=== PATIENT | male | born 1955 | race Caucasian/White ===

== ENCOUNTER 2016-06-16 13:47 | Inpatient (IN) | payer MEDICARE ==
[~2016-06-16] VITALS: Ht 177.8 cm; Wt 99.4 kg
[~2016-06-16 13:47] MED LIST: /BACIOPOI TOP; /TIOT18INH INH; AMBI10TA PEG; ASPI81TA63 PO; BISA10SU2 PR; CAPT12.5 OR; CAPT12.5 PO; DUONSOL IN; FISH1000 PO; FURO20TA2 PO; KEFL500C OR; LANO0.1211 PO; MAGN500T2 PO; PRED10TA2 OR; PREV30TA PEG; SPIR25TA2 PO; ST JOHNS WART PEG; VIT D 2000 OR; VITA500C PO; VITAMIN D PO; co; codeine PO
--- NOTE | 2016-06-16 15:24 | REP ---
CHEST, ONE VIEW: HISTORY: Cough. COMPARISON: 07/15/2013 There is elevation of the right hemidiaphragm. An increase in interstitial markings is present in the lungs consistent with chronic interstitial fibrosis. The cardiac silhouette is enlarged. The pulmonary vasculature is normal in appearance. IMPRESSION: 1. Chronic interstitial fibrosis. 2. Cardiomegaly. Signed by Haseeb Howard MD 06/16/2016 03:49 P
[2016-06-16 15:51] LABS: ANION GAP 7 MEQ/L (8-16); BLOOD UREA NITROGEN 21 MG/DL (7-18); CALCIUM LEVEL 9.7 MG/DL (8.5-10.1); CARBON DIOXIDE LEVEL 28 MEQ/L (21-32); CHLORIDE LEVEL 102 MEQ/L (98-107); CREATININE FOR GFR 1.28 MG/DL (0.70-1.30); GLOMERULAR FILTRATION RATE > 60.0 (>56); GLUCOSE, FASTING 188 MG/DL (70-105); SODIUM LEVEL 137 MEQ/L (136-145)
[2016-06-16 16:03] LABS: MEAN CORPUSCULAR HEMOGLOBIN 17.2 pg (27.0-33.0); MEAN CORPUSCULAR HGB CONC 27.9 g/dl (32.0-36.5); MEAN CORPUSCULAR VOLUME 61.6 fl (80.0-96.0); PLATELET COUNT, AUTOMATED 270 k/mm3 (150-450); RED CELL DISTRIBUTION WIDTH 20.6 % (11.5-14.5); WHITE BLOOD COUNT 13.1 K/mm3 (4.0-10.0)
[2016-06-16 16:40] LABS: NUCLEATED RED BLOOD CELL 1 % (0-0)
[2016-06-16 16:44] LABS: MICROCYTOSIS 4+
[2016-06-16 16:45] LABS: HYPOCHROMASIA 2+; POLYCHROMASIA 1+
[2016-06-16 16:46] LABS: ANISOCYTOSIS 3+
[2016-06-16] MEDS ORDERED: FUROSEMIDE 40 MG/4 ML VIAL (J1940) As Ordered ONE (16:53)
[2016-06-16] MEDS ORDERED: PLAV75TA38 PO (19:17)
[2016-06-16] MEDS ORDERED: TRAM50TA2 PO (19:17)
[2016-06-16] MEDS ORDERED: ROPI2TAB PO (19:17)
[2016-06-16] MEDS ORDERED: BISO5TAB5 PO (19:17)
[2016-06-16] MEDS ORDERED: METF1000 PO ×2 (19:17)
[2016-06-16] MEDS ORDERED: AMIT50TA PO (19:17)
[2016-06-16] MEDS ORDERED: GLIP10TA6 PO (19:17)
[2016-06-16] MEDS ORDERED: LISI-542 PO (19:17)
[2016-06-16] MEDS ORDERED: VITMTA PO (19:17)
[2016-06-16] MEDS ORDERED: LEVO175T2 PO (19:17)
[2016-06-16] MEDS ORDERED: MAGN500T14 PO (19:17)
[2016-06-16] MEDS ORDERED: OMEP20CA3 PO (19:17)
[2016-06-16] MEDS ORDERED: ASPI1TAB PO (19:17)
[2016-06-16] MEDS ORDERED: FLOM5CAP PO (19:17)
[2016-06-16] MEDS ORDERED: GABA600T PO (19:17)
[2016-06-16] MEDS ORDERED: ATOR1TAB19 PO (19:17)
[2016-06-16] MEDS ORDERED: ASCO500T PO (19:17)
[2016-06-16] MEDS ORDERED: LASI40TA PO (19:17)
[2016-06-16] MEDS ORDERED: FISH5CAP PO (19:17)
[2016-06-16] MEDS ORDERED: NS 1,000 ML IV SCH (19:56)
[2016-06-16] MEDS ORDERED: ONDANSETRON 4MG/2ML VIAL (J2405) IV PRN (20:00)
[2016-06-16] MEDS ORDERED: traMADol 50 MG TAB PO PRN (20:15)
[2016-06-16] MEDS ORDERED: GLUCAGON FOR INJ 1 MG VIAL (J1610) SC PRN (20:15)
[2016-06-16] MEDS ORDERED: DEXTROSE 50% 50 ML SYRINGE IV PRN (20:15)
[2016-06-16] MEDS ORDERED: GLUCOSE 4 GM CHEW TABLET PO PRN (20:15)
--- NOTE | 2016-06-16 20:49 | HPEPDOC ---
General Date of Admission Jun 16, 2016 at 19:56 Primary Care Physician: Emanuel Ruiz MD Chief Complaint The patient is a 60-year-old male admitted with a reason for visit of Pneumonia. 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 An EKG done at the office also revealed ST depressions in the lateral leads. The patient was subsequently sent to the ER for further evaluation and management. At this time, the patient states that he has been having persistent cough productive of greenish sputum over the last 7-10 days. In addition, he does note that he does feel short of breath following the cough. He denies any sick contacts. He also denies any increase in leg swelling and notes that he has not taking any diuretic pills in over a year. He also denies any orthopnea, PND, chest pain, palpitations, abdominal pain, or any nausea/vomiting. In the ER, the patient was noted to have a mildly elevated troponin at 0.21, and ST depressions noted in the lateral leads. Cardiology was contacted by the ER physician, and it is believed that the patient's EKG changes are secondary to his underlying fever. A chest x-ray was done which did not reveal any acute findings. The patient will be admitted to the [facility] physician group for further evaluation and management. Home Medications Scheduled (Fish Oil 1200 mg) 1 Cap Cap 1 CAP PO DAILY (Reported) Amitriptyline HCl (Amitriptyline HCl) 50 Mg Tab 50 MG PO QHS (Reported) SEE COMMENTS Ascorbic Acid (Ascorbic Acid) 500 Mg Tab 500 MG PO BID (Reported) Aspirin (Aspirin 81) 81 Mg Tab 81 MG PO DAILY (Reported) Atorvastatin Calcium (Atorvastatin Calcium) 10 Mg Tab 10 MG PO QHS (Reported) Bisoprolol Fumarate (Bisoprolol Fumarate) 5 Mg Tab 5 MG PO QHS (Reported) Clopidogrel Bisulfate (Plavix) 75 Mg Tab 75 MG PO QPM (Reported) Gabapentin (Gabapentin) 600 Mg Tab 600 MG PO TID (Reported) Glipizide (Glipizide) 10 Mg Tab 10 MG PO BID (Reported) Levothyroxine Sodium (Synthroid) 175 Mcg Tab 175 MCG PO QAM (Reported) Lisinopril (Lisinopril) 5 Mg Tab 5 MG PO QHS (Reported) Magnesium Oxide (Magnesium Oxide) 500 Mg Tab 500 MG PO BID (Reported) Metformin Hydrochloride (Metformin HCl) 1,000 Mg Tab 1,500 MG PO QAM (Reported ) Metformin Hydrochloride (Metformin HCl) 1,000 Mg Tab 1,000 MG PO QPM (Reported ) Multivitamins *[facility] STOCKED* (Thera M Plus *[facility] STOCKED*) 1 Tab Tab 1 TAB PO DAILY (Reported) Omeprazole (Omeprazole) 20 Mg Cap 20 MG PO DAILY (Reported) Ropinirole Hydrochloride (Ropinirole HCl) 2 Mg Tab 2 MG PO QHS (Reported) Tamsulosin Hydrochloride (Flomax) 0.4 Mg Cap 1 CAP PO DAILY (Reported) SEE COMMENTS Scheduled PRN Furosemide (Lasix) 40 Mg Tab 40 MG PO BID PRN PRN EDEMA (Reported) Tramadol HCl (Tramadol HCl) 50 Mg Tab 50 MG PO Q6H PRN PRN PAIN (Reported) Allergies Coded Allergies: No Known Drug Allergy (Verified Allergy, Unknown, 08/06/12) Shellfish Allergy (Unverified Allergy, Unknown, 06/16/16) Shrimp (Verified Allergy, Unknown, 06/19/07) Past Medical History Medical History As noted in HPI. Surgical History LARYNGECTOMY AT [facility]--SCCA EPIGLOTTIS 2010 AVR--BIPOROSTHETIC VALVE 2012 BILAT FEMORAL ARTERY STENTS 02/16 SIGNIFICANT STENOSIS LEFT PROXIMAL SFA WITH PTCA WITH JAMAL PROXIMAL END AND PTCA TO DISTAL END 01/2014 COLONOSCOPY--NORMAL 07/20 LEFT FEMORAL-POPLITEAL BYPASS WITH REVERSE VEIN GRAFT, POST OP WOUND INFECTION (E COLI AND PSEUDOMONAS) 03/2015 RIGHT UPPER LOBE LOBECTOMY 2007 Family History Significant Family History: No pertinent family hx Social History * Smoker: former Smoker Alcohol: occationally Drugs: denies Review of Symptoms Other systems 10 point review systems negative as otherwise specified in HPI. Physical Examination General Exam: Positive: Alert, Cooperative, No Acute Distress ENT Exam: Positive: Atraumatic, Mucous membr. moist/pink Neck Exam: Positive: Other (tracheostomy opening noted) Chest Exam: Positive: Clear to auscultation, Diminished, Negative: Rales, Wheezing Heart Exam: Positive: Normal S1, Normal S2, Regular Rhythm, Tachycardic Telemetry: Positive: Sinus Abdomen Exam: Positive: Soft, Negative: Tenderness Extremity Exam: Negative: Swelling, Tenderness Laboratory Data Labs 24H Laboratory Tests 2 06/16/16 14:52: Urine Amorphous Sediment , Urine Appearance CLEAR, Urine Color YELLOW, Urine pH 7.0, Urine Specific [place] 1.008, Urine Protein NEGATIVE, Urine Glucose (UA) 2+ H, Urine Ketones NEGATIVE, Urine Urobilinogen 0.2, Urine Bilirubin NEGATIVE, Urine Leukocyte Esterase NEGATIVE, Urine Bacteria (Auto) 1+H, Urine Blood NEGATIVE, Urine Calcium Carbonate Cryst(Auto) , Urine Calcium Oxalate Cryst ( Auto) , Urine Calcium Phosphate [place] (Auto) , Urine Cellular Casts , Urine Cystine Crystals , Urine Granular Casts (Auto) , Urine Hyaline Casts (Auto) 0, Urine Leucine Crystals , Urine Mucus (Auto) , Urine Nitrite NEGATIVE, Urine Oval Fat Bodies (Auto) , Urine RBC (Auto) 1, Urine Renal Epithelial Cells , Urine Sperm (Auto) , Urine Squamous Epithelial Cells 0, Urine Transitional Epithelial Cells , Urine Trichomonas (Auto) , Urine Triple Phosphate Cryst (Auto ) , Urine Tyrosine Crystals , Urine Uric Acid Crystals (Auto) , Urine WBC (Auto ) 0, Urine Waxy Casts (Auto) , Urine Yeast-Like Cells (Auto) 06/16/16 14:58: Anion Gap 7L, Anisocytosis 3+, Atypical Lymphocytes 1, B-Type Natriuretic Peptide 1200H, White Blood Count 13.1H, Red Blood Count 5.75, Hemoglobin 9.9L, Hematocrit 35.5L, Mean Corpuscular Volume 61.6L, Mean Corpuscular Hemoglobin 17.2L, Mean Corpuscular Hemoglobin Concent 27.9L, Red Cell Distribution Width 20.6H, Platelet Count 270, Neutrophils (%) (Auto) , Lymphocytes (%) (Auto) , Monocytes (%) (Auto) , Eosinophils (%) (Auto) , Basophils (%) (Auto) , Neutrophils # (Auto) , Lymphocytes # (Auto) , Monocytes # (Auto) , Eosinophils # (Auto) , Basophils # (Auto) , Blood Urea Nitrogen 21H, Creatinine 1.28, Sodium Level 137, Potassium Level 5.0, Chloride Level 102, Carbon Dioxide Level 28, Calcium Level 9.7, Total Creatine Kinase 124, Creatine Kinase MB 3.3, Creatine Kinase MB Relative Index 2.66, Glomerular Filtration Rate > 60.0, Hypochromasia 2+, Large Unclassified Cells # , Large Unclassified Cells % , Lymphocytes (Manual) 6L, Microcytosis 4+, Monocytes (Manual) 9H, Neutrophils 84H , Nucleated Red Blood Cells 1H, Platelet Estimate NORMAL, Polychromasia 1+, Troponin I 0.21H 06/16/16 16:00: Lactic Acid (Sepsis) 2.4*H 06/16/16 20:29: CBC/BMP Laboratory Tests 06/16/16 14:58 Calcium Level 9.7, Total Creatine Kinase 124, Red Blood Count 5.75, Mean Corpuscular Volume 61.6 L, Mean Corpuscular Hemoglobin 17.2 L, Mean Corpuscular Hemoglobin Concent 27.9 L, Red Cell Distribution Width 20.6 H, Neutrophils (%) ( Auto) , Lymphocytes (%) (Auto) , Monocytes (%) (Auto) , Eosinophils (%) (Auto) , Basophils (%) (Auto) , Neutrophils # (Auto) , Lymphocytes # (Auto) , Monocytes # (Auto) , Eosinophils # (Auto) , Basophils # (Auto) Microbiology Microbiology 06/16/16 Blood Culture, Received Pending 06/16/16 Blood Culture, Received Pending 06/16/16 Group A Streptococcus Screen (SAMUEL), Received Pending 06/16/16 Influenza Virus Type A Antigen - Final, Complete 06/16/16 Influenza Virus Type B Antigen - Final, Complete 06/16/16 Urine Culture, Received Pending Plan / VTE VTE Prophylaxis Ordered?: Yes Plan Plan Fever, cough likely secondary to underlying community acquired pneumonia Admit to progressive care unit Chest x-ray noted to be without any acute findings We'll get a CT of the chest to further evaluate for possible pneumonia Blood cultures, sputum cultures, respiratory panel ordered We will start the patient on Levaquin Gentle IV fluid hydration We will continue to monitor the patient's progress Elevated troponin level Likely secondary to underlying fever, pneumonia Cardiology contacted by the ER physician and has recommended to continue with medical management of fever EKG notable for ST depressions in the lateral leads Patient without any chest pain, palpitations Continue on aspirin, Plavix, statin, bisoprolol, MORENITA inhibitor Continue to cycle troponins 3 Repeat EKG in the AM CAD with Congestive heart failure with an EF noted to be 37% on last echo from following aortic valve replacement, femoropopliteal bypass on the left Continue above medication regimen Patient appears to be in compensated state without any fluid overload Repeat echocardiogram ordered Follows with Dr. Peterson of cardiology as an outpatient Diabetes mellitus Continue insulin sliding scale Hypothyroidism Continue levothyroxine Stage IV supraglottic squamous cell carcinoma status post laryngectomy Adenocarcinoma of the right upper lobe status post lobectomy in 2007 DVT Prophylaxis- Lovenox SC The patient will be admitted under the service of [facility] physicians, Dr. Carreon who will start following the patient tomorrow at 06/17/2016 at 7 AM. NIRMALA GAGE MD Jun 16, 2016 20:49
[2016-06-16] MEDS ORDERED: LevoFLOXacin IV 500 MG in APPROPRIATE DILUENT 1 EA IV SCH (21:00)
[2016-06-16] MEDS ORDERED: LISINOPRIL 5 MG TAB PO SCH (21:00)
[2016-06-16 21:20] VITALS: BP 161/87
--- NOTE | 2016-06-16 21:50 | REPUSA ---
CT of the chest without contrast Clinical statement: cough. Technique: Multiple axial CT images were obtained with 5 mm cuts through the chest without administra tion of contrast. Comparison: 03/11/2013. Findings: There is no thoracic lymphadenopathy. The visualized portions of the thyroid gland is unrem arkable. There are small bilateral pleural effusions. The lungs are clear. Limited imaging of the upp er abdomen does not demonstrate any acute abnormalities. There are no suspicious osseous lesions. Impression: Small new bilateral pleural effusions.
[2016-06-16] MEDS ORDERED: LevoFLOXacin(LEVAQUIN)500 MG/100 ML BAG (J1956) As Ordered ONE (22:31)
[2016-06-16] MEDS ORDERED: BISOPROLOL FUMARATE 5 MG TAB As Ordered ONE (22:32)
[2016-06-16] MEDS ORDERED: CLOPIDOGREL 75 MG TAB As Ordered ONE (22:32)
[2016-06-16] MEDS: ATORVASTATIN 10 MG TAB PO SCH (22:36)
[2016-06-16] MEDS: BISOPROLOL FUMARATE 5 MG TAB PO SCH (22:37)
[2016-06-16] MEDS: GABAPENTIN 300 MG CAP PO SCH (22:37)
[2016-06-16] MEDS: rOPINIRole 1MG TAB PO SCH (22:37)
[2016-06-16] MEDS: ASCORBIC ACID 500 MG TAB PO SCH (22:37)
[2016-06-16] MEDS: AMITRIPTYLINE 50 MG TAB PO SCH (22:38)
[2016-06-16] MEDS: CLOPIDOGREL 75 MG TAB PO SCH (22:38)
[2016-06-16] MEDS ORDERED: HumuLIN R (REGULAR) INSULIN (NovoLIN R) **100U/ML** PER UNIT As Ordered ONE (22:46)
[2016-06-16] MEDS ORDERED: HumaLOG INSULIN (NovoLOG) PER UNIT As Ordered ONE (22:50)
[2016-06-16] MEDS: HumaLOG INSULIN (NovoLOG) PER UNIT SC SCH (22:51)
[2016-06-17] MEDS ORDERED: BENZONATATE 100 MG CAP PO PRN
[2016-06-17 00:09] VITALS: BP 94/61
[2016-06-17] MEDS ORDERED: BENZONATATE 100 MG CAP As Ordered ONE (00:41)
[2016-06-17 04:11] VITALS: BP 91/43
[2016-06-17] MEDS: LEVOTHYROXINE 0.15 MG TAB (150 MCG) PO SCH (05:41)
[2016-06-17] MEDS: LEVOTHYROXINE 0.025 MG TAB (25 MCG) PO SCH (05:41)
[2016-06-17 05:45] LABS: MEAN CORPUSCULAR HEMOGLOBIN 17.1 pg (27.0-33.0); MEAN CORPUSCULAR HGB CONC 27.4 g/dl (32.0-36.5); MEAN CORPUSCULAR VOLUME 62.5 fl (80.0-96.0); RED CELL DISTRIBUTION WIDTH 20.7 % (11.5-14.5); WHITE BLOOD COUNT 13.2 K/mm3 (4.0-10.0)
[2016-06-17 06:11] LABS: CALCIUM LEVEL 9.1 MG/DL (8.5-10.1)
[2016-06-17 06:27] LABS: GLOMERULAR FILTRATION RATE 29.7 (>56)
[2016-06-17 06:31] LABS: CREATININE FOR GFR 2.4 MG/DL (0.70-1.30)
[2016-06-17 08:00] VITALS: BP 92/52
[2016-06-17] MEDS ORDERED: HumaLOG INSULIN (NovoLOG) PER UNIT As Ordered ONE (08:27)
[2016-06-17] MEDS: OMEPRAZOLE 20 MG CAP PO SCH (08:39)
[2016-06-17] MEDS: GABAPENTIN 300 MG CAP PO SCH ×3 (08:39→20:41)
[2016-06-17] MEDS: HumaLOG INSULIN (NovoLOG) PER UNIT SC SCH ×4 (08:39→22:10)
[2016-06-17] MEDS: TAMSULOSIN 0.4 MG CAP PO SCH (08:39)
[2016-06-17] MEDS: ASCORBIC ACID 500 MG TAB PO SCH ×2 (08:39→20:41)
[2016-06-17] MEDS: ASPIRIN 81 MG ENTERIC TAB PO SCH (08:39)
[2016-06-17] MEDS: ENOXAPARIN 30 MG/0.3 ML SYR (J1650) SC SCH (08:43)
[2016-06-17] MEDS ORDERED: ENOXAPARIN 30 MG/0.3 ML SYR (J1650) As Ordered ONE (08:43)
--- NOTE | 2016-06-17 08:57 | IPN ---
DATE: 06/17/2016 SUBJECTIVE: The patient feels better. The mid central chest discomfort that he had been experiencing yesterday seems to have resolved. He is not at this time dyspneic and wheezing that he had noticed yesterday seems to have resolved as well At this time, he is experiencing no chest pain. He has no awareness of any flutters, any trouble breathing and no nausea. feels quite comfortable. OBJECTIVE: Most recent vital signs: Blood pressure 91/43, pulse oximetry 95%, heart rate is 83 with respiratory rate 18 and the fever that he manifested yesterday has resolved with temperature now at 98.8. 95% O2 sat is on room air. General: He is alert, pleasant, in no distress. He does have a tracheostomy and speaks by activating the vibrating appliance built into his trache. He has no significant cough, although occasional intermittent cough is noted. Lungs: Show good expansion. No wheezing, rales or rhonchi are heard at this time. Abdomen is soft, nontender. No guarding or rebound. He has no edema noted. LABORATORY DATA: White count 13.2, hemoglobin 10.1, platelet count 236,000. Electrolytes this morning and normal. Potassium 5.0 with BUN up to 26, creatinine up at 2.4. This is a substantial rise compared to admission creatinine which was 1.28. Lactic acid is elevated from 2.4 on admission to 2.8 in 2025, 4-1/2 hours later, troponin 0.21 initially, eli to 0.26 6 hours later and this morning at approximately 7 hours after the second study is up to 0.37. The rise is concerning but not in self fully diagnostic of acute coronary injury. However EKG today shows substantial changes with ST-segment depressions in V2, T-wave inversions V1, 2, 3, 4, 5, and ST-segment depressions in 4 and 5 as well and overall wide QRS with QRS duration of 130 milliseconds. First degree AV block with 222 millisecond interval. Overall finding is concerning for anterior ischemia possibly injury, EKG was reviewed with Dr. Peterson and in view of his renal function of 2.4, he does not recommend transfer for catheterization, therefore the patient will be admitted for acute coronary syndrome. At this point, he has recommended continuation of aspirin and clopidogrel. Has not recommended heparin or heparinoid. Will order routine deep venous thrombosis (DVT) prophylaxis. Continue his current meds. ASSESSMENT: Fever with cough and these symptoms have improved. Acute renal injury consistent with acute renal failure. Rise in troponin consistent with ischemic disease versus nonspecific myocardial injury secondary to stress. Echocardiogram has been ordered, continue aspirin and Plavix as suggested by Dr. Peterson. Continue thyroxin for hypothyroidism. He is currently on gabapentin 600 three times daily which will need to be reduced if his renal function stays at the level it is now. Contributing to his acute renal failure was likely combined effect of diuretic and lisinopril. Lisinopril has been stopped and he will see no further diuretics unless he shows more overt evidence of congestive heart failure (CHF), although is noted that is BNP was elevated on admission. At this point, he does not look to have active signs of congestive heart failure. edited: 06/21/2016 0914 tkf MTDD
--- NOTE | 2016-06-17 08:59 | ECGEPIP ---
Stationary ECG Study [facility] Test Date: 2016-06-17 Pat Name: SUHA MORALES Department: Room: [place] [address] Gender: M Prover: reji : 1955 Requested By: Andrea Crane Order Number: [id number] Reading MD: Melissa Gaytan Measurements Intervals [place] Rate: 77 P: 49 [place]: 222 QRS: -28 QRSD: 130 T: -18 QT: 432 QTc: 491 Interpretive Statements SINUS RHYTHM WITH FIRST DEGREE AV BLOCK LEFT VENTRICULAR HYPERTROPHY AND ST-T CHANGE ILBBB ANTERIOR STT WAVE ABN SUGGESIVE IF ISCHEMIA NO PRIOR Electronically Signed On 06-17-2016 8:59:48 EST by Melissa Gaytan
[2016-06-17] MEDS ORDERED: ENOXAPARIN 40 MG/0.4 ML SYRINGE (J1650) SC SCH (09:00)
--- NOTE | 2016-06-17 11:28 | CR ---
DATE OF CONSULTATION: 06/17/2016 REFERRING PHYSICIAN: Dr. Andrea Carreon INDICATION: Elevated troponin, congestive heart failure. HISTORY OF PRESENT ILLNESS: Mr. Finney is well known to me. I actually referred him for hospitalization when I saw him in the office yesterday. He presented for a routine checkup of his ABIs. He complained about feeling dizzy, coughing, being more short of breath, and also complained about pleuritic sounding discomfort over the left lower ribs during his coughing spells. He initially thought that these symptoms are a side effect of recently prescribed medications by his primary care physician (tamsulosin and analgesics), but he stopped the medications several days ago and the symptoms were persistent or even deteriorating. He denies any fever or chills, but he did not measure his temperature. During the office evaluation, he was found to be febrile with fever of 101.2. The ECG revealed sinus tachycardia with fairly significant precordial ST segment depressions, but it was in the setting of interventricular conduction delay (IVCD) very close to left bundle branch block, which somewhat diminishes the diagnostic yield. He was brought to the hospital. His vital signs on admission were stable, but he did have a fever. His white cell count was elevated and he had a very high BNP at 1200 and lactic acid at 2.4 and later 2.8. Blood cultures, urine culture, throat swab, and respiratory screen were all done. He was given Levaquin and also received high dose of Lasix after CT scan of the chest revealed small bilateral pleural effusions. This morning, the patient tells me that he is feeling better. His prior chest discomfort is essentially completely gone, mostly because he has not been coughing as much as he did previously, but with cough he still has discomfort over the left side of his chest. He denies any chest discomfort outside of coughing spells and he also denies having any chest discomfort outside of coughing spells in previous days. His shortness of breath has improved. Overall, he feels better. Unfortunately, this morning his renal function was found to be significantly diminished since yesterday. Creatinine jumped up from initial 1.3 to 2.4 today. I was asked by Dr. Carreon to see the patient mostly because of troponin elevation and also to guide further management for congestive heart failure. PAST MEDICAL HISTORY: 1. The patient does have a history of coronary artery disease. He has a remote history of percutaneous intervention, but his most recent coronary evaluation did not reveal any evidence for obstructive coronary artery disease. He had a heart catheterization just before his aortic valve replacement in 2011. 2. Probably non-ischemic cardiomyopathy. He initially presented with severe aortic stenosis and severely diminished left ventricular systolic function in 2009, but there was improvement after aortic valve replacement. The most recent assessment available to me is from 2013 where his left ventricular ejection fraction was evaluated at 40%. 3. Severe peripheral vascular disease, status post percutaneous interventions as well as status post left femoral popliteal bypass. 4. Type 2 diabetes. 5. Chronic renal insufficiency. 6. Dyslipidemia. 7. History of lung cancer, status post right upper lobectomy. 8. History of laryngeal cancer, status post chemoradiation and resection of larynx and base of tongue resection and tracheostomy. OUTPATIENT MEDICATIONS: - aspirin - Plavix - omeprazole - Flomax 0.4 mg a day, even though it was recently discontinued - insulin - levothyroxine 175 mcg - bisoprolol 5 mg a day - Lipitor 10 mg at night - gabapentin 600 mg three times a day - Requip 2 mg at night - tramadol every 6 hours as needed ALLERGIES: No known allergies. SOCIAL HISTORY: The patient used to smoke, but quit in 2007. He has been on disability. He is , but has a significant other. No significant alcohol use. FAMILY HISTORY: His father of coronary artery disease at the age of 65. SURGICAL HISTORY: Positive for laryngectomy in 2010, right upper lobectomy in 2007, left femoral popliteal bypass in 2014, and aortic valve replacement with bioprosthetic valve in 2011. REVIEW OF SYSTEMS: He does not recall any recent fever or chills, even though he was febrile on admission. He denies headache. He denies nausea or vomiting. He complains about cough productive of yellowish sputum. He does have report of several days of principally left sided pleuritic chest discomfort only during his coughing spells. He has been short of breath for some time. No abdominal pain. No diarrhea. No bleeding symptoms. No peripheral edema. No dizziness. No near syncope. No recent claudications. The rest of the review of systems is negative. PHYSICAL EXAMINATION: Mr. Finney is a 60-year-old man who appears to be approximately his age, only maybe slightly older. He does not appear in any distress this morning. Blood pressure 92/52. He is afebrile this morning, but the maximum documented temperature in the emergency room (ER) was 100.3. Saturation is 95% on room air. His weight is documented at 95.3 kg. He is alert and oriented. He has a tracheostomy. He does not have jugular venous pulse (JVP) elevation. I do not appreciate carotid bruit. Lungs are relatively clear to auscultation even though there is slight diminished breath sounds over the right base. I do not appreciate any gallop or rub. There is a murmur best heard over the base, not more than 1/6 intensity. Abdomen is obese, but soft and nontender. I do not appreciate organomegaly. Legs are free of edema. There are palpable pulses bilaterally, but not more than maybe 1 out of 3 quality. No trophic defects. Neurologically, he is intact. There is no apparent weakness. Laboratory-castelan, as of this morning, potassium is 5.0, BUN 26, creatinine 2.4 for a GFR of 13, glucose 235. He had several sets of troponin. The initial was 0.21. The second one was 0.26 and the third one 0.37. BNP was 1200. CBC: WBC count 13,000, hemoglobin 10, hematocrit 36 and platelet count 236,000. Differential with 84 neutrophils and 6 lymphocytes. He had group A Strep screen that was pending. Influenza swab was negative. Blood cultures and urine culture are still pending. Chest x-ray was not convincing for an infiltrate or congestive heart failure, but does look to have chronic interstitial abnormalities. CT scan revealed small bilateral effusions. There are calcifications in coronary arteries, but no distinct infiltrate as such. His urinalysis was 2+ glucose and negative for leukocyte esterase. Some bacteria were seen. ECG this morning reveals the presence of sinus rhythm with precordial T wave inversions. Yesterday, sinus rhythm with ST segment depressions. ASSESSMENT AND PLAN: Mr. Finney is a very complicated patient. I believe that the principal presentation is consistent with some form of infection, even though I am not certain what is the origin. I do not see any obvious convincing evidence for infiltrate, but the presentation with cough and production of yellowish sputum per patient really points towards respiratory infection as the most likely source. His urine so far does not appear to be the source, but I think we should consider also additional possibilities, including endocarditis. I ordered an echocardiogram and blood cultures are pending. He is clinically improving which is favorable. As far as congestive heart failure is concerned, he received a high dose of Lasix yesterday and put out a lot of urine. He does not appear to be in heart failure on my clinical exam this morning and his breathing is much better. I would not give him additional doses of Lasix. Because of worsening renal failure, which undoubtedly is due to a combination of MORENITA inhibitors and diuretics and probably underlying infection, I do not think that we can pursue any further diuretics today. I would reevaluate him again tomorrow morning. As far as the troponin and EKG abnormalities are concerned, that certainly raises suspicion for ischemic event, even though clinically the pain is clearly pleuritic. I suspect that it could be a consequence of infection, but I still think that we have to consider ischemic event in the differential diagnosis. He is on aspirin and Plavix and deep vein thrombosis prophylactic dose of Lovenox, which is essentially a therapeutic dose considering his renal insufficiency. We will continue following his troponin as well as an echocardiogram. He may need coronary angiogram, but not at this setting when he is in acute renal failure and administration of dye would probably lead to further decline of renal function and possibly dialysis. He is pain free and again I want to repeat that clinically the pain is not consistent with ischemic pain. He remains certainly significantly ill and will need to stay in the hospital I suspect for at least a couple of additional days at minimum. 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
[2016-06-17 11:30] VITALS: BP 111/63
--- NOTE | 2016-06-17 11:42 | EDDOCDS ---
Physician Documentation [facility] Name: Timmy Finney Age: 60 yrs Sex: Male : 1955 Arrival Date: 06/16/2016 Time: 13:47 Bed Admit Hold Private MD: Emanuel Ruiz MD Disposition: 06/16/16 18:24 Hospitalization ordered by Jez Gibbons for Inpatient Admission. Preliminary diagnosis are Acute bronchitis, Fever, unspecified, Cough, Chest pain, unspecified. - Bed requested for PCU. - Status is Inpatient Admission. bcj - Condition is Stable. - Problem is new. - Symptoms are unchanged. Historical: - Allergies: no known allergies; - Home Meds: 1. tamsulosin 0.4 mg oral cp24 1 cap once daily (Last dose: 06/12/2016) 2. tramadol 50 mg Oral tab 1 tab as needed (Last dose: 06/12/2016) 3. ropinirole 2 mg oral tab daily 4. amitriptyline 50 mg Oral tab 1 tab nightly 5. aspirin 81 mg Oral tab 1 tab once daily (Last dose: 06/15/2016) 6. atorvastatin 10 mg oral tab 1 tab once daily (Last dose: 06/15/2016) 7. bisoprolol fumarate 5 mg oral tab 0.5 tab once daily (Last dose: 06/15/2016) 8. gabapentin 600 mg Oral tab 1 tab 3 times per day (Last dose: 06/15/2016) 9. glipizide 10 mg Oral tab 1 tab 2 times per day (Last dose: 06/15/2016) 10. levothyroxine 175 mcg Oral tab 1 tab once daily (Last dose: 06/15/2016) 11. lisinopril 5 mg Oral tab 1 tab once daily (Last dose: 06/15/2016) 12. magnesium oxide 500 mg Oral cap daily (Last dose: 06/15/2016) 13. Multivitamin Oral 1 tablet daily (Last dose: 06/15/2016) 14. Metformin 1500 mg bid Oral (Last dose: 06/15/2016) 15. omeprazole 20 mg Oral cpDR 1 cap once daily (Last dose: 06/15/2016) 16. Plavix 75 mg Oral tab 1 tab once daily (Last dose: 06/15/2016) - PMHx: throat cancer,; Lung cancer; Diabetes - NIDDM: controlled; GERD; Hypertension; Hypercholesterolemia; - PSHx: Aortic valve replacement 2009; Laryngectomy 2010; Right upper lobectomy 2007; - Social history: Smoking status: Patient states former smoker of tobacco. No barriers to communication noted, The patient speaks fluent Micronesian. - Family history: Not pertinent. - : The pt / caregiver states he / she is on anticoagulants: Plavix. Home medication list is obtained from the patient. - Exposure Risk Screening:: None identified. Vital Signs: 06/16 13:48 BP 139 / 81; Pulse 114; Resp 18; Temp 100.4(O); Pulse Ox 94% on R/A; Weight 99.79 kg / elp 220 lbs (R); Height 5 ft. 10 in. (177.80 cm) (R); 15:03 BP 147 / 77 (auto/); ml6 15:03 Pulse 102; Resp 18; Pulse Ox 98% on R/A; Pain 0/10; ml6 16:48 BP 139 / 72 (auto/); ko2 16:48 Pulse 114 MON; Pulse Ox 89% ; ko2 17:05 BP 127 / 87 (auto/); ko2 17:06 Pulse 112 MON; Pulse Ox 97% ; ko2 17:33 BP 133 / 66 (auto/); ko2 17:34 Pulse 110 MON; Pulse Ox 94% ; ko2 18:03 BP 149 / 70 (auto/); ko2 18:04 Pulse 124 MON; Pulse Ox 95% ; ko2 19:00 Pulse 116 MON; Pulse Ox 95% ; ko2 19:03 BP 130 / 79 (auto/); ko2 13:48 Body Mass Index 31.57 (99.79 kg, 177.80 cm) elp MDM: 14:44 IV Saline Lock ordered. fg 14:44 Undress patient appropriately for examination ordered. fg 14:44 Obtain sample by nasal aspiration ordered. fg 14:44 Strep Screen, Nursing ordered. fg 14:44 -Blood Culture (Adults Only), peripheral from different site, or from device/port/PICC fg etc. if present ordered. 14:45 B-Type Natiuretic Peptide Ordered. EDMS 14:45 Basic Metabolic Profile Ordered. EDMS 14:45 CBC with Diff Ordered. EDMS 14:45 Urinalysis Ordered. EDMS 14:45 -Influenza A&B Rapid Antigen - Nose Ordered. EDMS 14:45 Urine Culture Ordered. EDMS 14:45 -Blood Culture Ordered. EDMS 14:45 portable chest Ordered. EDMS 14:46 ECG WITH READING ER PHYS+CARDIAG ordered. EDMS 14:55 -Blood Culture (Adults Only), peripheral from different site, or from device/port/PICC deg etc. if present complete. 14:56 BLOOD CULTURES Ordered. EDMS 15:30 GATS (NEGATIVE STREP SCREEN) Ordered. EDMS 15:55 Financial registration complete. gjb 15:56 [facility] Payment Agreement was scanned into [employer] and attached to record. gjb 16:04 DIFFERENTIAL NO CHARGE Ordered. EDMS 16:04 PLATELET ESTIMATE Ordered. EDMS 16:37 Furosemide 40 mg IVP once ordered. fg 16:49 Repeat EKG (put time details section) ordered. fg 16:50 Cardiac Marker Panel: 1900 Ordered. EDMS 16:50 Troponin: 1900 Ordered. EDMS 16:50 CARDIAC INJURY PROFILE Ordered. EDMS 16:50 TROPONIN Ordered. EDMS 16:51 Repeat EKG (put time details section) complete. deg 16:53 ECG WITH READING ER PHYS ordered. EDMS 17:08 SOFT+DIET ordered. EDMS 17:27 B-Type Natiuretic Peptide Reviewed. ml 17:27 Basic Metabolic Profile Reviewed. ml 17:27 CBC with Diff Reviewed. ml 17:27 Urinalysis Reviewed. ml 17:27 TROPONIN Reviewed. ml 17:27 -Influenza A&B Rapid Antigen - Nose Reviewed. ml 17:27 PLATELET ESTIMATE Reviewed. ml 17:27 CARDIAC INJURY PROFILE Reviewed. ml 17:27 portable chest Reviewed. ml 17:33 Misc. Nursing Order ordered. ml 17:35 Lactic Acid (Ayala tube on ice) Ordered. EDMS 17:35 BED REQUEST+ADM ordered. EDMS 18:07 Lactic Acid (Ayala tube on ice) Reviewed. ml 20:05 Admission / Observation Status ordered. EDMS 20:06 ECHOCARD,DOPPLER/COLOR FLOW ordered. EDMS 20:06 CT Chest without contrast Ordered. EDMS 20:06 SOFT DIET ordered. EDMS 20:06 COMPLETE BLOOD COUNT Ordered. EDMS 20:07 TROPONIN Ordered. EDMS 20:07 TROPONIN Ordered. EDMS 20:07 RESPIRATORY PANEL Ordered. EDMS 20:07 GASTROINTESTINAL (GI) PANEL Ordered. EDMS 20:45 SPUTUM CULTURE AND GRAM STAIN Ordered. EDMS 22:35 BASIC METABOLIC PROFILE Ordered. EDMS 22:35 MAGNESIUM LEVEL Ordered. EDMS 23:00 Fingerstick Blood Sugar Ordered. EDMS 06/17 07:57 ELECTROCARDIOGRAM ADULT ordered. EDMS Administered Medications: 06/16 16:54 Drug: Furosemide 40 mg [furosemide 10 mg/mL injection solution (4 mL)] Route: IVP; ml6 Site: left antecubital; Signatures: Dispatcher [employer] EDME Michelle Booth MD MD ml Ana Napoles, Towel Rolling Machine Operator Unit deg Charlie Rachel, RN RN dwMarcus Lamb, RN RN bcSamuel Fernandez, RN RN ml6 Rose Link MD MD fg Beck, Gabriela gjb The chart was reviewed and I authenticate all verbal orders and agree with the evaluation and treatment provided.Corrections: (The following items were deleted from the chart) 16:50 16:39 CARDIAC INJURY PROFILE+LAB ordered. EDMS EDMS 16:50 16:39 TROPONIN+LAB ordered. EDMS EDMS 20:07 20:07 GASTROINTESTINAL (GI) PANEL ordered. EDMS EDMS 20:07 20:07 GASTROINTESTINAL (GI) PANEL ordered. EDMS EDMS 20:19 20:07 BLOOD CULTURES ordered. EDMS EDMS 20:48 20:06 TROPONIN ordered. EDMS EDMS 22:34 20:06 BASIC METABOLIC PROFILE ordered. EDMS EDMS 22:34 20:33 MAGNESIUM LEVEL ordered. EDMS EDMS 06/17 00:17 06/16 20:33 ARTERIAL BLOOD GAS ordered. EDMS EDMS Attachments: 15:56 [facility] Payment Agreement [email or web address]
--- NOTE | 2016-06-17 11:43 | EDDOCDS ---
Nurse's Notes [facility] Name: Suha Morales Age: 60 yrs Sex: Male : 1955 Arrival Date: 06/16/2016 Time: 13:47 Bed Admit Hold Private MD: Emanuel Ruiz MD Diagnosis: Acute bronchitis;Fever, unspecified;Cough;Chest pain, unspecified Presentation: 06/16 14:05 Presenting complaint: Patient states: Productive cough, fevers, chills, increased dwg shortness of breath for 5 days, sent from Dr. Peterson's office with these symptoms in addition to EKG changes. Adult Sepsis Screening: The patient does not have new or worsening altered mentation. Patient's respiratory rate is less than 22. Systolic blood pressure is greater than 100. Patient has a qSOFA score of 0- Negative Sepsis Screen. Suicide/Homicide risk assessment- the patient denies having any suicidal and/or homicidal ideations and does not present with any other emotional, behavioral or mental health complaints. 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 Transition of care: patient was received from Dr. Peterson's office. Red Flag criteria, patient assessed and taken directly to a bed. 14:05 Acuity: MOUSTAPHA Level 3 dwg 14:05 Method Of Arrival: Walkin/Carried/Asstd dwg Triage Assessment: 14:21 General: Appears in no apparent distress. Pain: Pain currently is 5 out of 10 on a pain dwg scale. HIV screening NA for this visit Offered previously. Historical: - Allergies: no known allergies; - Home Meds: 1. tamsulosin 0.4 mg oral cp24 1 cap once daily (Last dose: 06/12/2016) 2. tramadol 50 mg Oral tab 1 tab as needed (Last dose: 06/12/2016) 3. ropinirole 2 mg oral tab daily 4. amitriptyline 50 mg Oral tab 1 tab nightly 5. aspirin 81 mg Oral tab 1 tab once daily (Last dose: 06/15/2016) 6. atorvastatin 10 mg oral tab 1 tab once daily (Last dose: 06/15/2016) 7. bisoprolol fumarate 5 mg oral tab 0.5 tab once daily (Last dose: 06/15/2016) 8. gabapentin 600 mg Oral tab 1 tab 3 times per day (Last dose: 06/15/2016) 9. glipizide 10 mg Oral tab 1 tab 2 times per day (Last dose: 06/15/2016) 10. levothyroxine 175 mcg Oral tab 1 tab once daily (Last dose: 06/15/2016) 11. lisinopril 5 mg Oral tab 1 tab once daily (Last dose: 06/15/2016) 12. magnesium oxide 500 mg Oral cap daily (Last dose: 06/15/2016) 13. Multivitamin Oral 1 tablet daily (Last dose: 06/15/2016) 14. Metformin 1500 mg bid Oral (Last dose: 06/15/2016) 15. omeprazole 20 mg Oral cpDR 1 cap once daily (Last dose: 06/15/2016) 16. Plavix 75 mg Oral tab 1 tab once daily (Last dose: 06/15/2016) - PMHx: throat cancer,; Lung cancer; Diabetes - NIDDM: controlled; GERD; Hypertension; Hypercholesterolemia; - PSHx: Aortic valve replacement 2009; Laryngectomy 2010; Right upper lobectomy 2007; - Social history: Smoking status: Patient states former smoker of tobacco. No barriers to communication noted, The patient speaks fluent Slovak. - Family history: Not pertinent. - : The pt / caregiver states he / she is on anticoagulants: Plavix. Home medication list is obtained from the patient. - Exposure Risk Screening:: None identified. Screenin:26 Screening information is obtained from the patient. Fall risk: No risks identified. ml6 Assistance ADL's: requires no assistance with activities of daily living. Abuse/DV Screen: The patient / caregiver reports he/she is: not in a situation that causes fear, pain or injury. Nutritional screening: No deficits noted. Advance Directives: Currently, there is no health care proxy. home support is adequate. Assessment: 15:25 General: Appears in no apparent distress, Behavior is appropriate for age, cooperative. ml6 Pain: Denies pain. Cardiovascular: No deficits noted. Capillary refill < 3 seconds is brisk in bilateral fingers toes Heart tones S1 S2 present. Respiratory: Airway is patent Respiratory effort is even, unlabored, Respiratory pattern is regular, symmetrical, Breath sounds are diminished bilaterally. Reports cough that is productive, the patient has moderate shortness of breath. GI: No deficits noted. 16:30 Reassessment: Patient appears in no apparent distress at this time. Patient denies pain ml6 at this time. Patient states feeling better. Patient states symptoms have improved. 17:30 Reassessment: Patient appears in no apparent distress at this time. Patient denies pain ml6 at this time. Patient states feeling better. Patient states symptoms have improved. no change from previous . 18:30 General: Appears in no apparent distress, comfortable, Behavior is appropriate for age, ml6 cooperative. Pain: Denies pain. Cardiovascular: No deficits noted. Capillary refill < 3 seconds is brisk in bilateral fingers toes. Respiratory: No deficits noted. 19:28 General: Appears in no apparent distress, comfortable, Behavior is appropriate for age, ko2 cooperative. Pain: Denies pain. Neurological: Level of Consciousness is awake, alert. Cardiovascular: Heart tones S1 S2 present. Respiratory: Airway is patent Respiratory effort is even, unlabored, Breath sounds are diminished bilaterally. Derm: Skin is normal. 20:36 General: Appears in no apparent distress, comfortable, Behavior is appropriate for age, ko2 cooperative. Pain: Denies pain. Neurological: Level of Consciousness is awake, alert. 21:25 General: Appears in no apparent distress, comfortable, Behavior is cooperative. ko2 Neurological: Level of Consciousness is awake, alert. Respiratory: Airway is patent Respiratory effort is even, unlabored. Derm: Skin is normal. 21:27 General: Report given to Debbie Reece RN mary Nurse Please see [facility] for further ko2 documentation. Vital Signs: 13:48 BP 139 / 81; Pulse 114; Resp 18; Temp 100.4(O); Pulse Ox 94% on R/A; Weight 99.79 kg elp (R); Height 5 ft. 10 in. (177.80 cm) (R); 15:03 BP 147 / 77 (auto/); ml6 15:03 Pulse 102; Resp 18; Pulse Ox 98% on R/A; Pain 0/10; ml6 16:48 BP 139 / 72 (auto/); ko2 16:48 Pulse 114 MON; Pulse Ox 89% ; ko2 17:05 BP 127 / 87 (auto/); ko2 17:06 Pulse 112 MON; Pulse Ox 97% ; ko2 17:33 BP 133 / 66 (auto/); ko2 17:34 Pulse 110 MON; Pulse Ox 94% ; ko2 18:03 BP 149 / 70 (auto/); ko2 18:04 Pulse 124 MON; Pulse Ox 95% ; ko2 19:00 Pulse 116 MON; Pulse Ox 95% ; ko2 19:03 BP 130 / 79 (auto/); ko2 13:48 Body Mass Index 31.57 (99.79 kg, 177.80 cm) elp Vitals: 13:48 Log In Time: June 16, 2016 at 13:45. elp 15:30 Strep Screen is obtained and tested: Negative, a GATSNEG culture is ordered in [facility] and sent. ED Course: 13:48 Patient visited by Sadie Esqueda PCA. elp 13:48 Emanuel Ruiz is Private Physician. elp 13:48 Patient moved to Waiting elp 13:49 Patient visited by Sadie Esqueda PCA. elp 13:57 Patient moved to Pre RCE elp 14:08 Triage Initiated dwg 14:39 Patient moved to 9 dwg 14:42 Rose Link MD is Attending Physician. fg 14:50 Patient visited by Rose Link MD. fg 15:04 EKG done. (by ED staff). Reviewed by Rose Link MD. ct3 15:06 Patient visited by Renee Garcia PCA. ct3 15:07 Patient has correct armband on for positive identification. Placed in gown. Bed in low ct3 position. Call light in reach. Side rails up X 1. environmental monitoring technician on. Pulse ox on. NIBP on. 15:08 Patient visited by Renee Garcia PCA. ct3 15:25 Inserted peripheral IV: 18gauge IV in left antecubital area and blood collected. ml6 Patient tolerated the procedure well. No procedures done that require assistance. 15:26 The patient / caregiver is instructed regarding the plan of care and ED course. ml6 15:45 portable chest Returned. EDMS 15:47 Patient visited by Samuel Wen, ESTHER. ml6 15:56 [facility] Payment Agreement was scanned into [employer] and attached to record. gjb 16:09 DIFFERENTIAL NO CHARGE Sent. ml6 16:10 Patient visited by Samuel Wen, ESTHER. ml6 17:03 Patient visited by Samuel Wen, RN. ml6 17:27 Patient visited by Samuel Wen RN. ml6 17:27 Attending Physician role handed off by Rose Link MD ml 17:27 Michelle Booth MD is Attending Physician. ml 17:38 Lactic Acid (Ayala tube on ice) Sent. ml6 18:09 Patient visited by Samuel Wen RN. ml6 18:23 Jez pelayo is Hospitalizing Provider. ml 19:00 Elizabeth Reaves,ESTHER is Primary Nurse. ko2 19:27 Patient visited by Elizabeth Reaves RN. ko2 19:27 Troponin: 1900 Sent. ko2 19:27 Cardiac Marker Panel: 1900 Sent. ko2 19:31 EKG done. (by ED staff). Reviewed by Michelle Booth MD. cln 20:49 Patient moved to Admit Hold ml3 21:23 Dr Christianson notified of Lactic Acid being 2.8 No new orders. ko2 22:10 CT Chest without contrast Returned. EDMS 06/17 07:45 Primary Nurse role handed off by Elizabeth Reaves RN kr3 09:27 ELECTROCARDIOGRAM ADULT Returned. EDMS 10:01 Patient visited by Marcus Vargas, RN. bcj 11:41 Patient visited by Marcus Vargas RN. bc Administered Medications: 06/16 16:54 Drug: Furosemide 40 mg [furosemide 10 mg/mL injection solution (4 mL)] Route: IVP; ml6 Site: left antecubital; Output: 17:52 Urine: 1000.00ml (Voided); Total: 1000.00ml. ml6 21:24 Urine: 1400.00ml (Voided); Total: 2400.00ml. ko2 Order Results: Lab Order: B-Type Natiuretic Peptide; SPEC'M 06/16/16 14:58 Test: BRAIN NATRIURETIC PEPTIDE; Value: 1200; Range: <100; Abnormal: Above high normal; Units: PG/ML; Status: F Lab Order: Basic Metabolic Profile; SPEC'M 06/16/16 14:58 Test: GLUCOSE, FASTING; Value: 188; Range: 70-105; Abnormal: Above high normal; Units: MG/DL; Status: F Test: BLOOD UREA NITROGEN; Value: 21; Range: 7-18; Abnormal: Above high normal; Units: MG/DL; Status: F Test: CREATININE FOR GFR; Value: 1.28; Range: 0.70-1.30; Units: MG/DL; Status: F Test: GLOMERULAR FILTRATION RATE; Value: > 60.0; Range: >56; Status: F Test: SODIUM LEVEL; Value: 137; Range: 136-145; Units: MEQ/L; Status: F Test: POTASSIUM SERUM; Value: 5.0; Range: 3.5-5.1; Units: MEQ/L; Status: F Test: CHLORIDE LEVEL; Value: 102; Range: 98-107; Units: MEQ/L; Status: F Test: CARBON DIOXIDE LEVEL; Value: 28; Range: 21-32; Units: MEQ/L; Status: F Test: ANION GAP; Value: 7; Range: 8-16; Abnormal: Below low normal; Units: MEQ/L; Status: F Test: CALCIUM LEVEL; Value: 9.7; Range: 8.5-10.1; Units: MG/DL; Status: F Test Note: ; Units are mL/min/1.73 m2 Chronic Kidney Disease Staging per NKF: Stage I & II GFR >=60 Normal to Mildly Decreased Stage III GFR 30-59 Moderately Decreased Stage IV GFR 15-29 Severely Decreased Stage V GFR <15 Very Little GFR Left ESRD GFR <15 on CODING [facility] Lab Order: CBC with Diff; SPEC'M 06/16/16 14:58 Test: WHITE BLOOD COUNT; Value: 13.1; Range: 4.0-10.0; Abnormal: Above high normal; Units: K/mm3; Status: F Test: RED BLOOD COUNT; Value: 5.75; Range: 4.30-6.10; Units: M/mm3; Status: F Test: HEMOGLOBIN; Value: 9.9; Range: 14.0-18.0; Abnormal: Below low normal; Units: g/dl; Status: F Test: HEMATOCRIT; Value: 35.5; Range: 42.0-52.0; Abnormal: Below low normal; Units: %; Status: F Test: MEAN CORPUSCULAR VOLUME; Value: 61.6; Range: 80.0-96.0; Abnormal: Below low normal; Units: fl; Status: F Test: MEAN CORPUSCULAR HEMOGLOBIN; Value: 17.2; Range: 27.0-33.0; Abnormal: Below low normal; Units: pg; Status: F Test: MEAN CORPUSCULAR HGB CONC; Value: 27.9; Range: 32.0-36.5; Abnormal: Below low normal; Units: g/dl; Status: F Test: RED CELL DISTRIBUTION WIDTH; Value: 20.6; Range: 11.5-14.5; Abnormal: Above high normal; Units: %; Status: F Test: PLATELET COUNT, AUTOMATED; Value: 270; Range: 150-450; Units: k/mm3; Status: F Test: NEUTROPHILS; Value: 84; Range: 35-75; Abnormal: Above high normal; Units: %; Status: F Test: LYMPHOCYTES; Value: 6; Range: 16-52; Abnormal: Below low normal; Units: %; Status: F Test: MONOCYTES; Value: 9; Range: 0-8; Abnormal: Above high normal; Units: %; Status: F Test: ATYPICAL LYMPH; Value: 1; Range: 0-5; Units: %; Status: F Test: NUCLEATED RED BLOOD CELL; Value: 1; Range: 0-0; Abnormal: Above high normal; Units: %; Status: F Test: POLYCHROMASIA; Value: 1+; Status: F Test: HYPOCHROMASIA; Value: 2+; Status: F Test: ANISOCYTOSIS; Value: 3+; Status: F Test: MICROCYTOSIS; Value: 4+; Status: F Lab Order: -Influenza A&B Rapid Antigen - Nose; SPEC'M 06/16/16 14:58 Test: INFLUENZA A RAPID SCR by ICA; Value: INFLUENZA A RESULTS NEGATIVE; Status: F Test: INFLUENZA A RAPID SCR by ICA; Value: Comments:; Status: F Test: INFLUENZA B RAPID SCR by ICA; Value: INFLUENZA B RESULTS NEGATIVE; Status: F Test Note: ; The Influenza test is a direct rapid immunoassay for the qualitative detection of Influenza viral antigen. Cell culture (Viral Culture) testing should be considered to confirm NEGATIVE results and to assist in detecting other viruses that can provide similar clinical symptoms. Please contact the lab within 24 hours ([phone]) if confirmatory testing is desired. Lab Order: Urinalysis; SPEC'M 06/16/16 14:52 Test: APPEARANCE, URINE; Value: CLEAR; Range: CLEAR; Status: F Test: COLOR, URINE; Value: YELLOW; Range: YELLOW; Status: F Test: PH,URINE; Value: 7.0; Range: 5.0-9.0; Units: UNITS; Status: F Test: SPECIFIC GRAVITY URINE AUTO; Value: 1.008; Range: 1.002-1.035; Status: F Test: PROTEIN, URINE AUTO; Value: NEGATIVE; Range: NEGATIVE; Units: mg/dL; Status: F Test: GLUCOSE, URINE (UA) AUTO; Value: 2+; Range: NEGATIVE; Abnormal: Above high normal; Units: mg/dL; Status: F Test: KETONE, URINE AUTO; Value: NEGATIVE; Range: NEGATIVE; Units: mg/dL; Status: F Test: UROBILINOGEN, URINE AUTO; Value: 0.2; Range: 0.0-2.0; Units: mg/dL; Status: F Test: BILIRUBIN, URINE AUTO; Value: NEGATIVE; Range: NEGATIVE; Status: F Test: NITRITE, URINE AUTO; Value: NEGATIVE; Range: NEGATIVE; Status: F Test: LEUKOCYTE ESTERASE, URINE AUTO; Value: NEGATIVE; Range: NEGATIVE; Status: F Test: BLOOD, URINE BLOOD; Value: NEGATIVE; Range: NEGATIVE; Status: F Test: WBC, URINE AUTO; Value: 0; Range: 0-3; Units: /HPF; Status: F Test: RBC, URINE AUTO; Value: 1; Range: 0-3; Units: /HPF; Status: F Test: BACTERIA, URINE AUTO; Value: 1+; Range: NEGATIVE; Abnormal: Above high normal; Status: F Test: SQUAMOUS EPITHELIAL CELL UR AU; Value: 0; Range: 0-6; Units: /HPF; Status: F Test: HYALINE CAST, URINE AUTO; Value: 0; Range: 0-1; Units: /LPF; Status: F Lab Order: Urine Culture; SPEC'M 06/16/16 14:52 Test: URINE CULTURE; Value: <EXTERNAL COMMENT eCWMed> FULL REPORT IN LAB NOTES (eCW and Medent).; Status: F Test: URINE CULTURE; Value: URINE CULTURE RESULT NO GROWTH; Status: F Lab Order: GATS (NEGATIVE STREP SCREEN); SPEC'M 06/16/16 14:58 Test: GATS CULTURE (NEG STREP SCR); Value: GATS RESULT NEGATIVE FOR STREP PYOGENES (GROUP A); Status: F Test: GATS CULTURE (NEG STREP SCR); Value: <EXTERNAL COMMENT eCWMed> FULL REPORT IN LAB NOTES (eCW and Medent).; Status: F Lab Order: PLATELET ESTIMATE; [facility] 06/16/16 14:58 Test: PLATELET ESTIMATE; Value: NORMAL; Range: NORMAL; Status: F Lab Order: Cardiac Marker Panel: 1900; [facility] 06/16/16 20:29 Test: CPK CREATINE PHOSPHOKINASE; Value: 141; Range: 39-308; Units: U/L; Status: F Test: CK-MB VALUE MASS; Value: 3.0; Range: 0.0-3.6; Units: NG/ML; Status: F Test: MB/CK RELATIVE INDEX; Value: 2.12; Range: < OR =4; Status: F Test: TROPONIN I; Value: 0.26; Range: < 0.10; Abnormal: High; Units: NG/ML; Status: F Test Note: ; DIAGNOSIS CRITERIA MMB ng/ml Relative Index (RI) NON-AMI < or = 5 N/A AYALA ZONE > 5 < or = 4 AMI > 5 > 4 Lab Order: CARDIAC INJURY PROFILE; [facility] 06/16/16 14:58 Test: CPK CREATINE PHOSPHOKINASE; Value: 124; Range: 39-308; Units: U/L; Status: F Test: CK-MB VALUE MASS; Value: 3.3; Range: 0.0-3.6; Units: NG/ML; Status: F Test: MB/CK RELATIVE INDEX; Value: 2.66; Range: < OR =4; Status: F Test Note: ; DIAGNOSIS CRITERIA MMB ng/ml Relative Index (RI) NON-AMI < or = 5 N/A AYALA ZONE > 5 < or = 4 AMI > 5 > 4 Lab Order: TROPONIN; [facility] 06/16/16 14:58 Test: TROPONIN I; Value: 0.21; Range: < 0.10; Abnormal: Above high normal; Units: NG/ML; Status: F Test Note: ; Troponin I Reference Interval for SEAT 4a LOCI: 99th Percentile= 0.00-0.045 ng/ml Risk Stratification: <= 0.10 ng/ml Decreased Risk for Adverse Clinical Events. 0.10-1.50 ng/ml Increased Risk for Adverse Clinical Events. Evaluation of additional criterion and/or repeat testing in 2-6 hours is suggested to rule out myocardial damage. >= 1.50 ng/ml Indicative of Myocardial Injury. Lab Order: Lactic Acid (Ayala tube on ice); SPEC'M 06/16/16 16:00 Test: LACTIC ACID SEPSIS PROTOCOL; Value: 2.4; Range: 0.4-2.0; Abnormal: Above upper panic limits; Units: MMOL/L; Status: F Lab Order: COMPLETE BLOOD COUNT; SPEC06/17/16 05:27 Test: WHITE BLOOD COUNT; Value: 13.2; Range: 4.0-10.0; Abnormal: Above high normal; Units: K/mm3; Status: F Test: RED BLOOD COUNT; Value: 5.90; Range: 4.30-6.10; Units: M/mm3; Status: F Test: HEMOGLOBIN; Value: 10.1; Range: 14.0-18.0; Abnormal: Below low normal; Units: g/dl; Status: F Test: HEMATOCRIT; Value: 36.9; Range: 42.0-52.0; Abnormal: Below low normal; Units: %; Status: F Test: MEAN CORPUSCULAR VOLUME; Value: 62.5; Range: 80.0-96.0; Abnormal: Below low normal; Units: fl; Status: F Test: MEAN CORPUSCULAR HEMOGLOBIN; Value: 17.1; Range: 27.0-33.0; Abnormal: Below low normal; Units: pg; Status: F Test: MEAN CORPUSCULAR HGB CONC; Value: 27.4; Range: 32.0-36.5; Abnormal: Below low normal; Units: g/dl; Status: F Test: RED CELL DISTRIBUTION WIDTH; Value: 20.7; Range: 11.5-14.5; Abnormal: Above high normal; Units: %; Status: F Test: PLATELET COUNT, AUTOMATED; Value: 236; Range: 150-450; Units: k/mm3; Status: F Lab Order: TROPONIN; SPECM 06/17/16 05:27 Test: TROPONIN I; Value: 0.37; Range: < 0.10; Abnormal: High; Units: NG/ML; Status: F Test Note: ; Troponin I Reference Interval for Siemens [place] LOCI: 99th Percentile= 0.00-0.045 ng/ml Risk Stratification: <= 0.10 ng/ml Decreased Risk for Adverse Clinical Events. 0.10-1.50 ng/ml Increased Risk for Adverse Clinical Events. Evaluation of additional criterion and/or repeat testing in 2-6 hours is suggested to rule out myocardial damage. >= 1.50 ng/ml Indicative of Myocardial Injury. Lab Order: RESPIRATORY PANEL; SPEC'M 06/17/16 00:52 Test: RESPIRATORY PANEL; Value: RP PANEL RESULT NEGATIVE by PCR; Status: F Test: RESPIRATORY PANEL; Value: Comments:; Status: F Test Note: ; This respiratory PCR panel detects Influenza A H1, H3 and 2009 H1 viruses, Influenza B virus, Respiratory syncytial virus, Human metapneumovirus, Parainfluenza virus 1, 2, 3 and 4, Adenovirus, Rhinovirus/Enterovirus, Coronavirus HKU1, NL63, OC43 and 229E, Bordetella pertussis, Mycoplasma pneumoniae and Chlamydia pneumoniae. Lab Order: BASIC METABOLIC PROFILE; SPEC'M 06/17/16 05:27 Test: GLUCOSE, FASTING; Value: 233; Range: 70-105; Abnormal: Above high normal; Units: MG/DL; Status: F Test: BLOOD UREA NITROGEN; Value: 26; Range: 7-18; Abnormal: Above high normal; Units: MG/DL; Status: F Test: CREATININE FOR GFR; Value: 2.40; Range: 0.70-1.30; Abnormal: High; Units: MG/DL; Status: F Test: GLOMERULAR FILTRATION RATE; Value: 29.7; Range: >56; Abnormal: Below low normal; Status: F Test: SODIUM LEVEL; Value: 139; Range: 136-145; Units: MEQ/L; Status: F Test: POTASSIUM SERUM; Value: 5.0; Range: 3.5-5.1; Units: MEQ/L; Status: F Test: CHLORIDE LEVEL; Value: 101; Range: 98-107; Units: MEQ/L; Status: F Test: CARBON DIOXIDE LEVEL; Value: 30; Range: 21-32; Units: MEQ/L; Status: F Test: ANION GAP; Value: 8; Range: 8-16; Units: MEQ/L; Status: F Test: CALCIUM LEVEL; Value: 9.1; Range: 8.5-10.1; Units: MG/DL; Status: F Test Note: ; Units are mL/min/1.73 m2 Chronic Kidney Disease Staging per NKF: Stage I & II GFR >=60 Normal to Mildly Decreased Stage III GFR 30-59 Moderately Decreased Stage IV GFR 15-29 Severely Decreased Stage V GFR <15 Very Little GFR Left ESRD GFR <15 on CODING [facility] Lab Order: MAGNESIUM LEVEL; SPEC'M 06/17/16 05:27 Test: MAGNESIUM LEVEL; Value: 2.0; Range: 1.8-2.4; Units: MG/DL; Status: F Lab Order: Fingerstick Blood Sugar; SPEC'M 06/16/16 22:41 Test: BEDSIDE GLUCOSE; Value: 260; Range: 70-105; Abnormal: Above high normal; Units: MG/DL; Status: F Radiology Order: portable chest Test: portable chest REASON FOR EXAMINATION: Cough; CHEST, ONE VIEW:; ; HISTORY: Cough.; ; COMPARISON: 07/15/2013; ; There is elevation of the right hemidiaphragm. An increase in interstitial; markings is present in the lungs consistent with chronic interstitial fibrosis.; The cardiac silhouette is enlarged. The pulmonary vasculature is normal in; appearance.; ; IMPRESSION:; ; 1. Chronic interstitial fibrosis.; ; 2. Cardiomegaly.; ; ; Signed by; Haseeb Howard MD 06/16/2016 03:49 P; Radiology Order: CT Chest without contrast Test: CT Chest without contrast REASON FOR EXAMINATION: productive cough, r/o PNA; ; CT of the chest without contrast; Clinical statement: cough.; Technique: Multiple axial CT images were obtained with 5 mm cuts through the chest without administra; tion of contrast.; Comparison: 03/11/2013.; Findings: There is no thoracic lymphadenopathy. The visualized portions of the thyroid gland is unrem; arkable. There are small bilateral pleural effusions. The lungs are clear. Limited imaging of the upp; er abdomen does not demonstrate any acute abnormalities. 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 06/17 11:41 Discharge Assessment: patient administered narcotics - no. The following High Risk j Discharge criteria are identified: None. Admitted to PCU accompanied by nurse, accompanied by tech, via stretcher, on monitor. Condition: stable. No special radiology studies were completed. Property :Personal belongings accompany Pt. 11:41 Patient left the ED. [facility] Signatures: Dispatcher [employer] EDMS Michelle Booth MD MD ml Greene, Daniel, RN RN Marcus Reynolds, RN RN Eben Sanchezzabeth, Final Inspector Paper Unit ml3 Rosalva Manzanares,RN RN joi3 Samuel Wen, RN RN ml6 Renee Garcia, GRAPHICS PROGRAMMER GRAPHICS PROGRAMMER ct3 Sadie Esqueda, GRAPHICS PROGRAMMER GRAPHICS PROGRAMMER elp Elizabeth Reaves,RN RN mile2 Rose Link MD MD fg Beck, Gabriela gjb Nichols, Rhoda, GRAPHICS PROGRAMMER GRAPHICS PROGRAMMER cln MTDD
[2016-06-17] MEDS ORDERED: SLF 3 ML SYR IV PRN (12:45)
[2016-06-17] MEDS: SLF 3 ML SYR IV SCH ×2 (13:38→20:41)
[2016-06-17 16:00] VITALS: BP 97/54
[2016-06-17 20:00] VITALS: BP 94/58
[2016-06-17] MEDS: rOPINIRole 1MG TAB PO SCH (20:40)
[2016-06-17] MEDS: BISOPROLOL FUMARATE 5 MG TAB PO SCH (20:40)
[2016-06-17] MEDS: ATORVASTATIN 10 MG TAB PO SCH (20:41)
[2016-06-17] MEDS: CLOPIDOGREL 75 MG TAB PO SCH (20:41)
[2016-06-17] MEDS: AMITRIPTYLINE 50 MG TAB PO SCH (20:41)
--- NOTE | 2016-06-17 21:07 | ECGEPIP ---
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
--- NOTE | 2016-06-17 21:11 | ECGEPIP ---
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
[2016-06-17] MEDS ORDERED: AMIODARONE 200 MG TAB (PACERONE) PO ONE (21:15)
[2016-06-18] VITALS (7 sets, daily range): BP systolic 86–110; BP diastolic 48–70
[2016-06-18] MEDS: SLF 3 ML SYR IV SCH ×3 (05:42→20:10)
[2016-06-18] MEDS: LEVOTHYROXINE 0.15 MG TAB (150 MCG) PO SCH (05:42)
[2016-06-18] MEDS: LEVOTHYROXINE 0.025 MG TAB (25 MCG) PO SCH (05:42)
[2016-06-18 05:48] LABS: MEAN CORPUSCULAR HEMOGLOBIN 16.9 pg (27.0-33.0); MEAN CORPUSCULAR HGB CONC 26.9 g/dl (32.0-36.5); MEAN CORPUSCULAR VOLUME 63.1 fl (80.0-96.0); RED CELL DISTRIBUTION WIDTH 20.9 % (11.5-14.5); WHITE BLOOD COUNT 10.9 K/mm3 (4.0-10.0)
[2016-06-18 05:59] LABS: CALCIUM LEVEL 9.1 MG/DL (8.5-10.1); CREATININE FOR GFR 2.79 MG/DL (0.70-1.30); POTASSIUM SERUM 4.5 MEQ/L (3.5-5.1)
[2016-06-18] MEDS: ASCORBIC ACID 500 MG TAB PO SCH (08:19)
[2016-06-18] MEDS: GABAPENTIN 300 MG CAP PO SCH ×3 (08:19→20:08)
[2016-06-18] MEDS: ASPIRIN 81 MG ENTERIC TAB PO SCH (08:19)
[2016-06-18] MEDS: OMEPRAZOLE 20 MG CAP PO SCH (08:19)
[2016-06-18] MEDS: TAMSULOSIN 0.4 MG CAP PO SCH (08:20)
[2016-06-18] MEDS: ENOXAPARIN 30 MG/0.3 ML SYR (J1650) SC SCH (08:20)
[2016-06-18] MEDS: HumaLOG INSULIN (NovoLOG) PER UNIT SC SCH ×4 (08:20→20:09)
--- NOTE | 2016-06-18 08:51 | ECGEPIP ---
Stationary ECG Study [facility] Test Date: 2016-06-17 Pat Name: SUHA MORALES Department: Room: [place] [address] Gender: M Office Coordinator: KESHIA : 1955 Requested By: Oleg Daniels Order Number: [id number] Reading MD: Melissa Gaytan Measurements Intervals [place] Rate: 109 P: MO: 0 QRS: -32 QRSD: 138 T: 127 QT: 357 QTc: 482 Interpretive Statements ATRIAL FIBRILLATION WITH RAPID VENTRICULAR RESPONSE LEFT AXIS DEVIATION [QRS AXIS < -30] INTRAVENTRICULAR CONDUCTION DELAY [130+ ms QRS DURATION] ILBBB VOLTAGE CRITERIA FOR LVH [MEETS CRITERIA IN ONE OF: R(aVL), S(V1), R(V5), R(V5/V6) +S(V1)] STT MORE MARKED NOW MORE LATERAL 2ND TO Left ventricular hypertrophy AND OR ISCHEMIA AFIB NEW C/W 06/17/16 Electronically Signed On 06-18-2016 8:51:10 EST by Melissa Gaytan
--- NOTE | 2016-06-18 09:49 | IPNPDOC ---
Subjective General Date Seen The patient was seen on 06/18/16. Subjective Chief Complaint/HPI The patient is a 60-year-old male admitted with a reason for visit of Pneumonia. Events since last encounter Pt states he is feeling better today. States breathing is better. Denies chest pain. Constitutional: Denies: Chills, Fever Pulmonary: Denies: Dyspnea, Pleuritic Chest Pain Cardiovascular: Denies: Chest Pain, Palpitations Gastrointestinal: Denies: Abdominal Pain, Nausea, Vomiting Objective Physical Examination General Exam: Positive: Alert, Cooperative, No Acute Distress ENT Exam: Positive: Atraumatic, Mucous membr. moist/pink Neck Exam: Positive: Other (tracheostomy opening noted) Chest Exam: Positive: Clear to auscultation, Diminished, Negative: Rales, Wheezing Heart Exam: Positive: Normal S1, Normal S2, Regular Rhythm, Tachycardic Telemetry: Positive: Sinus Abdomen Exam: Positive: Normal bowel sounds, Soft, Negative: Tenderness Extremity Exam: Negative: Swelling, Tenderness Assessment /Plan Problems Problems: (1) Pneumonia Status: Acute Problem Specific Plan: Monitor Clinically, Repeat Labs Problem Text: On IV Levaquin. WBC down today to 10.9. Afebrile. Cardiology also following and is consider also additional possibilities, including endocarditis. Cardiology ordered an echocardiogram. Blood cultures are negative after 24 hours. Recheck CXR. Recheck Lactic Acid. (2) Elevated troponin Status: Acute Problem Specific Plan: Consult Specialist, Monitor Clinically, Repeat Labs Problem Text: [facility] following and Dr Peterson noted that with the elevated troponin and EKG abnormalities there issuspicion for ischemic event, even though clinically the pain is clearly pleuritic. Dr Peterson suspects that it could be a consequence of infection, but I still is considering ischemic event in the differential diagnosis. He is on aspirin and Plavix and deep vein thrombosis prophylactic dose of Lovenox, which Dr Peterson states is essentially a therapeutic dose considering his renal insufficiency. Echo ordered. Dr Peterson notes he may need coronary angiogram, but does not feel he should have this done at this point as he is in acute renal failure and administration of dye would probably lead to further decline of renal function and possibly dialysis. (3) Acute kidney injury Status: Acute Problem Specific Plan: Monitor Clinically, Repeat Labs Problem Text: Creat up to 2.79. Pt did receive a dose of Lasix initially. Not received additional diuretics. He also had been on Lisinopril which has been stopped. He is on Metformin as an outpt which has been held. (4) CAD (coronary artery disease) Status: Chronic Problem Specific Plan: Consult Specialist, Monitor Clinically, Repeat Labs Problem Text: Cardiology following. (5) History of lung cancer Status: Chronic Problem Specific Plan: Monitor Clinically Problem Text: S/P lobectomy 2007. (6) History of laryngeal cancer Status: Chronic Problem Specific Plan: Monitor Clinically (7) DM2 (diabetes mellitus, type 2) Status: Chronic Problem Specific Plan: Monitor Clinically, Repeat Labs Problem Text: On SSI. Outpt metformin held. Start Levemir 10 units qhs. (8) Hyperlipemia Status: Chronic Problem Specific Plan: Monitor Clinically Problem Text: On Lipitor. (9) PVD (peripheral vascular disease) Status: Chronic Problem Specific Plan: Monitor Clinically (10) CHF (congestive heart failure) Status: Chronic Problem Specific Plan: Monitor Clinically Problem Text: Cardiology following. He did initially receive Lasix. Patient appears compensated today. Monitor. (11) S/P AVR (aortic valve replacement) Status: Chronic Problem Specific Plan: Monitor Clinically (12) Paroxysmal a-fib Status: Acute Problem Specific Plan: Consult Specialist, Monitor Clinically, Repeat Labs Problem Text: Pt with H/O PAF. Received Amiodarone. On bisoprolol. Discussed with Dr Daniels. Dr Daniels plans on addressing anticoagulation and antiplatelet meds. Plan/VTE VTE Prophylaxis Ordered?: Yes VS, I&O, 24H, Fishbone Vital Signs/I&O Vital Signs Date Time Temp Pulse Resp B/P Pulse Ox O2 Delivery O2 Flow Rate FiO2 06/18/16 08:00 98.0 72 20 110/63 96 Room Air I&O- Last 24 Hours up to 6 AM 06/18/16 06:00 Intake Total 1380 ml Output Total 325 ml Balance 1055 ml Laboratory Data 24H LABS Laboratory Tests 2 06/17/16 12:01: Bedside Glucose (Misc Panel) 229H 06/17/16 12:17: Troponin I 0.26#H 06/17/16 16:36: Bedside Glucose (Misc Panel) 305H 06/17/16 20:35: Troponin I 0.19#H 06/17/16 22:05: Bedside Glucose (Misc Panel) 397H 06/18/16 05:04: Anion Gap 8, Blood Urea Nitrogen 49#H, Creatinine 2.79H, Sodium Level 137, Potassium Level 4.5, Chloride Level 100, Carbon Dioxide Level 29, Calcium Level 9.1, Glomerular Filtration Rate 25.0L CBC/BMP Laboratory Tests 06/18/16 05:04 Calcium Level 9.1, Red Blood Count 5.49, Mean Corpuscular Volume 63.1 L, Mean Corpuscular Hemoglobin 16.9 L, Mean Corpuscular Hemoglobin Concent 26.9 L, Red Cell Distribution Width 20.9 H Microbiology Microbiology 06/16/16 Blood Culture - Preliminary, Resulted No growth after 24 hours . All specim... 06/16/16 Blood Culture - Preliminary, Resulted No growth after 24 hours . All specim... 06/17/16 Respiratory Virus Panel (PCR) (SAMUEL) - Final, Complete 06/16/16 Group A Streptococcus Screen (SAMUEL) - Final, Complete 06/16/16 Influenza Virus Type A Antigen - Final, Complete 06/16/16 Influenza Virus Type B Antigen - Final, Complete 06/16/16 Urine Culture - Final, Complete Attending Note Attending Note Dr. Daniels suggests change to Warfarin and discontinue anti-platelet regimen in view of no convincing evidence of ACS and history of episodic AFIB. Patient eager for discharge but need to see downward trend in creatinine level. Juan Pablo Caballero Jun 18, 2016 09:49 Andrea Carreon MD Jun 18, 2016 12:08
--- NOTE | 2016-06-18 11:11 | REP ---
PA AND LATERAL CHEST: 06/18/2016. Comparison: Chest x-ray 06/16/2016, 07/15/2013, CT chest 06/16/2016. Clinical history: Pneumonia. Elevated right diaphragm with volume loss in the hemithorax again seen. Sternotomy wires are seen with cardiomegaly. There is venous hypertension. Patchy atelectasis or infiltrate above the right diaphragm noted. The retrocardiac left lower lobe shows fibrotic and atelectatic changes. There is trace effusion suggested bilaterally on the lateral view. Sternotomy wires and aortic valve replacement noted with surgical clips in the right paratracheal region upper chest. There is venous hypertension evident. No ana m edema. Impression: 1. Cardiomegaly with left ventricular enlargement, sternotomy with aortic valve replacement and surgical clips right paratracheal region. 2. Elevated right diaphragm with volume loss right hemithorax. Basilar patchy atelectasis or infiltrate above that diaphragm and the fibrotic or atelectatic change left base without air bronchograms. Small effusion suspected. Venous hypertension without ana m edema. Signed by Jose Luis Lucero MD 06/18/2016 07:32 P
[2016-06-18 11:42] LABS: INR 1.26
[2016-06-18] MEDS: AMIODARONE 200 MG TAB (PACERONE) PO SCH ×2 (11:55→17:23)
--- NOTE | 2016-06-18 12:00 | IPN ---
DATE: 06/18/2016 TIME: 10:30 a.m. CARDIOLOGY PROGRESS NOTE SUBJECTIVE: Dr. 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 Faisal Peterson. The patient reports exertional dyspnea only with moderate above ordinary physical activity. No leg or ankle swelling. He reports that his left lateral chest pain with coughing and deep inspiration is minimal and has become much, much less since admission. No orthopnea or paroxysmal nocturnal dyspnea (PND). He was aware of rapid palpitations that were regular yesterday evening when he was in atrial fibrillation. He reports he has a known history of paroxysmal atrial fibrillation and that he gets similar palpitations from time to time. PHYSICAL EXAMINATION: A pleasant, mildly obese, man who appears his chronologic age, who is not in any respiratory or psychologic distress. Height 70 inches, weight 97.6 kg, body mass index (BMI) 30.9. Temperature 98.0, pulse 72 (regular), respiratory rate 20, blood pressure 110/63, oxygen saturation 96% on room air. Jugular venous pulsations were at 10 cm. Tracheostomy present. Midline sternal scar present. First and second heart sounds normal. Grade 2 mixed frequency systolic ejection murmur, maximal over the right second interspace. No S3 or S4. No diastolic murmurs. Respiratory expansion and effort was good. No crackles or wheezes. Abdomen was soft, nontender with normal bowel sounds. Mood and affect was normal. Speech was normal. The patient had to speak with the tracheostomy closed, and it had the typical sound of someone status post trach. No lower extremity edema. Echocardiogram Doppler report not presently available in the patient's medical record from this admission, but it appears to have been read as it has been marked such in cardiovascular synapse. I did take a brief look at the echocardiogram Doppler and, again, I want to emphasize this is not the official report but just my overall impression. The patient appears to have fairly significant global hypokinesis with severe reduction in overall LV systolic function. Presence of an aortic valve bioprosthesis with possible mild stenosis. LABORATORY WORK: 06/18/2016: Sodium 137, potassium 4.5, chloride 100, CO2 29, creatinine 2.79, estimated GFR 25.0, WBC 10.9, hemoglobin 9.3, hematocrit 34.6, platelets 212. I have independently visualized the patient's PA and lateral chest x-ray acquired 06/18/2016 at 9:52 a.m. Reduced lung volume on the right side with elevated right hemidiaphragm. Enlargement of the left and right pulmonary arteries. Blunting of the costophrenic angles bilaterally, suggestive of probable bilateral pleural effusions. No definite pulmonary vascular redistribution. Mannie of patchy air space disease involving the mid and lower lung sounds. Midline sternal wires. Presence of an aortic valve bioprosthesis. Presence of surgical clips in the upper mediastinum. Cardiomegaly. ASSESSMENT AND PLAN: 1. Abnormal electrocardiogram (ECG). Electrocardiogram 06/17/2016 at 8:30 a.m. shows atrial fibrillation with rapid ventricular response, 109 beats per minute, nonspecific intraventricular conduction delay versus atypical left bundle branch block, left axis deviation, QRS duration 138 ms, prominent precordial voltages, consider left ventricular hypertrophy (LVH), diffuse repolarization abnormalities, which are secondary but cannot rule out superimposed myocardial ischemia. 2. Heart failure, acute on chronic. Jugular venous pulsations were elevated today. No lower extremity edema. Chest x-ray shows some bilateral patchy air space disease in the mid and lower lung zones, but I do not see any pulmonary vascular redistribution. He appears to have small bilateral pleural effusions. Because the patient's volume status appears to be compensated and he has acute kidney injury, I would prefer not to add diuretics on board at this time. He does have a diffuse cardiomyopathy with low ejection fraction. Continue bisoprolol. No angiotensin-converting enzyme inhibitor (ACEI) or angiotensin receptor mark (ARB) at present because of relatively low blood pressures as well as acute kidney injury superimposed on chronic kidney disease. 3. Coronary artery disease ([place] vessel, without angina). The patient has had a small increase in troponin I but not at a diagnostic level for acute myocardial infarction. I believe that the troponin I level for this patient is most likely secondary to heart failure and hypotension rather than a primary acute coronary syndrome due to atherosclerotic epicardial coronary artery disease with an acute plaque event. Because the patient now has a compelling indication for anticoagulation, and I wish to avoid triple anticoagulant antiplatelet therapy because of risk of bleeding, I will place the patient on warfarin and this was discussed with Dr. Andrea Carreon who was in agreement. I also will discontinue aspirin and clopidogrel to avoid increased risk of bleeding with the patient on warfarin. Lovenox will be discontinued. Continue bisoprolol. As mentioned above, not appropriate to use ACEI or ARB at the present time due to episodic hypotension as well as in the setting of acute kidney injury. 4. Status post aortic valve replacement with xenograft. Awaiting results of the echocardiogram Doppler report from this hospitalization. I suspect he might have at least a mild degree of stenosis of the bioprosthesis. 5. Abnormal troponin I. I believe that this is most likely secondary to heart failure and episodic hypotension as explained above and much less likely to be due to a primary atherosclerotic epicardial coronary event. 6. Dilated cardiomyopathy. As discussed in the heart failure category above. 7. Paroxysmal atrial fibrillation. The patient had an episode of paroxysmal atrial fibrillation yesterday evening for which he was symptomatic with palpitations and he converted following 400 mg of amiodarone IV. Continue bisoprolol. As mentioned above, I will start him on warfarin. Target international normalized ratio (INR) 2.0-3.0. As noted above, aspirin and clopidogrel will be discontinued and Lovenox will be discontinued. Continue bisoprolol. I will place him on amiodarone 200 mg twice a day and at the time of discharge, this dose should be decreased down to 200 mg daily.
[2016-06-18] MEDS: WARFARIN SOD 4 MG TAB PO SCH (17:23)
[2016-06-18] MEDS: ATORVASTATIN 10 MG TAB PO SCH (20:08)
[2016-06-18] MEDS: rOPINIRole 1MG TAB PO SCH (20:08)
[2016-06-18] MEDS: BISOPROLOL FUMARATE 5 MG TAB PO SCH (20:08)
[2016-06-18] MEDS ORDERED: LevoFLOXacin IV 750 MG in APPROPRIATE DILUENT 1 EA IV SCH (21:00)
[2016-06-19] VITALS: BP 104/58
[2016-06-19 04:00] VITALS: BP 89/52
[2016-06-19] MEDS: LEVOTHYROXINE 0.15 MG TAB (150 MCG) PO SCH (05:12)
[2016-06-19] MEDS: LEVOTHYROXINE 0.025 MG TAB (25 MCG) PO SCH (05:12)
[2016-06-19] MEDS: SLF 3 ML SYR IV SCH ×3 (05:13→20:15)
[2016-06-19 05:25] LABS: MEAN CORPUSCULAR HEMOGLOBIN 17.1 pg (27.0-33.0); MEAN CORPUSCULAR HGB CONC 26.9 g/dl (32.0-36.5); MEAN CORPUSCULAR VOLUME 63.8 fl (80.0-96.0); RED CELL DISTRIBUTION WIDTH 20.9 % (11.5-14.5); WHITE BLOOD COUNT 11.1 K/mm3 (4.0-10.0)
[2016-06-19 05:30] LABS: INR 1.27
[2016-06-19 05:37] LABS: CALCIUM LEVEL 9.1 MG/DL (8.5-10.1); CREATININE FOR GFR 1.88 MG/DL (0.70-1.30); GLOMERULAR FILTRATION RATE 39.4 (>56); POTASSIUM SERUM 4.9 MEQ/L (3.5-5.1)
[2016-06-19 08:00] VITALS: BP 109/64
--- NOTE | 2016-06-19 08:25 | IPNPDOC ---
Subjective General Date Seen The patient was seen on 06/19/16. Subjective Chief Complaint/HPI The patient is a 60-year-old male admitted with a reason for visit of Pneumonia. Events since last encounter Pt states he is feeling better. Denies CP, SOB, Abd pain. Constitutional: Denies: Chills, Fever Pulmonary: Denies: Dyspnea Cardiovascular: Denies: Chest Pain Gastrointestinal: Denies: Abdominal Pain, Nausea, Vomiting Objective Physical Examination General Exam: Positive: Alert, Cooperative, No Acute Distress ENT Exam: Positive: Atraumatic, Mucous membr. moist/pink Neck Exam: Positive: Other (tracheostomy opening noted) Chest Exam: Positive: Clear to auscultation, Diminished, Negative: Rales, Wheezing Heart Exam: Positive: Normal S1, Normal S2, Regular Rhythm, Tachycardic Telemetry: Positive: Sinus Abdomen Exam: Positive: Normal bowel sounds, Soft, Negative: Tenderness Extremity Exam: Negative: Swelling, Tenderness Assessment /Plan Problems Problems: (1) Pneumonia Status: Acute Problem Specific Plan: Monitor Clinically, Repeat Labs Problem Text: 06/19 - IV Levaquin. WBC up 11.1. ECHO pending. Blood cx negative after 48 hrs. Lactic Acid has decreased to WNL of 2. CXR 06/18: Cardiomegaly with left ventricular enlargement, sternotomy with aortic valve replacement and surgical clips right paratracheal region. Elevated right diaphragm with volume loss right hemithorax. Basilar patchy atelectasis or infiltrate above that diaphragm and the fibrotic or atelectatic change left base without air bronchograms. Small effusion suspected. Venous hypertension without ana m edema. 06/18 - On IV Levaquin. WBC down today to 10.9. Afebrile. Cardiology also following and is consider also additional possibilities, including endocarditis. Cardiology ordered an echocardiogram. Blood cultures are negative after 24 hours. Recheck CXR. Recheck Lactic Acid. (2) Elevated troponin Status: Acute Problem Specific Plan: Consult Specialist, Monitor Clinically, Repeat Labs Problem Text: 06/19 - Cardiology following. ECHO pending. Dr Daniels stopped the Lovenox, Aspirin and Plavix, and started Coumadin. 06/18 - [facility] following and Dr Peterson noted that with the elevated troponin and EKG abnormalities there is suspicion for ischemic event, even though clinically the pain is pleuritic. Dr Peterson suspects that it could be a consequence of infection, but I still is considering ischemic event in the differential diagnosis. He is on aspirin and Plavix and deep vein thrombosis prophylactic dose of Lovenox, which Dr Peterson states is essentially a therapeutic dose considering his renal insufficiency. Echo ordered. Dr Peterson notes he may need coronary angiogram, but does not feel he should have this done at this point as he is in acute renal failure and administration of dye would probably lead to further decline of renal function and possibly dialysis. (3) Acute kidney injury Status: Acute Problem Specific Plan: Monitor Clinically, Repeat Labs Problem Text: 06/19 - Creat down to 1.88. No further Lasix given. ACEI stopped. Outpt Metformin stopped. 06/18 - Creat up to 2.79. Pt did receive a dose of Lasix initially. Not received additional diuretics. He also had been on Lisinopril which has been stopped. He is on Metformin as an outpt which has been held. (4) CAD (coronary artery disease) Status: Chronic Problem Specific Plan: Consult Specialist, Monitor Clinically, Repeat Labs Problem Text: Cardiology following. (5) History of lung cancer Status: Chronic Problem Specific Plan: Monitor Clinically Problem Text: S/P lobectomy 2007. (6) History of laryngeal cancer Status: Chronic Problem Specific Plan: Monitor Clinically (7) DM2 (diabetes mellitus, type 2) Status: Chronic Problem Specific Plan: Monitor Clinically, Repeat Labs Problem Text: On SSI. Outpt metformin held. Start Levemir 10 units qhs. (8) Hyperlipemia Status: Chronic Problem Specific Plan: Monitor Clinically Problem Text: On Lipitor. (9) PVD (peripheral vascular disease) Status: Chronic Problem Specific Plan: Monitor Clinically (10) CHF (congestive heart failure) Status: Chronic Problem Specific Plan: Monitor Clinically Problem Text: Cardiology following. He did initially receive Lasix. Patient appears compensated today. Monitor. (11) S/P AVR (aortic valve replacement) Status: Chronic Problem Specific Plan: Monitor Clinically (12) Paroxysmal a-fib Status: Acute Problem Specific Plan: Consult Specialist, Monitor Clinically, Repeat Labs Problem Text: 06/19 - On Amiodarone. On Bisoprolol. Dr Daniels stopped the Lovenox and plavix and aspirin, and started coumadin. INR 1.27. 06/18 - Pt with H/O PAF. Received Amiodarone. On bisoprolol. Discussed with Dr Daniels. Dr Daniels plans on addressing anticoagulation and antiplatelet meds. Plan/VTE VTE Prophylaxis Ordered?: Yes VS, I&O, 24H, Fishbone Vital Signs/I&O Vital Signs Date Time Temp Pulse Resp B/P Pulse Ox O2 Delivery O2 Flow Rate FiO2 06/19/16 04:00 97.7 87 20 89/52 92 Room Air I&O- Last 24 Hours up to 6 AM 06/19/16 06:00 Intake Total 1470 ml Output Total 1075 ml Balance 395 ml Laboratory Data 24H LABS Laboratory Tests 2 06/18/16 10:05: Lactic Acid (Sepsis) 2.7*H 06/18/16 11:20: Prothromb Time International Ratio 1.26, Prothrombin Time 15.9H 06/18/16 11:25: Bedside Glucose (Misc Panel) 328H 06/18/16 14:17: Lactic Acid Level 2.0 06/18/16 16:42: Bedside Glucose (Misc Panel) 323H 06/18/16 19:58: Bedside Glucose (Misc Panel) 385H 06/19/16 04:46: Anion Gap 8, Blood Urea Nitrogen 45H, Creatinine 1.88H, Sodium Level 138, Potassium Level 4.9, Chloride Level 104, Carbon Dioxide Level 26, Calcium Level 9.1, Glomerular Filtration Rate 39.4L, Prothromb Time International Ratio 1.27, Prothrombin Time 16.0H CBC/BMP Laboratory Tests 06/19/16 04:46 Calcium Level 9.1, Red Blood Count 5.44, Mean Corpuscular Volume 63.8 L, Mean Corpuscular Hemoglobin 17.1 L, Mean Corpuscular Hemoglobin Concent 26.9 L, Red Cell Distribution Width 20.9 H Microbiology Microbiology 06/16/16 Blood Culture - Preliminary, Resulted No Growth after 48 hours. All Specime... 06/16/16 Blood Culture - Preliminary, Resulted No Growth after 48 hours. All Specime... 06/17/16 Respiratory Virus Panel (PCR) (SAMUEL) - Final, Complete 06/16/16 Group A Streptococcus Screen (SAMUEL) - Final, Complete 06/16/16 Influenza Virus Type A Antigen - Final, Complete 06/16/16 Influenza Virus Type B Antigen - Final, Complete 06/16/16 Urine Culture - Final, Complete Caballero,Juan Pablo M RPA-C Jun 19, 2016 08:25
[2016-06-19] MEDS: GABAPENTIN 300 MG CAP PO SCH ×3 (08:33→20:15)
[2016-06-19] MEDS: OMEPRAZOLE 20 MG CAP PO SCH (08:33)
[2016-06-19] MEDS: AMIODARONE 200 MG TAB (PACERONE) PO SCH ×2 (08:33→20:15)
[2016-06-19] MEDS: HumaLOG INSULIN (NovoLOG) PER UNIT SC SCH ×4 (08:33→20:24)
[2016-06-19 12:00] VITALS: BP 114/64
--- NOTE | 2016-06-19 12:43 | EDDOCDS ---
Nurse's Notes [facility] Name: Suha Morales Age: 60 yrs Sex: Male : 1955 Arrival Date: 06/16/2016 Time: 13:47 Bed Admit Hold Private MD: Emanuel Ruiz MD Diagnosis: Acute bronchitis;Fever, unspecified;Cough;Chest pain, unspecified Presentation: 06/16 14:05 Presenting complaint: Patient states: Productive cough, fevers, chills, increased dwg shortness of breath for 5 days, sent from Dr. Peterson's office with these symptoms in addition to EKG changes. Adult Sepsis Screening: The patient does not have new or worsening altered mentation. Patient's respiratory rate is less than 22. Systolic blood pressure is greater than 100. Patient has a qSOFA score of 0- Negative Sepsis Screen. Suicide/Homicide risk assessment- the patient denies having any suicidal and/or homicidal ideations and does not present with any other emotional, behavioral or mental health complaints. Status: Patient is not a atm servicer or dependent. Transition of care: patient was received from Dr. Peterson's office. Red Flag criteria, patient assessed and taken directly to a bed. 14:05 Acuity: MOUSTAPHA Level 3 dwg 14:05 Method Of Arrival: Walkin/Carried/Asstd dwg Triage Assessment: 14:21 General: Appears in no apparent distress. Pain: Pain currently is 5 out of 10 on a pain dwg scale. HIV screening NA for this visit Offered previously. Historical: - Allergies: no known allergies; - Home Meds: 1. tamsulosin 0.4 mg oral cp24 1 cap once daily (Last dose: 06/12/2016) 2. tramadol 50 mg Oral tab 1 tab as needed (Last dose: 06/12/2016) 3. ropinirole 2 mg oral tab daily 4. amitriptyline 50 mg Oral tab 1 tab nightly 5. aspirin 81 mg Oral tab 1 tab once daily (Last dose: 06/15/2016) 6. atorvastatin 10 mg oral tab 1 tab once daily (Last dose: 06/15/2016) 7. bisoprolol fumarate 5 mg oral tab 0.5 tab once daily (Last dose: 06/15/2016) 8. gabapentin 600 mg Oral tab 1 tab 3 times per day (Last dose: 06/15/2016) 9. glipizide 10 mg Oral tab 1 tab 2 times per day (Last dose: 06/15/2016) 10. levothyroxine 175 mcg Oral tab 1 tab once daily (Last dose: 06/15/2016) 11. lisinopril 5 mg Oral tab 1 tab once daily (Last dose: 06/15/2016) 12. magnesium oxide 500 mg Oral cap daily (Last dose: 06/15/2016) 13. Multivitamin Oral 1 tablet daily (Last dose: 06/15/2016) 14. Metformin 1500 mg bid Oral (Last dose: 06/15/2016) 15. omeprazole 20 mg Oral cpDR 1 cap once daily (Last dose: 06/15/2016) 16. Plavix 75 mg Oral tab 1 tab once daily (Last dose: 06/15/2016) - PMHx: throat cancer,; Lung cancer; Diabetes - NIDDM: controlled; GERD; Hypertension; Hypercholesterolemia; - PSHx: Aortic valve replacement 2009; Laryngectomy 2010; Right upper lobectomy 2007; - Social history: Smoking status: Patient states former smoker of tobacco. No barriers to communication noted, The patient speaks fluent Vietnamese. - Family history: Not pertinent. - : The pt / caregiver states he / she is on anticoagulants: Plavix. Home medication list is obtained from the patient. - Exposure Risk Screening:: None identified. Screenin:26 Screening information is obtained from the patient. Fall risk: No risks identified. ml6 Assistance ADL's: requires no assistance with activities of daily living. Abuse/DV Screen: The patient / caregiver reports he/she is: not in a situation that causes fear, pain or injury. Nutritional screening: No deficits noted. Advance Directives: Currently, there is no health care proxy. home support is adequate. Assessment: 15:25 General: Appears in no apparent distress, Behavior is appropriate for age, cooperative. ml6 Pain: Denies pain. Cardiovascular: No deficits noted. Capillary refill < 3 seconds is brisk in bilateral fingers toes Heart tones S1 S2 present. Respiratory: Airway is patent Respiratory effort is even, unlabored, Respiratory pattern is regular, symmetrical, Breath sounds are diminished bilaterally. Reports cough that is productive, the patient has moderate shortness of breath. GI: No deficits noted. 16:30 Reassessment: Patient appears in no apparent distress at this time. Patient denies pain ml6 at this time. Patient states feeling better. Patient states symptoms have improved. 17:30 Reassessment: Patient appears in no apparent distress at this time. Patient denies pain ml6 at this time. Patient states feeling better. Patient states symptoms have improved. no change from previous . 18:30 General: Appears in no apparent distress, comfortable, Behavior is appropriate for age, ml6 cooperative. Pain: Denies pain. Cardiovascular: No deficits noted. Capillary refill < 3 seconds is brisk in bilateral fingers toes. Respiratory: No deficits noted. 19:28 General: Appears in no apparent distress, comfortable, Behavior is appropriate for age, ko2 cooperative. Pain: Denies pain. Neurological: Level of Consciousness is awake, alert. Cardiovascular: Heart tones S1 S2 present. Respiratory: Airway is patent Respiratory effort is even, unlabored, Breath sounds are diminished bilaterally. Derm: Skin is normal. 20:36 General: Appears in no apparent distress, comfortable, Behavior is appropriate for age, ko2 cooperative. Pain: Denies pain. Neurological: Level of Consciousness is awake, alert. 21:25 General: Appears in no apparent distress, comfortable, Behavior is cooperative. ko2 Neurological: Level of Consciousness is awake, alert. Respiratory: Airway is patent Respiratory effort is even, unlabored. Derm: Skin is normal. 21:27 General: Report given to Debbie Reece RN mary Nurse Please see [facility] for further ko2 documentation. Vital Signs: 13:48 BP 139 / 81; Pulse 114; Resp 18; Temp 100.4(O); Pulse Ox 94% on R/A; Weight 99.79 kg elp (R); Height 5 ft. 10 in. (177.80 cm) (R); 15:03 BP 147 / 77 (auto/); ml6 15:03 Pulse 102; Resp 18; Pulse Ox 98% on R/A; Pain 0/10; ml6 16:48 BP 139 / 72 (auto/); ko2 16:48 Pulse 114 MON; Pulse Ox 89% ; ko2 17:05 BP 127 / 87 (auto/); ko2 17:06 Pulse 112 MON; Pulse Ox 97% ; ko2 17:33 BP 133 / 66 (auto/); ko2 17:34 Pulse 110 MON; Pulse Ox 94% ; ko2 18:03 BP 149 / 70 (auto/); ko2 18:04 Pulse 124 MON; Pulse Ox 95% ; ko2 19:00 Pulse 116 MON; Pulse Ox 95% ; ko2 19:03 BP 130 / 79 (auto/); ko2 13:48 Body Mass Index 31.57 (99.79 kg, 177.80 cm) elp Vitals: 13:48 Log In Time: June 16, 2016 at 13:45. elp 15:30 Strep Screen is obtained and tested: Negative, a GATSNEG culture is ordered in [facility] and sent. ED Course: 13:48 Patient visited by Sadie Esqueda PCA. elp 13:48 Emanuel Ruiz is Private Physician. elp 13:48 Patient moved to Waiting elp 13:49 Patient visited by Sadie Esqueda PCA. elp 13:57 Patient moved to Pre RCE elp 14:08 Triage Initiated dwg 14:39 Patient moved to 9 dwg 14:42 Rose Link MD is Attending Physician. fg 14:50 Patient visited by Rose Link MD. fg 15:04 EKG done. (by ED staff). Reviewed by Rose Link MD. ct3 15:06 Patient visited by Renee Garcia PCA. ct3 15:07 Patient has correct armband on for positive identification. Placed in gown. Bed in low ct3 position. Call light in reach. Side rails up X 1. weather strip installer on. Pulse ox on. NIBP on. 15:08 Patient visited by Renee Garcia PCA. ct3 15:25 Inserted peripheral IV: 18gauge IV in left antecubital area and blood collected. ml6 Patient tolerated the procedure well. No procedures done that require assistance. 15:26 The patient / caregiver is instructed regarding the plan of care and ED course. ml6 15:45 portable chest Returned. EDMS 15:47 Patient visited by Samuel Wen, ESTHER. ml6 15:56 [facility] Payment Agreement was scanned into [facility] and attached to record. gjb 16:09 DIFFERENTIAL NO CHARGE Sent. ml6 16:10 Patient visited by Samuel Wen, ESTHER. ml6 17:03 Patient visited by Samuel Wen, RN. ml6 17:27 Patient visited by Samuel Wen RN. ml6 17:27 Attending Physician role handed off by Rose Link MD ml 17:27 Michelle Booth MD is Attending Physician. ml 17:38 Lactic Acid (Ayala tube on ice) Sent. ml6 18:09 Patient visited by Samuel Wen RN. ml6 18:23 Jez pelayo is Hospitalizing Provider. ml 19:00 Elizabeth Reaves,ESTHER is Primary Nurse. ko2 19:27 Patient visited by Elizabeth Reaves RN. ko2 19:27 Troponin: 1900 Sent. ko2 19:27 Cardiac Marker Panel: 1900 Sent. ko2 19:31 EKG done. (by ED staff). Reviewed by Michelle Booth MD. cln 20:49 Patient moved to Admit Hold ml3 21:23 Dr Christianson notified of Lactic Acid being 2.8 No new orders. ko2 22:10 CT Chest without contrast Returned. EDMS 02 07:45 Primary Nurse role handed off by Elizabeth Reaves RN kr3 09:27 ELECTROCARDIOGRAM ADULT Returned. EDMS 10:01 Patient visited by Marcus Vargas, RN. bcj 11:41 Patient visited by Marcus Vargas RN. bcj 12:40 T-Sheet-- Draft Copy was scanned into [facility] and attached to record. gb 12:40 Radiology Report was scanned into [facility] and attached to record. gb Administered Medications: 06/16 16:54 Drug: Furosemide 40 mg [furosemide 10 mg/mL injection solution (4 mL)] Route: IVP; ml6 Site: left antecubital; Output: 17:52 Urine: 1000.00ml (Voided); Total: 1000.00ml. ml6 21:24 Urine: 1400.00ml (Voided); Total: 2400.00ml. ko2 Order Results: Lab Order: B-Type Natiuretic Peptide; SPEC'M 06/16/16 14:58 Test: BRAIN NATRIURETIC PEPTIDE; Value: 1200; Range: <100; Abnormal: Above high normal; Units: PG/ML; Status: F Lab Order: Basic Metabolic Profile; SPEC'M 06/16/16 14:58 Test: GLUCOSE, FASTING; Value: 188; Range: 70-105; Abnormal: Above high normal; Units: MG/DL; Status: F Test: BLOOD UREA NITROGEN; Value: 21; Range: 7-18; Abnormal: Above high normal; Units: MG/DL; Status: F Test: CREATININE FOR GFR; Value: 1.28; Range: 0.70-1.30; Units: MG/DL; Status: F Test: GLOMERULAR FILTRATION RATE; Value: > 60.0; Range: >56; Status: F Test: SODIUM LEVEL; Value: 137; Range: 136-145; Units: MEQ/L; Status: F Test: POTASSIUM SERUM; Value: 5.0; Range: 3.5-5.1; Units: MEQ/L; Status: F Test: CHLORIDE LEVEL; Value: 102; Range: 98-107; Units: MEQ/L; Status: F Test: CARBON DIOXIDE LEVEL; Value: 28; Range: 21-32; Units: MEQ/L; Status: F Test: ANION GAP; Value: 7; Range: 8-16; Abnormal: Below low normal; Units: MEQ/L; Status: F Test: CALCIUM LEVEL; Value: 9.7; Range: 8.5-10.1; Units: MG/DL; Status: F Test Note: ; Units are mL/min/1.73 m2 Chronic Kidney Disease Staging per NKF: Stage I & II GFR >=60 Normal to Mildly Decreased Stage III GFR 30-59 Moderately Decreased Stage IV GFR 15-29 Severely Decreased Stage V GFR <15 Very Little GFR Left ESRD GFR <15 on SAFETY SEALER Lab Order: CBC with Diff; SPEC'M 06/16/16 14:58 Test: WHITE BLOOD COUNT; Value: 13.1; Range: 4.0-10.0; Abnormal: Above high normal; Units: K/mm3; Status: F Test: RED BLOOD COUNT; Value: 5.75; Range: 4.30-6.10; Units: M/mm3; Status: F Test: HEMOGLOBIN; Value: 9.9; Range: 14.0-18.0; Abnormal: Below low normal; Units: g/dl; Status: F Test: HEMATOCRIT; Value: 35.5; Range: 42.0-52.0; Abnormal: Below low normal; Units: %; Status: F Test: MEAN CORPUSCULAR VOLUME; Value: 61.6; Range: 80.0-96.0; Abnormal: Below low normal; Units: fl; Status: F Test: MEAN CORPUSCULAR HEMOGLOBIN; Value: 17.2; Range: 27.0-33.0; Abnormal: Below low normal; Units: pg; Status: F Test: MEAN CORPUSCULAR HGB CONC; Value: 27.9; Range: 32.0-36.5; Abnormal: Below low normal; Units: g/dl; Status: F Test: RED CELL DISTRIBUTION WIDTH; Value: 20.6; Range: 11.5-14.5; Abnormal: Above high normal; Units: %; Status: F Test: PLATELET COUNT, AUTOMATED; Value: 270; Range: 150-450; Units: k/mm3; Status: F Test: NEUTROPHILS; Value: 84; Range: 35-75; Abnormal: Above high normal; Units: %; Status: F Test: LYMPHOCYTES; Value: 6; Range: 16-52; Abnormal: Below low normal; Units: %; Status: F Test: MONOCYTES; Value: 9; Range: 0-8; Abnormal: Above high normal; Units: %; Status: F Test: ATYPICAL LYMPH; Value: 1; Range: 0-5; Units: %; Status: F Test: NUCLEATED RED BLOOD CELL; Value: 1; Range: 0-0; Abnormal: Above high normal; Units: %; Status: F Test: POLYCHROMASIA; Value: 1+; Status: F Test: HYPOCHROMASIA; Value: 2+; Status: F Test: ANISOCYTOSIS; Value: 3+; Status: F Test: MICROCYTOSIS; Value: 4+; Status: F Lab Order: -Influenza A&B Rapid Antigen - Nose; SPEC'M 06/16/16 14:58 Test: INFLUENZA A RAPID SCR by ICA; Value: INFLUENZA A RESULTS NEGATIVE; Status: F Test: INFLUENZA A RAPID SCR by ICA; Value: Comments:; Status: F Test: INFLUENZA B RAPID SCR by ICA; Value: INFLUENZA B RESULTS NEGATIVE; Status: F Test Note: ; The Influenza test is a direct rapid immunoassay for the qualitative detection of Influenza viral antigen. Cell culture (Viral Culture) testing should be considered to confirm NEGATIVE results and to assist in detecting other viruses that can provide similar clinical symptoms. Please contact the lab within 24 [phone] if confirmatory testing is desired. Lab Order: Urinalysis; SPEC'M 06/16/16 14:52 Test: APPEARANCE, URINE; Value: CLEAR; Range: CLEAR; Status: F Test: COLOR, URINE; Value: YELLOW; Range: YELLOW; Status: F Test: PH,URINE; Value: 7.0; Range: 5.0-9.0; Units: UNITS; Status: F Test: SPECIFIC GRAVITY URINE AUTO; Value: 1.008; Range: 1.002-1.035; Status: F Test: PROTEIN, URINE AUTO; Value: NEGATIVE; Range: NEGATIVE; Units: mg/dL; Status: F Test: GLUCOSE, URINE (UA) AUTO; Value: 2+; Range: NEGATIVE; Abnormal: Above high normal; Units: mg/dL; Status: F Test: KETONE, URINE AUTO; Value: NEGATIVE; Range: NEGATIVE; Units: mg/dL; Status: F Test: UROBILINOGEN, URINE AUTO; Value: 0.2; Range: 0.0-2.0; Units: mg/dL; Status: F Test: BILIRUBIN, URINE AUTO; Value: NEGATIVE; Range: NEGATIVE; Status: F Test: NITRITE, URINE AUTO; Value: NEGATIVE; Range: NEGATIVE; Status: F Test: LEUKOCYTE ESTERASE, URINE AUTO; Value: NEGATIVE; Range: NEGATIVE; Status: F Test: BLOOD, URINE BLOOD; Value: NEGATIVE; Range: NEGATIVE; Status: F Test: WBC, URINE AUTO; Value: 0; Range: 0-3; Units: /HPF; Status: F Test: RBC, URINE AUTO; Value: 1; Range: 0-3; Units: /HPF; Status: F Test: BACTERIA, URINE AUTO; Value: 1+; Range: NEGATIVE; Abnormal: Above high normal; Status: F Test: SQUAMOUS EPITHELIAL CELL UR AU; Value: 0; Range: 0-6; Units: /HPF; Status: F Test: HYALINE CAST, URINE AUTO; Value: 0; Range: 0-1; Units: /LPF; Status: F Lab Order: Urine Culture; SPEC'M 06/16/16 14:52 Test: URINE CULTURE; Value: <EXTERNAL COMMENT eCWMed> FULL REPORT IN LAB NOTES (eCW and Medent).; Status: F Test: URINE CULTURE; Value: URINE CULTURE RESULT NO GROWTH; Status: F Lab Order: GATS (NEGATIVE STREP SCREEN); SPEC'M 06/16/16 14:58 Test: GATS CULTURE (NEG STREP SCR); Value: GATS RESULT NEGATIVE FOR STREP PYOGENES (GROUP A); Status: F Test: GATS CULTURE (NEG STREP SCR); Value: <EXTERNAL COMMENT eCWMed> FULL REPORT IN LAB NOTES (eCW and Medent).; Status: F Lab Order: PLATELET ESTIMATE; [facility] 06/16/16 14:58 Test: PLATELET ESTIMATE; Value: NORMAL; Range: NORMAL; Status: F Lab Order: Cardiac Marker Panel: 1900; [facility] 06/16/16 20:29 Test: CPK CREATINE PHOSPHOKINASE; Value: 141; Range: 39-308; Units: U/L; Status: F Test: CK-MB VALUE MASS; Value: 3.0; Range: 0.0-3.6; Units: NG/ML; Status: F Test: MB/CK RELATIVE INDEX; Value: 2.12; Range: < OR =4; Status: F Test: TROPONIN I; Value: 0.26; Range: < 0.10; Abnormal: High; Units: NG/ML; Status: F Test Note: ; DIAGNOSIS CRITERIA MMB ng/ml Relative Index (RI) NON-AMI < or = 5 N/A AYALA ZONE > 5 < or = 4 AMI > 5 > 4 Lab Order: CARDIAC INJURY PROFILE; [facility] 06/16/16 14:58 Test: CPK CREATINE PHOSPHOKINASE; Value: 124; Range: 39-308; Units: U/L; Status: F Test: CK-MB VALUE MASS; Value: 3.3; Range: 0.0-3.6; Units: NG/ML; Status: F Test: MB/CK RELATIVE INDEX; Value: 2.66; Range: < OR =4; Status: F Test Note: ; DIAGNOSIS CRITERIA MMB ng/ml Relative Index (RI) NON-AMI < or = 5 N/A AYALA ZONE > 5 < or = 4 AMI > 5 > 4 Lab Order: TROPONIN; [facility] 06/16/16 14:58 Test: TROPONIN I; Value: 0.21; Range: < 0.10; Abnormal: Above high normal; Units: NG/ML; Status: F Test Note: ; Troponin I Reference Interval for [place] LOCI: 99th Percentile= 0.00-0.045 ng/ml Risk Stratification: <= 0.10 ng/ml Decreased Risk for Adverse Clinical Events. 0.10-1.50 ng/ml Increased Risk for Adverse Clinical Events. Evaluation of additional criterion and/or repeat testing in 2-6 hours is suggested to rule out myocardial damage. >= 1.50 ng/ml Indicative of Myocardial Injury. Lab Order: Lactic Acid (Ayala tube on ice); SPEC'M 06/16/16 16:00 Test: LACTIC ACID SEPSIS PROTOCOL; Value: 2.4; Range: 0.4-2.0; Abnormal: Above upper panic limits; Units: MMOL/L; Status: F Lab Order: COMPLETE BLOOD COUNT; SPEC'M 06/17/16 05:27 Test: WHITE BLOOD COUNT; Value: 13.2; Range: 4.0-10.0; Abnormal: Above high normal; Units: K/mm3; Status: F Test: RED BLOOD COUNT; Value: 5.90; Range: 4.30-6.10; Units: M/mm3; Status: F Test: HEMOGLOBIN; Value: 10.1; Range: 14.0-18.0; Abnormal: Below low normal; Units: g/dl; Status: F Test: HEMATOCRIT; Value: 36.9; Range: 42.0-52.0; Abnormal: Below low normal; Units: %; Status: F Test: MEAN CORPUSCULAR VOLUME; Value: 62.5; Range: 80.0-96.0; Abnormal: Below low normal; Units: fl; Status: F Test: MEAN CORPUSCULAR HEMOGLOBIN; Value: 17.1; Range: 27.0-33.0; Abnormal: Below low normal; Units: pg; Status: F Test: MEAN CORPUSCULAR HGB CONC; Value: 27.4; Range: 32.0-36.5; Abnormal: Below low normal; Units: g/dl; Status: F Test: RED CELL DISTRIBUTION WIDTH; Value: 20.7; Range: 11.5-14.5; Abnormal: Above high normal; Units: %; Status: F Test: PLATELET COUNT, AUTOMATED; Value: 236; Range: 150-450; Units: k/mm3; Status: F Lab Order: TROPONIN; SPEC'M 06/17/16 05:27 Test: TROPONIN I; Value: 0.37; Range: < 0.10; Abnormal: High; Units: NG/ML; Status: F Test Note: ; Troponin I Reference Interval for [employer] [place] LOCI: 99th Percentile= 0.00-0.045 ng/ml Risk Stratification: <= 0.10 ng/ml Decreased Risk for Adverse Clinical Events. 0.10-1.50 ng/ml Increased Risk for Adverse Clinical Events. Evaluation of additional criterion and/or repeat testing in 2-6 hours is suggested to rule out myocardial damage. >= 1.50 ng/ml Indicative of Myocardial Injury. Lab Order: RESPIRATORY PANEL; SPEC'M 06/17/16 00:52 Test: RESPIRATORY PANEL; Value: RP PANEL RESULT NEGATIVE by PCR; Status: F Test: RESPIRATORY PANEL; Value: Comments:; Status: F Test Note: ; This respiratory PCR panel detects Influenza A H1, H3 and 2009 H1 viruses, Influenza B virus, Respiratory syncytial virus, Human metapneumovirus, Parainfluenza virus 1, 2, 3 and 4, Adenovirus, Rhinovirus/Enterovirus, Coronavirus HKU1, NL63, OC43 and 229E, Bordetella pertussis, Mycoplasma pneumoniae and Chlamydia pneumoniae. Lab Order: BASIC METABOLIC PROFILE; SPEC'M 06/17/16 05:27 Test: GLUCOSE, FASTING; Value: 233; Range: 70-105; Abnormal: Above high normal; Units: MG/DL; Status: F Test: BLOOD UREA NITROGEN; Value: 26; Range: 7-18; Abnormal: Above high normal; Units: MG/DL; Status: F Test: CREATININE FOR GFR; Value: 2.40; Range: 0.70-1.30; Abnormal: High; Units: MG/DL; Status: F Test: GLOMERULAR FILTRATION RATE; Value: 29.7; Range: >56; Abnormal: Below low normal; Status: F Test: SODIUM LEVEL; Value: 139; Range: 136-145; Units: MEQ/L; Status: F Test: POTASSIUM SERUM; Value: 5.0; Range: 3.5-5.1; Units: MEQ/L; Status: F Test: CHLORIDE LEVEL; Value: 101; Range: 98-107; Units: MEQ/L; Status: F Test: CARBON DIOXIDE LEVEL; Value: 30; Range: 21-32; Units: MEQ/L; Status: F Test: ANION GAP; Value: 8; Range: 8-16; Units: MEQ/L; Status: F Test: CALCIUM LEVEL; Value: 9.1; Range: 8.5-10.1; Units: MG/DL; Status: F Test Note: ; Units are mL/min/1.73 m2 Chronic Kidney Disease Staging per NKF: Stage I & II GFR >=60 Normal to Mildly Decreased Stage III GFR 30-59 Moderately Decreased Stage IV GFR 15-29 Severely Decreased Stage V GFR <15 Very Little GFR Left ESRD GFR <15 on SAFETY SEALER Lab Order: MAGNESIUM LEVEL; SPEC'M 06/17/16 05:27 Test: MAGNESIUM LEVEL; Value: 2.0; Range: 1.8-2.4; Units: MG/DL; Status: F Lab Order: Fingerstick Blood Sugar; SPEC'M 06/16/16 22:41 Test: BEDSIDE GLUCOSE; Value: 260; Range: 70-105; Abnormal: Above high normal; Units: MG/DL; Status: F Radiology Order: portable chest Test: portable chest REASON FOR EXAMINATION: Cough; CHEST, ONE VIEW:; ; HISTORY: Cough.; ; COMPARISON: 07/15/2013; ; There is elevation of the right hemidiaphragm. An increase in interstitial; markings is present in the lungs consistent with chronic interstitial fibrosis.; The cardiac silhouette is enlarged. The pulmonary vasculature is normal in; appearance.; ; IMPRESSION:; ; 1. Chronic interstitial fibrosis.; ; 2. Cardiomegaly.; ; ; Signed by; Haseeb Howard MD 06/16/2016 03:49 P; Radiology Order: CT Chest without contrast Test: CT Chest without contrast REASON FOR EXAMINATION: productive cough, r/o PNA; ; CT of the chest without contrast; Clinical statement: cough.; Technique: Multiple axial CT images were obtained with 5 mm cuts through the chest without administra; tion of contrast.; Comparison: 03/11/2013.; Findings: There is no thoracic lymphadenopathy. The visualized portions of the thyroid gland is unrem; arkable. There are small bilateral pleural effusions. The lungs are clear. Limited imaging of the upp; er abdomen does not demonstrate any acute abnormalities. There are no suspicious osseous lesions.; Impression: Small new bilateral pleural effusions.; ; Radiology Order: ELECTROCARDIOGRAM ADULT Test: ELECTROCARDIOGRAM ADULT REASON FOR EXAMINATION: rising troponin; Stationary ECG Study; 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 06/17 11:41 Discharge Assessment: patient administered narcotics - no. The following High Risk [facility] Discharge criteria are identified: None. Admitted to PCU accompanied by nurse, accompanied by tech, via stretcher, on monitor. Condition: stable. No special radiology studies were completed. Property :Personal belongings accompany Pt. 11:41 Patient left the ED. [facility] Signatures: Dispatcher [employer] EDMS Michelle Booth MD MD Charlie Rachel, RN Marcus Rutledge, RN RN [facility] Milli Rain, Reg Reg Alberto, Anson, Air Valve Mechanic Unit ml3 Rosalva Manzanares,RN RN joi3 Samuel Wen, RN RN ml6 Renee Garcia, INSTRUMENT AND CONTROL SERVICE PERSON INSTRUMENT AND CONTROL SERVICE PERSON ct3 Sadie Esqueda, INSTRUMENT AND CONTROL SERVICE PERSON INSTRUMENT AND CONTROL SERVICE PERSON Elizabeth Florian,RN RN Rose Barillas MD MD fg Beck, Gabriela gjb Nichols, Crystal, INSTRUMENT AND CONTROL SERVICE PERSON INSTRUMENT AND CONTROL SERVICE PERSON cln Chart Complete MTDD
--- NOTE | 2016-06-19 12:43 | EDDOCDS ---
Physician Documentation [facility] Name: Timmy Finney Age: 60 yrs Sex: Male : 1955 Arrival Date: 06/16/2016 Time: 13:47 Bed Admit Hold Private MD: Emanuel Ruiz MD Disposition: 06/16/16 18:24 Hospitalization ordered by Jez Gibbons for Inpatient Admission. Preliminary diagnosis are Acute bronchitis, Fever, unspecified, Cough, Chest pain, unspecified. - Bed requested for PCU. - Status is Inpatient Admission. bcj - Condition is Stable. - Problem is new. - Symptoms are unchanged. Historical: - Allergies: no known allergies; - Home Meds: 1. tamsulosin 0.4 mg oral cp24 1 cap once daily (Last dose: 06/12/2016) 2. tramadol 50 mg Oral tab 1 tab as needed (Last dose: 06/12/2016) 3. ropinirole 2 mg oral tab daily 4. amitriptyline 50 mg Oral tab 1 tab nightly 5. aspirin 81 mg Oral tab 1 tab once daily (Last dose: 06/15/2016) 6. atorvastatin 10 mg oral tab 1 tab once daily (Last dose: 06/15/2016) 7. bisoprolol fumarate 5 mg oral tab 0.5 tab once daily (Last dose: 06/15/2016) 8. gabapentin 600 mg Oral tab 1 tab 3 times per day (Last dose: 06/15/2016) 9. glipizide 10 mg Oral tab 1 tab 2 times per day (Last dose: 06/15/2016) 10. levothyroxine 175 mcg Oral tab 1 tab once daily (Last dose: 06/15/2016) 11. lisinopril 5 mg Oral tab 1 tab once daily (Last dose: 06/15/2016) 12. magnesium oxide 500 mg Oral cap daily (Last dose: 06/15/2016) 13. Multivitamin Oral 1 tablet daily (Last dose: 06/15/2016) 14. Metformin 1500 mg bid Oral (Last dose: 06/15/2016) 15. omeprazole 20 mg Oral cpDR 1 cap once daily (Last dose: 06/15/2016) 16. Plavix 75 mg Oral tab 1 tab once daily (Last dose: 06/15/2016) - PMHx: throat cancer,; Lung cancer; Diabetes - NIDDM: controlled; GERD; Hypertension; Hypercholesterolemia; - PSHx: Aortic valve replacement 2009; Laryngectomy 2010; Right upper lobectomy 2007; - Social history: Smoking status: Patient states former smoker of tobacco. No barriers to communication noted, The patient speaks fluent Israeli. - Family history: Not pertinent. - : The pt / caregiver states he / she is on anticoagulants: Plavix. Home medication list is obtained from the patient. - Exposure Risk Screening:: None identified. Vital Signs: 06/16 13:48 BP 139 / 81; Pulse 114; Resp 18; Temp 100.4(O); Pulse Ox 94% on R/A; Weight 99.79 kg / elp 220 lbs (R); Height 5 ft. 10 in. (177.80 cm) (R); 15:03 BP 147 / 77 (auto/); ml6 15:03 Pulse 102; Resp 18; Pulse Ox 98% on R/A; Pain 0/10; ml6 16:48 BP 139 / 72 (auto/); ko2 16:48 Pulse 114 MON; Pulse Ox 89% ; ko2 17:05 BP 127 / 87 (auto/); ko2 17:06 Pulse 112 MON; Pulse Ox 97% ; ko2 17:33 BP 133 / 66 (auto/); ko2 17:34 Pulse 110 MON; Pulse Ox 94% ; ko2 18:03 BP 149 / 70 (auto/); ko2 18:04 Pulse 124 MON; Pulse Ox 95% ; ko2 19:00 Pulse 116 MON; Pulse Ox 95% ; ko2 19:03 BP 130 / 79 (auto/); ko2 13:48 Body Mass Index 31.57 (99.79 kg, 177.80 cm) elp MDM: 14:44 IV Saline Lock ordered. fg 14:44 Undress patient appropriately for examination ordered. fg 14:44 Obtain sample by nasal aspiration ordered. fg 14:44 Strep Screen, Nursing ordered. fg 14:44 -Blood Culture (Adults Only), peripheral from different site, or from device/port/PICC fg etc. if present ordered. 14:45 B-Type Natiuretic Peptide Ordered. EDMS 14:45 Basic Metabolic Profile Ordered. EDMS 14:45 CBC with Diff Ordered. EDMS 14:45 Urinalysis Ordered. EDMS 14:45 -Influenza A&B Rapid Antigen - Nose Ordered. EDMS 14:45 Urine Culture Ordered. EDMS 14:45 -Blood Culture Ordered. EDMS 14:45 portable chest Ordered. EDMS 14:46 ECG WITH READING ER PHYS+CARDIAG ordered. EDMS 14:55 -Blood Culture (Adults Only), peripheral from different site, or from device/port/PICC deg etc. if present complete. 14:56 BLOOD CULTURES Ordered. EDMS 15:30 GATS (NEGATIVE STREP SCREEN) Ordered. EDMS 15:55 Financial registration complete. gjb 15:56 [facility] Payment Agreement was scanned into [employer] and attached to record. gjb 16:04 DIFFERENTIAL NO CHARGE Ordered. EDMS 16:04 PLATELET ESTIMATE Ordered. EDMS 16:37 Furosemide 40 mg IVP once ordered. fg 16:49 Repeat EKG (put time details section) ordered. fg 16:50 Cardiac Marker Panel: 1900 Ordered. EDMS 16:50 Troponin: 1900 Ordered. EDMS 16:50 CARDIAC INJURY PROFILE Ordered. EDMS 16:50 TROPONIN Ordered. EDMS 16:51 Repeat EKG (put time details section) complete. deg 16:53 ECG WITH READING ER PHYS ordered. EDMS 17:08 SOFT+DIET ordered. EDMS 17:27 B-Type Natiuretic Peptide Reviewed. ml 17:27 Basic Metabolic Profile Reviewed. ml 17:27 CBC with Diff Reviewed. ml 17:27 Urinalysis Reviewed. ml 17:27 TROPONIN Reviewed. ml 17:27 -Influenza A&B Rapid Antigen - Nose Reviewed. ml 17:27 PLATELET ESTIMATE Reviewed. ml 17:27 CARDIAC INJURY PROFILE Reviewed. ml 17:27 portable chest Reviewed. ml 17:33 Misc. Nursing Order ordered. ml 17:35 Lactic Acid (Ayala tube on ice) Ordered. EDMS 17:35 BED REQUEST+ADM ordered. EDMS 18:07 Lactic Acid (Ayala tube on ice) Reviewed. ml 20:05 Admission / Observation Status ordered. EDMS 20:06 ECHOCARD,DOPPLER/COLOR FLOW ordered. EDMS 20:06 CT Chest without contrast Ordered. EDMS 20:06 SOFT DIET ordered. EDMS 20:06 COMPLETE BLOOD COUNT Ordered. EDMS 20:07 TROPONIN Ordered. EDMS 20:07 TROPONIN Ordered. EDMS 20:07 RESPIRATORY PANEL Ordered. EDMS 20:07 GASTROINTESTINAL (GI) PANEL Ordered. EDMS 20:45 SPUTUM CULTURE AND GRAM STAIN Ordered. EDMS 22:35 BASIC METABOLIC PROFILE Ordered. EDMS 22:35 MAGNESIUM LEVEL Ordered. EDMS 23:00 Fingerstick Blood Sugar Ordered. EDMS 06/17 07:57 ELECTROCARDIOGRAM ADULT ordered. EDMS 12:40 T-Sheet-- Draft Copy was scanned into [employer] and attached to record. gb 12:40 Radiology Report was scanned into [employer] and attached to record. gb Administered Medications: 06/16 16:54 Drug: Furosemide 40 mg [furosemide 10 mg/mL injection solution (4 mL)] Route: IVP; ml6 Site: left antecubital; Signatures: Dispatcher [employer] EDMS Michelle Booth MD MD ml Ana Napoles, Splunk Architect Unit deg Charlie Rachel RN RN dwg Johnson, Bruce, RN RN bcj Barnhardt, Gloria, Reg Reg Samuel Shah RN RN ml6 Rose Link MD MD fg Beck, Gabriela gjb The chart was reviewed and I authenticate all verbal orders and agree with the evaluation and treatment provided.Corrections: (The following items were deleted from the chart) 16:50 16:39 CARDIAC INJURY PROFILE+LAB ordered. EDMS EDMS 16:50 16:39 TROPONIN+LAB ordered. EDMS EDMS 20:07 20:07 GASTROINTESTINAL (GI) PANEL ordered. EDMS EDMS 20:07 20:07 GASTROINTESTINAL (GI) PANEL ordered. EDMS EDMS 20:19 20:07 BLOOD CULTURES ordered. EDMS EDMS 20:48 20:06 TROPONIN ordered. EDMS EDMS 22:34 20:06 BASIC METABOLIC PROFILE ordered. EDMS EDMS 22:34 20:33 MAGNESIUM LEVEL ordered. EDMS EDMS 06/17 00:17 06/16 20:33 ARTERIAL BLOOD GAS ordered. EDMS EDMS Attachments: 15:56 [facility] Payment Agreement gjb 06/17 12:40 T-Sheet-- Draft Copy gb Chart Complete MTDD
--- NOTE | 2016-06-19 12:43 | EDDOCDS ---
Physician Documentation [facility] Name: Timmy Finney Age: 60 yrs Sex: Male : 1955 Arrival Date: 06/16/2016 Time: 13:47 Bed Admit Hold Private MD: Emanuel Ruiz MD Disposition: 06/16/16 18:24 Hospitalization ordered by Jez Gibbons for Inpatient Admission. Preliminary diagnosis are Acute bronchitis, Fever, unspecified, Cough, Chest pain, unspecified. - Bed requested for PCU. - Status is Inpatient Admission. bcj - Condition is Stable. - Problem is new. - Symptoms are unchanged. Historical: - Allergies: no known allergies; - Home Meds: 1. tamsulosin 0.4 mg oral cp24 1 cap once daily (Last dose: 06/12/2016) 2. tramadol 50 mg Oral tab 1 tab as needed (Last dose: 06/12/2016) 3. ropinirole 2 mg oral tab daily 4. amitriptyline 50 mg Oral tab 1 tab nightly 5. aspirin 81 mg Oral tab 1 tab once daily (Last dose: 06/15/2016) 6. atorvastatin 10 mg oral tab 1 tab once daily (Last dose: 06/15/2016) 7. bisoprolol fumarate 5 mg oral tab 0.5 tab once daily (Last dose: 06/15/2016) 8. gabapentin 600 mg Oral tab 1 tab 3 times per day (Last dose: 06/15/2016) 9. glipizide 10 mg Oral tab 1 tab 2 times per day (Last dose: 06/15/2016) 10. levothyroxine 175 mcg Oral tab 1 tab once daily (Last dose: 06/15/2016) 11. lisinopril 5 mg Oral tab 1 tab once daily (Last dose: 06/15/2016) 12. magnesium oxide 500 mg Oral cap daily (Last dose: 06/15/2016) 13. Multivitamin Oral 1 tablet daily (Last dose: 06/15/2016) 14. Metformin 1500 mg bid Oral (Last dose: 06/15/2016) 15. omeprazole 20 mg Oral cpDR 1 cap once daily (Last dose: 06/15/2016) 16. Plavix 75 mg Oral tab 1 tab once daily (Last dose: 06/15/2016) - PMHx: throat cancer,; Lung cancer; Diabetes - NIDDM: controlled; GERD; Hypertension; Hypercholesterolemia; - PSHx: Aortic valve replacement 2009; Laryngectomy 2010; Right upper lobectomy 2007; - Social history: Smoking status: Patient states former smoker of tobacco. No barriers to communication noted, The patient speaks fluent Fijian. - Family history: Not pertinent. - : The pt / caregiver states he / she is on anticoagulants: Plavix. Home medication list is obtained from the patient. - Exposure Risk Screening:: None identified. Vital Signs: 06/16 13:48 BP 139 / 81; Pulse 114; Resp 18; Temp 100.4(O); Pulse Ox 94% on R/A; Weight 99.79 kg / elp 220 lbs (R); Height 5 ft. 10 in. (177.80 cm) (R); 15:03 BP 147 / 77 (auto/); ml6 15:03 Pulse 102; Resp 18; Pulse Ox 98% on R/A; Pain 0/10; ml6 16:48 BP 139 / 72 (auto/); ko2 16:48 Pulse 114 MON; Pulse Ox 89% ; ko2 17:05 BP 127 / 87 (auto/); ko2 17:06 Pulse 112 MON; Pulse Ox 97% ; ko2 17:33 BP 133 / 66 (auto/); ko2 17:34 Pulse 110 MON; Pulse Ox 94% ; ko2 18:03 BP 149 / 70 (auto/); ko2 18:04 Pulse 124 MON; Pulse Ox 95% ; ko2 19:00 Pulse 116 MON; Pulse Ox 95% ; ko2 19:03 BP 130 / 79 (auto/); ko2 13:48 Body Mass Index 31.57 (99.79 kg, 177.80 cm) elp MDM: 14:44 IV Saline Lock ordered. fg 14:44 Undress patient appropriately for examination ordered. fg 14:44 Obtain sample by nasal aspiration ordered. fg 14:44 Strep Screen, Nursing ordered. fg 14:44 -Blood Culture (Adults Only), peripheral from different site, or from device/port/PICC fg etc. if present ordered. 14:45 B-Type Natiuretic Peptide Ordered. EDMS 14:45 Basic Metabolic Profile Ordered. EDMS 14:45 CBC with Diff Ordered. EDMS 14:45 Urinalysis Ordered. EDMS 14:45 -Influenza A&B Rapid Antigen - Nose Ordered. EDMS 14:45 Urine Culture Ordered. EDMS 14:45 -Blood Culture Ordered. EDMS 14:45 portable chest Ordered. EDMS 14:46 ECG WITH READING ER PHYS+CARDIAG ordered. EDMS 14:55 -Blood Culture (Adults Only), peripheral from different site, or from device/port/PICC deg etc. if present complete. 14:56 BLOOD CULTURES Ordered. EDMS 15:30 GATS (NEGATIVE STREP SCREEN) Ordered. EDMS 15:55 Financial registration complete. gjb 15:56 [facility] Payment Agreement was scanned into [employer] and attached to record. gjb 16:04 DIFFERENTIAL NO CHARGE Ordered. EDMS 16:04 PLATELET ESTIMATE Ordered. EDMS 16:37 Furosemide 40 mg IVP once ordered. fg 16:49 Repeat EKG (put time details section) ordered. fg 16:50 Cardiac Marker Panel: 1900 Ordered. EDMS 16:50 Troponin: 1900 Ordered. EDMS 16:50 CARDIAC INJURY PROFILE Ordered. EDMS 16:50 TROPONIN Ordered. EDMS 16:51 Repeat EKG (put time details section) complete. deg 16:53 ECG WITH READING ER PHYS ordered. EDMS 17:08 SOFT+DIET ordered. EDMS 17:27 B-Type Natiuretic Peptide Reviewed. ml 17:27 Basic Metabolic Profile Reviewed. ml 17:27 CBC with Diff Reviewed. ml 17:27 Urinalysis Reviewed. ml 17:27 TROPONIN Reviewed. ml 17:27 -Influenza A&B Rapid Antigen - Nose Reviewed. ml 17:27 PLATELET ESTIMATE Reviewed. ml 17:27 CARDIAC INJURY PROFILE Reviewed. ml 17:27 portable chest Reviewed. ml 17:33 Misc. Nursing Order ordered. ml 17:35 Lactic Acid (Ayala tube on ice) Ordered. EDMS 17:35 BED REQUEST+ADM ordered. EDMS 18:07 Lactic Acid (Ayala tube on ice) Reviewed. ml 20:05 Admission / Observation Status ordered. EDMS 20:06 ECHOCARD,DOPPLER/COLOR FLOW ordered. EDMS 20:06 CT Chest without contrast Ordered. EDMS 20:06 SOFT DIET ordered. EDMS 20:06 COMPLETE BLOOD COUNT Ordered. EDMS 20:07 TROPONIN Ordered. EDMS 20:07 TROPONIN Ordered. EDMS 20:07 RESPIRATORY PANEL Ordered. EDMS 20:07 GASTROINTESTINAL (GI) PANEL Ordered. EDMS 20:45 SPUTUM CULTURE AND GRAM STAIN Ordered. EDMS 22:35 BASIC METABOLIC PROFILE Ordered. EDMS 22:35 MAGNESIUM LEVEL Ordered. EDMS 23:00 Fingerstick Blood Sugar Ordered. EDMS 06/17 07:57 ELECTROCARDIOGRAM ADULT ordered. EDMS 12:40 T-Sheet-- Draft Copy was scanned into [employer] and attached to record. gb 12:40 Radiology Report was scanned into [employer] and attached to record. gb Administered Medications: 06/16 16:54 Drug: Furosemide 40 mg [furosemide 10 mg/mL injection solution (4 mL)] Route: IVP; ml6 Site: left antecubital; Signatures: Dispatcher [employer] EDMS Michelle Booth MD MD ml Ana Napoles, Agronomy Location Manager Unit deg Charlie Rachel RN RN dwg Johnson, Bruce, RN RN bcj Barnhardt, Gloria, Reg Reg Samuel Shah RN RN ml6 Rose Link MD MD fg Beck, Gabriela gjb The chart was reviewed and I authenticate all verbal orders and agree with the evaluation and treatment provided.Corrections: (The following items were deleted from the chart) 16:50 16:39 CARDIAC INJURY PROFILE+LAB ordered. EDMS EDMS 16:50 16:39 TROPONIN+LAB ordered. EDMS EDMS 20:07 20:07 GASTROINTESTINAL (GI) PANEL ordered. EDMS EDMS 20:07 20:07 GASTROINTESTINAL (GI) PANEL ordered. EDMS EDMS 20:19 20:07 BLOOD CULTURES ordered. EDMS EDMS 20:48 20:06 TROPONIN ordered. EDMS EDMS 22:34 20:06 BASIC METABOLIC PROFILE ordered. EDMS EDMS 22:34 20:33 MAGNESIUM LEVEL ordered. EDMS EDMS 06/17 00:17 06/16 20:33 ARTERIAL BLOOD GAS ordered. EDMS EDMS Attachments: 15:56 [facility] Payment Agreement gjb 06/17 12:40 T-Sheet-- Draft Copy gb Chart Complete MTDD
[2016-06-19] MEDS: LEVEMIR (INSULIN DETEMIR) 1 UNITS/0.01ML SC SCH (15:49)
[2016-06-19 16:00] VITALS: BP 128/84
[2016-06-19] MEDS: WARFARIN SOD 4 MG TAB PO SCH (16:54)
[2016-06-19 19:52] VITALS: BP 109/77
[2016-06-19] MEDS: ATORVASTATIN 10 MG TAB PO SCH (20:15)
[2016-06-19] MEDS: ACETAMINOPHEN TAB 650MG DOSE (2X325MG) PO PRN (20:15)
[2016-06-19] MEDS: rOPINIRole 1MG TAB PO SCH (20:15)
[2016-06-19] MEDS: BISOPROLOL FUMARATE 5 MG TAB PO SCH (20:15)
[2016-06-19] MEDS ORDERED: LEVEMIR (INSULIN DETEMIR) 1 UNITS/0.01ML SC SCH (21:00)
[2016-06-20] VITALS (7 sets, daily range): BP systolic 107–155; BP diastolic 52–78
[2016-06-20] MEDS: LEVOTHYROXINE 0.15 MG TAB (150 MCG) PO SCH (05:06)
[2016-06-20] MEDS: SLF 3 ML SYR IV SCH ×3 (05:07→20:55)
[2016-06-20] MEDS: LEVOTHYROXINE 0.025 MG TAB (25 MCG) PO SCH (05:07)
[2016-06-20] MEDS: ACETAMINOPHEN TAB 650MG DOSE (2X325MG) PO PRN ×3 (05:07→22:38)
[2016-06-20 05:40] LABS: INR 1.27
[2016-06-20 05:51] LABS: CALCIUM LEVEL 9.2 MG/DL (8.5-10.1); CREATININE FOR GFR 1.53 MG/DL (0.70-1.30); POTASSIUM SERUM 4.7 MEQ/L (3.5-5.1)
[2016-06-20 06:13] LABS: MEAN CORPUSCULAR HGB CONC 27.1 g/dl (32.0-36.5); MEAN CORPUSCULAR VOLUME 62.9 fl (80.0-96.0); RED CELL DISTRIBUTION WIDTH 21.3 % (11.5-14.5); WHITE BLOOD COUNT 16.1 K/mm3 (4.0-10.0)
[2016-06-20] MEDS: OMEPRAZOLE 20 MG CAP PO SCH (09:13)
[2016-06-20] MEDS: AMIODARONE 200 MG TAB (PACERONE) PO SCH ×2 (09:13→20:54)
[2016-06-20] MEDS: GABAPENTIN 300 MG CAP PO SCH ×3 (09:13→20:54)
[2016-06-20] MEDS: HumaLOG INSULIN (NovoLOG) PER UNIT SC SCH ×4 (09:14→20:55)
[2016-06-20] MEDS: LEVEMIR (INSULIN DETEMIR) 1 UNITS/0.01ML SC SCH (09:15)
--- NOTE | 2016-06-20 09:59 | IPNPDOC ---
Subjective General Date Seen The patient was seen on 06/20/16. Subjective Chief Complaint/HPI The patient is a 60-year-old male admitted with a reason for visit of Pneumonia. Events since last encounter Temp 100.4 overnight. Feels well. Hoping to go home. Objective Physical Examination General Exam: Positive: Alert, Cooperative, No Acute Distress ENT Exam: Positive: Atraumatic, Mucous membr. moist/pink Neck Exam: Positive: Other (tracheostomy opening noted) Chest Exam: Positive: Clear to auscultation, Diminished, Negative: Rales, Wheezing Heart Exam: Positive: Normal S1, Normal S2, Regular Rhythm, Tachycardic Telemetry: Positive: Sinus Abdomen Exam: Positive: Normal bowel sounds, Soft, Negative: Tenderness Extremity Exam: Negative: Swelling, Tenderness Assessment /Plan Problems Problems: (1) Pneumonia Status: Acute Problem Specific Plan: Monitor Clinically, Repeat Labs Problem Text: levo RD D5 06/20/2016: continues to clinically improve-although WBC to 16.1 and Tm 100.4 pending cardiology eval or in am. 06/19 - IV Levaquin. WBC up 11.1. ECHO pending. Blood cx negative after 48 hrs. Lactic Acid has decreased to WNL of 2. CXR 06/18: Cardiomegaly with left ventricular enlargement, sternotomy with aortic valve replacement and surgical clips right paratracheal region. Elevated right diaphragm with volume loss right hemithorax. Basilar patchy atelectasis or infiltrate above that diaphragm and the fibrotic or atelectatic change left base without air bronchograms. Small effusion suspected. Venous hypertension without ana m edema. 06/16/16 BCX - x2 06/16/16 resp PCR - (2) Elevated troponin Status: Acute Problem Specific Plan: Consult Specialist, Monitor Clinically, Repeat Labs Problem Text: 06/19 - Cardiology following. ECHO pending. Dr Daniels stopped the Lovenox, Aspirin and Plavix, and started Coumadin. 06/18 - Cardilogy following and Dr Peterson noted that with the elevated troponin and EKG abnormalities there is suspicion for ischemic event, even though clinically the pain is pleuritic. Dr Peterson suspects that it could be a consequence of infection, but I still is considering ischemic event in the differential diagnosis. He is on aspirin and Plavix and deep vein thrombosis prophylactic dose of Lovenox, which Dr Slezka states is essentially a therapeutic dose considering his renal insufficiency. Echo ordered. Dr Peterson notes he may need coronary angiogram, but does not feel he should have this done at this point as he is in acute renal failure and administration of dye would probably lead to further decline of renal function and possibly dialysis. (3) Acute kidney injury Status: Acute Problem Specific Plan: Monitor Clinically, Repeat Labs Problem Text: 06/19 - Creat down to 1.88. No further Lasix given. ACEI stopped. Outpt Metformin stopped. 06/18 - Creat up to 2.79. Pt did receive a dose of Lasix initially. Not received additional diuretics. He also had been on Lisinopril which has been stopped. He is on Metformin as an outpt which has been held. (4) CAD (coronary artery disease) Status: Chronic Problem Specific Plan: Consult Specialist, Monitor Clinically, Repeat Labs Problem Text: Cardiology following. (5) History of lung cancer Status: Chronic Problem Specific Plan: Monitor Clinically Problem Text: S/P lobectomy 2007. (6) History of laryngeal cancer Status: Chronic Problem Specific Plan: Monitor Clinically (7) DM2 (diabetes mellitus, type 2) Status: Chronic Problem Specific Plan: Monitor Clinically, Repeat Labs Problem Text: On SSI. Outpt metformin held. Start Levemir 10 units qhs. (8) Hyperlipemia Status: Chronic Problem Specific Plan: Monitor Clinically Problem Text: On Lipitor. (9) PVD (peripheral vascular disease) Status: Chronic Problem Specific Plan: Monitor Clinically (10) CHF (congestive heart failure) Status: Chronic Problem Specific Plan: Monitor Clinically Problem Text: Cardiology following. He did initially receive Lasix. Patient appears compensated today. Monitor. (11) S/P AVR (aortic valve replacement) Status: Chronic Problem Specific Plan: Monitor Clinically (12) Paroxysmal a-fib Status: Acute Problem Specific Plan: Consult Specialist, Monitor Clinically, Repeat Labs Problem Text: 06/19 - On Amiodarone. On Bisoprolol. Dr Daniels stopped the Lovenox and plavix and aspirin, and started coumadin. INR 1.27. 06/18 - Pt with H/O PAF. Received Amiodarone. On bisoprolol. Discussed with Dr Daniels. Dr Daniels plans on addressing anticoagulation and antiplatelet meds. Plan/VTE VTE Prophylaxis Ordered?: Yes VS, I&O, 24H, Fishbone Vital Signs/I&O Vital Signs Date Time Temp Pulse Resp B/P Pulse Ox O2 Delivery O2 Flow Rate FiO2 06/20/16 08:00 98.3 90 20 118/67 90 Room Air I&O- Last 24 Hours up to 6 AM 06/20/16 06:00 Intake Total 1200 ml Output Total 1650 ml Balance -450 ml Laboratory Data 24H LABS Laboratory Tests 2 06/19/16 11:52: Bedside Glucose (Misc Panel) 320H 06/19/16 16:46: Bedside Glucose (Misc Panel) 366H 06/19/16 20:04: Bedside Glucose (Misc Panel) 313H 06/20/16 04:51: Anion Gap 10, Blood Urea Nitrogen 34H, Creatinine 1.53H, Sodium Level 137, Potassium Level 4.7, Chloride Level 102, Carbon Dioxide Level 25, Calcium Level 9.2, Glomerular Filtration Rate 50.0L, Prothromb Time International Ratio 1.27, Prothrombin Time 16.0H CBC/BMP Laboratory Tests 06/20/16 04:51 Calcium Level 9.2, Red Blood Count 5.55, Mean Corpuscular Volume 62.9 L, Mean Corpuscular Hemoglobin 17.0 L, Mean Corpuscular Hemoglobin Concent 27.1 L, Red Cell Distribution Width 21.3 H Microbiology Microbiology 06/16/16 Blood Culture - Preliminary, Resulted No Growth after 72 hours. All specime... 06/16/16 Blood Culture - Preliminary, Resulted No Growth after 72 hours. All specime... 06/17/16 Respiratory Virus Panel (PCR) (SAMUEL) - Final, Complete 06/16/16 Group A Streptococcus Screen (SAMUEL) - Final, Complete 06/16/16 Influenza Virus Type A Antigen - Final, Complete 06/16/16 Influenza Virus Type B Antigen - Final, Complete 06/16/16 Urine Culture - Final, Complete Aniyah Martin Jun 20, 2016 09:59 Pastor Brown M.D. Jun 20, 2016 15:57
[2016-06-20] MEDS: WARFARIN SOD 4 MG TAB PO SCH (16:30)
[2016-06-20] MEDS ORDERED: LevoFLOXacin 750 MG TABLET PO SCH (18:00)
[2016-06-20] MEDS: ATORVASTATIN 10 MG TAB PO SCH (20:53)
[2016-06-20] MEDS: ASPIRIN 81 MG ENTERIC TAB PO SCH (20:54)
[2016-06-20] MEDS: rOPINIRole 1MG TAB PO SCH (20:54)
[2016-06-20] MEDS: ISOSORBIDE MON. (IMDUR) 30 MG XR TAB PO SCH (20:54)
[2016-06-20] MEDS: BISOPROLOL FUMARATE 5 MG TAB PO SCH (20:54)
--- NOTE | 2016-06-20 21:15 | IPN ---
DATE: 06/20/2016 Mr. Timmy Finney was seen this evening. He was sitting in bed in no acute distress at rest. He wants to go home. He denies any chest pain or palpitations, or shortness of breath. He stated that he is feeling much better. He denies any pedal edema, orthopnea or paroxysmal nocturnal dyspnea (PND). There is no bleeding reported. He has been ambulating. He came to the hospital on 06/16/2016 and he was initially seen by his primary anesthesiology tech, Dr. Peterson. He has a history of coronary artery disease with moderate left ventricular systolic dysfunction, percutaneous transluminal coronary angioplasty and had aortic valve replacement with a bioprosthetic aortic valve in 2011. He also has severe peripheral artery disease and had left popliteal artery bypass done in the month of March of 2016, as per patient. 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 While in the hospital on Monday, he developed a supraventricular tachycardia and according to Dr. Daniels, who was covering for Dr. Peterson this weekend, it was atrial flutter. He was started on IV amiodarone, and he responded and currently on oral amiodarone as well as anticoagulation therapy with Coumadin. His telemetry was reviewed, and he seems to be in sinus rhythm, mildly tachycardic. He also was treated for acute on chronic decompensated congestive heart failure and his labs revealed minimally abnormal serum troponin that was thought to be related to his underlying cardiomyopathy and heart failure as well as his underlying kidney disease. On physical examination, the patient is alert and oriented, in no acute distress at rest and his last vital signs this afternoon revealed a blood pressure of 155/78 and this morning it was 118/67, pulse 100, varies between 90 and 100, respirations 20 and his maximum temperature is 99.5 degrees Fahrenheit with an oxygen saturation of 93% on room air. For 06/19/2016, he had a negative fluid balance of about 950 mL. His weight today is 99.9 kg. Examination of the head, ears, eyes, nose and throat: Atraumatic. Tracheostomy stoma noted. The neck is supple and could not appreciate any jugular venous distention (JVD). The lungs did not reveal any wheezing or crackles. The heart examination revealed normal S1 and S2 without gallops. The point of maximum impulse (PMI) is displaced inferiorly and laterally. There is no rub. There is a systolic murmur, grade 1-2 over 6 over the precordium and lateral at the base of the heart/aortic valve area without any significant radiation. Abdomen is unremarkble, soft and nontender. Extremities reveal trace bilateral lower leg edema. Neurologic examination grossly is negative for focal deficit. LABORATORY: BMP done today revealed a sodium of 137, potassium 4.7, chloride 102, CO2 25, BUN 34, creatinine 1.53, GFR 50 and fasting glucose 263 with a serum calcium of 9.2. CBC revealed a WBC of 16.1, hemoglobin 9.4, hematocrit 34,.9 and platelets 242,000. PT 16.0 with an INR of 1.27. Urinalysis on admission revealed +2 glucose and +1 bacteria. Urine culture was reported as negative. Blood culture has been negative for the last 72 hours. Influenza A and B were negative. Streptococcus A also was negative. Telemetry revealed normal sinus rhythm with first-degree AV block. IMPRESSION: 1. Atrial flutter, paroxysmal in nature and currently in normal sinus rhythm on oral amiodarone at 200 mg by mouth twice a day and also on anticoagulation therapy with Coumadin. He is also on beta mark with Zebeta/bisoprolol. He will continue current medications for now, and I have noticed that he is mildly tachycardic, and if his heart rate continues to be the same, will try to increase the bisoprolol up to 10 mg by mouth daily. This also will help with his hypertension. I will continue to monitor the international normalized ratio (INR) with a goal to keep it between 2.0 to 3.0. 2. Cardiomyopathy, ischemic in nature. His echocardiogram was briefly reviewed on Monday, and it seemed that his left ventricular ejection fraction (LVEF) is severely depressed with a dilated left ventricular (LV) and global hypokinesis. This was thought to be dictated but it does not seem that there is any report available. It will be done again. He is on a beta mark, and he will continue the same. He is not on angiotensin-converting enzyme (MORENITA) inhibitor or angiotensin receptor mark (ARB) in view of his underlying chronic kidney disease. He will be started on long-acting nitrate and if his blood pressure remains stable, we can initiate a small dose of hydralazine. His kidney function seems to be improving, and if it continues to improve, he can be rechallenged as an outpatient with an MORENITA inhibitor or ARB. 3. History of peripheral artery disease, and he denies any intermittent claudication. He will continue with a statin/atorvastatin and he might benefit from a baby aspirin if no contraindications. 4. Coronary artery disease and seems to be stable. He has minimally abnormal serum troponin, and this was thought to be related to his underlying heart failure and kidney disease. According to Dr. Peterson's note, he might benefit from a cardiac catheterization but is on hold for now in view of his underlying renal function. He is on a statin as well as a beta mark, and I will add a small dose of aspirin at 81 mg by mouth daily. 5. Valvular heart disease with history of a bioprosthetic aortic valve. Once again, his echocardiogram will be reviewed. 6. Hyperlipidemia, on a statin. 7. Diabetes mellitus and this is being addressed. 8. Low grade fever and elevated white blood cells (WBCs), currently on oral antibiotics. The etiology is not quite clear, and he is being monitored. If the WBC continues to go up and with low grade fever, he may need infectious disease (ID) evaluation and possible transesophageal echocardiogram, looking for endocarditis. Clinically it does not seem at the present time he has endocarditis. 9. Chronic kidney disease, improving. It was a pleasure to participate in the care of Mr. Timmy Finney for his underlying cardiac condition. The case was discussed with coverage for Dr. Carreon and also I have discussed with the patient and he was told that he is not quite safe to be discharged at the present time. I will continue to monitor him along with you. Please do not hesitate to call if you have any questions.
--- NOTE | 2016-06-20 23:06 | ECHO ---
DATE OF PROCEDURE: 06/17/2016 REFERRING PROVIDER: Dr. Peterson PRIMARY PROVIDER: Dr. Emanuel Ruiz REASON FOR THE ECHOCARDIOGRAM: Heart failure. 2D MEASUREMENTS: IVS: 0.9 cm LV: 7.0 cm LV end-diastole: 7.0 cm LVPW: 1.0 cm LA: 12.8 cm Aortic: 3.5 cm IVC: 1.8 cm DOPPLER MEASUREMENT: Peak velocity across the aortic valve: 3.2 m/s Peak gradient across the aortic valve: 42 mmHg Mean gradient across the aortic valve: 28 mmHg Peak velocity across the LVOT: 0.5 m/s Mitral E: 0.84, Mitral A: 1.0 with a ratio of 0.8 Maximum tricuspid valve velocity: 1.6 m/s 2D COMMENTS: 1.Technically limited study due to poor acoustic window. 2. The left ventricular size is markedly enlarged with normal left ventricular wall thickness and left ventricular systolic function is estimated at 30%. There appears to be global hypokinesis, but the anterior septum seems to be mello better when compared to the other [place] in limited views. 3. Mildly enlarged left atrium. Normal right atrium and right ventricle. 4. The atrial septum appeared to be normal without evidence of defect or shunt. 5. Normal aortic root. 6. No pericardial effusion seen. 7. Mildly calcified aortic valve with normal leaflet excursion. A bioprosthetic valve was noted in the aortic valve position, leaflet excursion was not well visualized. Normal tricuspid valve and pulmonic valve. The proximal pulmonary artery branches were not well visualized. 8. The inferior vena cava was normal in size, central venous pressure may be normal. DOPPLER: It detects mild aortic regurgitation, trace mitral regurgitation, and trace tricuspid regurgitation. The calculated pulmonary artery systolic pressure was normal. Abnormal relaxation pattern was noted across the mitral valve leaflets as well as the mitral valve annulus consistent with a delayed relaxation. IMPRESSION: 1. Moderate to severe global left ventricular systolic dysfunction with a markedly dilated left ventricle. There were features of left ventricular diastolic dysfunction. 2. Bioprosthetic aortic valve with mild aortic regurgitation and probably mild to moderate aortic stenosis. The aortic valve was not well visualized. 3. Mitral annulus calcification with trace mitral regurgitation and mildly enlarged left atrium. 4. Trace tricuspid regurgitation with a normal calculated pulmonary artery systolic pressure.
[2016-06-21 04:41] VITALS: BP 112/64
[2016-06-21 05:30] LABS: INR 1.44
[2016-06-21 05:31] LABS: CALCIUM LEVEL 8.9 MG/DL (8.5-10.1); CREATININE FOR GFR 1.37 MG/DL (0.70-1.30); GLOMERULAR FILTRATION RATE 56.8 (>56); POTASSIUM SERUM 4.4 MEQ/L (3.5-5.1)
[2016-06-21 05:48] LABS: MEAN CORPUSCULAR HEMOGLOBIN 16.8 pg (27.0-33.0); MEAN CORPUSCULAR HGB CONC 26.5 g/dl (32.0-36.5); MEAN CORPUSCULAR VOLUME 63.6 fl (80.0-96.0); RED CELL DISTRIBUTION WIDTH 20.8 % (11.5-14.5); WHITE BLOOD COUNT 12.4 K/mm3 (4.0-10.0)
[2016-06-21] MEDS: SLF 3 ML SYR IV SCH (05:51)
[2016-06-21] MEDS: LEVOTHYROXINE 0.025 MG TAB (25 MCG) PO SCH (05:51)
[2016-06-21] MEDS: LEVOTHYROXINE 0.15 MG TAB (150 MCG) PO SCH (05:51)
[2016-06-21] MEDS: HumaLOG INSULIN (NovoLOG) PER UNIT SC SCH (07:50)
[2016-06-21 08:00] VITALS: BP 114/66
--- NOTE | 2016-06-21 08:17 | IPNPDOC ---
Subjective General Date Seen The patient was seen on 06/21/16. Subjective Chief Complaint/HPI The patient is a 60-year-old male admitted with a reason for visit of Pneumonia. Events since last encounter Seen and evaluated in PCU this morning. Dr. Jang saw the patient last evening and adjusted some of his cardiac meds, adding a nitrate and ASA for now. Clinically, he does not feel the patient is quite ready for discharge. Timmy did have a low grade temp of 100.3 last night but has otherwise reportedly been well and is eager for discharge. General: Reports: Normal Appetite, Denies: Chills, Fatigue, Malaise, Night Sweats Constitutional: Denies: Chills, Fever, Night Sweats Skin: Denies: Breakdown, Lesions, Rash Pulmonary: Reports: Cough Cardiovascular: Denies: Chest Pain, Lt Headedness, Orthopnea, Palpitations, Paroxysmal Noc. Dyspnea Gastrointestinal: Denies: Abdominal Pain, Constipation, Diarrhea, Nausea, Vomiting Psych: Reports: Mood Normal, Denies: Depression, Memory Issues Objective Physical Examination General Exam: Positive: Alert, Cooperative, No Acute Distress ENT Exam: Positive: Atraumatic, Mucous membr. moist/pink Neck Exam: Positive: Other (tracheostomy opening noted) Chest Exam: Positive: Clear to auscultation, Diminished, Negative: Rales, Wheezing Heart Exam: Positive: Normal S1, Normal S2, Regular Rhythm, Tachycardic Telemetry: Positive: Sinus Abdomen Exam: Positive: Normal bowel sounds, Soft, Negative: Tenderness Extremity Exam: Negative: Swelling, Tenderness Assessment /Plan Problems Problems: (1) Pneumonia Status: Acute Problem Specific Plan: Monitor Clinically, Repeat Labs Problem Text: levo RD D6 06/21/2016: continues to clinically improve- WBC slowly improving. 06/19 - IV Levaquin. WBC up 11.1. ECHO pending. Blood cx negative after 48 hrs. Lactic Acid has decreased to WNL of 2. CXR 06/18: Cardiomegaly with left ventricular enlargement, sternotomy with aortic valve replacement and surgical clips right paratracheal region. Elevated right diaphragm with volume loss right hemithorax. Basilar patchy atelectasis or infiltrate above that diaphragm and the fibrotic or atelectatic change left base without air bronchograms. Small effusion suspected. Venous hypertension without ana m edema. 06/16/16 resp PCR - (2) Elevated troponin Status: Acute Problem Specific Plan: Consult Specialist, Monitor Clinically, Repeat Labs Problem Text: 06/21 - Cardiology following. Echo: Moderate to severe global left ventricular systolic dysfunction with a markedly dilated left ventricle. There were features of left ventricular diastolic dysfunction. Dr. Jang does not feel as though his picture is suggestive of bacterial endocarditis. 06/20: Nitro and asa added to cardiac regimen by Dr. Jang 06/18 - [facility] following and Dr Peterson noted that with the elevated troponin and EKG abnormalities there is suspicion for ischemic event, even though clinically the pain is pleuritic. Dr Peterson suspects that it could be a consequence of infection, but I still is considering ischemic event in the differential diagnosis. He is on aspirin and Plavix and deep vein thrombosis prophylactic dose of Lovenox, which Dr Peterson states is essentially a therapeutic dose considering his renal insufficiency. Echo ordered. Dr Peterson notes he may need coronary angiogram, but does not feel he should have this done at this point as he is in acute renal failure and administration of dye would probably lead to further decline of renal function and possibly dialysis. (3) Acute kidney injury Status: Acute Problem Specific Plan: Monitor Clinically, Repeat Labs Problem Text: 06/21: Cr continues to improve, slowly. 06/19 - Creat down to 1.88. No further Lasix given. ACEI stopped. Outpt Metformin stopped. 06/18 - Creat up to 2.79. Pt did receive a dose of Lasix initially. Not received additional diuretics. He also had been on Lisinopril which has been stopped. He is on Metformin as an outpt which has been held. (4) CAD (coronary artery disease) Status: Chronic Problem Specific Plan: Consult Specialist, Monitor Clinically, Repeat Labs Problem Text: Cardiology following. (5) History of lung cancer Status: Chronic Problem Specific Plan: Monitor Clinically Problem Text: S/P lobectomy 2007. (6) History of laryngeal cancer Status: Chronic Problem Specific Plan: Monitor Clinically (7) DM2 (diabetes mellitus, type 2) Status: Chronic Problem Specific Plan: Monitor Clinically, Repeat Labs Problem Text: On SSI. Outpt metformin held. Levemir 10 units qhs. (8) Hyperlipemia Status: Chronic Problem Specific Plan: Monitor Clinically Problem Text: On Lipitor. (9) PVD (peripheral vascular disease) Status: Chronic Problem Specific Plan: Monitor Clinically (10) S/P AVR (aortic valve replacement) Status: Chronic Problem Specific Plan: Monitor Clinically (11) Paroxysmal a-fib Status: Acute Problem Specific Plan: Consult Specialist, Monitor Clinically, Repeat Labs Problem Text: 06/21: INR remains subtherapeutic but improving. Dr. Jang is managing this at this point. 06/19 - On Amiodarone. On Bisoprolol. Dr Daniels stopped the Lovenox and plavix and aspirin, and started coumadin. INR 1.27. 06/18 - Pt with H/O PAF. Received Amiodarone. On bisoprolol. Discussed with Dr Daniels. Dr Daniels plans on addressing anticoagulation and antiplatelet meds. Plan/VTE VTE Prophylaxis Ordered?: Yes VS, I&O, 24H, Fishbone Vital Signs/I&O Vital Signs Date Time Temp Pulse Resp B/P Pulse Ox O2 Delivery O2 Flow Rate FiO2 06/21/16 07:45 Room Air 06/21/16 04:41 95.9 82 20 112/64 90 I&O- Last 24 Hours up to 6 AM 06/21/16 05:59 Intake Total 1230 ml Output Total 675 ml Balance 555 ml Laboratory Data 24H LABS Laboratory Tests 2 06/20/16 11:33: Bedside Glucose (Misc Panel) 298H 06/20/16 17:04: Bedside Glucose (Misc Panel) 334H 06/20/16 20:38: Bedside Glucose (Misc Panel) 287H 06/21/16 04:31: Anion Gap 6L, Blood Urea Nitrogen 27H, Creatinine 1.37H, Sodium Level 136, Potassium Level 4.4, Chloride Level 100, Carbon Dioxide Level 30, Calcium Level 8.9, Glomerular Filtration Rate 56.8, Prothromb Time International Ratio 1.44, Prothrombin Time 17.6H CBC/BMP Laboratory Tests 06/21/16 04:31 Calcium Level 8.9 06/21/16 04:32 Red Blood Count 5.02, Mean Corpuscular Volume 63.6 L, Mean Corpuscular Hemoglobin 16.8 L, Mean Corpuscular Hemoglobin Concent 26.5 L, Red Cell Distribution Width 20.8 H Microbiology Microbiology 06/16/16 Blood Culture - Preliminary, Resulted No Growth after 72 hours. All specime... 06/16/16 Blood Culture - Preliminary, Resulted No Growth after 72 hours. All specime... 06/17/16 Respiratory Virus Panel (PCR) ([facility]UEL) - Final, Complete 06/16/16 Group A Streptococcus Screen ([facility]) - Final, Complete 06/16/16 Influenza Virus Type A Antigen - Final, Complete 06/16/16 Influenza Virus Type B Antigen - Final, Complete 06/16/16 Urine Culture - Final, Complete GME ATTESTATION GME ATTESTATION My preceptor for this patient encounter was physically present in the building during the encounter and was fully available. As needed, all aspects of the patient interview, examination, medical decision making process, and medical care plan development were reviewed and approved by the preceptor. Preceptor is aware and concurs with the plan as stated in the body of this note and will attest to such by his/her cosignature. NAM HAM DO Jun 21, 2016 08:16
[2016-06-21] MEDS ORDERED: INSUDET SC (08:48)
[2016-06-21] MEDS ORDERED: LEVA750T PO (08:48)
[2016-06-21] MEDS ORDERED: AMIO20TA PO (08:48)
[2016-06-21] MEDS ORDERED: COUM1TAB14 PO (08:48)
[2016-06-21] MEDS ORDERED: ISOS30TA4 PO (08:48)
[2016-06-21] MEDS ORDERED: LEVE1INJ5 SC (08:50)
[2016-06-21] MEDS: LEVEMIR (INSULIN DETEMIR) 1 UNITS/0.01ML SC SCH (10:19)
[2016-06-21 10:20] VITALS: BP 114/66
[2016-06-21] MEDS: ISOSORBIDE MON. (IMDUR) 30 MG XR TAB PO SCH (10:20)
[2016-06-21] MEDS: ASPIRIN 81 MG ENTERIC TAB PO SCH (10:20)
[2016-06-21] MEDS: OMEPRAZOLE 20 MG CAP PO SCH (10:20)
[2016-06-21] MEDS: GABAPENTIN 300 MG CAP PO SCH (10:20)
[2016-06-21] MEDS: AMIODARONE 200 MG TAB (PACERONE) PO SCH (10:20)
--- NOTE | 2016-06-21 19:03 | DS.PDOC ---
Discharge Summary General Date of Admission Jun 16, 2016 at 19:56 Date of Discharge Jun 21, 2016 at 11:11 Primary Care Physician: Emanuel Ruiz MD Attending Physician: Pastor Brown M.D. Specialist/Consultants Involve: Faisal Peterson MD Discharge Summary PROCEDURES PERFORMED DURING STAY: 1. Transthoracic Echocardiogram COMPLICATIONS/CHIEF COMPLAINT: Pneumonia ADMISSION DIAGNOSES: 1. SOB 2. Pneumonia PRIMARY DISCHARGE DIAGNOSES: 1. SOB 2. Pneumonia 3. Troponemia, secondary to demand ischemia 4. Chronic anticoagulation 5. Atrial fibrillation with RVR 6. Acute on Chronic Renal insufficiency SECONDARY DISCHARGE DIAGNOSES: 1. Adenocarcinoma RUL s/p resection 2. Peripheral Arterial Disease 3. Type 2 Diabetes 4. Hypothyroidism 5. Cardiomyopathy, non-ischemic 6. Coronary Artery Disease 7. Aortic Stenosis s/p valve replacement 8. 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 The patient was seen earlier today at his ambulance attendant's office for follow-up testing and was noted to have a fever of 100.5. An EKG done at the office also revealed ST depressions in the lateral leads. The patient was subsequently sent to the ER for further evaluation and management. At this time, the patient states that he has been having persistent cough productive of greenish sputum over the last 7-10 days. In addition, he does note that he does feel short of breath following the cough. He denies any sick contacts. He also denies any increase in leg swelling and notes that he has not taking any diuretic pills in over a year. He also denies any orthopnea, PND, chest pain, palpitations, abdominal pain, or any nausea/vomiting. In the ER, the patient was noted to have a mildly elevated troponin at 0.21, and ST depressions noted in the lateral leads. Cardiology was contacted by the ER physician, and it is believed that the patient's EKG changes are secondary to his underlying fever. A chest x-ray was done which did not reveal any acute findings. The patient will be admitted to the [facility] physician group for further evaluation and management. HOSPITAL COURSE: Patient was admitted for DISCHARGE MEDICATIONS: Please see below. ALLERGIES: Please see below. PHYSICAL EXAMINATION ON DISCHARGE: VITAL SIGNS: Please see below. GENERAL: HEENT: NECK: CARDIOVASCULAR EXAMINATION: RESPIRATORY EXAMINATION: ABDOMINAL EXAMINATION: EXTREMITIES: SKIN: NEUROLOGICAL EXAMINATION: PSYCHIATRIC EXAMINATION: LABORATORY DATA: Please see below. IMAGING: CXR (06/18): Elevated right diaphragm with volume loss in the hemithorax again seen. Sternotomy wires are seen with cardiomegaly. There is venous hypertension. Patchy atelectasis or infiltrate above the right diaphragm noted. The retrocardiac left lower lobe shows fibrotic and atelectatic changes. There is trace effusion suggested bilaterally on the lateral view. Sternotomy wires and aortic valve replacement noted with surgical clips in the right paratracheal region upper chest. There is venous hypertension evident. No ana m edema 2D Cardiac Echo: (impression) 1. Moderate to severe global left ventricular systolic dysfunction with a markedly dilated left ventricle. There were features of left ventricular diastolic dysfunction. 2. Bioprosthetic aortic valve with mild aortic regurgitation and probably mild to moderate aortic stenosis. The aortic valve was not well visualized. 3. Mitral annulus calcification with trace mitral regurgitation and mildly enlarged left atrium. 4. Trace tricuspid regurgitation with a normal calculated pulmonary artery ECG (06/18): Demonstrates Atrial fibrillation c RVR, LAD, LVH, intraventricular conduction delay DISCHARGE CONDITION: Stable, much improved. DISPOSITION: Home ACTIVITY: As tolerated DIET: CHO-consistent, 2 g sodium-restricted. ITEMS TO FOLLOWUP ON OUTPATIENT: 1. PT/INR 2. Renal function 3. FSBG readings as Timmy is now on insulin rather than oral agents DISCHARGE PLAN AND INSTRUCTIONS: 1. Follow-up with Dr. Jang on 06/22 @ 0930. 2. Follow-up with Dr. Ruiz on 06/28 @ 1300. 3. Complete an additional 8 days of renally dosed oral levaquin which will result in a total of 15 day course 4. Discontinue oral antihyperglycemic agents and initiate subq insulin as prescribed per eCW transmitted prescription. Monitor your FSBGs ac/hs and bring your glucometer to your appointment with Dr. Ruiz. FSBGs <70 should be reported to his office immediately. You have been educated on the hypoglycemic protocol and indications for institution of such measures. 5. Return to the ER for worsening symptoms, fevers, or new onset symptoms for further evaluation. TIME SPENT ON DISCHARGE: Greater than 45 minutes. Vital Signs/I&Os Vital Signs Date Time Temp Pulse Resp B/P Pulse Ox O2 Delivery 06/21/16 08:00 97.9 73 20 114/66 92 RA I&O- Last 24 Hours up to 6 AM 06/21/16 06:00 Intake Total 1230 ml Output Total 675 ml Balance 555 ml Laboratory Data Labs 24H Laboratory Tests 2 06/20/16 20:38: Bedside Glucose (Misc Panel) 287H 06/21/16 04:31: Anion Gap 6L, Blood Urea Nitrogen 27H, Creatinine 1.37H, Sodium Level 136, Potassium Level 4.4, Chloride Level 100, Carbon Dioxide Level 30, Calcium Level 8.9, Glomerular Filtration Rate 56.8, Prothromb Time International Ratio 1.44, Prothrombin Time 17.6H CBC/BMP Laboratory Tests 06/21/16 04:31 Calcium Level 8.9 06/21/16 04:32 Red Blood Count 5.02, Mean Corpuscular Volume 63.6 L, Mean Corpuscular Hemoglobin 16.8 L, Mean Corpuscular Hemoglobin Concent 26.5 L, Red Cell Distribution Width 20.8 H FSBS Laboratory Tests Test 06/20/16 20:38 Range/Units Bedside Glucose (Misc Panel) 287 70-105 MG/DL Microbiology Microbiology 06/16/16 Blood Culture - Final, Complete NO GROWTH AFTER 5 DAYS 06/16/16 Blood Culture - Final, Complete NO GROWTH AFTER 5 DAYS 06/17/16 Respiratory Virus Panel (PCR) (SAMUEL) - Negative 06/16/16 Group A Streptococcus Screen (SAMUEL) - Negative 06/16/16 Influenza Virus Type A Antigen - Negative 06/16/16 Influenza Virus Type B Antigen - Negative 06/16/16 Urine Culture -No growth Medications Scheduled (Fish Oil 1200 mg) 1 Cap Cap 1 CAP PO DAILY Amiodarone HCl (Amiodarone HCl) 200 Mg Tab 200 MG PO BID Amitriptyline HCl (Amitriptyline HCl) 50 Mg Tab 50 MG PO QHS SEE COMMENTS Ascorbic Acid (Ascorbic Acid) 500 Mg Tab 500 MG PO BID Aspirin (Aspirin 81) 81 Mg Tab 81 MG PO DAILY Atorvastatin Calcium (Atorvastatin Calcium) 10 Mg Tab 10 MG PO QHS Bisoprolol Fumarate (Bisoprolol Fumarate) 5 Mg Tab 5 MG PO QHS Gabapentin (Gabapentin) 600 Mg Tab 600 MG PO TID Isosorbide Mononitrate (Isosorbide Mononitrate ER) 30 Mg Tab 30 MG PO DAILY Levofloxacin Hemihydrate (Levaquin) 750 Mg Tab 750 MG PO Q48H Levothyroxine Sodium (Synthroid) 175 Mcg Tab 175 MCG PO QAM Magnesium Oxide (Magnesium Oxide) 500 Mg Tab 500 MG PO BID Multivitamins *[facility] STOCKED* (Thera M Plus *[facility] STOCKED*) 1 Tab Tab 1 TAB PO DAILY Omeprazole (Omeprazole) 20 Mg Cap 20 MG PO DAILY Ropinirole Hydrochloride (Ropinirole HCl) 2 Mg Tab 2 MG PO QHS Tamsulosin Hydrochloride (Flomax) 0.4 Mg Cap 1 CAP PO DAILY SEE COMMENTS Warfarin Sod (Coumadin) 4 Mg Tab 4 MG PO DAILY@17 Scheduled PRN Tramadol HCl (Tramadol HCl) 50 Mg Tab 50 MG PO Q6H PRN PRN PAIN Allergies Coded Allergies: No Known Drug Allergy (Verified Allergy, Unknown, 08/06/12) Shellfish Allergy (Unverified Allergy, Unknown, 06/16/16) Shrimp (Verified Allergy, Unknown, 06/19/07) NAM HAM DO Jun 21, 2016 19:03
== END 2016-06-21 11:11 | disposition home or self-care (01) | DRG 193 ==
LOC: M ED 13:47 → M ED INP 19:56 → M PCU 06-17 11:25
PROVIDERS: ADMIT Internal Medicine; ATTEND Family Medicine
DX: J18.9 Pneumonia, unspecified organism (principal); I50.23 Acute on chronic systolic (congestive) heart failure; I42.9 Cardiomyopathy, unspecified; N17.9 Acute kidney failure, unspecified; I73.9 Peripheral vascular disease, unspecified; E11.9 Type 2 diabetes mellitus without complications; I25.10 Atherosclerotic heart disease of native coronary artery without angina pectoris; Z79.01 Long term (current) use of anticoagulants; I48.0 Paroxysmal atrial fibrillation; E03.9 Hypothyroidism, unspecified; Z85.118 Personal history of other malignant neoplasm of bronchus and lung; I36.0 Nonrheumatic tricuspid (valve) stenosis; Z79.899 Other long term (current) drug therapy; Z79.82 Long term (current) use of aspirin; Z91.013 Allergy to seafood; E78.5 Hyperlipidemia, unspecified; Z85.21 Personal history of malignant neoplasm of larynx; Z79.4 Long term (current) use of insulin; Z87.891 Personal history of nicotine dependence

== ENCOUNTER → 2016-06-21 | Outpatient (REF) | payer MEDICARE ==
[~2016-06-21] MED LIST changes: +AMIO20TA PO; +AMIT50TA PO; +ASCO500T PO; +ASPI1TAB PO; +ATOR1TAB19 PO; +BISO5TAB5 PO; +COUM1TAB14 PO; +FISH5CAP PO; +FLOM5CAP PO; +GABA600T PO; +GLIP10TA6 PO; +INSUDET SC; +ISOS30TA4 PO; +LASI40TA PO; +LEVA750T PO; +LEVE1INJ5 SC; +LEVO175T2 PO; +LISI-542 PO; +MAGN500T14 PO; +METF1000 PO; +OMEP20CA3 PO; +PLAV75TA38 PO; +ROPI2TAB PO; +TRAM50TA2 PO; +VITMTA PO
== END ==
LOC: M SFHCPLAZ 09:02
PROVIDERS: ATTEND Family Medicine
DX: Z95.2 Presence of prosthetic heart valve (principal); N17.9 Acute kidney failure, unspecified

== ENCOUNTER → 2016-06-22 | Outpatient (REF) | payer MEDICARE ==
[~2016-06-22] MED LIST changes: +AMIO400T PO; +ASPI81TAEC PO; +BRIL90TA PO; +CARV6.25 PO; +CEFD1CAP8 PO; +CEFT500T3 PO; +FURO40TA2 PO; +HUMU70IN SC; +LEVO750T33 PO; +MAGN400T2 PO; +METF500T PO; +METO25TA PO; +METO25TAB PO; +NIFE1TAB62 PO; +POTA10CA PO; +ROPI0.5T PO; +XARE20TA PO; +ZYVO100T PO
[2016-06-22 20:13] LABS: MEAN CORPUSCULAR HEMOGLOBIN 17.5 pg (27.0-33.0); MEAN CORPUSCULAR HGB CONC 27.4 g/dl (32.0-36.5); MEAN CORPUSCULAR VOLUME 63.7 fl (80.0-96.0); RED CELL DISTRIBUTION WIDTH 21.3 % (11.5-14.5); WHITE BLOOD COUNT 13.2 K/mm3 (4.0-10.0)
[2016-06-22 20:33] LABS: CALCIUM LEVEL 9.2 MG/DL (8.5-10.1); CREATININE FOR GFR 1.96 MG/DL (0.70-1.30); GLOMERULAR FILTRATION RATE 37.6 (>56)
[2016-06-22 20:37] LABS: POTASSIUM SERUM 5.4 MEQ/L (3.5-5.1)
== END ==
LOC: M SFHCADAM 13:42
PROVIDERS: ATTEND Family Medicine
DX: N17.9 Acute kidney failure, unspecified (principal); E11.40 Type 2 diabetes mellitus with diabetic neuropathy, unspecified
CPT/HCPCS: 80048; 82728; 83036; 83550; 85027; G0463

== ENCOUNTER 2016-06-27 18:13 | Inpatient (IN) | payer MEDICARE ==
[~2016-06-27] VITALS: Ht 177.8 cm; Wt 93.6 kg
[~2016-06-27 18:13] MED LIST changes: -AMIO400T PO; -ASPI81TAEC PO; -BRIL90TA PO; -CARV6.25 PO; -CEFD1CAP8 PO; -CEFT500T3 PO; -FURO40TA2 PO; -HUMU70IN SC; -LEVO750T33 PO; -MAGN400T2 PO; -METF500T PO; -METO25TA PO; -METO25TAB PO; -NIFE1TAB62 PO; -POTA10CA PO; -ROPI0.5T PO; -XARE20TA PO; -ZYVO100T PO
[2016-06-27] MEDS ORDERED: ACETAMINOPHEN 325 MG TAB As Ordered ONE (19:04)
[2016-06-27 20:16] LABS: INR 1.8
[2016-06-27 20:23] LABS: ADD MORPHOLOGY? YES; BASO # 0.1 K/mm3 (0.0-0.2); BASO % 0.4 % (0.0-1.0); EOS # 0.1 K/mm3 (0.0-0.50); EOS % 0.9 % (0.0-3.0); LARGE UNSTAINED CELL # 0.2 K/mm3 (0.0-0.4); LARGE UNSTAINED CELL % 1.5 % (0.0-4.0); LYMPH # 1.4 K/mm3 (1.5-4.5); LYMPH % 8.3 % (24.0-44.0); MEAN CORPUSCULAR HEMOGLOBIN 17.5 pg (27.0-33.0); MEAN CORPUSCULAR HGB CONC 28.2 g/dl (32.0-36.5); MEAN CORPUSCULAR VOLUME 61.9 fl (80.0-96.0); MONO # 0.8 K/mm3 (0.0-0.8); MONO % 5.9 % (0.0-5.0); NEUTROPHILS # 11.9 K/mm3 (1.8-7.7); RED CELL DISTRIBUTION WIDTH 20.3 % (11.5-14.5); WHITE BLOOD COUNT 14.3 K/mm3 (4.0-10.0)
[2016-06-27 20:30] LABS: ALBUMIN 3.4 GM/DL (3.2-5.2); ALBUMIN/GLOBULIN RATIO 0.77 (1.00-1.93); BILIRUBIN,DIRECT 0.3 MG/DL (0.0-0.2); BILIRUBIN,TOTAL 1.4 MG/DL (0.2-1.0); CALCIUM LEVEL 9.5 MG/DL (8.5-10.1); CREATININE FOR GFR 2.38 MG/DL (0.70-1.30); POTASSIUM SERUM 4.7 MEQ/L (3.5-5.1); TOTAL PROTEIN 7.8 GM/DL (6.4-8.2)
[2016-06-27] MEDS ORDERED: ASPIRIN 81 MG CHEW TABLET As Ordered ONE (20:49)
[2016-06-27 20:51] LABS: PLATELET COUNT, AUTOMATED 70 k/mm3 (150-450)
[2016-06-27 20:53] LABS: ANISOCYTOSIS 3+; HYPOCHROMASIA 2+; MICROCYTOSIS 4+
[2016-06-27] MEDS: HumaLOG INSULIN (NovoLOG) PER UNIT SC SCH (21:00)
[2016-06-27] MEDS ORDERED: TICAGRELOR 90 MG TABLET (BRILINTA) As Ordered ONE (22:26)
[2016-06-27] MEDS ORDERED: cefTRIAXone SOD 2 GM VIAL (J0696) IM ONE (23:15)
[2016-06-27] MEDS ORDERED: GLUCAGON FOR INJ 1 MG VIAL (J1610) SC PRN (23:15)
[2016-06-27] MEDS ORDERED: HEPARIN SOD (PORCINE) 5000 UNITS/ML VIAL SC SCH (23:15)
[2016-06-27] MEDS ORDERED: DEXTROSE 50% 50 ML SYRINGE IV PRN (23:15)
[2016-06-27] MEDS ORDERED: GLUCOSE 4 GM CHEW TABLET PO PRN (23:15)
[2016-06-27] MEDS ORDERED: SODIUM CHLORIDE 0.9% 1000 ML IV ONE (23:15)
[2016-06-27] MEDS ORDERED: ACETAMINOPHEN TAB 650MG DOSE (2X325MG) PO PRN (23:15)
[2016-06-27] MEDS ORDERED: FISH1000 PO (23:34)
[2016-06-27] MEDS ORDERED: AMIO20TA PO (23:34)
[2016-06-27] MEDS ORDERED: METF500T PO (23:34)
[2016-06-27] MEDS ORDERED: TRAM50TA2 PO (23:34)
[2016-06-27] MEDS ORDERED: ROPI0.5T PO (23:34)
[2016-06-27] MEDS ORDERED: GLIP10TA6 PO (23:34)
[2016-06-27] MEDS ORDERED: ASPI81TAEC PO (23:34)
[2016-06-27] MEDS ORDERED: LEVO750T33 PO (23:34)
[2016-06-27] MEDS ORDERED: ISOS30TA4 PO (23:34)
[2016-06-27] MEDS ORDERED: XARE20TA PO (23:34)
[2016-06-27] MEDS ORDERED: MAGN400T2 PO (23:34)
[2016-06-27] MEDS ORDERED: METF1000 PO (23:34)
[2016-06-27] MEDS ORDERED: FURO40TA2 PO (23:34)
[2016-06-28] MEDS ORDERED: SODIUM CHLORIDE 0.9% 1000 ML IV SCH
[2016-06-28] MEDS ORDERED: ONDANSETRON 4MG/2ML VIAL (J2405) IV PRN (00:15)
[2016-06-28] MEDS ORDERED: ONDANSETRON 4MG/2ML VIAL (J2405) As Ordered ONE (00:16)
[2016-06-28] MEDS: cefTRIAXone SOD 2 GM in D5W MINI-BAG PLUS 50 ML IV SCH (01:00)
[2016-06-28] MEDS: NS 1,000 ML IV SCH ×2 (01:00→13:30)
[2016-06-28] MEDS ORDERED: VANCOMYCIN HCL 1,000 MG, VIAL MATE ADAPTER 1 EACH in D5W 250 ML IV ONE ×2 (02:00→03:00)
--- NOTE | 2016-06-28 02:40 | HPE ---
DATE OF ADMISSION: 06/27/2016 PRIMARY CARE PROVIDER: Dr. Ruiz. CODE STATUS: FULL CODE. CHIEF COMPLAINT: Febrile illness. HISTORY OF PRESENT ILLNESS: Mr. Finney is a pleasant 60-year-old gentleman recently discharged from the hospital, was treated and discharged close to a week ago for pneumonia. He does have a previous history of diabetes, aortic valve replacement with a bioprosthetic valve anticoagulated with history of atrial fibrillation, rapid ventricular response (RVR) in the past, acute on chronic renal insufficiency, diabetes, congestive heart failure (CHF) and was found to have had elevated troponin secondary to demand ischemia. He presents to the emergency department today after having worsening fevers, chills, rigors for the last 24-48 hours, some nausea with no vomiting. He denies chest pain. Denies shortness of breath, productive sputum or cough, but he does have some vague myalgias. PAST MEDICAL HISTORY: 1. Diabetes. 2. Gastroesophageal reflux disease (GERD). 3. Hyperlipidemia. 4. Hypertension. 5. History of lung cancer, throat cancer with ostomy. 6. Recently treated for pneumonia. 7. Chronic renal failure. 8. Atrial fibrillation. 9. Aortic valve replacement with bioprosthetic valve. 10. Diabetes. 11. CHF. PAST SURGICAL HISTORY: 1. Aortic valve replacement 2009. 2. Laryngectomy with tracheostomy and right upper lobe lobectomy in 2007. SOCIAL HISTORY: He states he was never a smoker. Denies alcohol. No recent travel. No sick contacts. FAMILY HISTORY: Noncontributory. ALLERGIES: SHELLFISH. HOME MEDICATIONS: - amitriptyline 50 mg nightly - aspirin 81 mg daily - Lipitor 10 mg daily - bisoprolol fumarate 5 mg half-tablet daily - gabapentin 600 mg three times a day - levothyroxine 175 mcg daily - glipizide 10 mg twice a day - lisinopril 5 mg daily - magnesium oxide 500 mg daily - metformin 1500 mg twice a day - multivitamin one tablet daily - omeprazole 20 mg daily - Plavix 75 mg daily - ropinirole 2 mg daily - tamsulosin 0.4 mg daily - tramadol 50 mg as needed REVIEW OF SYSTEMS: Constitutionally, he has had 24 hours of fevers, chills, rigors, decreased appetite. HEENT: Denies headache, lightheaded, dizziness, blurry vision, double vision or tinnitus. No difficulty with speech or swallow. Pulmonary: He has had intermittent nonproductive cough, recently treated at the hospital and released a week ago for pneumonia. He denies hemoptysis. Cardiovascular: He denies substernal chest pain, but does have an underlying history of atrial fibrillation. No paroxysmal nocturnal dyspnea (PND), orthopnea or lower extremity edema. He does have a prior history of CHF. Gastrointestinal: He denies nausea, vomiting, diarrhea currently. His bowel movements have been regular. He denies any hematochezia or melena. Genitourinary: No dysuria, frequency or hematuria. Musculoskeletal: He denies bone loss or joint pain, swelling or erythema. Neurological: He denies paresthesias, paralysis. Endocrine: Positive for diabetes. Positive for thyroid disorder. Lymphatics: No lumps, bumps, swelling in neck, axilla or groin. No night sweats or weight loss. Hematology: No history of bleeding or bruising disorder. No prior history of venous thromboembolism. Oncology: Positive for throat cancer and lung cancer. Psychiatric: Negative for depression, anxiety, however, he does have issues with diabetic neuropathy. 10-point review of systems complete. Pertinent positives listed. PHYSICAL EXAMINATION: Temperature is 101.4, respiratory rate is 22, pulse 130, blood pressure is 100/70. His SpO2 is 97% on room air. General: The patient appears to be in no acute distress. He is alert and oriented. Does appear to be diaphoretic at bedside. HEENT: Head is atraumatic, normocephalic. Eyes pupils equal, reactive to light and accommodation. Throat clear. Lungs: Clear with intermittent expiratory wheeze. Heart: Irregular, irregular. Abdomen: Soft. Extremities: No edema. No calf tenderness. Neurological: Cranial nerves II-XII grossly intact. White count 14.3 hemoglobin 10.3 and platelets are 70,000. Sodium 137, potassium 4.7, chloride 103, bicarbonate 24, anion gap 10, BUN is 20, creatinine 2.38, glucose is 253, lactic acid 1.8, total bilirubin 1.4, direct bilirubin 0.3, AST 220, ALT 41, alkaline phosphatase is 87, troponin is 28.1. BNP is 1710, albumin is 3.4, INR 1.80, PTT 21. Urinalysis 2+ protein, 3+ glucose, otherwise unremarkable. Blood cultures pending times three. Influenza A and B are negative. Chest x-ray portable with poor penetration. Sternal wiring is noted, cardiomegaly noted. No pleural effusion. No consolidation. 12-lead EKG: Sinus tachycardia is noted. Left ventricular hypertrophy. Ventricular rate of 117. He does have inverted T-waves in V4, V5 and V6. This is unchanged from previous EKG. IMPRESSION: Mr. Finney is a pleasant 60-year-old gentleman recently discharged for treatment of pneumonia. However, he returned to the emergency department this evening for having fevers, chills, rigors, elevated white count and elevated troponin. The emergency room (ER) physician informs me he did have a discussion with both [facility] and [facility] regarding transfer of the patient and most likely would benefit from cardiac catheterization; however, they deferred the transfer for the time being until his infectious process has been better treated. Also Dr. Jang has been consulted and will follow with the patient in the morning and will need to cover him for possible endocarditis. PROBLEM LIST: 1. Tropinemia with troponin greater than 20, possible non-ST segment elevation myocardial infarction (NSTEMI). 2. Recent pneumonia with leukocytosis of 14,000. 3. Acute kidney injury superimposed on chronic renal failure. 4. Atrial fibrillation with rapid ventricular response (RVR), most likely secondary to dehydration. 5. Aortic valve replacement with bioprosthetic valve 6. Diabetes. 7. Congestive heart failure (CHF). 8. Hypothyroidism. 9. Diabetic neuropathy. PLAN: The patient will be admitted to progressive care unit (PCU) on telemetry per [facility]. House Shorer, Dr. Jang will see the patient in the morning. Will give him an intravenous (IV) normal saline bolus of 500 mL then return rate to 80 mL an hour. He was started on Brilinta 90 mg twice a day after receiving 180 mg loading dose this evening. Also, per cardiology's recommendation, will continue with heparin subcutaneously, full-dose aspirin, IV Rocephin, and one-time dose of vancomycin. Blood cultures are pending and I will go ahead and take the liberty to order a transesophageal echocardiogram to rule out endocarditis. Deep venous thrombosis (DVT) prophylaxis, the patient is on subcutaneous heparin. DISPOSITION: The patient's prognosis is somewhat guarded at this point, will need further evaluation in the morning by cardiology and further evaluation to rule out endocarditis and likely needs further definitive treatment of what appears to be a non-ST elevated myocardial infarction (CT).
[2016-06-28] MEDS ORDERED: VANCOMYCIN 1000 MG/20 ML VIAL (J3370) As Ordered ONE ×2 (02:43→04:06)
[2016-06-28] MEDS ORDERED: cefTRIAXone SOD 1 GM VIAL (J0696) As Ordered ONE (05:18)
[2016-06-28 07:10] LABS: CALCIUM LEVEL 9.1 MG/DL (8.5-10.1); CREATININE FOR GFR 2.38 MG/DL (0.70-1.30); POTASSIUM SERUM 4.7 MEQ/L (3.5-5.1)
[2016-06-28] MEDS: HumaLOG INSULIN (NovoLOG) PER UNIT SC SCH ×4 (07:30→21:05)
--- NOTE | 2016-06-28 07:33 | REP ---
Clinical: Shortness of breath. Comparison: 06/18/2016. Findings: Stable cardiomegaly. Indistinct pulmonary vasculature with cephalization and prominent interstitial markings suggest pulmonary venous congestion. No focal consolidation, effusion, or pneumothorax. Impression: Cardiomegaly and findings to suggest pulmonary venous congestion. Signed by Mario Florez MD 06/27/2016 06:54 P
[2016-06-28 08:00] VITALS: BP 90/60
[2016-06-28] MEDS: OMEPRAZOLE 20 MG CAP PO SCH (09:00)
[2016-06-28] MEDS ORDERED: ASPIRIN 325 MG TAB PO SCH (09:00)
[2016-06-28] MEDS: ENOXAPARIN 30 MG/0.3 ML SYR (J1650) SC SCH (10:42)
[2016-06-28] MEDS: TICAGRELOR 90 MG TABLET (BRILINTA) PO SCH ×2 (10:42→21:05)
[2016-06-28] MEDS: DOCUSATE SODIUM 100 MG CAP PO SCH ×2 (10:42→21:05)
[2016-06-28 12:00] VITALS: BP 105/66
--- NOTE | 2016-06-28 12:51 | IPNPDOC ---
Subjective Date Seen The patient was seen on 06/28/16. Subjective Chief Complaint/HPI The patient is a 60-year-old male admitted with a reason for visit of Prashanth; Elevated Troponin. Events since last encounter Patient states that he currently feels well, not currently having any chest pain. Denies any shortness of breath. Denies any fevers, chills, sweats. Denies any dysuria. Denies abdominal pain. Constitutional: Denies: Chills, Fever Skin: Denies: Rash Pulmonary: Denies: Cough, Dyspnea Cardiovascular: Denies: Chest Pain, Palpitations Gastrointestinal: Denies: Abdominal Pain, Nausea, Vomiting Genitourinary: Denies: Dysuria Other systems 10 point review systems otherwise negative Objective Physical Examination General Exam: Positive: Alert, No Acute Distress, Other (laryngeal stoma) Eye Exam: Positive: EOMI, PERRLA, Negative: Sclera icteric ENT Exam: Positive: Mucous membr. moist/pink, Nares Patent, Pharynx Normal Neck Exam: Positive: Supple, Negative: JVD, thyromegaly Chest Exam: Positive: Clear to auscultation, Normal air movement, Negative: Rales, Rhonchi, Wheezing Heart Exam: Positive: Irregular Rhythm, Murmurs (3/6 systolic ejection murmur over aortic valve), Normal S1, Normal S2, Rate Normal, Negative: Rubs Telemetry: Positive: Atrial fibrillation Abdomen Exam: Positive: Normal bowel sounds, Soft, Negative: Hepatospenomegaly, Tenderness Extremity Exam: Negative: Clubbing, Cyanosis Skin Exam: Positive: Nl turgor and temperature, Negative: Rash Neuro Exam: Negative: Normal Speech (altered speech from laryngeal stoma) Psych Exam: Positive: Mental status NL, Mood NL Assessment /Plan Assessment Patient is 60-year-old man with a history of bioprosthetic aortic valve replacement, chronic congestive heart failure, chronic kidney disease, peripheral vascular disease admitted with fever, leukocytosis, and NSTEMI. He was not accepted for transfer to [place] due to signs of possible infection. Problems (1) NSTEMI (non-ST elevated myocardial infarction) Status: Acute Problem Text: Troponin increased from 30-45. Patient however is currently asymptomatic. He was unable to be transferred to [place] due to signs of possible infection, so he is being managed medically. -Dr. Suhail consulted -Started on aspirin, Brilinta, heparin per cardiology recommendations from -Currently on statin, however should be increased -Admitted to ICU (2) DM2 (diabetes mellitus, type 2) Status: Chronic Problem Text: Managed outpatient with metformin and glipizide. Currently held. -Sliding scale insulin (3) History of laryngeal cancer Status: Chronic Problem Text: Patient has laryngeal ostomy due to previous cancer (4) History of lung cancer Status: Chronic Problem Text: History of lung cancer, no current respiratory symptoms. (5) PVD (peripheral vascular disease) Status: Chronic Problem Text: History of peripheral vascular disease. No current symptoms. (6) Hyperlipemia Status: Chronic Problem Text: Currently on Lipitor 10 mg at bedtime -Escalate therapy (7) CHF (congestive heart failure) Status: Chronic Problem Text: History of chronic congestive heart failure, improved after aortic valve replacement. (8) CAD (coronary artery disease) Status: Chronic (9) S/P AVR (aortic valve replacement) Status: Chronic Problem Text: Bioprosthetic aortic valve Plan/VTE VTE Prophylaxis Ordered?: Yes VS, I&O, 24H, [facility] Vital Signs/I&O Vital Signs Date Time Temp Pulse Resp B/P Pulse Ox O2 Delivery O2 Flow Rate FiO2 06/28/16 12:00 98.5 99 18 105/66 95 06/28/16 08:00 Room Air Laboratory Data 24H LABS Laboratory Tests 2 06/27/16 18:43: Activated Partial Thromboplast Time 39.4H, Aspartate Amino Transf (AST/SGOT) 220H, Alanine Aminotransferase (ALT/SGPT) 41, Alkaline Phosphatase 87, Total Bilirubin 1.4H, Direct Bilirubin 0.3H, Albumin 3.4, Albumin/Globulin Ratio 0.77L , Anion Gap 10, Anisocytosis 3+, B-Type Natriuretic Peptide 1710H, White Blood Count 14.3H, Red Blood Count 5.90, Hemoglobin 10.3L, Hematocrit 36.5L, Mean Corpuscular Volume 61.9L, Mean Corpuscular Hemoglobin 17.5L, Mean Corpuscular Hemoglobin Concent 28.2L, Red Cell Distribution Width 20.3H, Platelet Count 70L , Neutrophils (%) (Auto) 83.0H, Lymphocytes (%) (Auto) 8.3L, Monocytes (%) (Auto ) 5.9H, Eosinophils (%) (Auto) 0.9, Basophils (%) (Auto) 0.4, Neutrophils # ( Auto) 11.9H, Lymphocytes # (Auto) 1.4L, Monocytes # (Auto) 0.8, Eosinophils # ( Auto) 0.1, Basophils # (Auto) 0.1, Calcium Level 9.5, Glomerular Filtration Rate 30.0L, Hypochromasia 2+, Lactic Acid (Sepsis) 1.8, Large Unclassified Cells # 0.2, Large Unclassified Cells % 1.5, Microcytosis 4+, Platelet Estimate DECREASED, Prothromb Time International Ratio 1.80, Prothrombin Time 21.0H, Total Protein 7.8, Troponin I 28.10*H, Urine Amorphous Sediment , Urine Appearance HAZY, Urine Color YELLOW, Urine pH 5.0, Urine Specific Bivalve 1.026 , Urine Protein 2+H, Urine Glucose (UA) 3+H, Urine Ketones NEGATIVE, Urine Urobilinogen 0.2, Urine Bilirubin NEGATIVE, Urine Leukocyte Esterase NEGATIVE, Urine Bacteria (Auto) NEGATIVE, Urine Blood NEGATIVE, Urine Calcium Carbonate Cryst(Auto) , Urine Calcium Oxalate Cryst (Auto) , Urine Calcium Phosphate [place] (Auto) , Urine Cellular Casts , Urine Cystine Crystals , Urine Granular Casts ( Auto) , Urine Hyaline Casts (Auto) 4, Urine Leucine Crystals , Urine Mucus (Auto ) SMALL, Urine Nitrite NEGATIVE, Urine Oval Fat Bodies (Auto) , Urine RBC (Auto ) 2, Urine Renal Epithelial Cells , Urine Sperm (Auto) , Urine Squamous Epithelial Cells 0, Urine Transitional Epithelial Cells , Urine Trichomonas ( Auto) , Urine Triple Phosphate Cryst (Auto) , Urine Tyrosine Crystals , Urine Uric Acid Crystals (Auto) , Urine WBC (Auto) 3, Urine Waxy Casts (Auto) , Urine Yeast-Like Cells (Auto) 06/28/16 00:07: Troponin I 39.70#*H, Creatine Kinase MB 60.5H, Creatine Kinase MB Relative Index 11.12H, Total Creatine Kinase 544H 06/28/16 00:23: Bedside Glucose (Misc Panel) 235H 06/28/16 06:10: Anion Gap 13, Calcium Level 9.1, Glomerular Filtration Rate 30.0L, Troponin I 47.50*H, Creatine Kinase MB 60.0H, Creatine Kinase MB Relative Index 10.96H, Total Creatine Kinase 547H, Blood Urea Nitrogen 32H, Creatinine 2.38H, Sodium Level 135L, Potassium Level 4.7, Chloride Level 100, Carbon Dioxide Level 22 06/28/16 12:09: Bedside Glucose (Misc Panel) 259H CBC/BMP Laboratory Tests 06/27/16 18:43 Red Blood Count 5.90, Mean Corpuscular Volume 61.9 L, Mean Corpuscular Hemoglobin 17.5 L, Mean Corpuscular Hemoglobin Concent 28.2 L, Red Cell Distribution Width 20.3 H, Neutrophils (%) (Auto) 83.0 H, Lymphocytes (%) (Auto ) 8.3 L, Monocytes (%) (Auto) 5.9 H, Eosinophils (%) (Auto) 0.9, Basophils (%) ( Auto) 0.4, Neutrophils # (Auto) 11.9 H, Lymphocytes # (Auto) 1.4 L, Monocytes # (Auto) 0.8, Eosinophils # (Auto) 0.1, Basophils # (Auto) 0.1 06/28/16 06:10 Calcium Level 9.1 Microbiology Microbiology 06/27/16 Blood Culture, Received Pending 06/27/16 Blood Culture, Received Pending 06/27/16 Influenza Virus Type A Antigen - Final, Complete 06/27/16 Influenza Virus Type B Antigen - Final, Complete 06/27/16 Urine Culture, Received Pending HAROON VAZQUEZ MD Jun 28, 2016 12:51
--- NOTE | 2016-06-28 13:21 | EDDOCDS ---
Physician Documentation [facility] Name: Timmy Finney Age: 60 yrs Sex: Male : 1955 Arrival Date: 06/27/2016 Time: 18:13 Bed Admit Hold Private MD: Emanuel Ruiz MD Disposition: 06/27/16 22:35 Hospitalization ordered by Guille Flores for Inpatient Admission. Preliminary diagnosis are Non-ST elevation (NSTEMI) myocardial infarction, Acute pulmonary edema, Fever, unspecified - Acute Kidney Injury. - Bed requested for M ICU. - Status is Inpatient Admission. aa3 - Condition is Stable. - Problem is new. - Symptoms are unchanged. Historical: - Allergies: SHELLFISH; - Home Meds: 1. amitriptyline 50 mg Oral tab 1 tab nightly 2. aspirin 81 mg Oral tab 1 tab once daily 3. atorvastatin 10 mg oral tab 1 tab once daily 4. bisoprolol fumarate 5 mg oral tab 0.5 tab once daily 5. gabapentin 600 mg Oral tab 1 tab 3 times per day 6. levothyroxine 175 mcg Oral tab 1 tab once daily 7. glipizide 10 mg Oral tab 1 tab 2 times per day 8. lisinopril 5 mg Oral tab 1 tab once daily 9. magnesium oxide 500 mg Oral cap daily 10. Metformin 1500 mg bid Oral 11. Multivitamin Oral 1 tab daily 12. omeprazole 20 mg Oral cpDR 1 cap once daily 13. Plavix 75 mg Oral tab 1 tab once daily 14. ropinirole 2 mg oral tab daily 15. tamsulosin 0.4 mg oral cp24 1 cap once daily 16. tramadol 50 mg Oral tab 1 tab as needed - PMHx: Diabetes - NIDDM: controlled; GERD; Hypercholesterolemia; Hypertension; lung cancer; throat cancer,; - PSHx: Aortic valve replacement 2009; Laryngectomy 2010; Right upper lobectomy 2007; - Social history: Smoking status: Patient states was never smoker of tobacco. No barriers to communication noted, The patient speaks fluent Pashto, Speaks appropriately for age. - Family history: No immediate family members are acutely ill. - : The pt / caregiver states he / she is not on anticoagulants. Home medication list is obtained from the patient. - Exposure Risk Screening:: None identified. Vital Signs: 06/27 18:15 BP 101 / 70 RA Sitting (auto/reg); Pulse 131; Resp 22; Temp 101.4(O); Pulse Ox 97% on jrd R/A; Weight 102.06 kg / 225 lbs (R); Height 5 ft. 10 in. (177.80 cm) (R); Pain 6/10; 19:33 BP 114 / 63 (auto/); mv5 19:33 Pulse 104 MON; Pulse Ox 91% on R/A; mv5 19:58 BP 100 / 63 (auto/); mv5 19:58 Pulse 116 MON; Pulse Ox 92% ; mv5 20:20 BP 95 / 53 (auto/); mv5 20:20 Pulse 116 MON; Pulse Ox 91% ; mv5 20:35 BP 96 / 59 (auto/); mv5 20:35 Pulse 120 MON; Pulse Ox 94% ; mv5 20:37 BP 118 / 74 (auto/); mv5 20:37 Pulse 118 MON; Resp 18; Temp 100.1(O); Pulse Ox 94% ; mv5 20:50 BP 98 / 63 (auto/); mv5 20:50 Pulse 116 MON; Pulse Ox 93% ; mv5 21:05 BP 89 / 56 (auto/); mv5 21:05 Pulse 116 MON; Pulse Ox 92% ; mv5 21:20 BP 83 / 52 (auto/); mv5 21:20 Pulse 116 MON; Pulse Ox 93% ; mv5 21:37 BP 97 / 63 (auto/); mv5 21:37 Pulse 114 MON; Pulse Ox 92% ; mv5 21:50 BP 101 / 68 (auto/); mv5 21:50 Pulse 112 MON; Pulse Ox 93% ; mv5 22:05 BP 104 / 70 (auto/); mv5 22:05 Pulse 110 MON; Pulse Ox 92% ; mv5 22:20 BP 106 / 66 (auto/); mv5 22:20 Pulse 108 MON; Pulse Ox 92% ; mv5 22:35 BP 92 / 62 (auto/); mv5 22:35 Pulse 110 MON; Pulse Ox 93% ; mv5 22:50 BP 94 / 62 (auto/); mv5 22:51 Pulse 108 MON; Pulse Ox 93% ; mv5 23:05 BP 97 / 61 (auto/); mv5 23:05 Pulse 108 MON; Pulse Ox 94% ; mv5 23:20 BP 88 / 53 (auto/); mv5 23:20 Pulse 110 MON; Pulse Ox 92% ; mv5 23:35 BP 86 / 54 (auto/); mv5 23:37 Pulse 104 MON; Pulse Ox 94% ; mv5 23:50 BP 95 / 62 (auto/); mv5 23:51 Pulse 106 MON; mv5 02/21 00:05 BP 101 / 67 (auto/); mv5 00:10 Pulse 110 MON; Pulse Ox 96% ; mv5 00:22 BP 82 / 63 (auto/); mv5 00:22 Pulse 112 MON; Pulse Ox 95% ; mv5 00:41 BP 92 / 74 (auto/); mv5 00:42 Pulse 112 MON; Pulse Ox 94% ; mv5 00:50 BP 98 / 68 (auto/); mv5 00:51 Pulse 100 MON; Pulse Ox 93% ; mv5 01:05 BP 102 / 71 (auto/); mv5 01:06 Pulse 96 MON; Pulse Ox 95% ; mv5 01:20 BP 103 / 74 (auto/); mv5 01:21 Pulse 98 MON; Pulse Ox 93% ; mv5 01:35 BP 102 / 70 (auto/); mv5 01:35 Pulse 94 MON; Pulse Ox 93% ; mv5 01:50 BP 93 / 59 (auto/); mv5 01:50 Pulse 96 MON; Pulse Ox 89% ; mv5 02:05 BP 96 / 64 (auto/); mv5 02:05 Pulse 100 MON; Pulse Ox 95% ; mv5 02:20 BP 106 / 68 (auto/); mv5 02:20 Pulse 102 MON; Pulse Ox 93% ; mv5 02:35 BP 108 / 71 (auto/); mv5 02:35 Pulse 98 MON; Pulse Ox 94% ; mv5 02:50 BP 107 / 68 (auto/); mv5 02:50 Pulse 100 MON; Pulse Ox 94% ; mv5 03:05 BP 96 / 59 (auto/); mv5 03:05 Pulse 98 MON; Pulse Ox 93% ; mv5 03:20 BP 113 / 59 (auto/); mv5 03:20 Pulse 96 MON; Pulse Ox 94% ; mv5 03:35 BP 112 / 59 (auto/); mv5 03:35 Pulse 96 MON; Pulse Ox 94% ; mv5 03:50 BP 108 / 65 (auto/); mv5 03:50 Pulse 96 MON; Pulse Ox 93% ; mv5 04:05 BP 102 / 63 (auto/); mv5 04:05 Pulse 100 MON; Pulse Ox 94% ; mv5 04:20 BP 109 / 70 (auto/); mv5 04:20 Pulse 98 MON; Pulse Ox 95% ; mv5 04:35 BP 103 / 56 (auto/); mv5 04:35 Pulse 102 MON; Pulse Ox 93% ; mv5 04:50 BP 104 / 63 (auto/); mv5 04:50 Pulse 108 MON; Pulse Ox 95% ; mv5 05:05 BP 107 / 66 (auto/); mv5 05:05 Pulse 100 MON; Pulse Ox 94% ; mv5 05:20 BP 97 / 63 (auto/); mv5 05:20 Pulse 100 MON; Pulse Ox 92% ; mv5 05:35 BP 95 / 64 (auto/); mv5 05:35 Pulse 102 MON; Temp 99.1(O); Pulse Ox 93% ; mv5 05:50 BP 87 / 56 (auto/); mv5 05:50 Pulse 108 MON; Pulse Ox 95% ; mv5 06:05 BP 84 / 56 (auto/); mv5 06:05 Pulse 106 MON; Pulse Ox 94% ; mv5 06/27 18:15 Body Mass Index 32.28 (102.06 kg, 177.80 cm) jrd MDM: 06/27 18:29 -Blood Culture (Adults Only), peripheral from different site, or from device/port/PICC br1 etc. if present ordered. 18:29 Banquet Server/Pulse Ox/q 15 min VS ordered. br1 18:31 CBC with Diff Ordered. EDMS 18:31 Lactic Acid (Ayala tube on ice) Ordered. EDMS 18:31 Liver Profile Ordered. EDMS 18:31 MED Profile Ordered. EDMS 18:31 PT/INR Ordered. EDMS 18:31 PTT Ordered. EDMS 18:31 Urinalysis Ordered. EDMS 18:31 -Blood Culture Ordered. EDMS 18:31 Urine Culture Ordered. EDMS 18:32 Chest, 1 View Ordered. EDMS 18:32 ECG WITH READING ER PHYS+CARDIAG ordered. EDMS 18:32 BNP Ordered. EDMS 18:33 TROPONIN Ordered. EDMS 18:33 BLOOD CULTURES Ordered. EDMS 18:44 -Blood Culture (Adults Only), peripheral from different site, or from device/port/PICC mt4 etc. if present complete. 18:49 Acetaminophen Tablet 650 mg PO once ordered. br1 18:50 -Influenza A&B Rapid Antigen - Nose Ordered. EDMS 19:55 Financial registration complete. zo 19:58 [facility] Payment Agreement was scanned into [employer] and attached to record. zo 20:00 -Influenza A&B Rapid Antigen - Nose Reviewed. br1 20:41 Liver Profile Reviewed. br1 20:41 MED Profile Reviewed. br1 20:41 PT/INR Reviewed. br1 20:41 PTT Reviewed. br1 20:41 TROPONIN Reviewed. br1 20:41 Lactic Acid (Ayala tube on ice) Reviewed. br1 20:44 IV Saline Lock ordered. br1 20:44 Aspirin 324 mg PO once ordered. br1 20:44 ECG WITH READING ER PHYS+CARDIAG ordered. EDMS 20:52 BNP Reviewed. br1 20:53 RBC MORPH PROF NO CHARGE Ordered. EDMS 20:56 CBC with Diff Reviewed. br1 22:11 Recheck Vital Signs, perform reassessment and enter into [employer] ordered. br1 22:17 Brilinta 180 mg PO once ordered. br1 22:19 BED REQUEST+ADM ordered. EDMS 22:36 -Blood Culture (Adults Only), peripheral from different site, or from device/port/PICC br1 etc. if present ordered. 22:39 -Blood Culture (Adults Only), peripheral from different site, or from device/port/PICC tmm1 etc. if present complete. 23:10 Admission / Observation Status ordered. EDMS 23:10 CONSISTENT CARBOHYDRATES ordered. EDMS 23:10 CARDIAC MARKER PANEL Ordered. EDMS 23:10 CARDIAC MARKER PANEL Ordered. EDMS 23:10 CARDIAC MARKER PANEL Ordered. EDMS 23:11 BASIC METABOLIC PROFILE Ordered. EDMS 23:52 TRANSESPHOGEAL ECHO/DOPPLER/CF ordered. EDMS 06/28 00:31 Fingerstick Blood Sugar Ordered. EDMS Point of Care Testing: Blood Glucose: 00:24 Blood Glucose: 235 mg/dL; mv5 Ranges: Administered Medications: 06/27 19:19 Drug: Acetaminophen 650 mg [acetaminophen 325 mg tablet (2 tabs)] Route: PO; mv5 20:47 Follow up: Response: Temperature is decreased mv5 20:51 Drug: Aspirin 324 mg [aspirin 81 mg chewable tablet (4 tabs)] Route: PO; mv5 22:30 Drug: Brilinta 180 mg [BRILINTA 90 mg tablet (2 tabs)] Route: PO; mv5 06/28 00:13 CANCELLED (entered in error): Ondansetron 4 mg IVP once mv5 Signatures: Dispatcher [employer] EDMS Jocelyne Razo Brian, MD MD br1 Grant, Marija mt4 McLear, Marylou, BODY SANDER BODY SANDER tmm1 Byron HebertRN RN jmb Radha Sinha RN RN aa3 [place] Sifuentes RN RN mts Alysha Yip RN RN mv5 The chart was reviewed and I authenticate all verbal orders and agree with the evaluation and treatment provided.Corrections: (The following items were deleted from the chart) 06/27 18:33 18:32 TROPONIN+LAB ordered. EDMS EDMS 23:52 22:40 BLOOD CULTURES ordered. EDMS EDMS 06/28 00:13 00:12 Ondansetron 4 mg IVP once ordered. mv5 mv5 06:46 06/27 20:47 ECG WITH READING ER PHYS ordered. EDMS EDMS Attachments: 19:58 [facility] [place] zo MTDD
--- NOTE | 2016-06-28 13:22 | EDDOCDS ---
Nurse's Notes [facility] Name: Timmy Finney Age: 60 yrs Sex: Male : 1955 Arrival Date: 06/27/2016 Time: 18:13 Bed Admit Hold Private MD: Emanuel Ruiz MD Diagnosis: Non-ST elevation (NSTEMI) myocardial infarction;Acute pulmonary edema;Fever, unspecified-Acute Kidney Injury Presentation: 06/27 18:15 Red Flag criteria, patient assessed and is suitable to finish the RCE Process. PATIENT ml6 TO MOVE TO BED 12 AFTER TRIAGE. 18:19 Presenting complaint: Patient states: Patient seen one week ago with pneumonia. Patient jmb has been disoriented/dizzy. Adult Sepsis Screening: Patient has new or worsening altered mentation (1 point). Patient's respiratory rate is less than 22. Systolic blood pressure is greater than 100. Patient has a qSOFA score of 1- Negative Sepsis Screen. Suicide/Homicide risk assessment- the patient denies having any suicidal and/or homicidal ideations and does not present with any other emotional, behavioral or mental health complaints. 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 Transition of care: patient was not received from another setting of care. 18:19 Acuity: MOUSTAPHA Level 3 b 18:19 Method Of Arrival: Wheelchair [facility] Triage Assessment: 18:21 General: Appears in no apparent distress. Pain: Denies pain. HIV screening NA for this jmb visit Offered previously. Neurological: Level of Consciousness is awake, alert, obeys commands, Oriented to person, place, time, Speech is normal, Facial symmetry appears normal, Facial symmetry: tongue is midline. Respiratory: Onset: The symptoms/episode began/occurred gradually, Airway is patent Respiratory effort is even, unlabored, Respiratory pattern is regular, symmetrical. Derm: Skin is normal. Musculoskeletal: Range of motion intact in all extremities. Historical: - Allergies: SHELLFISH; - Home Meds: 1. amitriptyline 50 mg Oral tab 1 tab nightly 2. aspirin 81 mg Oral tab 1 tab once daily 3. atorvastatin 10 mg oral tab 1 tab once daily 4. bisoprolol fumarate 5 mg oral tab 0.5 tab once daily 5. gabapentin 600 mg Oral tab 1 tab 3 times per day 6. levothyroxine 175 mcg Oral tab 1 tab once daily 7. glipizide 10 mg Oral tab 1 tab 2 times per day 8. lisinopril 5 mg Oral tab 1 tab once daily 9. magnesium oxide 500 mg Oral cap daily 10. Metformin 1500 mg bid Oral 11. Multivitamin Oral 1 tab daily 12. omeprazole 20 mg Oral cpDR 1 cap once daily 13. Plavix 75 mg Oral tab 1 tab once daily 14. ropinirole 2 mg oral tab daily 15. tamsulosin 0.4 mg oral cp24 1 cap once daily 16. tramadol 50 mg Oral tab 1 tab as needed - PMHx: Diabetes - NIDDM: controlled; GERD; Hypercholesterolemia; Hypertension; lung cancer; throat cancer,; - PSHx: Aortic valve replacement 2009; Laryngectomy 2010; Right upper lobectomy 2007; - Social history: Smoking status: Patient states was never smoker of tobacco. No barriers to communication noted, The patient speaks fluent [place], Speaks appropriately for age. - Family history: No immediate family members are acutely ill. - : The pt / caregiver states he / she is not on anticoagulants. Home medication list is obtained from the patient. - Exposure Risk Screening:: None identified. Screenin:33 Screening information is obtained from the patient, family members. Fall risk: No risks mv5 identified. Assistance ADL's: requires no assistance with activities of daily living. Abuse/DV Screen: The patient / caregiver reports he/she is: not in a situation that causes fear, pain or injury. Nutritional screening: No deficits noted. Advance Directives: There is no active DNR order. home support is adequate. Assessment: 19:39 General: Appears in no apparent distress, Behavior is cooperative, pleasant, Pt appears mv5 fatigued.. Neurological: Level of Consciousness is awake, alert, Oriented to person, place, time. Cardiovascular: Capillary refill < 3 seconds Heart tones S1 S2 present Pulses are all present. Rhythm is sinus tachycardia No ectopy. Cardiovascular:. Respiratory: Airway is patent ostomy from previous trach Breath sounds are clear bilaterally. diminished in bases. GI: No deficits noted. : No deficits noted. Derm: Skin is pink, warm & dry. 20:11 General: Appears in no apparent distress, Pt reposition self to find comfortable mv5 position, at bedside.. General: Unable to gain IV access x several attempts x 2 RN's. Will continue to attempt.. Neurological: No deficits noted. 20:44 General: Appears in no apparent distress, Behavior is cooperative, restless, Pt denies mv5 pain at this time. MD reviewing resulted labs.. Neurological: Level of Consciousness is awake, alert, Oriented to person, place, time. Cardiovascular: Capillary refill < 3 seconds Rhythm is sinus tachycardia No ectopy. Derm: Skin is pink, warm & dry. 21:31 General: Appears in no apparent distress, Behavior is restless. Pain: Denies pain. mv5 Neurological: No deficits noted. Cardiovascular: Rhythm is sinus tachycardia No ectopy. Derm: Skin is pink, warm & dry. 21:37 General: Appears in no apparent distress, to be sleeping. Behavior is cooperative. mv5 Cardiovascular: Rhythm is sinus tachycardia No ectopy. Respiratory: Airway is patent Respiratory effort is even, unlabored, Respiratory pattern is regular, symmetrical. Derm: Skin is pink, warm & dry. 22:30 General: Appears in no apparent distress, comfortable, to be sleeping. Pt wakes easily mv5 to voice.. Pain: Denies pain. Neurological: No deficits noted. Cardiovascular: Rhythm is sinus tachycardia No ectopy. Respiratory: Airway is patent Respiratory effort is even, unlabored, Respiratory pattern is regular, symmetrical. Derm: Skin is pink, warm & dry. 23:14 General: Appears in no apparent distress, to be sleeping. Pain: Denies pain. mv5 Respiratory: Airway is patent Respiratory effort is even, unlabored, Respiratory pattern is regular, symmetrical. Derm: Skin is pink, warm & dry. / 00:25 General: Appears in no apparent distress, Behavior is cooperative, restless, medicated mv5 as ordered for c/o nausea.. Neurological: No deficits noted. Respiratory: Airway is patent Respiratory effort is even, unlabored, Respiratory pattern is regular, symmetrical. Derm: Skin is pink, warm & dry. 01:33 General: Appears in no apparent distress. Pain: Denies pain. Cardiovascular: Rhythm is mv5 sinus tachycardia No ectopy. Respiratory: Airway is patent Respiratory effort is even, unlabored, Respiratory pattern is regular, symmetrical. Derm: Skin is pink, warm & dry. 02:30 General: Appears in no apparent distress, Behavior is cooperative. Respiratory: Airway mv5 is patent Respiratory effort is even, unlabored, Respiratory pattern is regular, symmetrical. Derm: Skin is pink, warm & dry. 03:19 General: Appears in no apparent distress. Cardiovascular: Rhythm is sinus tachycardia mv5 No ectopy. Respiratory: Airway is patent Respiratory effort is even, unlabored, Respiratory pattern is regular, symmetrical. Derm: Skin is pink, warm & dry. 05:33 General: Appears in no apparent distress, to be sleeping. Cardiovascular: Rhythm is mv5 sinus tachycardia No ectopy. Respiratory: Airway is patent Respiratory effort is even, unlabored, Respiratory pattern is regular, symmetrical. Derm: Skin is pink, warm & dry. Vital Signs: 06/27 18:15 BP 101 / 70 RA Sitting (auto/reg); Pulse 131; Resp 22; Temp 101.4(O); Pulse Ox 97% on jrd R/A; Weight 102.06 kg (R); Height 5 ft. 10 in. (177.80 cm) (R); Pain 6/10; 19:33 BP 114 / 63 (auto/); mv5 19:33 Pulse 104 MON; Pulse Ox 91% on R/A; mv5 19:58 BP 100 / 63 (auto/); mv5 19:58 Pulse 116 MON; Pulse Ox 92% ; mv5 20:20 BP 95 / 53 (auto/); mv5 20:20 Pulse 116 MON; Pulse Ox 91% ; mv5 20:35 BP 96 / 59 (auto/); mv5 20:35 Pulse 120 MON; Pulse Ox 94% ; mv5 20:37 BP 118 / 74 (auto/); mv5 20:37 Pulse 118 MON; Resp 18; Temp 100.1(O); Pulse Ox 94% ; mv5 20:50 BP 98 / 63 (auto/); mv5 20:50 Pulse 116 MON; Pulse Ox 93% ; mv5 21:05 BP 89 / 56 (auto/); mv5 21:05 Pulse 116 MON; Pulse Ox 92% ; mv5 21:20 BP 83 / 52 (auto/); mv5 21:20 Pulse 116 MON; Pulse Ox 93% ; mv5 21:37 BP 97 / 63 (auto/); mv5 21:37 Pulse 114 MON; Pulse Ox 92% ; mv5 21:50 BP 101 / 68 (auto/); mv5 21:50 Pulse 112 MON; Pulse Ox 93% ; mv5 22:05 BP 104 / 70 (auto/); mv5 22:05 Pulse 110 MON; Pulse Ox 92% ; mv5 22:20 BP 106 / 66 (auto/); mv5 22:20 Pulse 108 MON; Pulse Ox 92% ; mv5 22:35 BP 92 / 62 (auto/); mv5 22:35 Pulse 110 MON; Pulse Ox 93% ; mv5 22:50 BP 94 / 62 (auto/); mv5 22:51 Pulse 108 MON; Pulse Ox 93% ; mv5 23:05 BP 97 / 61 (auto/); mv5 23:05 Pulse 108 MON; Pulse Ox 94% ; mv5 23:20 BP 88 / 53 (auto/); mv5 23:20 Pulse 110 MON; Pulse Ox 92% ; mv5 23:35 BP 86 / 54 (auto/); mv5 23:37 Pulse 104 MON; Pulse Ox 94% ; mv5 23:50 BP 95 / 62 (auto/); mv5 23:51 Pulse 106 MON; mv5 02/21 00:05 BP 101 / 67 (auto/); mv5 00:10 Pulse 110 MON; Pulse Ox 96% ; mv5 00:22 BP 82 / 63 (auto/); mv5 00:22 Pulse 112 MON; Pulse Ox 95% ; mv5 00:41 BP 92 / 74 (auto/); mv5 00:42 Pulse 112 MON; Pulse Ox 94% ; mv5 00:50 BP 98 / 68 (auto/); mv5 00:51 Pulse 100 MON; Pulse Ox 93% ; mv5 01:05 BP 102 / 71 (auto/); mv5 01:06 Pulse 96 MON; Pulse Ox 95% ; mv5 01:20 BP 103 / 74 (auto/); mv5 01:21 Pulse 98 MON; Pulse Ox 93% ; mv5 01:35 BP 102 / 70 (auto/); mv5 01:35 Pulse 94 MON; Pulse Ox 93% ; mv5 01:50 BP 93 / 59 (auto/); mv5 01:50 Pulse 96 MON; Pulse Ox 89% ; mv5 02:05 BP 96 / 64 (auto/); mv5 02:05 Pulse 100 MON; Pulse Ox 95% ; mv5 02:20 BP 106 / 68 (auto/); mv5 02:20 Pulse 102 MON; Pulse Ox 93% ; mv5 02:35 BP 108 / 71 (auto/); mv5 02:35 Pulse 98 MON; Pulse Ox 94% ; mv5 02:50 BP 107 / 68 (auto/); mv5 02:50 Pulse 100 MON; Pulse Ox 94% ; mv5 03:05 BP 96 / 59 (auto/); mv5 03:05 Pulse 98 MON; Pulse Ox 93% ; mv5 03:20 BP 113 / 59 (auto/); mv5 03:20 Pulse 96 MON; Pulse Ox 94% ; mv5 03:35 BP 112 / 59 (auto/); mv5 03:35 Pulse 96 MON; Pulse Ox 94% ; mv5 03:50 BP 108 / 65 (auto/); mv5 03:50 Pulse 96 MON; Pulse Ox 93% ; mv5 04:05 BP 102 / 63 (auto/); mv5 04:05 Pulse 100 MON; Pulse Ox 94% ; mv5 04:20 BP 109 / 70 (auto/); mv5 04:20 Pulse 98 MON; Pulse Ox 95% ; mv5 04:35 BP 103 / 56 (auto/); mv5 04:35 Pulse 102 MON; Pulse Ox 93% ; mv5 04:50 BP 104 / 63 (auto/); mv5 04:50 Pulse 108 MON; Pulse Ox 95% ; mv5 05:05 BP 107 / 66 (auto/); mv5 05:05 Pulse 100 MON; Pulse Ox 94% ; mv5 05:20 BP 97 / 63 (auto/); mv5 05:20 Pulse 100 MON; Pulse Ox 92% ; mv5 05:35 BP 95 / 64 (auto/); mv5 05:35 Pulse 102 MON; Temp 99.1(O); Pulse Ox 93% ; mv5 05:50 BP 87 / 56 (auto/); mv5 05:50 Pulse 108 MON; Pulse Ox 95% ; mv5 06:05 BP 84 / 56 (auto/); mv5 06:05 Pulse 106 MON; Pulse Ox 94% ; mv5 06/27 18:15 Body Mass Index 32.28 (102.06 kg, 177.80 cm) [facility] Vitals: 06/27 18:15 Log In Time: June 27, 2016 at 18:10. d ED Course: 18:14 Patient visited by Emanuel Loaiza PCA. jrd 18:14 Patient moved to Waiting jrd 18:15 Emanuel Ruiz is Private Physician. jrd 18:17 Patient moved to Pre RCE ml6 18:18 Patient visited by Emanuel Loaiza PCA. jrd 18:20 Triage Initiated jmb 18:22 Patient moved to 12 jmb 18:29 Deon Yeh MD is Attending Physician. br1 18:49 Patient visited by Deon Yeh MD. br1 19:01 Patient visited by John Patel PCA. jmv 19:01 EKG done. (by ED staff). Reviewed by Deon Yeh MD. jmv 19:18 Alysha Yip,RN is Primary Nurse. mv5 19:19 -Influenza A&B Rapid Antigen - Nose Sent. mv5 19:19 BLOOD CULTURES Sent. mv5 19:33 The patient / caregiver is instructed regarding the plan of care and ED course. mv5 19:39 Patient visited by Alysha Yip RN. mv5 19:58 [facility] [place] into [employer] and attached to record. zo 20:11 Patient visited by Alysha Yip RN. mv5 20:37 Notified attending ED physician of Critical lab value. sls1 20:44 Patient visited by Alysha Yip RN. mv5 20:45 Patient visited by Rosibel Reece RN. kas2 20:45 Inserted saline lock: 20 gauge in left hand The patient tolerated the procedure well. kas2 20:57 Patient visited by John Patel PCA. jmv 20:57 EKG done. (by ED staff). Reviewed by Deon Yeh MD. jmv 21:39 Patient visited by Alysha Yip RN. mv5 22:19 Patient visited by Alysha Yip,ESTHER. mv5 22:35 Guille Flores DO is Hospitalizing Provider. br1 06/28 00:03 Patient moved to Admit Hold jmb 00:51 Patient visited by Bhakti Borjas RN. sls1 00:51 Dr. Flores aware of pt troponin of 39.7, no new orders given at this time. sls1 08:07 Chest, 1 View Returned. EDMS 13:19 No procedures done that require assistance. aa3 Administered Medications: 06/27 19:19 Drug: Acetaminophen 650 mg [acetaminophen 325 mg tablet (2 tabs)] Route: PO; mv5 20:47 Follow up: Response: Temperature is decreased mv5 20:51 Drug: Aspirin 324 mg [aspirin 81 mg chewable tablet (4 tabs)] Route: PO; mv5 22:30 Drug: Brilinta 180 mg [BRILINTA 90 mg tablet (2 tabs)] Route: PO; mv5 06/28 00:13 CANCELLED (entered in error): Ondansetron 4 mg IVP once mv5 Point of Care Testing: Blood Glucose: 00:24 Blood Glucose: 235 mg/dL; mv5 Ranges: Order Results: Lab Order: CBC with Diff; SPEC'M 06/27/16 18:43 Test: WHITE BLOOD COUNT; Value: 14.3; Range: 4.0-10.0; Abnormal: Above high normal; Units: K/mm3; Status: F Test: RED BLOOD COUNT; Value: 5.90; Range: 4.30-6.10; Units: M/mm3; Status: F Test: HEMOGLOBIN; Value: 10.3; Range: 14.0-18.0; Abnormal: Below low normal; Units: g/dl; Status: F Test: HEMATOCRIT; Value: 36.5; Range: 42.0-52.0; Abnormal: Below low normal; Units: %; Status: F Test: MEAN CORPUSCULAR VOLUME; Value: 61.9; Range: 80.0-96.0; Abnormal: Below low normal; Units: fl; Status: F Test: MEAN CORPUSCULAR HEMOGLOBIN; Value: 17.5; Range: 27.0-33.0; Abnormal: Below low normal; Units: pg; Status: F Test: MEAN CORPUSCULAR HGB CONC; Value: 28.2; Range: 32.0-36.5; Abnormal: Below low normal; Units: g/dl; Status: F Test: RED CELL DISTRIBUTION WIDTH; Value: 20.3; Range: 11.5-14.5; Abnormal: Above high normal; Units: %; Status: F Test: PLATELET COUNT, AUTOMATED; Value: 70; Range: 150-450; Abnormal: Below low normal; Units: k/mm3; Status: F Test: NEUTROPHILS %; Value: 83.0; Range: 36.0-66.0; Abnormal: Above high normal; Units: %; Status: F Test: LYMPH %; Value: 8.3; Range: 24.0-44.0; Abnormal: Below low normal; Units: %; Status: F Test: MONO %; Value: 5.9; Range: 0.0-5.0; Abnormal: Above high normal; Units: %; Status: F Test: EOS %; Value: 0.9; Range: 0.0-3.0; Units: %; Status: F Test: BASO %; Value: 0.4; Range: 0.0-1.0; Units: %; Status: F Test: LARGE UNSTAINED CELL %; Value: 1.5; Range: 0.0-4.0; Units: %; Status: F Test: NEUTROPHILS #; Value: 11.9; Range: 1.8-7.7; Abnormal: Above high normal; Units: K/mm3; Status: F Test: LYMPH #; Value: 1.4; Range: 1.5-4.5; Abnormal: Below low normal; Units: K/mm3; Status: F Test: MONO #; Value: 0.8; Range: 0.0-0.8; Units: K/mm3; Status: F Test: EOS #; Value: 0.1; Range: 0.0-0.50; Units: K/mm3; Status: F Test: BASO #; Value: 0.1; Range: 0.0-0.2; Units: K/mm3; Status: F Test: LARGE UNSTAINED CELL #; Value: 0.2; Range: 0.0-0.4; Units: K/mm3; Status: F Lab Order: Lactic Acid (Ayala tube on ice); SPEC' 06/27/16 18:43 Test: LACTIC ACID SEPSIS PROTOCOL; Value: 1.8; Range: 0.4-2.0; Units: MMOL/L; Status: F Lab Order: Liver Profile; SPEC'M 06/27/16 18:43 Test: AST/SGOT; Value: 220; Range: 15-37; Abnormal: Above high normal; Units: U/L; Status: F Test: ALT/SGPT; Value: 41; Range: 12-78; Units: U/L; Status: F Test: ALKALINE PHOSPHATASE; Value: 87; Range: 45-117; Units: U/L; Status: F Test: BILIRUBIN,TOTAL; Value: 1.4; Range: 0.2-1.0; Abnormal: Above high normal; Units: MG/DL; Status: F Test: BILIRUBIN,DIRECT; Value: 0.3; Range: 0.0-0.2; Abnormal: Above high normal; Units: MG/DL; Status: F Test: TOTAL PROTEIN; Value: 7.8; Range: 6.4-8.2; Units: GM/DL; Status: F Test: ALBUMIN; Value: 3.4; Range: 3.2-5.2; Units: GM/DL; Status: F Test: ALBUMIN/GLOBULIN RATIO; Value: 0.77; Range: 1.00-1.93; Abnormal: Below low normal; Status: F Lab Order: MED Profile; [facility] 06/27/16 18:43 Test: GLUCOSE, FASTING; Value: 253; Range: 70-105; Abnormal: Above high normal; Units: MG/DL; Status: F Test: BLOOD UREA NITROGEN; Value: 28; Range: 7-18; Abnormal: Above high normal; Units: MG/DL; Status: F Test: CREATININE FOR GFR; Value: 2.38; Range: 0.70-1.30; Abnormal: Above high normal; Units: MG/DL; Status: F Test: GLOMERULAR FILTRATION RATE; Value: 30.0; Range: >56; Abnormal: Below low normal; Status: F Test: SODIUM LEVEL; Value: 137; Range: 136-145; Units: MEQ/L; Status: F Test: POTASSIUM SERUM; Value: 4.7; Range: 3.5-5.1; Units: MEQ/L; Status: F Test: CHLORIDE LEVEL; Value: 103; Range: 98-107; Units: MEQ/L; Status: F Test: CARBON DIOXIDE LEVEL; Value: 24; Range: 21-32; Units: MEQ/L; Status: F Test: ANION GAP; Value: 10; Range: 8-16; Units: MEQ/L; Status: F Test: CALCIUM LEVEL; Value: 9.5; Range: 8.5-10.1; Units: MG/DL; Status: F Test Note: ; Units are mL/min/1.73 m2 Chronic Kidney Disease Staging per NKF: Stage I & II GFR >=60 Normal to Mildly Decreased Stage III GFR 30-59 Moderately Decreased Stage IV GFR 15-29 Severely Decreased Stage V GFR <15 Very Little GFR Left ESRD GFR <15 on ELECTROMECHANICAL EQUIPMENT TESTER Lab Order: PT/INR; [facility] 06/27/16 18:43 Test: PROTHROMBIN TIME; Value: 21.0; Range: 12.3-14.5; Abnormal: Above high normal; Units: SECONDS; Status: F Test: INR; Value: 1.80; Status: F Test Note: ; THERAPUTIC HUMAN INR VALUES INDICATIONS NORMAL RANGES PROPHYLAXIS/TREATMENT OF: VENOUS THROMBOSIS 2.0-3.0 PULMONARY EMBOLISM 2.0-3.0 PREVENTION OF SYSTEMIC EMBOLISM FROM: TISSUE HEART VALVES 2.0-3.0 ACUTE MYOCARDIAL INFARCTION 2.0-3.0 VALVULAR HEART DISEASE 2.0-3.0 ATRIAL FIBRILLATION 2.0-3.0 MECHANICAL VALVES(HIGH RISK) 2.5-3.5 RECURRENT MYOCARDIAL INFARCTION 2.5-3.5 Lab Order: PTT; [facility] 06/27/16 18:43 Test: PARTIAL THROMBOPLASTIN TIME; Value: 39.4; Range: 26.6-37.1; Abnormal: Above high normal; Units: SECONDS; Status: F Lab Order: Urinalysis; [facility] 06/27/16 18:43 Test: APPEARANCE, URINE; Value: HAZY; Range: CLEAR; Status: F Test: COLOR, URINE; Value: YELLOW; Range: YELLOW; Status: F Test: PH,URINE; Value: 5.0; Range: 5.0-9.0; Units: UNITS; Status: F Test: SPECIFIC GRAVITY URINE AUTO; Value: 1.026; Range: 1.002-1.035; Status: F Test: PROTEIN, URINE AUTO; Value: 2+; Range: NEGATIVE; Abnormal: Above high normal; Units: mg/dL; Status: F Test: GLUCOSE, URINE (UA) AUTO; Value: 3+; Range: NEGATIVE; Abnormal: Above high normal; Units: mg/dL; Status: F Test: KETONE, URINE AUTO; Value: NEGATIVE; Range: NEGATIVE; Units: mg/dL; Status: F Test: UROBILINOGEN, URINE AUTO; Value: 0.2; Range: 0.0-2.0; Units: mg/dL; Status: F Test: BILIRUBIN, URINE AUTO; Value: NEGATIVE; Range: NEGATIVE; Status: F Test: NITRITE, URINE AUTO; Value: NEGATIVE; Range: NEGATIVE; Status: F Test: LEUKOCYTE ESTERASE, URINE AUTO; Value: NEGATIVE; Range: NEGATIVE; Status: F Test: BLOOD, URINE BLOOD; Value: NEGATIVE; Range: NEGATIVE; Status: F Test: WBC, URINE AUTO; Value: 3; Range: 0-3; Units: /HPF; Status: F Test: RBC, URINE AUTO; Value: 2; Range: 0-3; Units: /HPF; Status: F Test: BACTERIA, URINE AUTO; Value: NEGATIVE; Range: NEGATIVE; Status: F Test: SQUAMOUS EPITHELIAL CELL UR AU; Value: 0; Range: 0-6; Units: /HPF; Status: F Test: MUCUS, URINE; Value: SMALL; Range: NEGATIVE; Status: F Test: HYALINE CAST, URINE AUTO; Value: 4; Range: 0-1; Units: /LPF; Status: F Lab Order: BNP; SPEC'M 06/27/16 18:43 Test: BRAIN NATRIURETIC PEPTIDE; Value: 1710; Range: <100; Abnormal: Above high normal; Units: PG/ML; Status: F Lab Order: TROPONIN; SPEC'M 06/27/16 18:43 Test: TROPONIN I; Value: 28.10; Range: < 0.10; Abnormal: Above upper panic limits; Units: NG/ML; Status: F Test Note: ; Troponin I Reference Interval for [employer] LOCI: 99th Percentile= 0.00-0.045 ng/ml Risk Stratification: <= 0.10 ng/ml Decreased Risk for Adverse Clinical Events. 0.10-1.50 ng/ml Increased Risk for Adverse Clinical Events. Evaluation of additional criterion and/or repeat testing in 2-6 hours is suggested to rule out myocardial damage. >= 1.50 ng/ml Indicative of Myocardial Injury. Lab Order: -Influenza A&B Rapid Antigen - Nose; SPEC'M 06/27/16 19:20 Test: INFLUENZA A RAPID SCR by ICA; Value: INFLUENZA A RESULTS NEGATIVE; Status: F Test: INFLUENZA A RAPID SCR by ICA; Value: Comments:; Status: F Test: INFLUENZA B RAPID SCR by ICA; Value: INFLUENZA B RESULTS NEGATIVE; Status: F Test Note: ; The Influenza test is a direct rapid immunoassay for the qualitative detection of Influenza viral antigen. Cell culture (Viral Culture) testing should be considered to confirm NEGATIVE results and to assist in detecting other viruses that can provide similar clinical symptoms. Please contact the lab within 24 hours ([phone] if confirmatory testing is desired. Lab Order: RBC MORPH PROF NO CHARGE; [facility] 06/27/16 18:43 Test: PLATELET ESTIMATE; Range: NORMAL; Status: I Test: HYPOCHROMASIA; Value: 2+; Status: F Test: ANISOCYTOSIS; Value: 3+; Status: F Test: MICROCYTOSIS; Value: 4+; Status: F Test: PLATELET ESTIMATE; Value: DECREASED; Range: NORMAL; Status: F Lab Order: CARDIAC MARKER PANEL; [facility] 06/28/16 00:07 Test: CPK CREATINE PHOSPHOKINASE; Value: 544; Range: 39-308; Abnormal: Above high normal; Units: U/L; Status: F Test: CK-MB VALUE MASS; Value: 60.5; Range: 0.0-3.6; Abnormal: Above high normal; Units: NG/ML; Status: F Test: MB/CK RELATIVE INDEX; Value: 11.12; Range: < OR =4; Abnormal: Above high normal; Status: F Test: TROPONIN I; Value: 39.70; Range: < 0.10; Abnormal: Critical Delta High; Units: NG/ML; Status: F Test Note: ; DIAGNOSIS CRITERIA MMB ng/ml Relative Index (RI) NON-AMI < or = 5 N/A AYALA ZONE > 5 < or = 4 AMI > 5 > 4 Lab Order: CARDIAC MARKER PANEL; [facility] 06/28/16 06:10 Test: CPK CREATINE PHOSPHOKINASE; Value: 547; Range: 39-308; Abnormal: Above high normal; Units: U/L; Status: F Test: CK-MB VALUE MASS; Value: 60.0; Range: 0.0-3.6; Abnormal: Above high normal; Units: NG/ML; Status: F Test: MB/CK RELATIVE INDEX; Value: 10.96; Range: < OR =4; Abnormal: Above high normal; Status: F Test: TROPONIN I; Value: 47.50; Range: < 0.10; Abnormal: Above upper panic limits; Units: NG/ML; Status: F Test Note: ; DIAGNOSIS CRITERIA MMB ng/ml Relative Index (RI) NON-AMI < or = 5 N/A AYALA ZONE > 5 < or = 4 AMI > 5 > 4 Lab Order: BASIC METABOLIC PROFILE; 06/28/16 06:10 Test: GLUCOSE, FASTING; Value: 324; Range: 70-105; Abnormal: Above high normal; Units: MG/DL; Status: F Test: BLOOD UREA NITROGEN; Value: 32; Range: 7-18; Abnormal: Above high normal; Units: MG/DL; Status: F Test: CREATININE FOR GFR; Value: 2.38; Range: 0.70-1.30; Abnormal: Above high normal; Units: MG/DL; Status: F Test: GLOMERULAR FILTRATION RATE; Value: 30.0; Range: >56; Abnormal: Below low normal; Status: F Test: SODIUM LEVEL; Value: 135; Range: 136-145; Abnormal: Below low normal; Units: MEQ/L; Status: F Test: POTASSIUM SERUM; Value: 4.7; Range: 3.5-5.1; Units: MEQ/L; Status: F Test: CHLORIDE LEVEL; Value: 100; Range: 98-107; Units: MEQ/L; Status: F Test: CARBON DIOXIDE LEVEL; Value: 22; Range: 21-32; Units: MEQ/L; Status: F Test: ANION GAP; Value: 13; Range: 8-16; Units: MEQ/L; Status: F Test: CALCIUM LEVEL; Value: 9.1; Range: 8.5-10.1; Units: MG/DL; Status: F Test Note: ; Units are mL/min/1.73 m2 Chronic Kidney Disease Staging per NKF: Stage I & II GFR >=60 Normal to Mildly Decreased Stage III GFR 30-59 Moderately Decreased Stage IV GFR 15-29 Severely Decreased Stage V GFR <15 Very Little GFR Left ESRD GFR <15 on ELECTROMECHANICAL EQUIPMENT TESTER Lab Order: Fingerstick Blood Sugar; 06/28/16 00:23 Test: BEDSIDE GLUCOSE; Value: 235; Range: 70-105; Abnormal: Above high normal; Units: MG/DL; Status: F Lab Order: Fingerstick Blood Sugar; 06/28/16 12:09 Test: BEDSIDE GLUCOSE; Value: 259; Range: 70-105; Abnormal: Above high normal; Units: MG/DL; Status: F Radiology Order: Chest, 1 View Test: Chest, 1 View REASON FOR EXAMINATION: Shortness of Breath; Clinical: Shortness of breath.; ; Comparison: 06/18/2016.; ; Findings:; Stable cardiomegaly. Indistinct pulmonary vasculature with cephalization and; prominent interstitial markings suggest pulmonary venous congestion. No focal; consolidation, effusion, or pneumothorax.; ; Impression:; Cardiomegaly and findings to suggest pulmonary venous congestion.; ; ; Signed by; Mario Florez MD 06/27/2016 06:54 P; Outcome: 06/27 22:35 Decision to Hospitalize by Provider. br1 06/28 13:19 Discharge Assessment: Patient awake and alert. patient administered narcotics - no. The aa3 following High Risk Discharge criteria are identified: None. Admitted to ICU accompanied by nurse, accompanied by tech, via stretcher, on monitor, with chart. Condition: stable. No special radiology studies were completed. Admission hand-off: Report called to ESTHER Gabriel. Property :Personal belongings accompany Pt. 13:20 Patient left the ED. aa3 Signatures: Dispatcher [employer] EDMS Jocelyne Razo Brian, MD MD br1 Samuel Wen, RN RN ml6 Bhakti Borjas, RN RN sls1 Byron Hebert,RN RN lisab Radha Sinha,RN RN aa3 Emanuel Loaiza, BOOKING CLERK BOOKING CLERK Rosibel Pollack,RN RN kas2 John Patel, BOOKING CLERK BOOKING CLERK jmv Alysha Yip,RN RN mv5 Corrections: (The following items were deleted from the chart) 06/27 18:17 18:15 Red Flag criteria, patient assessed and is suitable to finish the RCE Process. [id number] 19:42 19:33 Pulse 104bpm; Monitor; Pulse Ox 91%; mv5 mv5 MTDD
[2016-06-28] MEDS: VANCOMYCIN HCL 1,000 MG, VIAL MATE ADAPTER 1 EACH in D5W 250 ML IV SCH (14:00)
[2016-06-28] MEDS ORDERED: GABAPENTIN 300 MG CAP PO SCH (16:00)
[2016-06-28 16:10] VITALS: BP 118/64
[2016-06-28 20:00] VITALS: BP 106/60
[2016-06-28] MEDS ORDERED: rOPINIRole 1MG TAB PO SCH (21:00)
[2016-06-28 23:14] VITALS: BP 89/63
[2016-06-29 00:24] VITALS: BP 118/61
[2016-06-29] MEDS: cefTRIAXone SOD 2 GM in D5W MINI-BAG PLUS 50 ML IV SCH (00:25)
[2016-06-29] MEDS: AMIODARONE 200 MG TAB (PACERONE) PO SCH ×3 (00:25→21:35)
[2016-06-29 04:00] VITALS: BP 121/68
--- NOTE | 2016-06-29 04:25 | CR ---
DATE OF CONSULTATION: 06/28/2016 REFERRING PROVIDER: Dr. Flores. REASON FOR CONSULTATION: Abnormal troponin. HISTORY OF PRESENT ILLNESS: 60-year-old male well known by the office and earlier this month he was hospitalized with congestive heart failure and was found to have minimally abnormal serum troponin, as well as a pneumonia. He also had acute on chronic kidney disease. It was thought at the time that the abnormal troponin may be related to demand ischemia and he was supposed to have further cardiac workup as an outpatient. He was free of chest pain on that hospitalization. He was treated with intravenous (IV) then oral antibiotics then discharged home. He was seen by the nurse practitioner at the office last week and at the time he was not having any chest pain. He stated that he feels quite well. Over the weekend, Monday he started having a discomfort in chest, which he described that he felt that he was swallowing wax. This was with activities and relieved with rest. Because he was having more shortness of breath than usual, he came to the hospital yesterday for further management and monitoring and he was found to have an elevated serum troponin up to 28.10. Case was discussed with the emergency room (ER) provider and patient's Plavix was discontinued and he was started on Brilinta. He was not having any chest pain. The ER attempted to transfer him to [place] , but in view of his fever, he was not accepted. He was admitted here for further management and monitoring. When I saw Mr. Timmy Finney, he was sitting in the chair in no acute distress at rest. He has not been having any chest pains since the hospital. He thinks his shortness of breath has improved. He denies any palpitations, orthopnea or paroxysmal nocturnal dyspnea (PND). He has a cough, but no hemoptysis. He has no nausea, vomiting, diarrhea, melena or hematemesis. He has no focal manifestation. When he arrived at the hospital, he was in sinus rhythm , but developed paroxysmal atrial fibrillation. He has a past medical history positive for coronary artery disease with prior revascularization, peripheral arterial disease that is severe with CHANNEL OPENER and bypass, hyperlipidemia, diabetes mellitus, chronic kidney disease, cardiomyopathy that was to be nonischemic, hypothyroidism, BPH, gastroesophageal reflux disease (GERD). He also has a history of lung cancer for which he had a right upper lobectomy and laryngeal cancer that was treated with radiotherapy followed by surgery with resection of the larynx and base of the tongue, tracheostomy. He has also a history of paroxysmal atrial fibrillation. There is no history of CVA, liver disease. He does have a history of valvular heart disease with a bioprosthetic aortic valve. Last estimation of his left ventricular ejection fraction (LVEF) by echocardiogram on 06/17/2016, was 30%. He does have underlying abnormal EKG with IVCD and ST-T on the monitors. PAST SURGICAL HISTORY: Positive for right upper lobectomy in 2007, laryngectomy in 2010, aortic valve replacement with a bioprosthetic aortic valve in 2011, left femoral popliteal bypass in 2014. FAMILY HISTORY: Positive for heart disease. SOCIAL HISTORY: Patient lives with his significant other. He had quit smoking in 2007. He has been on disability. He denies any ethyl alcohol (EtOH) abuse or illicit drugs. ALLERGIES: To SHELLFISH. Also, he has allergy to SHRIMP. ADVANCED DIRECTIVES: Patient is a FULL CODE. PHYSICAL EXAMINATION: Patient is alert and oriented, in no acute distress at rest. His last vital signs revealed a blood pressure of 118/64 with a pulse of 103, respirations 18, and his maximum temperature is 98.6 degrees Fahrenheit with an oxygen saturation of 95% on room air. Examination of the head, ears, eyes, nose and throat: Atraumatic. Neck is supple. No jugular venous distention (JVD). The lungs did not reveal any wheezing or crackles. The heart examination revealed irregular heart sounds without gallops. The point of maximal impulse (PMI) is displaced inferiorly and laterally. There is no rub. There is a systolic murmur, grade 2-3 over 6 at the base of the heart/aortic valve area. Abdomen is unremarkable. Extremities reveal no pedal edema. Neurological examination is negative for focal deficit. LABORATORIES: CBC done on 06/27/2016, revealed a WBC of 14.3, hemoglobin 10.3, hematocrit 36.5, and platelets 70,000. BMP revealed a sodium of 137, potassium 4.7, chloride 103, CO2 24, BUN 28, creatinine 2.38, GFR 30, fasting glucose 253, calcium 9.5. Serum lactic acid on admission was 1.8. Liver enzymes reveal a total bilirubin of 1.4, direct bilirubin of 0.3, AST 220, ALT 41, alkaline phosphatase 87, total protein 7.8, albumin 3.4. Serum troponin I is 28.1. Serum BNP on admission was 1710. Second set of cardiac enzymes revealed a CPK of 444, CK-MB 60.5, relative index 11.12, and troponin 39.70. Third set of cardiac enzymes revealed a CPK of 447, CK-MB 60.0, relative index 10.96, and serum troponin 47.5. Next set of cardiac enzymes revealed a CPK of 445, CK-MB 36.2, relative index 8.2, and serum troponin is 34.40. PT on admission was 21.0 with an INR of 1.80 and a PTT of 39.4. Urinalysis revealed +2 protein and +3 mucus, otherwise unremarkable. Chest x-ray on admission revealed cardiomegaly and there were increased vascular markings, but no effusion. EKG on admission revealed a wide complex tachycardia that seemed to be atrial flutter versus sinus tachycardia with IVCD and nonspecific ST on the monitors. Repeat EKG revealed a normal sinus rhythm, however, mildly tachycardic with IVCD and ST-T abnormalities. IMPRESSION: 1. Non-ST elevation myocardial infarction. 2. History of coronary artery disease. 3. History of left ventricular systolic dysfunction. Last left ventricular ejection fraction (LVEF) was reported to be 30%. 4. History of peripheral artery disease. 5. Acute on chronic kidney disease. 6. Hyperlipidemia. 7. Diabetes mellitus. 8. History of hypothyroidism. 9. Thrombocytopenia. 10. Mild anemia. 11. History of BPH. 12. History of restless legs syndrome. Mr. Timmy Finney seems to be stable, but still critical. He denies any chest pain and he thinks his shortness of breath has improved or remains stable. His medications were reviewed and I will continue the same for now with the Brilinta and, the aspirin was reduced to 81 mg by mouth daily. I have noticed that his liver function tests (LFTs) were abnormal on admission and it will be repeated. I also will reassess his LVEF. He will be started on a different beta mark with metoprolol tartrate at a low dose of 12.5 mg by mouth twice a day. There is no indication at this point in time for angiotensin-converting enzyme (MORENITA) inhibitor or ARB in view of his underlying kidney function. Regarding atrial fibrillation, he will be started on oral amiodarone. I am considering starting him also on intravenous (IV) heparin, but in view of the low platelets, this will be on hold. On the last hospitalization , his platelets were normal. If he remains stable, and if his kidney function improves, he will be referred for a cardiac catheterization to assess his coronary anatomy. He has been having low-grade fever on and off with persistent mildly elevated serum WBC. He does have underlying bioprosthetic aortic valve and I am concerned about endocarditis and therefore a transesophageal echocardiogram was recommended, but this was postponed for now. Will follow the blood cultures. He is currently on IV antibiotics. It was a pleasure to participate in the care of Mr. Timmy Finney for his underlying cardiac condition. I will continue to monitor along with you while in the hospital. He appears to be stable at this present time, but still critical. KELSY
[2016-06-29 06:16] LABS: ALBUMIN 3.3 GM/DL (3.2-5.2); ALBUMIN/GLOBULIN RATIO 0.7 (1.00-1.93); BILIRUBIN,DIRECT 0.3 MG/DL (0.0-0.2); BILIRUBIN,TOTAL 1.5 MG/DL (0.2-1.0); CALCIUM LEVEL 9.1 MG/DL (8.5-10.1); CREATININE FOR GFR 1.89 MG/DL (0.70-1.30); GLOMERULAR FILTRATION RATE 39.2 (>56); POTASSIUM SERUM 4.2 MEQ/L (3.5-5.1)
[2016-06-29 07:52] VITALS: BP 110/70
[2016-06-29 08:15] LABS: MEAN CORPUSCULAR HGB CONC 27.5 g/dl (32.0-36.5); MEAN CORPUSCULAR VOLUME 61.8 fl (80.0-96.0); PLATELET COUNT, AUTOMATED 106 k/mm3 (150-450); RED CELL DISTRIBUTION WIDTH 20.3 % (11.5-14.5); WHITE BLOOD COUNT 15.4 K/mm3 (4.0-10.0)
--- NOTE | 2016-06-29 08:18 | ECGEPIP ---
Stationary ECG Study 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
--- NOTE | 2016-06-29 08:20 | ECGEPIP ---
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
--- NOTE | 2016-06-29 08:36 | IPNPDOC ---
Subjective Date Seen The patient was seen on 06/29/16. Subjective Chief Complaint/HPI The patient is a 60-year-old male admitted with a reason for visit of Prashanth; Elevated Troponin. Events since last encounter Pt states he is comfortable. Denies any CP. Denies any further SOB. Denies Abd pain. Constitutional: Denies: Chills, Fever Pulmonary: Denies: Dyspnea Cardiovascular: Denies: Chest Pain Gastrointestinal: Denies: Abdominal Pain, Nausea, Vomiting Objective Physical Examination General Exam: Positive: Alert, No Acute Distress Neck Exam: Positive: Supple, Negative: JVD Chest Exam: Positive: Diminished, Rhonchi, Wheezing Heart Exam: Positive: Regular Rhythm, Tachycardic Abdomen Exam: Positive: Normal bowel sounds, Soft, Negative: Tenderness Extremity Exam: Negative: Edema Assessment /Plan Problems (1) NSTEMI (non-ST elevated myocardial infarction) Status: Acute Problem Specific Plan: Consult Specialist, Monitor Clinically, Repeat Labs Problem Text: Dr Jang from cardiology following the pt. Trop seemed to have peaked at 47.50. Last trop checked was 34.40 yesterday. Will recheck cardiac enzymes and Trop this am. Dr Jang changed the Beta Be from bisoprolol to metoprolol tartrate 12.5 BID, and added amiodarone for AFib. ACEI was not started due to ARF on CKD. On Aspirin [address] Jang states he held off on IV Heparin due to low plts. CBC not yet done today. Will order CBC. Brilinta started. According to admission note and cardiology note, pt was not transferred to [place] for cath due to fever. Plan is possible transfer for cardiac cath if pt remains stable. (2) Paroxysmal a-fib Status: Acute Problem Specific Plan: Consult Specialist, Monitor Clinically, Repeat Labs Problem Text: Dr Jang following. Dr Jang changed the Beta Be from bisoprolol to metoprolol tartrate 12.5 BID, and added amiodarone for AFib. ACEI was not started due to ARF on CKD. On Aspirin [address] Jang states he held off on IV Heparin due to low plts. CBC not yet done today. Will order CBC. (3) S/P AVR (aortic valve replacement) Status: Chronic Problem Specific Plan: Consult Specialist, Monitor Clinically, Repeat Labs Problem Text: Dr Jang following and notes some concern for endocarditis. ELIAS was ordered but cancelled. Blood cx no growth after 24 hours. (4) Pneumonia Status: Acute Problem Specific Plan: Monitor Clinically, Repeat Labs Problem Text: Pt was started on Rocephin and Vanco. Today's CBC ordered and pending. Currently afebrile. (5) Acute kidney injury superimposed on chronic kidney disease Status: Acute Problem Specific Plan: Monitor Clinically, Repeat Labs Problem Text: Creat this am 1.89 (was 2.38 at admission). (6) CAD (coronary artery disease) Status: Chronic Problem Specific Plan: Consult Specialist, Monitor Clinically, Repeat Labs Problem Text: See above. (7) DM2 (diabetes mellitus, type 2) Status: Chronic Problem Specific Plan: Monitor Clinically, Repeat Labs Problem Text: On SSI. (8) History of laryngeal cancer Status: Chronic (9) History of lung cancer Status: Chronic (10) CHF (congestive heart failure) Status: Chronic Problem Specific Plan: Consult Specialist, Monitor Clinically, Repeat Labs Problem Text: Cardiology following. Appears compensated this AM. (11) Hyperlipemia Status: Chronic Plan/VTE VTE Prophylaxis Ordered?: No Plan Attending attestation: I saw and evaluated the patient, and I agree with the plan of care as discussed and documented by Nir Caballero. Haroon Jaramillo MD VS, I&O, 24H, [facility] Vital Signs/I&O Vital Signs Date Time Temp Pulse Resp B/P Pulse Ox O2 Delivery O2 Flow Rate FiO2 06/29/16 04:00 99.4 110 20 121/68 96 Room Air I&O- Last 24 Hours up to 6 AM 06/29/16 06:00 Intake Total 1740 ml Output Total 300 ml Balance 1440 ml Laboratory Data 24H LABS Laboratory Tests 2 06/28/16 12:09: Bedside Glucose (Misc Panel) 259H 06/28/16 16:05: Creatine Kinase MB 36.6H, Creatine Kinase MB Relative Index 8.22H, Total Creatine Kinase 445H, Troponin I 34.40#*H 06/28/16 16:49: Bedside Glucose (Misc Panel) 330H 06/28/16 20:29: Bedside Glucose (Misc Panel) 255H 06/29/16 05:33: Aspartate Amino Transf (AST/SGOT) 120H, Alanine Aminotransferase (ALT/SGPT) 31, Alkaline Phosphatase 76, Total Bilirubin 1.5H, Direct Bilirubin 0.3H, Albumin 3.3, Albumin/Globulin Ratio 0.70L, Anion Gap 11, Calcium Level 9.1, Cholesterol Level 85, Cholesterol/HDL Ratio 2.656, Glomerular Filtration Rate 39.2L, HDL Cholesterol 32L, LDL Cholesterol 29.2, Non-HDL Cholesterol (LDL + VLDL) 53, Total Protein 8.0, Triglycerides Level 119 CBC/BMP Laboratory Tests 06/29/16 05:33 Microbiology Microbiology 06/27/16 Blood Culture - Preliminary, Resulted No growth after 24 hours . All specim... 06/27/16 Blood Culture - Preliminary, Resulted No growth after 24 hours . All specim... 06/27/16 Influenza Virus Type A Antigen - Final, Complete 06/27/16 Influenza Virus Type B Antigen - Final, Complete 06/27/16 Urine Culture - Final, Complete Juan Pablo Caballero Jun 29, 2016 08:36 HARONO JARAMILLO MD Jul 03, 2016 10:51
[2016-06-29 08:38] LABS: BANDS 1 % (< 11); EOSINOPHILS 4 % (0-5)
[2016-06-29 08:39] LABS: ANISOCYTOSIS 2+; HYPOCHROMASIA 1+; MICROCYTOSIS 2+; OVALOCYTES 1+; POIKILOCYTOSIS 1+; POLYCHROMASIA 1+
[2016-06-29] MEDS: VANCOMYCIN HCL 1,000 MG, VIAL MATE ADAPTER 1 EACH in D5W 250 ML IV SCH (08:49)
[2016-06-29] MEDS: TICAGRELOR 90 MG TABLET (BRILINTA) PO SCH ×2 (08:50→21:35)
[2016-06-29] MEDS: DOCUSATE SODIUM 100 MG CAP PO SCH ×2 (08:50→21:35)
[2016-06-29] MEDS: OMEPRAZOLE 20 MG CAP PO SCH (08:50)
[2016-06-29] MEDS: ASPIRIN 81 MG ENTERIC TAB PO SCH (08:50)
[2016-06-29] MEDS: METOPROLOL TART 25 MG TABLET PO SCH ×2 (08:52→21:37)
[2016-06-29] MEDS: ENOXAPARIN 30 MG/0.3 ML SYR (J1650) SC SCH (08:57)
[2016-06-29] MEDS: HumaLOG INSULIN (NovoLOG) PER UNIT SC SCH ×4 (08:58→21:00)
[2016-06-29 12:00] VITALS: BP 119/79
--- NOTE | 2016-06-29 15:16 | REP ---
Clinical: Elevated liver function tests. Comparison: 12/18/2012. Findings: Diffuse fatty infiltration of the liver is appreciated without focal hepatic lesion identified. The pancreas is incompletely evaluated due to interposed bowel gas and body habitus. The gallbladder demonstrates mild wall thickening to 3.5 mm without gallstones or pericholecystic fluid. No intrahepatic biliary ductal dilatation is appreciated, but the common bile duct is upper limits of normal at 7 mm diameter. The right kidney measures 12.1 x 6.8 x 6.7 cm with a lobulated cortex and calcified vasculature and no evidence for hydronephrosis. Impression: Fatty liver. Common bile duct is upper limits of normal. Right kidney with evidence for chronic renal disease and no hydronephrosis. Signed by Mario Florez MD 06/29/2016 03:08 P
[2016-06-29 16:00] VITALS: BP 111/73
[2016-06-29 20:00] VITALS: BP 99/65; PULSE 119
[2016-06-30] VITALS: BP 105/58; PULSE 103
[2016-06-30] MEDS ORDERED: diphenhydrAMINE 25 MG CAP PO ONE
[2016-06-30] MEDS ORDERED: SLF 3 ML SYR IV PRN (00:15)
[2016-06-30] MEDS: VANCOMYCIN HCL 1,000 MG, VIAL MATE ADAPTER 1 EACH in D5W 250 ML IV SCH (00:31)
[2016-06-30] MEDS: cefTRIAXone SOD 2 GM in D5W MINI-BAG PLUS 50 ML IV SCH (00:31)
--- NOTE | 2016-06-30 02:48 | IPN ---
DATE OF SERVICE: 06/29/2016 Mr. Timmy Finney was seen early this morning and this evening. He has not been having any chest pain and he has been ambulating. He denies any more shortness of breath than usual. He denies any palpitations. He continues to have low-grade fever and his white blood cells (WBCs) continue to be mildly elevated. His serum platelets, however, have improved and his serum troponin is trending down. He denies any bleeding. He has no focal manifestation. He developed chest discomfort over the weekend associated with shortness of breath and came to the hospital and he ruled in for non-ST elevation myocardial infarction. He also presented with fever. PHYSICAL EXAMINATION: Patient is alert and oriented, in no acute distress at rest. His last vital signs this evening revealed a blood pressure of 99/65 with a pulse of 109, respirations 24, and his maximum temperature was 101.2 degrees Fahrenheit, then down to 98.8 degrees Fahrenheit. His oxygen saturation is 93% on room air. Examination of the head, ears, eyes, nose and throat: Atraumatic. Neck is supple. I could not appreciate any jugular venous distention (JVD). The lungs did not reveal any wheezing or crackles. The heart examination revealed irregularly irregular heart sounds without gallops. The point of maximal impulse (PMI) is displaced inferiorly and laterally. There is no rub. There is a systolic murmur grade 2/6 at the base of the heart/aortic valve area without any significant radiation. Abdomen is soft and nontender and bowel sounds are active. Extremities reveal no pedal edema. Neurological examination is negative for focal deficit. LABORATORIES: CBC done today revealed a WBC of 15.4, hemoglobin 10.1, hematocrit 36.8, and platelets 106,000. BMP revealed a sodium of 135, potassium 4.2, chloride 101, CO2 23, BUN 32, creatinine 1.89, GFR 39.2, fasting glucose 235, and calcium 9.1. Liver enzymes reveal a total bilirubin of 1.5, direct bilirubin 0.3, AST 120, ALT 31, alkaline phosphatase 76, total protein 8.0 with an albumin of 3.3. A lipid profile revealed a total cholesterol of 85 with triglycerides of 119, LDL 29.2, HDL 32 and total cholesterol/HDL ratio of 2.65. Serum troponin today is 26.8 and yesterday around 4 p.m. it was 34.4 and in the morning around 6 a.m., it was 47.50. On admission, serum troponin was 28.1. Ultrasound of the liver done today, 06/29/2016, revealed fatty liver and the common bile duct was at the upper limits of normal. There was evidence of chronic disease in the right kidney, but no hydronephrosis. IMPRESSION: 1. Status post non-ST elevation myocardial infarction. 2. History of coronary artery disease. Moderately depressed global left ventricular systolic function. 3. History of severe peripheral arterial disease. 4. History of hyperlipidemia. 5. Diabetes mellitus. 6. Chronic kidney disease. 7. Hypothyroidism. 8. Acute on chronic kidney disease. 9. Anemia and thrombocytopenia. 10. History of BPH. 11. Probable pneumonia. Mr. Timmy Finney seems to be stable, status post non-ST elevation myocardial infarction and he has a moderately depressed global left ventricular systolic function according to the most recent assessment of his left ventricular ejection fraction (LVEF). He remains free of congestive heart failure. His kidney function has improved, but he continues to have a low-grade fever. Today , we have again discussed about proceeding with a cardiac catheterization, but once again, he will appreciate to go home first to take care of some business and then to go for the cardiac catheterization. It is probably not quite safe in view of his myocardial infarction. I will continue to discuss that with him. I also will discuss with the physician in [place]. He continues to have low-grade fever, on intravenous (IV) antibiotics and once again, I still believe that he will need and benefit from a transesophageal echocardiogram. It was a pleasure to participate in the care of Mr. Timmy Finney for his underlying cardiac condition. I will continue to monitor him along with you while in the hospital. Please do not hesitate to call if any questions. The case was discussed with attending making rounds today. KELSY
[2016-06-30 04:00] VITALS: PULSE 113
[2016-06-30 05:00] VITALS: BP 120/72
[2016-06-30 05:49] LABS: BASO # 0.1 K/mm3 (0.0-0.2); BASO % 0.4 % (0.0-1.0); EOS # 0.1 K/mm3 (0.0-0.50); LARGE UNSTAINED CELL # 0.2 K/mm3 (0.0-0.4); LARGE UNSTAINED CELL % 1.1 % (0.0-4.0); LYMPH # 0.8 K/mm3 (1.5-4.5); LYMPH % 6.3 % (24.0-44.0); MEAN CORPUSCULAR HEMOGLOBIN 16.9 pg (27.0-33.0); MEAN CORPUSCULAR HGB CONC 27.8 g/dl (32.0-36.5); MONO # 0.4 K/mm3 (0.0-0.8); NEUTROPHILS # 11.8 K/mm3 (1.8-7.7); NEUTROPHILS % 88.1 % (36.0-66.0); PLATELET COUNT, AUTOMATED 121 k/mm3 (150-450); RED CELL DISTRIBUTION WIDTH 20.5 % (11.5-14.5); WHITE BLOOD COUNT 13.4 K/mm3 (4.0-10.0)
[2016-06-30] MEDS ORDERED: SLF 3 ML SYR IV SCH (06:00)
[2016-06-30 06:10] LABS: ALBUMIN 3.2 GM/DL (3.2-5.2); ALBUMIN/GLOBULIN RATIO 0.65 (1.00-1.93); BILIRUBIN,TOTAL 1.7 MG/DL (0.2-1.0); CREATININE FOR GFR 1.85 MG/DL (0.70-1.30); GLOMERULAR FILTRATION RATE 40.2 (>56); POTASSIUM SERUM 3.9 MEQ/L (3.5-5.1); TOTAL PROTEIN 8.1 GM/DL (6.4-8.2)
--- NOTE | 2016-06-30 07:53 | IPNPDOC ---
Subjective Date Seen The patient was seen on 06/30/16. Subjective Chief Complaint/HPI The patient is a 60-year-old male admitted with a reason for visit of Prashanth; Elevated Troponin. Events since last encounter Seen this AM in the PCU. Last fever yesterday evening 1730. He generally feels fatigued but denies any cough, malaise chest pain. SOB has resolved. He still wishes to be discharged home so that he can take care of a few things around the house prior to travelling to [facility] for a cath. Dr. Jang is attempting to arrange inter-facility transfer. General: Reports: Normal Appetite, Denies: Chills, Fatigue, Malaise, Night Sweats Eyes: Denies: Pain, Vision change Pulmonary: Denies: Cough, Dyspnea Cardiovascular: Denies: Chest Pain, Lt Headedness, Orthopnea, Palpitations, Paroxysmal Noc. Dyspnea Gastrointestinal: Denies: Abdominal Pain, Constipation, Diarrhea, Nausea, Vomiting Objective Physical Examination General Exam: Positive: Alert, No Acute Distress Eye Exam: Positive: EOMI, PERRLA, Negative: Sclera icteric ENT Exam: Positive: Mucous membr. moist/pink, Nares Patent, Pharynx Normal Neck Exam: Positive: Supple, Negative: JVD Chest Exam: Positive: Diminished, Rhonchi, Wheezing Heart Exam: Positive: Regular Rhythm, Tachycardic Telemetry: Positive: Atrial fibrillation Abdomen Exam: Positive: Normal bowel sounds, Soft, Negative: Tenderness Extremity Exam: Negative: Edema Skin Exam: Positive: Nl turgor and temperature, Negative: Rash Neuro Exam: Negative: Normal Speech (altered speech from laryngeal stoma) Psych Exam: Positive: Mental status NL, Mood NL Assessment /Plan Problems (1) NSTEMI (non-ST elevated myocardial infarction) Status: Acute Problem Specific Plan: Consult Specialist, Monitor Clinically, Repeat Labs Problem Text: Dr Jang from cardiology following the pt. Trop peaked at 47.50. Last trop checked was 26.8 yesterday. Will recheck cardiac enzymes and Trop this am. Dr Jang changed the Beta Be from bisoprolol to metoprolol tartrate 12.5 BID, and added amiodarone for AFib. ACEI was not started due to ARF on CKD. On Aspirin [address] Jang states he held off on IV Heparin due to low plts. Brilinta started. -Initial attempts to transfer to [place] were denied 2/2 to patient spiking fevers. -Dr. Jang attempting to arrange transfer now that pt's status is stabilizing. (2) Paroxysmal a-fib Status: Acute Problem Specific Plan: Consult Specialist, Monitor Clinically, Repeat Labs Problem Text: Dr Jang following. Dr Jang changed the Beta Be from bisoprolol to metoprolol tartrate 12.5 BID, and added amiodarone for AFib. ACEI was not started due to ARF on CKD. On Aspirin [address] Jang states he held off on IV Heparin due to low plts. CBC not yet done today. Will order CBC. (3) S/P AVR (aortic valve replacement) Status: Chronic Problem Specific Plan: Consult Specialist, Monitor Clinically, Repeat Labs Problem Text: Dr Jang following and notes some concern for endocarditis. ELIAS was ordered but cancelled. Blood cx no growth after 48 hours. (4) Pneumonia Status: Acute Problem Specific Plan: Monitor Clinically, Repeat Labs Problem Text: Treating for possible hospital acquired pneumonia considering recent admission for community-acquired pneumonia. D#3 Rocephin and Vanco. BCx neg 48h. Currently afebrile, overall fever curve trending down. Last fever 1730 06/29. (5) Acute kidney injury superimposed on chronic kidney disease Status: Acute Problem Specific Plan: Monitor Clinically, Repeat Labs Problem Text: Creat this am 1.85 (was 2.38 at admission). ACEI on hold. -Baseline 1.2-1.3 (6) Elevated LFTs Status: Acute Problem Text: Possibly 2/2 to demand. RUQ US performed 06/29 no acute findings aside from mildly dilated CBT. Regardless, LFTs improving, pt asymptomatic. (7) CAD (coronary artery disease) Status: Chronic Problem Specific Plan: Consult Specialist, Monitor Clinically, Repeat Labs Problem Text: See above. (8) DM2 (diabetes mellitus, type 2) Status: Chronic Problem Specific Plan: Monitor Clinically, Repeat Labs Problem Text: On SSI. FSBG have been high but acceptable (200s). CHO consistent diet. No adjustments made today. (9) CHF (congestive heart failure) Status: Chronic Problem Specific Plan: Consult Specialist, Monitor Clinically, Repeat Labs Problem Text: Cardiology following. Appears compensated this AM. Plan/VTE VTE Prophylaxis Ordered?: No VS, I&O, 24H, Fishbone Vital Signs/I&O Vital Signs Date Time Temp Pulse Resp B/P Pulse Ox O2 Delivery O2 Flow Rate FiO2 06/30/16 05:15 91 Nasal Cannula 2.0 06/30/16 05:00 99.5 109 22 120/72 I&O- Last 24 Hours up to 6 AM 06/30/16 05:59 Intake Total 1500 ml Output Total 0 ml Balance 1500 ml Laboratory Data 24H LABS Laboratory Tests 2 06/29/16 12:01: Bedside Glucose (Misc Panel) 274H 06/29/16 17:17: Bedside Glucose (Misc Panel) 250H 06/29/16 20:39: Bedside Glucose (Misc Panel) 245H 06/30/16 05:25: Blood Urea Nitrogen 35H, Creatinine 1.85H, Sodium Level 134L, Potassium Level 3.9, Chloride Level 99, Carbon Dioxide Level 22, Calcium Level 9.0, Aspartate Amino Transf (AST/SGOT) 60H, Alanine Aminotransferase (ALT/SGPT) 28, Alkaline Phosphatase 78, Total Bilirubin 1.7H, Total Protein 8.1, Albumin 3.2, Albumin/ Globulin Ratio 0.65L, Anion Gap 13, White Blood Count 13.4H, Red Blood Count 5.82, Hemoglobin 9.9L, Hematocrit 35.5L, Mean Corpuscular Volume 61.0L, Mean Corpuscular Hemoglobin 16.9L, Mean Corpuscular Hemoglobin Concent 27.8L, Red Cell Distribution Width 20.5H, Platelet Count 121L, Neutrophils (%) (Auto) 88.1H , Lymphocytes (%) (Auto) 6.3L, Monocytes (%) (Auto) 3.0, Eosinophils (%) (Auto) 1.0, Basophils (%) (Auto) 0.4, Neutrophils # (Auto) 11.8H, Lymphocytes # (Auto) 0.8L, Monocytes # (Auto) 0.4, Eosinophils # (Auto) 0.1, Basophils # (Auto) 0.1, Glomerular Filtration Rate 40.2L, Large Unclassified Cells # 0.2, Large Unclassified Cells % 1.1 CBC/BMP Laboratory Tests 06/30/16 05:25 Calcium Level 9.0, Aspartate Amino Transf (AST/SGOT) 60 H, Alanine Aminotransferase (ALT/SGPT) 28, Alkaline Phosphatase 78, Total Bilirubin 1.7 H, Total Protein 8.1, Albumin 3.2, Red Blood Count 5.82, Mean Corpuscular Volume 61.0 L, Mean Corpuscular Hemoglobin 16.9 L, Mean Corpuscular Hemoglobin Concent 27.8 L, Red Cell Distribution Width 20.5 H, Neutrophils (%) (Auto) 88.1 H, Lymphocytes (%) (Auto) 6.3 L, Monocytes (%) (Auto) 3.0, Eosinophils (%) (Auto) 1.0, Basophils (%) (Auto) 0.4, Neutrophils # (Auto) 11.8 H, Lymphocytes # (Auto ) 0.8 L, Monocytes # (Auto) 0.4, Eosinophils # (Auto) 0.1, Basophils # (Auto) 0.1 Microbiology Microbiology 06/27/16 Blood Culture - Preliminary, Resulted No Growth after 48 hours. All Specime... 06/27/16 Blood Culture - Preliminary, Resulted No Growth after 48 hours. All Specime... 06/27/16 Influenza Virus Type A Antigen - Final, Complete 06/27/16 Influenza Virus Type B Antigen - Final, Complete 06/27/16 Urine Culture - Final, Complete NAM HAM DO Jun 30, 2016 07:52
[2016-06-30 08:00] VITALS: BP 107/64
[2016-06-30] MEDS: HumaLOG INSULIN (NovoLOG) PER UNIT SC SCH (08:51)
[2016-06-30] MEDS: DOCUSATE SODIUM 100 MG CAP PO SCH (08:51)
[2016-06-30] MEDS: AMIODARONE 200 MG TAB (PACERONE) PO SCH (08:51)
[2016-06-30 08:53] VITALS: BP 107/64
[2016-06-30] MEDS: ASPIRIN 81 MG ENTERIC TAB PO SCH (08:53)
[2016-06-30] MEDS: METOPROLOL TART 25 MG TABLET PO SCH (08:53)
[2016-06-30] MEDS: TICAGRELOR 90 MG TABLET (BRILINTA) PO SCH (08:53)
[2016-06-30] MEDS: OMEPRAZOLE 20 MG CAP PO SCH (08:53)
[2016-06-30] MEDS: ENOXAPARIN 30 MG/0.3 ML SYR (J1650) SC SCH (08:53)
[2016-06-30] MEDS ORDERED: BRIL90TA PO (10:39)
[2016-06-30] MEDS ORDERED: ZYVO100T PO (10:39)
[2016-06-30] MEDS ORDERED: AMIO20TA PO (10:39)
[2016-06-30] MEDS ORDERED: METO25TAB PO (10:39)
[2016-06-30] MEDS ORDERED: CEFD1CAP8 PO (10:41)
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
--- NOTE | 2016-06-30 14:22 | EDDOCDS ---
Nurse's Notes [facility] Name: Timmy Finney Age: 60 yrs Sex: Male : 1955 Arrival Date: 06/27/2016 Time: 18:13 Bed Admit Hold Private MD: Emanuel Ruiz MD Diagnosis: Non-ST elevation (NSTEMI) myocardial infarction;Acute pulmonary edema;Fever, unspecified-Acute Kidney Injury Presentation: 06/27 18:15 Red Flag criteria, patient assessed and is suitable to finish the RCE Process. PATIENT ml6 TO MOVE TO BED 12 AFTER TRIAGE. 18:19 Presenting complaint: Patient states: Patient seen one week ago with pneumonia. Patient jmb has been disoriented/dizzy. Adult Sepsis Screening: Patient has new or worsening altered mentation (1 point). Patient's respiratory rate is less than 22. Systolic blood pressure is greater than 100. Patient has a qSOFA score of 1- Negative Sepsis Screen. Suicide/Homicide risk assessment- the patient denies having any suicidal and/or homicidal ideations and does not present with any other emotional, behavioral or mental health complaints. Status: Patient is not a human service worker or dependent. Transition of care: patient was not received from another setting of care. 18:19 Acuity: MOUSTAPHA Level 3 b 18:19 Method Of Arrival: Wheelchair [facility] Triage Assessment: 18:21 General: Appears in no apparent distress. Pain: Denies pain. HIV screening NA for this jmb visit Offered previously. Neurological: Level of Consciousness is awake, alert, obeys commands, Oriented to person, place, time, Speech is normal, Facial symmetry appears normal, Facial symmetry: tongue is midline. Respiratory: Onset: The symptoms/episode began/occurred gradually, Airway is patent Respiratory effort is even, unlabored, Respiratory pattern is regular, symmetrical. Derm: Skin is normal. Musculoskeletal: Range of motion intact in all extremities. Historical: - Allergies: SHELLFISH; - Home Meds: 1. amitriptyline 50 mg Oral tab 1 tab nightly 2. aspirin 81 mg Oral tab 1 tab once daily 3. atorvastatin 10 mg oral tab 1 tab once daily 4. bisoprolol fumarate 5 mg oral tab 0.5 tab once daily 5. gabapentin 600 mg Oral tab 1 tab 3 times per day 6. levothyroxine 175 mcg Oral tab 1 tab once daily 7. glipizide 10 mg Oral tab 1 tab 2 times per day 8. lisinopril 5 mg Oral tab 1 tab once daily 9. magnesium oxide 500 mg Oral cap daily 10. Metformin 1500 mg bid Oral 11. Multivitamin Oral 1 tab daily 12. omeprazole 20 mg Oral cpDR 1 cap once daily 13. Plavix 75 mg Oral tab 1 tab once daily 14. ropinirole 2 mg oral tab daily 15. tamsulosin 0.4 mg oral cp24 1 cap once daily 16. tramadol 50 mg Oral tab 1 tab as needed - PMHx: Diabetes - NIDDM: controlled; GERD; Hypercholesterolemia; Hypertension; lung cancer; throat cancer,; - PSHx: Aortic valve replacement 2009; Laryngectomy 2010; Right upper lobectomy 2007; - Social history: Smoking status: Patient states was never smoker of tobacco. No barriers to communication noted, The patient speaks fluent Japanese, Speaks appropriately for age. - Family history: No immediate family members are acutely ill. - : The pt / caregiver states he / she is not on anticoagulants. Home medication list is obtained from the patient. - Exposure Risk Screening:: None identified. Screenin:33 Screening information is obtained from the patient, family members. Fall risk: No risks mv5 identified. Assistance ADL's: requires no assistance with activities of daily living. Abuse/DV Screen: The patient / caregiver reports he/she is: not in a situation that causes fear, pain or injury. Nutritional screening: No deficits noted. Advance Directives: There is no active DNR order. home support is adequate. Assessment: 19:39 General: Appears in no apparent distress, Behavior is cooperative, pleasant, Pt appears mv5 fatigued.. Neurological: Level of Consciousness is awake, alert, Oriented to person, place, time. Cardiovascular: Capillary refill < 3 seconds Heart tones S1 S2 present Pulses are all present. Rhythm is sinus tachycardia No ectopy. Cardiovascular:. Respiratory: Airway is patent ostomy from previous trach Breath sounds are clear bilaterally. diminished in bases. GI: No deficits noted. : No deficits noted. Derm: Skin is pink, warm & dry. 20:11 General: Appears in no apparent distress, Pt reposition self to find comfortable mv5 position, at bedside.. General: Unable to gain IV access x several attempts x 2 RN's. Will continue to attempt.. Neurological: No deficits noted. 20:44 General: Appears in no apparent distress, Behavior is cooperative, restless, Pt denies mv5 pain at this time. MD reviewing resulted labs.. Neurological: Level of Consciousness is awake, alert, Oriented to person, place, time. Cardiovascular: Capillary refill < 3 seconds Rhythm is sinus tachycardia No ectopy. Derm: Skin is pink, warm & dry. 21:31 General: Appears in no apparent distress, Behavior is restless. Pain: Denies pain. mv5 Neurological: No deficits noted. Cardiovascular: Rhythm is sinus tachycardia No ectopy. Derm: Skin is pink, warm & dry. 21:37 General: Appears in no apparent distress, to be sleeping. Behavior is cooperative. mv5 Cardiovascular: Rhythm is sinus tachycardia No ectopy. Respiratory: Airway is patent Respiratory effort is even, unlabored, Respiratory pattern is regular, symmetrical. Derm: Skin is pink, warm & dry. 22:30 General: Appears in no apparent distress, comfortable, to be sleeping. Pt wakes easily mv5 to voice.. Pain: Denies pain. Neurological: No deficits noted. Cardiovascular: Rhythm is sinus tachycardia No ectopy. Respiratory: Airway is patent Respiratory effort is even, unlabored, Respiratory pattern is regular, symmetrical. Derm: Skin is pink, warm & dry. 23:14 General: Appears in no apparent distress, to be sleeping. Pain: Denies pain. mv5 Respiratory: Airway is patent Respiratory effort is even, unlabored, Respiratory pattern is regular, symmetrical. Derm: Skin is pink, warm & dry. / 00:25 General: Appears in no apparent distress, Behavior is cooperative, restless, medicated mv5 as ordered for c/o nausea.. Neurological: No deficits noted. Respiratory: Airway is patent Respiratory effort is even, unlabored, Respiratory pattern is regular, symmetrical. Derm: Skin is pink, warm & dry. 01:33 General: Appears in no apparent distress. Pain: Denies pain. Cardiovascular: Rhythm is mv5 sinus tachycardia No ectopy. Respiratory: Airway is patent Respiratory effort is even, unlabored, Respiratory pattern is regular, symmetrical. Derm: Skin is pink, warm & dry. 02:30 General: Appears in no apparent distress, Behavior is cooperative. Respiratory: Airway mv5 is patent Respiratory effort is even, unlabored, Respiratory pattern is regular, symmetrical. Derm: Skin is pink, warm & dry. 03:19 General: Appears in no apparent distress. Cardiovascular: Rhythm is sinus tachycardia mv5 No ectopy. Respiratory: Airway is patent Respiratory effort is even, unlabored, Respiratory pattern is regular, symmetrical. Derm: Skin is pink, warm & dry. 05:33 General: Appears in no apparent distress, to be sleeping. Cardiovascular: Rhythm is mv5 sinus tachycardia No ectopy. Respiratory: Airway is patent Respiratory effort is even, unlabored, Respiratory pattern is regular, symmetrical. Derm: Skin is pink, warm & dry. Vital Signs: 06/27 18:15 BP 101 / 70 RA Sitting (auto/reg); Pulse 131; Resp 22; Temp 101.4(O); Pulse Ox 97% on jrd R/A; Weight 102.06 kg (R); Height 5 ft. 10 in. (177.80 cm) (R); Pain 6/10; 19:33 BP 114 / 63 (auto/); mv5 19:33 Pulse 104 MON; Pulse Ox 91% on R/A; mv5 19:58 BP 100 / 63 (auto/); mv5 19:58 Pulse 116 MON; Pulse Ox 92% ; mv5 20:20 BP 95 / 53 (auto/); mv5 20:20 Pulse 116 MON; Pulse Ox 91% ; mv5 20:35 BP 96 / 59 (auto/); mv5 20:35 Pulse 120 MON; Pulse Ox 94% ; mv5 20:37 BP 118 / 74 (auto/); mv5 20:37 Pulse 118 MON; Resp 18; Temp 100.1(O); Pulse Ox 94% ; mv5 20:50 BP 98 / 63 (auto/); mv5 20:50 Pulse 116 MON; Pulse Ox 93% ; mv5 21:05 BP 89 / 56 (auto/); mv5 21:05 Pulse 116 MON; Pulse Ox 92% ; mv5 21:20 BP 83 / 52 (auto/); mv5 21:20 Pulse 116 MON; Pulse Ox 93% ; mv5 21:37 BP 97 / 63 (auto/); mv5 21:37 Pulse 114 MON; Pulse Ox 92% ; mv5 21:50 BP 101 / 68 (auto/); mv5 21:50 Pulse 112 MON; Pulse Ox 93% ; mv5 22:05 BP 104 / 70 (auto/); mv5 22:05 Pulse 110 MON; Pulse Ox 92% ; mv5 22:20 BP 106 / 66 (auto/); mv5 22:20 Pulse 108 MON; Pulse Ox 92% ; mv5 22:35 BP 92 / 62 (auto/); mv5 22:35 Pulse 110 MON; Pulse Ox 93% ; mv5 22:50 BP 94 / 62 (auto/); mv5 22:51 Pulse 108 MON; Pulse Ox 93% ; mv5 23:05 BP 97 / 61 (auto/); mv5 23:05 Pulse 108 MON; Pulse Ox 94% ; mv5 23:20 BP 88 / 53 (auto/); mv5 23:20 Pulse 110 MON; Pulse Ox 92% ; mv5 23:35 BP 86 / 54 (auto/); mv5 23:37 Pulse 104 MON; Pulse Ox 94% ; mv5 23:50 BP 95 / 62 (auto/); mv5 23:51 Pulse 106 MON; mv5 02/21 00:05 BP 101 / 67 (auto/); mv5 00:10 Pulse 110 MON; Pulse Ox 96% ; mv5 00:22 BP 82 / 63 (auto/); mv5 00:22 Pulse 112 MON; Pulse Ox 95% ; mv5 00:41 BP 92 / 74 (auto/); mv5 00:42 Pulse 112 MON; Pulse Ox 94% ; mv5 00:50 BP 98 / 68 (auto/); mv5 00:51 Pulse 100 MON; Pulse Ox 93% ; mv5 01:05 BP 102 / 71 (auto/); mv5 01:06 Pulse 96 MON; Pulse Ox 95% ; mv5 01:20 BP 103 / 74 (auto/); mv5 01:21 Pulse 98 MON; Pulse Ox 93% ; mv5 01:35 BP 102 / 70 (auto/); mv5 01:35 Pulse 94 MON; Pulse Ox 93% ; mv5 01:50 BP 93 / 59 (auto/); mv5 01:50 Pulse 96 MON; Pulse Ox 89% ; mv5 02:05 BP 96 / 64 (auto/); mv5 02:05 Pulse 100 MON; Pulse Ox 95% ; mv5 02:20 BP 106 / 68 (auto/); mv5 02:20 Pulse 102 MON; Pulse Ox 93% ; mv5 02:35 BP 108 / 71 (auto/); mv5 02:35 Pulse 98 MON; Pulse Ox 94% ; mv5 02:50 BP 107 / 68 (auto/); mv5 02:50 Pulse 100 MON; Pulse Ox 94% ; mv5 03:05 BP 96 / 59 (auto/); mv5 03:05 Pulse 98 MON; Pulse Ox 93% ; mv5 03:20 BP 113 / 59 (auto/); mv5 03:20 Pulse 96 MON; Pulse Ox 94% ; mv5 03:35 BP 112 / 59 (auto/); mv5 03:35 Pulse 96 MON; Pulse Ox 94% ; mv5 03:50 BP 108 / 65 (auto/); mv5 03:50 Pulse 96 MON; Pulse Ox 93% ; mv5 04:05 BP 102 / 63 (auto/); mv5 04:05 Pulse 100 MON; Pulse Ox 94% ; mv5 04:20 BP 109 / 70 (auto/); mv5 04:20 Pulse 98 MON; Pulse Ox 95% ; mv5 04:35 BP 103 / 56 (auto/); mv5 04:35 Pulse 102 MON; Pulse Ox 93% ; mv5 04:50 BP 104 / 63 (auto/); mv5 04:50 Pulse 108 MON; Pulse Ox 95% ; mv5 05:05 BP 107 / 66 (auto/); mv5 05:05 Pulse 100 MON; Pulse Ox 94% ; mv5 05:20 BP 97 / 63 (auto/); mv5 05:20 Pulse 100 MON; Pulse Ox 92% ; mv5 05:35 BP 95 / 64 (auto/); mv5 05:35 Pulse 102 MON; Temp 99.1(O); Pulse Ox 93% ; mv5 05:50 BP 87 / 56 (auto/); mv5 05:50 Pulse 108 MON; Pulse Ox 95% ; mv5 06:05 BP 84 / 56 (auto/); mv5 06:05 Pulse 106 MON; Pulse Ox 94% ; mv5 06/27 18:15 Body Mass Index 32.28 (102.06 kg, 177.80 cm) [facility] Vitals: 06/27 18:15 Log In Time: June 27, 2016 at 18:10. d ED Course: 18:14 Patient visited by Emanuel Loaiza PCA. jrd 18:14 Patient moved to Waiting jrd 18:15 Emanuel Ruiz is Private Physician. jrd 18:17 Patient moved to Pre RCE ml6 18:18 Patient visited by Emanuel Loaiza PCA. jrd 18:20 Triage Initiated jmb 18:22 Patient moved to 12 jmb 18:29 Deon Yeh MD is Attending Physician. br1 18:49 Patient visited by Deon Yeh MD. br1 19:01 Patient visited by John Patel PCA. jmv 19:01 EKG done. (by ED staff). Reviewed by Deon Yeh MD. jmv 19:18 Alysha Yip,RN is Primary Nurse. mv5 19:19 -Influenza A&B Rapid Antigen - Nose Sent. mv5 19:19 BLOOD CULTURES Sent. mv5 19:33 The patient / caregiver is instructed regarding the plan of care and ED course. mv5 19:39 Patient visited by Alysha Yip RN. mv5 19:58 [facility] Payment Agreement was scanned into [employer] and attached to record. zo 20:11 Patient visited by Alysha Yip RN. mv5 20:37 Notified attending ED physician of Critical lab value. sls1 20:44 Patient visited by Alysha Yip RN. mv5 20:45 Patient visited by Rosibel Reece RN. kas2 20:45 Inserted saline lock: 20 gauge in left hand The patient tolerated the procedure well. kas2 20:57 Patient visited by John Patel PCA. jmv 20:57 EKG done. (by ED staff). Reviewed by Deon Yeh MD. jmv 21:39 Patient visited by Alysha Yip RN. mv5 22:19 Patient visited by Alysha Yip,ESTHER. mv5 22:35 Guille Flores DO is Hospitalizing Provider. br1 06/28 00:03 Patient moved to Admit Hold jmb 00:51 Patient visited by Bhakti Borjas, ESTHER. sls1 00:51 Dr. Flores aware of pt troponin of 39.7, no new orders given at this time. sls1 08:07 Chest, 1 View Returned. EDMS 13:19 No procedures done that require assistance. aa3 06/29 14:38 T-Sheet-- Draft Copy was scanned into [employer] and attached to record. gb 14:39 ECG/EKG was scanned into [employer] and attached to record. gb Administered Medications: 06/27 19:19 Drug: Acetaminophen 650 mg [acetaminophen 325 mg tablet (2 tabs)] Route: PO; mv5 20:47 Follow up: Response: Temperature is decreased mv5 20:51 Drug: Aspirin 324 mg [aspirin 81 mg chewable tablet (4 tabs)] Route: PO; mv5 22:30 Drug: Brilinta 180 mg [BRILINTA 90 mg tablet (2 tabs)] Route: PO; mv5 06/28 00:13 CANCELLED (entered in error): Ondansetron 4 mg IVP once mv5 Point of Care Testing: Blood Glucose: 00:24 Blood Glucose: 235 mg/dL; mv5 Ranges: Order Results: Lab Order: CBC with Diff; SPEC'M 06/27/16 18:43 Test: WHITE BLOOD COUNT; Value: 14.3; Range: 4.0-10.0; Abnormal: Above high normal; Units: K/mm3; Status: F Test: RED BLOOD COUNT; Value: 5.90; Range: 4.30-6.10; Units: M/mm3; Status: F Test: HEMOGLOBIN; Value: 10.3; Range: 14.0-18.0; Abnormal: Below low normal; Units: g/dl; Status: F Test: HEMATOCRIT; Value: 36.5; Range: 42.0-52.0; Abnormal: Below low normal; Units: %; Status: F Test: MEAN CORPUSCULAR VOLUME; Value: 61.9; Range: 80.0-96.0; Abnormal: Below low normal; Units: fl; Status: F Test: MEAN CORPUSCULAR HEMOGLOBIN; Value: 17.5; Range: 27.0-33.0; Abnormal: Below low normal; Units: pg; Status: F Test: MEAN CORPUSCULAR HGB CONC; Value: 28.2; Range: 32.0-36.5; Abnormal: Below low normal; Units: g/dl; Status: F Test: RED CELL DISTRIBUTION WIDTH; Value: 20.3; Range: 11.5-14.5; Abnormal: Above high normal; Units: %; Status: F Test: PLATELET COUNT, AUTOMATED; Value: 70; Range: 150-450; Abnormal: Below low normal; Units: k/mm3; Status: F Test: NEUTROPHILS %; Value: 83.0; Range: 36.0-66.0; Abnormal: Above high normal; Units: %; Status: F Test: LYMPH %; Value: 8.3; Range: 24.0-44.0; Abnormal: Below low normal; Units: %; Status: F Test: MONO %; Value: 5.9; Range: 0.0-5.0; Abnormal: Above high normal; Units: %; Status: F Test: EOS %; Value: 0.9; Range: 0.0-3.0; Units: %; Status: F Test: BASO %; Value: 0.4; Range: 0.0-1.0; Units: %; Status: F Test: LARGE UNSTAINED CELL %; Value: 1.5; Range: 0.0-4.0; Units: %; Status: F Test: NEUTROPHILS #; Value: 11.9; Range: 1.8-7.7; Abnormal: Above high normal; Units: K/mm3; Status: F Test: LYMPH #; Value: 1.4; Range: 1.5-4.5; Abnormal: Below low normal; Units: K/mm3; Status: F Test: MONO #; Value: 0.8; Range: 0.0-0.8; Units: K/mm3; Status: F Test: EOS #; Value: 0.1; Range: 0.0-0.50; Units: K/mm3; Status: F Test: BASO #; Value: 0.1; Range: 0.0-0.2; Units: K/mm3; Status: F Test: LARGE UNSTAINED CELL #; Value: 0.2; Range: 0.0-0.4; Units: K/mm3; Status: F Lab Order: Lactic Acid (Ayala tube on ice); SPEC'M 06/27/16 18:43 Test: LACTIC ACID SEPSIS PROTOCOL; Value: 1.8; Range: 0.4-2.0; Units: MMOL/L; Status: F Lab Order: Liver Profile; SPEC'M 06/27/16 18:43 Test: AST/SGOT; Value: 220; Range: 15-37; Abnormal: Above high normal; Units: U/L; Status: F Test: ALT/SGPT; Value: 41; Range: 12-78; Units: U/L; Status: F Test: ALKALINE PHOSPHATASE; Value: 87; Range: 45-117; Units: U/L; Status: F Test: BILIRUBIN,TOTAL; Value: 1.4; Range: 0.2-1.0; Abnormal: Above high normal; Units: MG/DL; Status: F Test: BILIRUBIN,DIRECT; Value: 0.3; Range: 0.0-0.2; Abnormal: Above high normal; Units: MG/DL; Status: F Test: TOTAL PROTEIN; Value: 7.8; Range: 6.4-8.2; Units: GM/DL; Status: F Test: ALBUMIN; Value: 3.4; Range: 3.2-5.2; Units: GM/DL; Status: F Test: ALBUMIN/GLOBULIN RATIO; Value: 0.77; Range: 1.00-1.93; Abnormal: Below low normal; Status: F Lab Order: [facility]; [facility]' 06/27/16 18:43 Test: GLUCOSE, FASTING; Value: 253; Range: 70-105; Abnormal: Above high normal; Units: MG/DL; Status: F Test: BLOOD UREA NITROGEN; Value: 28; Range: 7-18; Abnormal: Above high normal; Units: MG/DL; Status: F Test: CREATININE FOR GFR; Value: 2.38; Range: 0.70-1.30; Abnormal: Above high normal; Units: MG/DL; Status: F Test: GLOMERULAR FILTRATION RATE; Value: 30.0; Range: >56; Abnormal: Below low normal; Status: F Test: SODIUM LEVEL; Value: 137; Range: 136-145; Units: MEQ/L; Status: F Test: POTASSIUM SERUM; Value: 4.7; Range: 3.5-5.1; Units: MEQ/L; Status: F Test: CHLORIDE LEVEL; Value: 103; Range: 98-107; Units: MEQ/L; Status: F Test: CARBON DIOXIDE LEVEL; Value: 24; Range: 21-32; Units: MEQ/L; Status: F Test: ANION GAP; Value: 10; Range: 8-16; Units: MEQ/L; Status: F Test: CALCIUM LEVEL; Value: 9.5; Range: 8.5-10.1; Units: MG/DL; Status: F Test Note: ; Units are mL/min/1.73 m2 Chronic Kidney Disease Staging per NKF: Stage I & II GFR >=60 Normal to Mildly Decreased Stage III GFR 30-59 Moderately Decreased Stage IV GFR 15-29 Severely Decreased Stage V GFR <15 Very Little GFR Left ESRD GFR <15 on ELEMENTARY TUTOR Lab Order: PT/INR; [facility] 06/27/16 18:43 Test: PROTHROMBIN TIME; Value: 21.0; Range: 12.3-14.5; Abnormal: Above high normal; Units: SECONDS; Status: F Test: INR; Value: 1.80; Status: F Test Note: ; THERAPUTIC HUMAN INR VALUES INDICATIONS NORMAL RANGES PROPHYLAXIS/TREATMENT OF: VENOUS THROMBOSIS 2.0-3.0 PULMONARY EMBOLISM 2.0-3.0 PREVENTION OF SYSTEMIC EMBOLISM FROM: TISSUE HEART VALVES 2.0-3.0 ACUTE MYOCARDIAL INFARCTION 2.0-3.0 VALVULAR HEART DISEASE 2.0-3.0 ATRIAL FIBRILLATION 2.0-3.0 MECHANICAL VALVES(HIGH RISK) 2.5-3.5 RECURRENT MYOCARDIAL INFARCTION 2.5-3.5 Lab Order: PTT; [facility] 06/27/16 18:43 Test: PARTIAL THROMBOPLASTIN TIME; Value: 39.4; Range: 26.6-37.1; Abnormal: Above high normal; Units: SECONDS; Status: F Lab Order: Urinalysis; [facility] 06/27/16 18:43 Test: APPEARANCE, URINE; Value: HAZY; Range: CLEAR; Status: F Test: COLOR, URINE; Value: YELLOW; Range: YELLOW; Status: F Test: PH,URINE; Value: 5.0; Range: 5.0-9.0; Units: UNITS; Status: F Test: SPECIFIC GRAVITY URINE AUTO; Value: 1.026; Range: 1.002-1.035; Status: F Test: PROTEIN, URINE AUTO; Value: 2+; Range: NEGATIVE; Abnormal: Above high normal; Units: mg/dL; Status: F Test: GLUCOSE, URINE (UA) AUTO; Value: 3+; Range: NEGATIVE; Abnormal: Above high normal; Units: mg/dL; Status: F Test: KETONE, URINE AUTO; Value: NEGATIVE; Range: NEGATIVE; Units: mg/dL; Status: F Test: UROBILINOGEN, URINE AUTO; Value: 0.2; Range: 0.0-2.0; Units: mg/dL; Status: F Test: BILIRUBIN, URINE AUTO; Value: NEGATIVE; Range: NEGATIVE; Status: F Test: NITRITE, URINE AUTO; Value: NEGATIVE; Range: NEGATIVE; Status: F Test: LEUKOCYTE ESTERASE, URINE AUTO; Value: NEGATIVE; Range: NEGATIVE; Status: F Test: BLOOD, URINE BLOOD; Value: NEGATIVE; Range: NEGATIVE; Status: F Test: WBC, URINE AUTO; Value: 3; Range: 0-3; Units: /HPF; Status: F Test: RBC, URINE AUTO; Value: 2; Range: 0-3; Units: /HPF; Status: F Test: BACTERIA, URINE AUTO; Value: NEGATIVE; Range: NEGATIVE; Status: F Test: SQUAMOUS EPITHELIAL CELL UR AU; Value: 0; Range: 0-6; Units: /HPF; Status: F Test: MUCUS, URINE; Value: SMALL; Range: NEGATIVE; Status: F Test: HYALINE CAST, URINE AUTO; Value: 4; Range: 0-1; Units: /LPF; Status: F Lab Order: BNP; SPEC'M 06/27/16 18:43 Test: BRAIN NATRIURETIC PEPTIDE; Value: 1710; Range: <100; Abnormal: Above high normal; Units: PG/ML; Status: F Lab Order: TROPONIN; SPEC'M 06/27/16 18:43 Test: TROPONIN I; Value: 28.10; Range: < 0.10; Abnormal: Above upper panic limits; Units: NG/ML; Status: F Test Note: ; Troponin I Reference Interval for [email or web address] LOCI: 99th Percentile= 0.00-0.045 ng/ml Risk Stratification: <= 0.10 ng/ml Decreased Risk for Adverse Clinical Events. 0.10-1.50 ng/ml Increased Risk for Adverse Clinical Events. Evaluation of additional criterion and/or repeat testing in 2-6 hours is suggested to rule out myocardial damage. >= 1.50 ng/ml Indicative of Myocardial Injury. Lab Order: -Influenza A&B Rapid Antigen - Nose; SPEC'M 06/27/16 19:20 Test: INFLUENZA A RAPID SCR by ICA; Value: INFLUENZA A RESULTS NEGATIVE; Status: F Test: INFLUENZA A RAPID SCR by ICA; Value: Comments:; Status: F Test: INFLUENZA B RAPID SCR by ICA; Value: INFLUENZA B RESULTS NEGATIVE; Status: F Test Note: ; The Influenza test is a direct rapid immunoassay for the qualitative detection of Influenza viral antigen. Cell culture (Viral Culture) testing should be considered to confirm NEGATIVE results and to assist in detecting other viruses that can provide similar clinical symptoms. Please contact the lab within 24 hours ([phone]) if confirmatory testing is desired. Lab Order: RBC MORPH PROF NO CHARGE; SPEC'M 06/27/16 18:43 Test: PLATELET ESTIMATE; Range: NORMAL; Status: I Test: HYPOCHROMASIA; Value: 2+; Status: F Test: ANISOCYTOSIS; Value: 3+; Status: F Test: MICROCYTOSIS; Value: 4+; Status: F Test: PLATELET ESTIMATE; Value: DECREASED; Range: NORMAL; Status: F Lab Order: CARDIAC MARKER PANEL; [facility]' 06/28/16 00:07 Test: CPK CREATINE PHOSPHOKINASE; Value: 544; Range: 39-308; Abnormal: Above high normal; Units: U/L; Status: F Test: CK-MB VALUE MASS; Value: 60.5; Range: 0.0-3.6; Abnormal: Above high normal; Units: NG/ML; Status: F Test: MB/CK RELATIVE INDEX; Value: 11.12; Range: < OR =4; Abnormal: Above high normal; Status: F Test: TROPONIN I; Value: 39.70; Range: < 0.10; Abnormal: Critical Delta High; Units: NG/ML; Status: F Test Note: ; DIAGNOSIS CRITERIA MMB ng/ml Relative Index (RI) NON-AMI < or = 5 N/A AYALA ZONE > 5 < or = 4 AMI > 5 > 4 Lab Order: CARDIAC MARKER PANEL; SPEC'M 06/28/16 06:10 Test: CPK CREATINE PHOSPHOKINASE; Value: 547; Range: 39-308; Abnormal: Above high normal; Units: U/L; Status: F Test: CK-MB VALUE MASS; Value: 60.0; Range: 0.0-3.6; Abnormal: Above high normal; Units: NG/ML; Status: F Test: MB/CK RELATIVE INDEX; Value: 10.96; Range: < OR =4; Abnormal: Above high normal; Status: F Test: TROPONIN I; Value: 47.50; Range: < 0.10; Abnormal: Above upper panic limits; Units: NG/ML; Status: F Test Note: ; DIAGNOSIS CRITERIA MMB ng/ml Relative Index (RI) NON-AMI < or = 5 N/A AYALA ZONE > 5 < or = 4 AMI > 5 > 4 Lab Order: BASIC METABOLIC PROFILE; 06/28/16 06:10 Test: GLUCOSE, FASTING; Value: 324; Range: 70-105; Abnormal: Above high normal; Units: MG/DL; Status: F Test: BLOOD UREA NITROGEN; Value: 32; Range: 7-18; Abnormal: Above high normal; Units: MG/DL; Status: F Test: CREATININE FOR GFR; Value: 2.38; Range: 0.70-1.30; Abnormal: Above high normal; Units: MG/DL; Status: F Test: GLOMERULAR FILTRATION RATE; Value: 30.0; Range: >56; Abnormal: Below low normal; Status: F Test: SODIUM LEVEL; Value: 135; Range: 136-145; Abnormal: Below low normal; Units: MEQ/L; Status: F Test: POTASSIUM SERUM; Value: 4.7; Range: 3.5-5.1; Units: MEQ/L; Status: F Test: CHLORIDE LEVEL; Value: 100; Range: 98-107; Units: MEQ/L; Status: F Test: CARBON DIOXIDE LEVEL; Value: 22; Range: 21-32; Units: MEQ/L; Status: F Test: ANION GAP; Value: 13; Range: 8-16; Units: MEQ/L; Status: F Test: CALCIUM LEVEL; Value: 9.1; Range: 8.5-10.1; Units: MG/DL; Status: F Test Note: ; Units are mL/min/1.73 m2 Chronic Kidney Disease Staging per NKF: Stage I & II GFR >=60 Normal to Mildly Decreased Stage III GFR 30-59 Moderately Decreased Stage IV GFR 15-29 Severely Decreased Stage V GFR <15 Very Little GFR Left ESRD GFR <15 on ELEMENTARY TUTOR Lab Order: Fingerstick Blood Sugar; 06/28/16 00:23 Test: BEDSIDE GLUCOSE; Value: 235; Range: 70-105; Abnormal: Above high normal; Units: MG/DL; Status: F Lab Order: Fingerstick Blood Sugar; SPEC'M 06/28/16 12:09 Test: BEDSIDE GLUCOSE; Value: 259; Range: 70-105; Abnormal: Above high normal; Units: MG/DL; Status: F Radiology Order: Chest, 1 View Test: Chest, 1 View REASON FOR EXAMINATION: Shortness of Breath; Clinical: Shortness of breath.; ; Comparison: 06/18/2016.; ; Findings:; Stable cardiomegaly. Indistinct pulmonary vasculature with cephalization and; prominent interstitial markings suggest pulmonary venous congestion. No focal; consolidation, effusion, or pneumothorax.; ; Impression:; Cardiomegaly and findings to suggest pulmonary venous congestion.; ; ; Signed by; Mario Florez MD 06/27/2016 06:54 P; Outcome: 06/27 22:35 Decision to Hospitalize by Provider. br1 06/28 13:19 Discharge Assessment: Patient awake and alert. patient administered narcotics - no. The aa3 following High Risk Discharge criteria are identified: None. Admitted to ICU accompanied by nurse, accompanied by tech, via stretcher, on monitor, with chart. Condition: stable. No special radiology studies were completed. Admission hand-off: Report called to ESTHER Gabriel. Property :Personal belongings accompany Pt. 13:20 Patient left the ED. aa3 Signatures: Dispatcher Med[employer] EDMS Milli Rain, Reg Reg Jocelyne Rodriguez Brian, MD MD br1 Samuel Wen, RN RN ml6 Bhakti Borjas, RN RN sls1 Byron Hebert,RN Radha Minaya,RN RN aa3 Emanuel Loaiza, MACHINE SHORTHAND REPORTER MACHINE SHORTHAND REPORTER Rosibel Pollack,RN RN duran2 John Patel, MACHINE SHORTHAND REPORTER MACHINE SHORTHAND REPORTER Alysha Bearden,RN RN mv5 Corrections: (The following items were deleted from the chart) 06/27 18:17 18:15 Red Flag criteria, patient assessed and is suitable to finish the RCE Process. [id number] 19:42 19:33 Pulse 104bpm; Monitor; Pulse Ox 91%; mv5 mv5 Chart Complete MTDD
--- NOTE | 2016-06-30 14:22 | EDDOCDS ---
Physician Documentation [facility] Name: Timmy Finney Age: 60 yrs Sex: Male : 1955 Arrival Date: 06/27/2016 Time: 18:13 Bed Admit Hold Private MD: Emanuel Ruiz MD Disposition: 06/27/16 22:35 Hospitalization ordered by Guille Flores for Inpatient Admission. Preliminary diagnosis are Non-ST elevation (NSTEMI) myocardial infarction, Acute pulmonary edema, Fever, unspecified - Acute Kidney Injury. - Bed requested for M ICU. - Status is Inpatient Admission. aa3 - Condition is Stable. - Problem is new. - Symptoms are unchanged. Historical: - Allergies: SHELLFISH; - Home Meds: 1. amitriptyline 50 mg Oral tab 1 tab nightly 2. aspirin 81 mg Oral tab 1 tab once daily 3. atorvastatin 10 mg oral tab 1 tab once daily 4. bisoprolol fumarate 5 mg oral tab 0.5 tab once daily 5. gabapentin 600 mg Oral tab 1 tab 3 times per day 6. levothyroxine 175 mcg Oral tab 1 tab once daily 7. glipizide 10 mg Oral tab 1 tab 2 times per day 8. lisinopril 5 mg Oral tab 1 tab once daily 9. magnesium oxide 500 mg Oral cap daily 10. Metformin 1500 mg bid Oral 11. Multivitamin Oral 1 tab daily 12. omeprazole 20 mg Oral cpDR 1 cap once daily 13. Plavix 75 mg Oral tab 1 tab once daily 14. ropinirole 2 mg oral tab daily 15. tamsulosin 0.4 mg oral cp24 1 cap once daily 16. tramadol 50 mg Oral tab 1 tab as needed - PMHx: Diabetes - NIDDM: controlled; GERD; Hypercholesterolemia; Hypertension; lung cancer; throat cancer,; - PSHx: Aortic valve replacement 2009; Laryngectomy 2010; Right upper lobectomy 2007; - Social history: Smoking status: Patient states was never smoker of tobacco. No barriers to communication noted, The patient speaks fluent Vietnamese, Speaks appropriately for age. - Family history: No immediate family members are acutely ill. - : The pt / caregiver states he / she is not on anticoagulants. Home medication list is obtained from the patient. - Exposure Risk Screening:: None identified. Vital Signs: 06/27 18:15 BP 101 / 70 RA Sitting (auto/reg); Pulse 131; Resp 22; Temp 101.4(O); Pulse Ox 97% on jrd R/A; Weight 102.06 kg / 225 lbs (R); Height 5 ft. 10 in. (177.80 cm) (R); Pain 6/10; 19:33 BP 114 / 63 (auto/); mv5 19:33 Pulse 104 MON; Pulse Ox 91% on R/A; mv5 19:58 BP 100 / 63 (auto/); mv5 19:58 Pulse 116 MON; Pulse Ox 92% ; mv5 20:20 BP 95 / 53 (auto/); mv5 20:20 Pulse 116 MON; Pulse Ox 91% ; mv5 20:35 BP 96 / 59 (auto/); mv5 20:35 Pulse 120 MON; Pulse Ox 94% ; mv5 20:37 BP 118 / 74 (auto/); mv5 20:37 Pulse 118 MON; Resp 18; Temp 100.1(O); Pulse Ox 94% ; mv5 20:50 BP 98 / 63 (auto/); mv5 20:50 Pulse 116 MON; Pulse Ox 93% ; mv5 21:05 BP 89 / 56 (auto/); mv5 21:05 Pulse 116 MON; Pulse Ox 92% ; mv5 21:20 BP 83 / 52 (auto/); mv5 21:20 Pulse 116 MON; Pulse Ox 93% ; mv5 21:37 BP 97 / 63 (auto/); mv5 21:37 Pulse 114 MON; Pulse Ox 92% ; mv5 21:50 BP 101 / 68 (auto/); mv5 21:50 Pulse 112 MON; Pulse Ox 93% ; mv5 22:05 BP 104 / 70 (auto/); mv5 22:05 Pulse 110 MON; Pulse Ox 92% ; mv5 22:20 BP 106 / 66 (auto/); mv5 22:20 Pulse 108 MON; Pulse Ox 92% ; mv5 22:35 BP 92 / 62 (auto/); mv5 22:35 Pulse 110 MON; Pulse Ox 93% ; mv5 22:50 BP 94 / 62 (auto/); mv5 22:51 Pulse 108 MON; Pulse Ox 93% ; mv5 23:05 BP 97 / 61 (auto/); mv5 23:05 Pulse 108 MON; Pulse Ox 94% ; mv5 23:20 BP 88 / 53 (auto/); mv5 23:20 Pulse 110 MON; Pulse Ox 92% ; mv5 23:35 BP 86 / 54 (auto/); mv5 23:37 Pulse 104 MON; Pulse Ox 94% ; mv5 23:50 BP 95 / 62 (auto/); mv5 23:51 Pulse 106 MON; mv5 02/21 00:05 BP 101 / 67 (auto/); mv5 00:10 Pulse 110 MON; Pulse Ox 96% ; mv5 00:22 BP 82 / 63 (auto/); mv5 00:22 Pulse 112 MON; Pulse Ox 95% ; mv5 00:41 BP 92 / 74 (auto/); mv5 00:42 Pulse 112 MON; Pulse Ox 94% ; mv5 00:50 BP 98 / 68 (auto/); mv5 00:51 Pulse 100 MON; Pulse Ox 93% ; mv5 01:05 BP 102 / 71 (auto/); mv5 01:06 Pulse 96 MON; Pulse Ox 95% ; mv5 01:20 BP 103 / 74 (auto/); mv5 01:21 Pulse 98 MON; Pulse Ox 93% ; mv5 01:35 BP 102 / 70 (auto/); mv5 01:35 Pulse 94 MON; Pulse Ox 93% ; mv5 01:50 BP 93 / 59 (auto/); mv5 01:50 Pulse 96 MON; Pulse Ox 89% ; mv5 02:05 BP 96 / 64 (auto/); mv5 02:05 Pulse 100 MON; Pulse Ox 95% ; mv5 02:20 BP 106 / 68 (auto/); mv5 02:20 Pulse 102 MON; Pulse Ox 93% ; mv5 02:35 BP 108 / 71 (auto/); mv5 02:35 Pulse 98 MON; Pulse Ox 94% ; mv5 02:50 BP 107 / 68 (auto/); mv5 02:50 Pulse 100 MON; Pulse Ox 94% ; mv5 03:05 BP 96 / 59 (auto/); mv5 03:05 Pulse 98 MON; Pulse Ox 93% ; mv5 03:20 BP 113 / 59 (auto/); mv5 03:20 Pulse 96 MON; Pulse Ox 94% ; mv5 03:35 BP 112 / 59 (auto/); mv5 03:35 Pulse 96 MON; Pulse Ox 94% ; mv5 03:50 BP 108 / 65 (auto/); mv5 03:50 Pulse 96 MON; Pulse Ox 93% ; mv5 04:05 BP 102 / 63 (auto/); mv5 04:05 Pulse 100 MON; Pulse Ox 94% ; mv5 04:20 BP 109 / 70 (auto/); mv5 04:20 Pulse 98 MON; Pulse Ox 95% ; mv5 04:35 BP 103 / 56 (auto/); mv5 04:35 Pulse 102 MON; Pulse Ox 93% ; mv5 04:50 BP 104 / 63 (auto/); mv5 04:50 Pulse 108 MON; Pulse Ox 95% ; mv5 05:05 BP 107 / 66 (auto/); mv5 05:05 Pulse 100 MON; Pulse Ox 94% ; mv5 05:20 BP 97 / 63 (auto/); mv5 05:20 Pulse 100 MON; Pulse Ox 92% ; mv5 05:35 BP 95 / 64 (auto/); mv5 05:35 Pulse 102 MON; Temp 99.1(O); Pulse Ox 93% ; mv5 05:50 BP 87 / 56 (auto/); mv5 05:50 Pulse 108 MON; Pulse Ox 95% ; mv5 06:05 BP 84 / 56 (auto/); mv5 06:05 Pulse 106 MON; Pulse Ox 94% ; mv5 06/27 18:15 Body Mass Index 32.28 (102.06 kg, 177.80 cm) jrd MDM: 06/27 18:29 -Blood Culture (Adults Only), peripheral from different site, or from device/port/PICC br1 etc. if present ordered. 18:29 Acquisition Consultant/Pulse Ox/q 15 min VS ordered. br1 18:31 CBC with Diff Ordered. EDMS 18:31 Lactic Acid (Ayala tube on ice) Ordered. EDMS 18:31 Liver Profile Ordered. EDMS 18:31 MED Profile Ordered. EDMS 18:31 PT/INR Ordered. EDMS 18:31 PTT Ordered. EDMS 18:31 Urinalysis Ordered. EDMS 18:31 -Blood Culture Ordered. EDMS 18:31 Urine Culture Ordered. EDMS 18:32 Chest, 1 View Ordered. EDMS 18:32 ECG WITH READING ER PHYS+CARDIAG ordered. EDMS 18:32 BNP Ordered. EDMS 18:33 TROPONIN Ordered. EDMS 18:33 BLOOD CULTURES Ordered. EDMS 18:44 -Blood Culture (Adults Only), peripheral from different site, or from device/port/PICC mt4 etc. if present complete. 18:49 Acetaminophen Tablet 650 mg PO once ordered. br1 18:50 -Influenza A&B Rapid Antigen - Nose Ordered. EDMS 19:55 Financial registration complete. zo 19:58 [facility] Payment Agreement was scanned into [employer] and attached to record. zo 20:00 -Influenza A&B Rapid Antigen - Nose Reviewed. br1 20:41 Liver Profile Reviewed. br1 20:41 MED Profile Reviewed. br1 20:41 PT/INR Reviewed. br1 20:41 PTT Reviewed. br1 20:41 TROPONIN Reviewed. br1 20:41 Lactic Acid (Ayala tube on ice) Reviewed. br1 20:44 IV Saline Lock ordered. br1 20:44 Aspirin 324 mg PO once ordered. br1 20:44 ECG WITH READING ER PHYS+CARDIAG ordered. EDMS 20:52 BNP Reviewed. br1 20:53 RBC MORPH PROF NO CHARGE Ordered. EDMS 20:56 CBC with Diff Reviewed. br1 22:11 Recheck Vital Signs, perform reassessment and enter into [employer] ordered. br1 22:17 Brilinta 180 mg PO once ordered. br1 22:19 BED REQUEST+ADM ordered. EDMS 22:36 -Blood Culture (Adults Only), peripheral from different site, or from device/port/PICC br1 etc. if present ordered. 22:39 -Blood Culture (Adults Only), peripheral from different site, or from device/port/PICC tmm1 etc. if present complete. 23:10 Admission / Observation Status ordered. EDMS 23:10 CONSISTENT CARBOHYDRATES ordered. EDMS 23:10 CARDIAC MARKER PANEL Ordered. EDMS 23:10 CARDIAC MARKER PANEL Ordered. EDMS 23:10 CARDIAC MARKER PANEL Ordered. EDMS 23:11 BASIC METABOLIC PROFILE Ordered. EDMS 23:52 TRANSESPHOGEAL ECHO/DOPPLER/CF ordered. EDMS 06/28 00:31 Fingerstick Blood Sugar Ordered. EDMS 06/29 14:38 T-Sheet-- Draft Copy was scanned into [employer] and attached to record. gb 14:39 ECG/EKG was scanned into [employer] and attached to record. gb Point of Care Testing: Blood Glucose: 06/28 00:24 Blood Glucose: 235 mg/dL; mv5 Ranges: Administered Medications: 06/27 19:19 Drug: Acetaminophen 650 mg [acetaminophen 325 mg tablet (2 tabs)] Route: PO; mv5 20:47 Follow up: Response: Temperature is decreased mv5 20:51 Drug: Aspirin 324 mg [aspirin 81 mg chewable tablet (4 tabs)] Route: PO; mv5 22:30 Drug: Brilinta 180 mg [BRILINTA 90 mg tablet (2 tabs)] Route: PO; mv5 06/28 00:13 CANCELLED (entered in error): Ondansetron 4 mg IVP once mv5 Signatures: Dispatcher [employer] EDMS Milli Rain, Reg Reg gb Dung, Deon Banks MD MD br1 Grant, Marija mt4 McLear, Marylou, DECATIZER DECATIZER tmm1 Byron Hebert,RN RN lisab Radha Sinha RN RN aa3 [place] Sifuentes RN RN [facility] Alysha Yip,ESTHER RN mv5 The chart was reviewed and I authenticate all verbal orders and agree with the evaluation and treatment provided.Corrections: (The following items were deleted from the chart) 06/27 18:33 18:32 TROPONIN+LAB ordered. EDMS EDMS 23:52 22:40 BLOOD CULTURES ordered. EDMS EDMS 06/28 00:13 00:12 Ondansetron 4 mg IVP once ordered. mv5 mv5 06:46 06/27 20:47 ECG WITH READING ER PHYS ordered. EDMS EDMS Attachments: 19:58 [facility] [place] Agreement zo 06/29 14:38 T-Sheet-- Draft Copy gb 14:39 ECG/EKG gb [facility]
--- NOTE | 2016-06-30 14:22 | EDDOCDS ---
Physician Documentation [facility] Name: Timmy Finney Age: 60 yrs Sex: Male : 1955 Arrival Date: 06/27/2016 Time: 18:13 Bed Admit Hold Private MD: Emanuel Ruiz MD Disposition: 06/27/16 22:35 Hospitalization ordered by Guille Flores for Inpatient Admission. Preliminary diagnosis are Non-ST elevation (NSTEMI) myocardial infarction, Acute pulmonary edema, Fever, unspecified - Acute Kidney Injury. - Bed requested for M ICU. - Status is Inpatient Admission. aa3 - Condition is Stable. - Problem is new. - Symptoms are unchanged. Historical: - Allergies: SHELLFISH; - Home Meds: 1. amitriptyline 50 mg Oral tab 1 tab nightly 2. aspirin 81 mg Oral tab 1 tab once daily 3. atorvastatin 10 mg oral tab 1 tab once daily 4. bisoprolol fumarate 5 mg oral tab 0.5 tab once daily 5. gabapentin 600 mg Oral tab 1 tab 3 times per day 6. levothyroxine 175 mcg Oral tab 1 tab once daily 7. glipizide 10 mg Oral tab 1 tab 2 times per day 8. lisinopril 5 mg Oral tab 1 tab once daily 9. magnesium oxide 500 mg Oral cap daily 10. Metformin 1500 mg bid Oral 11. Multivitamin Oral 1 tab daily 12. omeprazole 20 mg Oral cpDR 1 cap once daily 13. Plavix 75 mg Oral tab 1 tab once daily 14. ropinirole 2 mg oral tab daily 15. tamsulosin 0.4 mg oral cp24 1 cap once daily 16. tramadol 50 mg Oral tab 1 tab as needed - PMHx: Diabetes - NIDDM: controlled; GERD; Hypercholesterolemia; Hypertension; lung cancer; throat cancer,; - PSHx: Aortic valve replacement 2009; Laryngectomy 2010; Right upper lobectomy 2007; - Social history: Smoking status: Patient states was never smoker of tobacco. No barriers to communication noted, The patient speaks fluent Hungarian, Speaks appropriately for age. - Family history: No immediate family members are acutely ill. - : The pt / caregiver states he / she is not on anticoagulants. Home medication list is obtained from the patient. - Exposure Risk Screening:: None identified. Vital Signs: 06/27 18:15 BP 101 / 70 RA Sitting (auto/reg); Pulse 131; Resp 22; Temp 101.4(O); Pulse Ox 97% on jrd R/A; Weight 102.06 kg / 225 lbs (R); Height 5 ft. 10 in. (177.80 cm) (R); Pain 6/10; 19:33 BP 114 / 63 (auto/); mv5 19:33 Pulse 104 MON; Pulse Ox 91% on R/A; mv5 19:58 BP 100 / 63 (auto/); mv5 19:58 Pulse 116 MON; Pulse Ox 92% ; mv5 20:20 BP 95 / 53 (auto/); mv5 20:20 Pulse 116 MON; Pulse Ox 91% ; mv5 20:35 BP 96 / 59 (auto/); mv5 20:35 Pulse 120 MON; Pulse Ox 94% ; mv5 20:37 BP 118 / 74 (auto/); mv5 20:37 Pulse 118 MON; Resp 18; Temp 100.1(O); Pulse Ox 94% ; mv5 20:50 BP 98 / 63 (auto/); mv5 20:50 Pulse 116 MON; Pulse Ox 93% ; mv5 21:05 BP 89 / 56 (auto/); mv5 21:05 Pulse 116 MON; Pulse Ox 92% ; mv5 21:20 BP 83 / 52 (auto/); mv5 21:20 Pulse 116 MON; Pulse Ox 93% ; mv5 21:37 BP 97 / 63 (auto/); mv5 21:37 Pulse 114 MON; Pulse Ox 92% ; mv5 21:50 BP 101 / 68 (auto/); mv5 21:50 Pulse 112 MON; Pulse Ox 93% ; mv5 22:05 BP 104 / 70 (auto/); mv5 22:05 Pulse 110 MON; Pulse Ox 92% ; mv5 22:20 BP 106 / 66 (auto/); mv5 22:20 Pulse 108 MON; Pulse Ox 92% ; mv5 22:35 BP 92 / 62 (auto/); mv5 22:35 Pulse 110 MON; Pulse Ox 93% ; mv5 22:50 BP 94 / 62 (auto/); mv5 22:51 Pulse 108 MON; Pulse Ox 93% ; mv5 23:05 BP 97 / 61 (auto/); mv5 23:05 Pulse 108 MON; Pulse Ox 94% ; mv5 23:20 BP 88 / 53 (auto/); mv5 23:20 Pulse 110 MON; Pulse Ox 92% ; mv5 23:35 BP 86 / 54 (auto/); mv5 23:37 Pulse 104 MON; Pulse Ox 94% ; mv5 23:50 BP 95 / 62 (auto/); mv5 23:51 Pulse 106 MON; mv5 02/21 00:05 BP 101 / 67 (auto/); mv5 00:10 Pulse 110 MON; Pulse Ox 96% ; mv5 00:22 BP 82 / 63 (auto/); mv5 00:22 Pulse 112 MON; Pulse Ox 95% ; mv5 00:41 BP 92 / 74 (auto/); mv5 00:42 Pulse 112 MON; Pulse Ox 94% ; mv5 00:50 BP 98 / 68 (auto/); mv5 00:51 Pulse 100 MON; Pulse Ox 93% ; mv5 01:05 BP 102 / 71 (auto/); mv5 01:06 Pulse 96 MON; Pulse Ox 95% ; mv5 01:20 BP 103 / 74 (auto/); mv5 01:21 Pulse 98 MON; Pulse Ox 93% ; mv5 01:35 BP 102 / 70 (auto/); mv5 01:35 Pulse 94 MON; Pulse Ox 93% ; mv5 01:50 BP 93 / 59 (auto/); mv5 01:50 Pulse 96 MON; Pulse Ox 89% ; mv5 02:05 BP 96 / 64 (auto/); mv5 02:05 Pulse 100 MON; Pulse Ox 95% ; mv5 02:20 BP 106 / 68 (auto/); mv5 02:20 Pulse 102 MON; Pulse Ox 93% ; mv5 02:35 BP 108 / 71 (auto/); mv5 02:35 Pulse 98 MON; Pulse Ox 94% ; mv5 02:50 BP 107 / 68 (auto/); mv5 02:50 Pulse 100 MON; Pulse Ox 94% ; mv5 03:05 BP 96 / 59 (auto/); mv5 03:05 Pulse 98 MON; Pulse Ox 93% ; mv5 03:20 BP 113 / 59 (auto/); mv5 03:20 Pulse 96 MON; Pulse Ox 94% ; mv5 03:35 BP 112 / 59 (auto/); mv5 03:35 Pulse 96 MON; Pulse Ox 94% ; mv5 03:50 BP 108 / 65 (auto/); mv5 03:50 Pulse 96 MON; Pulse Ox 93% ; mv5 04:05 BP 102 / 63 (auto/); mv5 04:05 Pulse 100 MON; Pulse Ox 94% ; mv5 04:20 BP 109 / 70 (auto/); mv5 04:20 Pulse 98 MON; Pulse Ox 95% ; mv5 04:35 BP 103 / 56 (auto/); mv5 04:35 Pulse 102 MON; Pulse Ox 93% ; mv5 04:50 BP 104 / 63 (auto/); mv5 04:50 Pulse 108 MON; Pulse Ox 95% ; mv5 05:05 BP 107 / 66 (auto/); mv5 05:05 Pulse 100 MON; Pulse Ox 94% ; mv5 05:20 BP 97 / 63 (auto/); mv5 05:20 Pulse 100 MON; Pulse Ox 92% ; mv5 05:35 BP 95 / 64 (auto/); mv5 05:35 Pulse 102 MON; Temp 99.1(O); Pulse Ox 93% ; mv5 05:50 BP 87 / 56 (auto/); mv5 05:50 Pulse 108 MON; Pulse Ox 95% ; mv5 06:05 BP 84 / 56 (auto/); mv5 06:05 Pulse 106 MON; Pulse Ox 94% ; mv5 06/27 18:15 Body Mass Index 32.28 (102.06 kg, 177.80 cm) jrd MDM: 06/27 18:29 -Blood Culture (Adults Only), peripheral from different site, or from device/port/PICC br1 etc. if present ordered. 18:29 Malt House Operator/Pulse Ox/q 15 min VS ordered. br1 18:31 CBC with Diff Ordered. EDMS 18:31 Lactic Acid (Ayala tube on ice) Ordered. EDMS 18:31 Liver Profile Ordered. EDMS 18:31 MED Profile Ordered. EDMS 18:31 PT/INR Ordered. EDMS 18:31 PTT Ordered. EDMS 18:31 Urinalysis Ordered. EDMS 18:31 -Blood Culture Ordered. EDMS 18:31 Urine Culture Ordered. EDMS 18:32 Chest, 1 View Ordered. EDMS 18:32 ECG WITH READING ER PHYS+CARDIAG ordered. EDMS 18:32 BNP Ordered. EDMS 18:33 TROPONIN Ordered. EDMS 18:33 BLOOD CULTURES Ordered. EDMS 18:44 -Blood Culture (Adults Only), peripheral from different site, or from device/port/PICC mt4 etc. if present complete. 18:49 Acetaminophen Tablet 650 mg PO once ordered. br1 18:50 -Influenza A&B Rapid Antigen - Nose Ordered. EDMS 19:55 Financial registration complete. zo 19:58 [facility] Payment Agreement was scanned into [employer] and attached to record. zo 20:00 -Influenza A&B Rapid Antigen - Nose Reviewed. br1 20:41 Liver Profile Reviewed. br1 20:41 MED Profile Reviewed. br1 20:41 PT/INR Reviewed. br1 20:41 PTT Reviewed. br1 20:41 TROPONIN Reviewed. br1 20:41 Lactic Acid (Ayala tube on ice) Reviewed. br1 20:44 IV Saline Lock ordered. br1 20:44 Aspirin 324 mg PO once ordered. br1 20:44 ECG WITH READING ER PHYS+CARDIAG ordered. EDMS 20:52 BNP Reviewed. br1 20:53 RBC MORPH PROF NO CHARGE Ordered. EDMS 20:56 CBC with Diff Reviewed. br1 22:11 Recheck Vital Signs, perform reassessment and enter into [employer] ordered. br1 22:17 Brilinta 180 mg PO once ordered. br1 22:19 BED REQUEST+ADM ordered. EDMS 22:36 -Blood Culture (Adults Only), peripheral from different site, or from device/port/PICC br1 etc. if present ordered. 22:39 -Blood Culture (Adults Only), peripheral from different site, or from device/port/PICC tmm1 etc. if present complete. 23:10 Admission / Observation Status ordered. EDMS 23:10 CONSISTENT CARBOHYDRATES ordered. EDMS 23:10 CARDIAC MARKER PANEL Ordered. EDMS 23:10 CARDIAC MARKER PANEL Ordered. EDMS 23:10 CARDIAC MARKER PANEL Ordered. EDMS 23:11 BASIC METABOLIC PROFILE Ordered. EDMS 23:52 TRANSESPHOGEAL ECHO/DOPPLER/CF ordered. EDMS 06/28 00:31 Fingerstick Blood Sugar Ordered. EDMS 06/29 14:38 T-Sheet-- Draft Copy was scanned into [employer] and attached to record. gb 14:39 ECG/EKG was scanned into [employer] and attached to record. gb Point of Care Testing: Blood Glucose: 06/28 00:24 Blood Glucose: 235 mg/dL; mv5 Ranges: Administered Medications: 06/27 19:19 Drug: Acetaminophen 650 mg [acetaminophen 325 mg tablet (2 tabs)] Route: PO; mv5 20:47 Follow up: Response: Temperature is decreased mv5 20:51 Drug: Aspirin 324 mg [aspirin 81 mg chewable tablet (4 tabs)] Route: PO; mv5 22:30 Drug: Brilinta 180 mg [BRILINTA 90 mg tablet (2 tabs)] Route: PO; mv5 06/28 00:13 CANCELLED (entered in error): Ondansetron 4 mg IVP once mv5 Signatures: Dispatcher [employer] EDMS Milli Rain, Reg Reg gb Dung, Deon Banks MD MD br1 Grant, Marija mt4 McLear, Marylou, INSTRUMENT ADJUSTER INSTRUMENT ADJUSTER tmm1 Byron Hebert,RN RN lisab Radha Sinha RN RN aa3 [place] Sifuentes RN RN [facility] Alysha Yip,ESTHER RN mv5 The chart was reviewed and I authenticate all verbal orders and agree with the evaluation and treatment provided.Corrections: (The following items were deleted from the chart) 06/27 18:33 18:32 TROPONIN+LAB ordered. EDMS EDMS 23:52 22:40 BLOOD CULTURES ordered. EDMS EDMS 06/28 00:13 00:12 Ondansetron 4 mg IVP once ordered. mv5 mv5 06:46 06/27 20:47 ECG WITH READING ER PHYS ordered. EDMS EDMS Attachments: 19:58 [place] Payment Agreement zo 06/29 14:38 T-Sheet-- Draft Copy gb 14:39 ECG/EKG gb [facility]
== END 2016-06-30 11:21 | disposition left against medical advice (07) | DRG 280 ==
LOC: M ED 18:13 → M ED INP 23:05 → M ICU 06-28 13:35 → M PCU 06-29 03:31
PROVIDERS: ADMIT Hospitalist; ATTEND Family Medicine
DX: I21.4 Non-ST elevation (NSTEMI) myocardial infarction (principal); J18.9 Pneumonia, unspecified organism; N17.9 Acute kidney failure, unspecified; I50.9 Heart failure, unspecified; N18.9 Chronic kidney disease, unspecified; I48.0 Paroxysmal atrial fibrillation; E86.0 Dehydration; E11.51 Type 2 diabetes mellitus with diabetic peripheral angiopathy without gangrene; E03.9 Hypothyroidism, unspecified; E11.40 Type 2 diabetes mellitus with diabetic neuropathy, unspecified; Z85.118 Personal history of other malignant neoplasm of bronchus and lung; Z90.2 Acquired absence of lung [part of]; Z95.3 Presence of xenogenic heart valve; Z79.82 Long term (current) use of aspirin; Z79.84 Long term (current) use of oral hypoglycemic drugs; Z79.02 Long term (current) use of antithrombotics/antiplatelets; Z79.891 Long term (current) use of opiate analgesic; Z79.899 Other long term (current) drug therapy; Z91.013 Allergy to seafood; G25.81 Restless legs syndrome; Y95 Nosocomial condition

== ENCOUNTER 2016-07-06 12:06 | Inpatient (IN) | payer MEDICARE ==
[~2016-07-06] VITALS: Ht 177.8 cm; Wt 87.9 kg
[~2016-07-06 12:06] MED LIST changes: +ASPI81TAEC PO; +BRIL90TA PO; +CEFD1CAP8 PO; +FURO40TA2 PO; +LEVO750T33 PO; +MAGN400T2 PO; +METF500T PO; +METO25TAB PO; +ROPI0.5T PO; +XARE20TA PO; +ZYVO100T PO
[2016-07-06] MEDS ORDERED: HUMU70IN SC (12:24)
[2016-07-06] MEDS ORDERED: FUROSEMIDE 40 MG/4 ML VIAL (J1940) IV ONE (13:30)
--- NOTE | 2016-07-06 13:38 | REP ---
PORTABLE CHEST: AP portable view of the chest is performed. Cardiomegaly is again noted as well as pulmonary venous hypertension. Chronic interstitial changes are seen in the lower lungs, stable. There is no new infiltrate. There is elevation of the right hemidiaphragm. Multiple sternal wires and mediastinal clips are present. IMPRESSION: Stable findings as discussed above compared to prior study of 06/27/2016. Signed by Charlie Ayala MD 07/06/2016 05:22 P
[2016-07-06 13:48] LABS: DIFF SLIDE NUMBER 207; MEAN CORPUSCULAR HEMOGLOBIN 16.9 pg (27.0-33.0); MEAN CORPUSCULAR HGB CONC 27.9 g/dl (32.0-36.5); MEAN CORPUSCULAR VOLUME 60.6 fl (80.0-96.0); RED CELL DISTRIBUTION WIDTH 21.2 % (11.5-14.5); WHITE BLOOD COUNT 18.4 K/mm3 (4.0-10.0)
[2016-07-06 14:05] LABS: ALBUMIN 3.3 GM/DL (3.2-5.2); ALBUMIN/GLOBULIN RATIO 0.75 (1.00-1.93); BILIRUBIN,DIRECT 0.6 MG/DL (0.0-0.2); BILIRUBIN,TOTAL 3.3 MG/DL (0.2-1.0); TOTAL PROTEIN 7.7 GM/DL (6.4-8.2)
[2016-07-06 14:08] LABS: CALCIUM LEVEL 9.6 MG/DL (8.5-10.1); CREATININE FOR GFR 2.25 MG/DL (0.70-1.30); POTASSIUM SERUM 4.2 MEQ/L (3.5-5.1)
[2016-07-06 14:33] LABS: PLATELET COUNT, AUTOMATED 70 k/mm3 (150-450)
[2016-07-06 14:36] LABS: BANDS 1 % (< 11); NUCLEATED RED BLOOD CELL 3 % (0-0)
[2016-07-06 14:39] LABS: ANISOCYTOSIS 2+; HYPOCHROMASIA 2+; MICROCYTOSIS 2+; OVALOCYTES 1+; POIKILOCYTOSIS 1+; POLYCHROMASIA 1+
[2016-07-06] MEDS ORDERED: FLOM5CAP PO (16:34)
[2016-07-06] MEDS ORDERED: AMIO400T PO (16:34)
[2016-07-06] MEDS ORDERED: CEFT500T3 PO (16:34)
[2016-07-06] MEDS ORDERED: BRIL90TA PO (16:34)
[2016-07-06] MEDS ORDERED: METO25TAB PO (16:34)
[2016-07-06] MEDS ORDERED: ACETAMINOPHEN TAB 650MG DOSE (2X325MG) PO PRN (17:30)
[2016-07-06] MEDS: FUROSEMIDE 40 MG/4 ML VIAL (J1940) IV SCH (18:00)
--- NOTE | 2016-07-06 18:07 | ECGEPIP ---
Stationary ECG Study [facility] - ED Test Date: 2016-07-06 Pat Name: SUHA MORALES Department: Room: - Gender: M Shear Operator Automatic: sharon : 1955 Requested By: Caitlin Sal Order Number: [id number] Reading MD: Perry Prakash Measurements Intervals [place] Rate: 100 P: 47 VT: 177 QRS: -25 QRSD: 141 T: 148 QT: 353 QTc: 456 Interpretive Statements SINUS TACHYCARDIA POSSIBLE LEFT ATRIAL ENLARGEMENT INTRAVENTRICULAR CONDUCTION DELAY LEFT VENTRICULAR HYPERTROPHY WITH ST DEPRESSION SIMILAR TO 06/27/16 Electronically Signed On 07-06-2016 17:44:14 EST by Perry Prakash
--- NOTE | 2016-07-06 18:32 | HPE ---
DATE OF ADMISSION: 07/06/2016 This is a patient of Dr. Emanuel Ruiz and Dr. Faisal Peterson. Chief complaint is he could not breathe last night. The following is a summary of his presentation: This is a 60-year-old gentleman who was recently at [facility] from 06/27/2016 to 06/30/2016. He left against medical advice (AMA) with a diagnosis of non-ST elevation myocardial infarction (MA) and pneumonia, went and followed up of his own accord at [facility] where he had a short hospital stay from 07/01/2016 to 07/04/2016, had an unremarkable cardiac catheterization and was discharged with medical management, continued on antibiotics. At home, he was feeling well, he was home for nearly a day and a half, he had went to bed last night and at that point was feeling okay and then was restless all night, had shortness of breath, had not noticed any weight gain, was not taking his weight on a daily basis, was not put on any fluid restriction, developed cough that produced some red sputum, breathing was improved with a breathing treatment and in the emergency department with humidified oxygen, he experienced chills, no pain, and decreasing appetite. Past medical history is notable for insulin-dependent diabetes, gastroesophageal reflux disease (GERD), hyperlipidemia, hypertension, history of throat cancer, lung cancer with tracheostomy, chronic kidney disease, aortic valve replacement, and congestive heart failure. Past surgical history is notable for aortic valve replacement in 2009, laryngectomy and tracheostomy with upper lobe lobectomy in 2007. Socially, never was a smoker, does not use any alcohol. No recent travel. Lives with his girlfriend. Has been feeling weak recently and has been using a walker at home. Family history is unremarkable due to his comorbid conditions. Allergies noted are shellfish. Medications at the time of admission are listed as: - vitamin C supplement - Ceftin 500 mg by mouth twice a day - Lasix 40 mg twice a day as needed for leg swelling - insulin 70/30 subcutaneously twice a day - Xarelto 20 mg by mouth every evening - Brilinta 90 mg twice daily - amiodarone 400 mg twice a day - amitriptyline 50 mg nightly - aspirin 81 mg daily - atorvastatin 10 mg by mouth nightly - fish oil daily - isosorbide mononitrate 30 mg daily - Synthroid 175 mcg by mouth nightly - magnesium oxide 400 mg twice a day - metoprolol tartrate 25 mg by mouth twice a day - multivitamin tablet daily - omeprazole 20 mg daily - Requip 0.5 mg in the morning and 2 mg at night - Flomax 0.4 mg nightly - tramadol as needed for pain This list seems to match the list on the discharge instructions from [facility], although that list also shows bisoprolol 2.5 mg by mouth daily. Review of systems is as follows: He has no headache, no visual changes. He has had some runny nose. He has a cough, he is producing sputum. Not describing any chest pain. No orthopnea. No paroxysmal nocturnal dyspnea. He has had lower extremity edema over the last week or two but never before that. No abdominal pain. No change in bowel or bladder habits. No focal weakness. No history of seizures. Otherwise unremarkable. On physical examination: Temperature is 98.6, pulse 94, blood pressure 122/72, 92% on tracheostomy collar with humidified oxygen. He is awake, appropriately interactive, sitting in a chair at bedside. Alert and oriented times three. Pleasant and easily conversant. Head is normocephalic. Sinuses nontender. Pupils are round. Sclerae are anicteric. Nasal septum is midline. Mucous membranes are moist. Neck is supple. I appreciate no elevation in jugular venous pressure (JVP) although he has some scarring at his neck related to his tracheostomy site. He has a widely patent tracheostomy. There is no sputum noted around it. Breathing is symmetrical. Coarse upper airway sounds. No wheezes, rales, or rhonchi. Heart is distant sounding, normal S1, S2, borderline tachycardia. Radial pulse 2+ bilaterally. Capillary refill is less than 2 seconds. Abdomen is soft, doughy, somewhat tympanic but nontender. There is trace to 1+ bilateral lower extremity edema. He has normal mood and affect. White cell count 18.4, hemoglobin 9, and platelets of 70. White cell count is higher than at his last admission, hemoglobin is at a similar level to June 2016, and platelets are lower than at his last admission. Sodium 134, chloride 97, BUN 60, creatinine 2.25, this is probably slightly higher than his baseline, glucose 228, lactic acid 2.2, repeat level is pending, iron 13, transferrin saturation 3.0, ferritin 25, direct bilirubin 0.6, AST 135, ALT 89, alkaline phosphatase 122, CK 104, troponin I is 3.23 which is trending down from his visit at [facility], BNP is 3230, albumin 3.3. Blood cultures are pending. Chest xray shows stable findings with elevation in his right hemidiaphragm. EKG from today shows sinus tachycardia, what looks to be a left bundle branch block, and left ventricular hypertrophy (LVH) by aVL criteria. My assessment is as follows: This is a 60-year-old gentleman who presents with increasing shortness of breath in the setting of recent coronary event with known dilated cardiomyopathy with low ejection fraction (EF). I suspect the patient has an element of decompensated congestive heart failure. Patient will require a two midnight hospital stay for further diagnostic workup and treatment. Plan will be as follows: 1. Cardiovascular. Patient has no evidence of coronary artery disease on a recent coronary angiogram but he does have moderate to severe left ventricular systolic dysfunction and moderate stenosis of the aortic valve bioprosthesis. He did have heart failure during his recent hospitalization at [facility] and I believe he would benefit from further diuresis at this point. He is producing some sputum which is red tinged and had been treated for pneumonia. He has a markedly elevated white cell count and to further define his diagnosis a CT of his chest is ordered to look for evidence of infiltrate. Sputum grain stain and culture will be ordered as well. 2. The patient has chronic kidney disease stage III. He is worse than at baseline at this point. I believe diuresis will help in this regard. 3. The patient has type 2 diabetes. He has had difficulty using insulin as an outpatient. Will continue him on insulin with an appropriate diet during his stay. 4. The patient has elevated transaminases. These will be followed clinically with repeat labs. 5. The patient has elevated troponin which is trending down. This can also be followed with serial labs. It should continue a general downward trend. 6. The patient has noted thrombocytopenia. Will repeat labs in the morning and get a heparin antibody as he may have received heparin products while at [facility]. 7. Deep venous thrombosis (DVT) prophylaxis will be mechanical. 8. The patient is treated for BPH with Flomax which is continued. 9. The patient has hyperlipidemia. On atorvastatin. 10. The patient has hypothyroidism. Continue his home Synthroid dose.
--- NOTE | 2016-07-06 19:40 | REPUSA ---
HISTORY: Cough. TECHNIQUE: Multiple axial CT images were obtained through chest without IV contrast material. FINDINGS: Comparison is made with the prior study of 06/16/2016. There is no evidence of pleural or parenchymal-based mass. There are multiple scattered mediastinal lymph nodes noted which are borderline enlarged, nonspecific, and possibly reactive. The heart is s everely enlarged. Diffuse coronary calcifications are present. There is valvular calcification note d as well. Pulmonary vascular congestion changes are present compatible with CHF. Small left pleura l effusion is seen. The visualized portions of the liver are of uniform attenuation without mass or defect. There is no intra or extrahepatic biliary ductal dilatation. 3 cm splenic cyst is seen. The spleen is otherwise unremarkable. The visualized pancreas is of normal contour and attenuation characteristics. There is no evidence of adrenal mass. The visualized portions of the kidneys present no abnormalities. The bony structures are free of lytic or blastic lesions. Multilevel degenerative changes are seen i nvolving the thoracic spine. Scattered calcifications are seen involving the aorta and visualized becca or branches compatible with atherosclerosis. IMPRESSION: CHF, exacerbation since the prior study. Small left pleural effusions slightly enlarged since the p rior study. There are multiple scattered mediastinal lymph nodes noted which are borderline enlarged, nonspecific , and possibly reactive Thank you for your kind referral of this patient. We appreciate the opportunity to participate in th is patient's care.
[2016-07-06] MEDS ORDERED: TICAGRELOR 90 MG TABLET (BRILINTA) PO SCH (21:00)
[2016-07-06 21:13] VITALS: BP 112/73
[2016-07-06] MEDS: PIPERACILLIN/TAZOBACTAM SOD 3.375 GM in D5W MINI-BAG PLUS 50 ML IV SCH (22:22)
[2016-07-06] MEDS: rOPINIRole 1MG TAB PO SCH (22:25)
[2016-07-06] MEDS: LEVOTHYROXINE 0.075 MG TAB (75 MCG) PO SCH (22:25)
[2016-07-06] MEDS: AMITRIPTYLINE 50 MG TAB PO SCH (22:25)
[2016-07-06] MEDS: MAGNESIUM OXIDE 400 MG TAB (MAG-OX) PO SCH (22:25)
[2016-07-06] MEDS: LEVOTHYROXINE 0.1 MG TAB (100 MCG) PO SCH (22:26)
[2016-07-06] MEDS: TAMSULOSIN 0.4 MG CAP PO SCH (22:26)
[2016-07-06] MEDS: METOPROLOL TART 25 MG TABLET PO SCH (22:26)
[2016-07-06] MEDS: AMIODARONE 200 MG TAB (PACERONE) PO SCH (22:27)
[2016-07-06] MEDS: ATORVASTATIN 10 MG TAB PO SCH (22:27)
[2016-07-06 23:59] VITALS: BP 93/50
[2016-07-07] VITALS (9 sets, daily range): BP systolic 80–106; BP diastolic 40–59
[2016-07-07] MEDS: FUROSEMIDE 40 MG/4 ML VIAL (J1940) IV SCH ×4 (00:25→22:06)
[2016-07-07] MEDS: ONDANSETRON 4MG/2ML VIAL (J2405) IV PRN (00:25)
[2016-07-07] MEDS ORDERED: DEXTROSE 50% 50 ML SYRINGE IV PRN (00:30)
[2016-07-07] MEDS ORDERED: GLUCAGON FOR INJ 1 MG VIAL (J1610) SC PRN (00:30)
[2016-07-07] MEDS ORDERED: GLUCOSE 4 GM CHEW TABLET PO PRN (00:30)
[2016-07-07] MEDS: HumaLOG INSULIN (NovoLOG) PER UNIT SC SCH ×5 (00:50→22:05)
[2016-07-07] MEDS: PIPERACILLIN/TAZOBACTAM SOD 3.375 GM in D5W MINI-BAG PLUS 50 ML IV SCH ×2 (03:00→09:08)
[2016-07-07] MEDS ORDERED: NS 0.45% 1,000 ML IV SCH (04:00)
[2016-07-07 06:03] LABS: DIFF SLIDE NUMBER 100; MEAN CORPUSCULAR HEMOGLOBIN 16.7 pg (27.0-33.0); MEAN CORPUSCULAR HGB CONC 26.9 g/dl (32.0-36.5); PLATELET COUNT, AUTOMATED 64 k/mm3 (150-450); RED CELL DISTRIBUTION WIDTH 21.3 % (11.5-14.5); WHITE BLOOD COUNT 16.4 K/mm3 (4.0-10.0)
[2016-07-07 06:15] LABS: ALBUMIN 2.9 GM/DL (3.2-5.2); ALBUMIN/GLOBULIN RATIO 0.67 (1.00-1.93); BILIRUBIN,TOTAL 2.9 MG/DL (0.2-1.0); CALCIUM LEVEL 8.7 MG/DL (8.5-10.1); CREATININE FOR GFR 2.56 MG/DL (0.70-1.30); GLOMERULAR FILTRATION RATE 27.6 (>56); MAGNESIUM LEVEL 2.3 MG/DL (1.8-2.4); POTASSIUM SERUM 3.7 MEQ/L (3.5-5.1); TOTAL PROTEIN 7.2 GM/DL (6.4-8.2)
[2016-07-07 07:01] LABS: CORRECTED WHITE BLOOD COUNT 15.5 K/mm3; EOSINOPHILS 2 % (0-5); GIANT PLATELETS 2+; HYPOCHROMASIA 2+; NUCLEATED RED BLOOD CELL 6 % (0-0); OVALOCYTES 2+; POIKILOCYTOSIS 1+
[2016-07-07 07:02] LABS: ANISOCYTOSIS 3+; POLYCHROMASIA 1+
[2016-07-07] MEDS ORDERED: ISOSORBIDE MON. (IMDUR) 30 MG XR TAB PO SCH (09:00)
[2016-07-07] MEDS: METOPROLOL TART 25 MG TABLET PO SCH (09:00)
[2016-07-07] MEDS: MULTIVITAMINS/MINERALS THERAP 1 TAB PO SCH (09:11)
[2016-07-07] MEDS: rOPINIRole 0.25 MG TAB(REQUIP) PO SCH (09:11)
[2016-07-07] MEDS: ASPIRIN 81 MG ENTERIC TAB PO SCH (09:11)
[2016-07-07] MEDS: MAGNESIUM OXIDE 400 MG TAB (MAG-OX) PO SCH ×2 (09:12→22:07)
[2016-07-07] MEDS: AMIODARONE 200 MG TAB (PACERONE) PO SCH (09:12)
[2016-07-07] MEDS: OMEGA-3 1050MG CAPSULE PO SCH (09:12)
[2016-07-07] MEDS: OMEPRAZOLE 20 MG CAP PO SCH (09:13)
--- NOTE | 2016-07-07 09:15 | IPNPDOC ---
Subjective Date Seen The patient was seen on 07/07/16. Subjective Chief Complaint/HPI The patient is a 60-year-old male admitted with a reason for visit of CHF. Events since last encounter Pt states he feels better today with less SOB. He denies CP, Abd pain, fevers, chills. Constitutional: Denies: Chills, Fever Pulmonary: Reports: Dyspnea Cardiovascular: Denies: Chest Pain Gastrointestinal: Denies: Abdominal Pain, Nausea, Vomiting Objective Physical Examination General Exam: Positive: Alert, No Acute Distress ENT Exam: Positive: Atraumatic Neck Exam: Positive: JVD (5-6 cm JVD), Other (tracheostomy), Supple Chest Exam: Positive: Rhonchi, Wheezing Heart Exam: Positive: Rate Normal, Regular Rhythm Abdomen Exam: Positive: Normal bowel sounds, Soft, Negative: Tenderness Extremity Exam: Positive: Edema (trace) Skin Exam: Negative: Rash Assessment /Plan Problems (1) CHF (congestive heart failure) Status: Acute Problem Specific Plan: Consult Specialist, Monitor Clinically, Repeat Labs Problem Text: Consult Dr Peterson. Dr Peterson saw the pt. Dr Peterson advises stopping the IVF. He advises increasing the Lasix to 120 mg IV q 8h to hold for SBP<90. He advises stopping the Imdur and adding Hydralazine 10 mg PO q8 h to hold for SPB<100. He advises decreasing Amiodarone to 200 mg daily. BPs are soft. Dr Peterson wants to continue with diuresis. BP meds have hold parameters. ?May need Dobutamine if pressures continue to drop. (2) Elevated troponin Status: Acute Problem Specific Plan: Consult Specialist, Monitor Clinically, Repeat Labs Problem Text: Dr Peterson consulted. Pt recently was hospitalized at [facility] with NSTEMI and left AMA. He later drove himself to [facility] and was admitted and underwent cardiac cath which was reported as unremarkable. Trops still elevated. He is not having any CP. (3) CKD (chronic kidney disease) Status: Chronic Problem Specific Plan: Consult Specialist, Monitor Clinically, Repeat Labs Problem Text: Consult Dr Alvarado. (4) DM2 (diabetes mellitus, type 2) Status: Chronic Problem Specific Plan: Monitor Clinically, Repeat Labs Problem Text: On SSI (5) Anemia Status: Acute Problem Specific Plan: Monitor Clinically, Repeat Labs Problem Text: Check Iron studies. (6) Thrombocytopenia Status: Acute Problem Specific Plan: Monitor Clinically, Repeat Labs Problem Text: HIT lab pending. Check ESR and CRP. On Aspirin and Brilinta - Will D/C the Brilinta. Discussed with Dr Peterson. (7) Hyperlipidemia Status: Chronic Problem Specific Plan: Monitor Clinically Problem Text: On Statin. (8) Hypothyroidism Status: Chronic Problem Specific Plan: Monitor Clinically Problem Text: On Synthroid. (9) CAD (coronary artery disease) Status: Chronic Problem Specific Plan: Monitor Clinically Problem Text: Cardiology following. See above. (10) Elevated LFTs Status: Acute Problem Specific Plan: Monitor Clinically, Repeat Labs (11) Leukocytosis Status: Acute Problem Specific Plan: Monitor Clinically, Repeat Labs Problem Text: On Zosyn. H&P states pt was being treated for pneumonia at [facility]. Will change abx to ceftaroline. Blood cx pending. (12) Hypotension Status: Acute Problem Specific Plan: Consult Specialist, Monitor Clinically, Repeat Labs Problem Text: Cardiology consulted and following. Pt did receive IVF which have been stopped. Dr Peterson wants the pt to continue with diureses. ?May need dobutamine if pressures to continue to drop. Plan/VTE VTE Prophylaxis Ordered?: No VS, I&O, 24H, Fishbone Vital Signs/I&O Vital Signs Date Time Temp Pulse Resp B/P Pulse Ox O2 Delivery O2 Flow Rate FiO2 07/07/16 08:01 Trach Collar 5.0 28 07/07/16 04:00 97.9 94 18 86/52 96 I&O- Last 24 Hours up to 6 AM 07/07/16 06:00 Intake Total 450 ml Output Total 675 ml Balance -225 ml Laboratory Data 24H LABS Laboratory Tests 2 07/06/16 13:17: Aspartate Amino Transf (AST/SGOT) 135H, Alanine Aminotransferase (ALT/SGPT) 89H , Alkaline Phosphatase 122H, Total Bilirubin 3.3H, Direct Bilirubin 0.6H, Albumin 3.3, Albumin/Globulin Ratio 0.75L, Anion Gap 13, Anisocytosis 2+, B- Type Natriuretic Peptide 3230H, Band Neutrophils 1, Blood Urea Nitrogen 60H, Creatinine 2.25H, Sodium Level 134L, Potassium Level 4.2, Chloride Level 97L, Carbon Dioxide Level 24, Calcium Level 9.6, Total Creatine Kinase 104, Creatine Kinase MB 7.1H, Creatine Kinase MB Relative Index 6.82H, Glomerular Filtration Rate 32.0L, Hypochromasia 2+, Lactic Acid (Sepsis) 2.2*H, Lymphocytes (Manual) 8L, Microcytosis 2+, Monocytes (Manual) 1, Neutrophils 90H, Nucleated Red Blood Cells 3H, Ovalocytes 1+, Platelet Estimate DECREASED, Poikilocytosis 1+, Polychromasia 1+, Total Protein 7.7, Troponin I 3.23*H 07/06/16 17:42: Total Creatine Kinase 118, Creatine Kinase MB 7.0H, Creatine Kinase MB Relative Index 5.93H, Troponin I 3.70*H 07/06/16 17:51: Lactic Acid Level 1.7 07/07/16 00:38: Bedside Glucose (Misc Panel) 290H 07/07/16 05:26: Blood Urea Nitrogen 67H, Creatinine 2.56H, Sodium Level 135L, Potassium Level 3.7, Chloride Level 95L, Carbon Dioxide Level 25, Calcium Level 8.7, Aspartate Amino Transf (AST/SGOT) 91H, Alanine Aminotransferase (ALT/SGPT) 97H, Total Creatine Kinase 81, Alkaline Phosphatase 138H, Total Bilirubin 2.9H, Total Protein 7.2, Albumin 2.9L, Albumin/Globulin Ratio 0.67L, Anion Gap 15, Anisocytosis 3+, White Blood Count 16.4H, Corrected White Blood Count 15.5, Red Blood Count 5.09, Hemoglobin 8.5L, Hematocrit 31.6L, Mean Corpuscular Volume 62.0L, Mean Corpuscular Hemoglobin 16.7L, Mean Corpuscular Hemoglobin Concent 26.9L, Red Cell Distribution Width 21.3H, Platelet Count 64L, Creatine Kinase MB 5.4H, Creatine Kinase MB Relative Index 6.66H, Eosinophils (Manual) 2, Giant Platelets 2+, Glomerular Filtration Rate 27.6L, Hypochromasia 2+, Lymphocytes ( Manual) 11L, Magnesium Level 2.3, Monocytes (Manual) 4, Neutrophils 83H, Nucleated Red Blood Cells 6H, Ovalocytes 2+, Platelet Estimate DECREASED, Poikilocytosis 1+, Polychromasia 1+, Troponin I 3.44*H CBC/BMP Laboratory Tests 07/06/16 13:17 Calcium Level 9.6, Total Creatine Kinase 104, Red Blood Count 5.34, Mean Corpuscular Volume 60.6 L, Mean Corpuscular Hemoglobin 16.9 L, Mean Corpuscular Hemoglobin Concent 27.9 L, Red Cell Distribution Width 21.2 H 07/07/16 05:26 Calcium Level 8.7, Total Creatine Kinase 81, Red Blood Count 5.09, Mean Corpuscular Volume 62.0 L, Mean Corpuscular Hemoglobin 16.7 L, Mean Corpuscular Hemoglobin Concent 26.9 L, Red Cell Distribution Width 21.3 H, Aspartate Amino Transf (AST/SGOT) 91 H, Alanine Aminotransferase (ALT/SGPT) 97 H, Alkaline Phosphatase 138 H, Total Bilirubin 2.9 H, Total Protein 7.2, Albumin 2.9 L, Corrected White Blood Count 15.5 Microbiology Microbiology 07/06/16 Blood Culture, Received Pending 07/06/16 Blood Culture, Received Pending Juan Pablo Caballero Jul 07, 2016 09:15
[2016-07-07 10:35] LABS: PERCENT SATURATION 7.1 % (19.7-37.4); TOTAL IRON BINDING CAPACITY 351 UG/DL (250-450)
[2016-07-07 10:46] LABS: FOLATE > 24.0 NG/ML (>5.4); VITAMIN B12 LEVEL 1147 PG/ML (247-911)
[2016-07-07] MEDS ORDERED: CEFTAROLINE FOSAMIL 300 MG in D5W 50 ML IV SCH (11:00)
[2016-07-07] MEDS: CEFTAROLINE FOSAMIL 400 MG in D5W MINI-BAG PLUS 50 ML IV SCH (11:52)
--- NOTE | 2016-07-07 12:46 | ECGEPIP ---
Stationary ECG Study [facility] Test Date: 2016-07-07 Pat Name: SUHA MORALES Department: Room: [place] [address] Gender: M Grid Operator: ABDULAZIZ : 1955 Requested By: OLEG Tillman Order Number: [id number] Reading MD: Oleg Salmeron Measurements Intervals [place] Rate: 85 P: HI: 0 QRS: -24 QRSD: 145 T: 144 QT: 462 QTc: 550 Interpretive Statements Sinus rhythm Borderline first degree av block Prolonged QTc LVH LEFT BUNDLE BRANCH BLOCK Compared to prior tracing of 07-06-16 Electronically Signed On 07-07-2016 12:46:32 EST by Oleg Salmeron
--- NOTE | 2016-07-07 13:29 | CR ---
DATE OF CONSULTATION: 07/07/2016 Nephrology consultation for Emanuel Ruiz MD. Reason for consultation is acute renal failure superimposed on chronic kidney disease. HISTORY OF PRESENT ILLNESS: Mr. Finney is a 60-year-old gentleman with multiple chronic medical problems. He is admitted to [facility] due to worsening respiratory status. Apparently, the patient was here about a week ago and he signed himself out against medical advice. He later went to [facility] where he underwent cardiac catheterization due to recent non-ST elevation myocardial infarction (CO). Patient has worsening renal function now due to which nephrology consultation was requested. Apparently, his cardiac catheterization was reported unremarkable. Patient was treated on antibiotics and still receiving antibiotics. PAST MEDICAL AND SURGICAL HISTORY: Significant for: 1. History of insulin-dependent diabetes. 2. History of hypertension. 3. Throat cancer, status post laryngectomy and tracheostomy. 4. History of lung cancer status post upper lobe lobectomy. 5. History of aortic valve replacement. 6. History of chronic kidney disease. MEDICATIONS: Home medications include: - vitamin C - Ceftin 500 mg twice a day - Lasix 40 mg daily - insulin 70/30 twice a day - Xarelto 20 mg daily - Brilinta 90 mg daily - amiodarone 400 mg twice a day - amitriptyline 50 mg at bedtime - aspirin 81 mg daily - atorvastatin 10 mg daily - isosorbide 30 mg daily - Synthroid 175 mcg daily - magnesium oxide 400 mg twice a day - metoprolol 25 mg twice a day - multivitamin one tablet daily - omeprazole 20 mg daily - Requip 0.5 mg in the morning and 2 mg at night - Flomax 0.4 mg daily - tramadol as needed for pain ALLERGIES: Patient reports allergy to SHELLFISH. PERSONAL AND SOCIAL HISTORY: Patient has no history of smoking or alcohol use. He lives with a girlfriend. Family history is negative for kidney problems. REVIEW OF SYSTEMS: Patient has a tracheostomy and is using oxygen. He denies any fever or chills. Ears, nose and eyes are unremarkable. Cardiovascular system is significant for dyspnea and recent non-ST elevation CO. Patient is being treated for congestive heart failure. Respiratory system is significant for lung cancer and throat cancer in the past. He currently has a tracheostomy. Gastrointestinal (GI) system is negative for nausea, vomiting, diarrhea, rectal bleeding, abdominal pain. Genitourinary () system is significant for benign prostatic hypertrophy. Musculoskeletal system is negative for leg edema. Endocrine system is significant for diabetes and hypothyroidism. Neurological system is significant for restless legs. Skin is negative for rash or ulcers. Psychosocial system is unremarkable. PHYSICAL EXAMINATION: Middle-aged gentleman, sitting in the bed, using oxygen via trache collar. He had a tracheostomy. Temperature is 97.4 degrees Fahrenheit, heart rate 87 per minute and respiratory rate 16 per minute. Blood pressure 94/40 mmHg and oxygen saturation is 95% on 5 liters oxygen. Head is atraumatic. Tracheostomy hole is noted. Pupils are equal and reactive to light and sclera is anicteric. Ears and nose are unremarkable. Neck veins are about 8-9 cm above sternal angle. Neck is supple and there are no abnormal lymph nodes. Heart sounds are regular. Lungs sound clear to auscultation. Abdomen is soft and nontender. Bowel sounds are normal and there is no palpable organomegaly. Extremities have no cyanosis or clubbing. Skin has no rash or ulcers. Neurologically, he is awake and alert. Labs; Today WBC count16.4, hemoglobin 8.5 and hematocrit 31.6. ESR is 27. Sodium is 135 today and potassium 3.7. BUN 67 and creatinine 2.56. Glucose 280 and lactic acid level 1.7. His troponin was 3.7 yesterday and 3.44 today. C-reactive protein is 11.1. His serum creatinine was 2.25 yesterday. PROBLEMS: 1. Acute renal failure superimposed on chronic kidney disease. Patient has known history of chronic kidney disease with baseline serum creatinine in the range of 1.4 to 2.0 mg/dl since 2014. Now he has worsening kidney function probably due to either pneumonia or decompensated congestive heart failure or a combination of. He is receiving intravenous (IV) fluids and diuretics. I recommend to stop the IV fluids. His blood pressure is soft and we will probably have to hold off antihypertensive medications. Renal ultrasound is being ordered to rule out any possibility of obstruction and to assess the kidney size and texture. Patient has no uremic symptoms and there is no indication for dialysis at present. 2. Congestive heart failure. His volume status is clinically decompensated. He recently had a cardiac catheterization, which was reported unremarkable according to his history and physical. Patient has been on antiplatelet therapy and also has elevated troponin. At present, diuretic use might worsen his kidney function unless his hypotension improves. 3. Anemia. Patient also has significant anemia, which is a reflection of chronicity of his problems. We will hold off on Aranesp at this point due to decompensated volume status. 4. Pneumonia. Patient is currently being treated with IV antibiotics. I thank you for involving me in the care of Mr. Finney. I will follow him along with you. KELSY
[2016-07-07] MEDS: **hydrALAZINE** 10 MG TAB PO SCH ×2 (13:34→22:00)
--- NOTE | 2016-07-07 13:43 | REP ---
RENAL AND BLADDER ULTRASOUND: Real-time sonographic evaluation of the kidneys is performed and demonstrates both kidneys to be normal in size and echotexture, right kidney measuring 12.4 x 4.5 x 5.6 cm and left kidney 12.1 x 5.5 x 5.4 cm. There is no hydronephrosis bilaterally. No definite renal mass is seen. The urinary bladder is not well distended and demonstrates no gross abnormality. IMPRESSION: No hydronephrosis. Signed by Charlie Ayala MD 07/07/2016 03:56 P
[2016-07-07] MEDS: TAMSULOSIN 0.4 MG CAP PO SCH (21:00)
[2016-07-07] MEDS: AMITRIPTYLINE 50 MG TAB PO SCH (21:00)
--- NOTE | 2016-07-07 21:36 | CR ---
DATE OF CONSULTATION: 07/07/2016 REFERRING PHYSICIAN: DENYS Gibbs INDICATION: Congestive heart failure. HISTORY OF PRESENT ILLNESS: Mr. Finney is well known to me. He is a very complicated patient. He has a multitude of medical problems. Most recently he was hospitalized in our facility on several occasions, including his most recent stay from June 27 until June 30. He then presented with febrile illness associated with very prominent troponin elevation. He signed against medical advise and then drove himself to [facility], where he later underwent cardiac catheterization. Do not have a formal report of the procedure. Apparently there was no obstructive coronary artery disease. He had severe left ventricular (LV) systolic dysfunction and approximately moderate aortic stenosis. He was discharged home on July 04 but then presented to our facility on July 06 after spending only roughly 24 hours at home because of worsening dyspnea. The working diagnosis is congestive heart failure, which is consistent with finding on the chest x-ray and CT scan of the chest. At this point, the patient denies any chest discomfort. He also denies any recent fever or chills. There has been no nausea or vomiting, but he has been generally unwell. He did not notice any recent rash. PAST MEDICAL HISTORY 1. Coronary artery disease. He has a remote history of coronary intervention, but his most recent angiogram just last week was negative for obstructive disease. 2. Type 2 diabetes. 3. History of laryngeal cancer, status post total laryngectomy, tracheostomy, and chemotherapy and radiation therapy. 4. History of lung cancer status post right upper lobectomy. 5. Peripheral vascular disease. 6. Aortic valve replacement bioprosthesis and in 2011. 7. Chronic renal insufficiency with baseline creatinine between 1.5-2. 8. Hyperlipidemia. 9. Paroxysmal atrial fibrillation. 10. Probably nonischemic cardiomyopathy. 11. Benign prostatic hypertrophy (BPH). 12. Hyperlipidemia. SURGICAL HISTORY: Positive for: 1. Aortic valve replacement AVR) in 2011. 2. Right upper lobectomy in 2007. 3. Laryngectomy in 2009. 4. Left femoral-popliteal bypass in 2014. OUTPATIENT MEDICATIONS: - Ceftin 500 twice a day - Lasix 40 twice a day - insulin 70/30 - Xarelto 20 - Brilinta 90 twice a day - Amiodarone 400 twice a day - amitriptyline 50 at night - aspirin 81 a day - atorvastatin 10 a day - fish oil - isosorbide 30 a day - Synthroid 175 a day - magnesium 400 twice a day - metoprolol 25 twice a day - multivitamin - omeprazole - Requip - Flomax - tramadol as needed for pain ALLERGIES: She is intolerant to shellfish. FAMILY HISTORY: His father had coronary artery disease and of myocardial infarction ([place]) in his 60s. SOCIAL HISTORY: The patient is but lives with significant other. He used to smoke but quit in 2007. No significant alcohol use. REVIEW OF SYSTEMS: As per history of present illness, otherwise negative. Specifically, there is also no history of recent rash, as an addendum. PHYSICAL EXAMINATION: Mr. Finney is a pleasant 60-year-old man who appears approximately his age or older. He appears chronically ill but does not appear particularly acutely ill. Vital signs this morning: Blood pressure 80/50, heart rate in 80s. Afebrile. Saturation 90% on 5 liters of oxygen by nasal cannula. Weight was documented as 89.7 kg. He is alert, oriented, and appropriate in no distress. He is receiving oxygen by trach collar, 5 liters per minute. His jugular venous pulse (JVP) is high, at least 5 or 6 cm above clavicle. There is tracheostomy. There is extensive scarring on his neck. Lung sounds are relatively clear to auscultation. I do not appreciate any crackles or rhonchi. Heart exam reveals a very muffled heart sound with systolic ejection murmur at the base, no more than 1 or maximum 2/6 intensity. Second aortic sound is preserved. I do not appreciate any gallop or rub, but the heart sounds are very distant. Abdomen is obese but soft. No shifting dullness. No hepatosplenomegaly by physical exam. Extremities have trace edema. Peripheral pulses are palpable. Neurologically he is intact. There are no skin lesions. His palms and soles are clear. There are no splinter hemorrhages. LABORATORY: CBC: WBC count 16.4, hemoglobin 8.5, hematocrit 31, and platelet count 64,000. In differential, 83% neutrophils, 11 lymphocytes, 2 eosinophils, 6 enucleated red blood cells. Chemistry: Basic metabolic panel: Potassium 3.7, BUN 67, creatinine 2.6, GFR 27, glucose 280. Iron 25, TIBC 350, transferrin 7.1%. Elevated liver function test. Bilirubin 2.9, AST 91, ALT 97, alkaline phosphatase 138. Troponin 3.44, which is down from yesterday, 3.7. CRP 11. Vitamin B12 is normal. INR is 1.8. Heparin-induced antibodies are pending. Chest x-ray is consistent with cardiomegaly and congestive heart failure. CT of the chest also is suggestive of above, including heavy coronary calcifications, very enlarged heart. ASSESSMENT AND PLAN: Mr. Finney is a very complicated case. He had presented about a week ago with febrile illness associated with very high troponin elevation that eventually led to cardiac catheterization, but in spite of troponin reaching about 11 in our facility and apparently over 20 in [facility], there was no obstructive disease on chronic angiogram. That makes me think that there is probably either some formal vasculitic process, even though it should be also be seen by coronary angiogram, or some for myocardial process in the form of possibly viral illness. In any case, he will need principally supportive management for congestive heart failure. The treatment is further complicated by acute on chronic renal failure and very low blood pressure. At this point, I would leave him on very small dose of beta mark. Will try to introduce vasodilator in the form of hydralazine, holding parameters for low blood pressure, and will try to diurese him provided blood pressure is over 100 mm of mercury. I am hoping that there will be at least some recovery of renal function, provided the administered contrast contributed to its deterioration. There are numerous other issues. As far as the anemia is concerned, he is very iron deficient, and I will start oral supplementation. I will leave potential parenteral administration to nephrology service. He also has significant proteinuria, which is probably consequence of diabetes. As far as the coronary artery disease is concerned, because there was no recent intervention, I will discontinue the Brilinta and leave him only on baby aspirin because of very significant drop in platelets. He does not have any acute thrombotic event, so I do not think he needs to be anticoagulated, but heparin-induced antibodies were already sent. He will remain critically ill at least for several days, and I explained to him the gravity of the situation, but I am hoping that with some recovery of renal function, we will be able to introduce treatment for congestive heart failure, and there will be at least some improvement in his clinical status, but for the near future prognosis remains guarded. MTDD
[2016-07-07] MEDS: rOPINIRole 1MG TAB PO SCH (22:06)
[2016-07-07] MEDS: IRON POLYSAC (NIFEREX) 150 MG CAP PO SCH (22:07)
[2016-07-07] MEDS: LEVOTHYROXINE 0.1 MG TAB (100 MCG) PO SCH (22:07)
[2016-07-07] MEDS: CARVedilol 3.125 MG TAB PO SCH (22:07)
[2016-07-07] MEDS: ATORVASTATIN 10 MG TAB PO SCH (22:08)
[2016-07-07] MEDS: LEVOTHYROXINE 0.075 MG TAB (75 MCG) PO SCH (22:08)
[2016-07-08] VITALS (8 sets, daily range): BP systolic 84–105; BP diastolic 54–71
[2016-07-08] MEDS: CEFTAROLINE FOSAMIL 400 MG in D5W MINI-BAG PLUS 50 ML IV SCH ×3 (00:24→23:42)
[2016-07-08] MEDS: FUROSEMIDE 40 MG/4 ML VIAL (J1940) IV SCH ×3 (05:41→21:23)
[2016-07-08] MEDS: **hydrALAZINE** 10 MG TAB PO SCH ×3 (05:41→22:50)
[2016-07-08 06:12] LABS: DIFF SLIDE NUMBER 54; MEAN CORPUSCULAR HEMOGLOBIN 16.9 pg (27.0-33.0); MEAN CORPUSCULAR VOLUME 62.6 fl (80.0-96.0); RED CELL DISTRIBUTION WIDTH 21.4 % (11.5-14.5); WHITE BLOOD COUNT 12.6 K/mm3 (4.0-10.0)
[2016-07-08 06:14] LABS: ALBUMIN 2.8 GM/DL (3.2-5.2); ALBUMIN/GLOBULIN RATIO 0.64 (1.00-1.93); BILIRUBIN,TOTAL 2.5 MG/DL (0.2-1.0); CALCIUM LEVEL 8.6 MG/DL (8.5-10.1); CREATININE FOR GFR 2.41 MG/DL (0.70-1.30); GLOMERULAR FILTRATION RATE 29.6 (>56); MAGNESIUM LEVEL 2.4 MG/DL (1.8-2.4); POTASSIUM SERUM 3.2 MEQ/L (3.5-5.1); TOTAL PROTEIN 7.2 GM/DL (6.4-8.2)
[2016-07-08 07:17] LABS: PLATELET COUNT, AUTOMATED 53 k/mm3 (150-450)
[2016-07-08] MEDS ORDERED: POTASSIUM CHLORIDE 10 MEQ SR TABLET PO ONE (07:45)
[2016-07-08 08:20] LABS: EOSINOPHILS 4 % (0-5); NUCLEATED RED BLOOD CELL 3 % (0-0)
[2016-07-08 08:21] LABS: ANISOCYTOSIS 2+; HYPOCHROMASIA 3+; MICROCYTOSIS 3+
--- NOTE | 2016-07-08 08:26 | IPN ---
DATE: 07/08/2016 Mr. Finney is feeling slightly better today than yesterday. He was able to sleep for most of the night. He still feels very short of breath with minimal activity, but denies any chest pain. Blood pressure has been hanging in the 90s and about 100. Heart rate has been in the 80s to 90s. He is afebrile. Saturation is 100% on 5 liters of oxygen by trach collar. His fluid balance yesterday was a little difficult to document because of poorly monitored urine output, but weight is 89.2 kg, which is slightly down from yesterday. He is alert and oriented and appropriate. His jugular venous distention (JVP) is still high. Lungs though sound pretty clear to auscultation. Heart exam again reveals very muffled heart sounds. There is a murmur in the aortic position that is faint. Abdomen is obese, but soft. There is no peripheral edema. Laboratory-castelan, potassium is down to 3.2, BUN 71, creatinine 2.4, which is slightly down from yesterday, glucose 248, bilirubin 2.5, AST 125, ALT 154, alkaline phosphatase 460. CRP is 11. CBC: Hemoglobin 10.3, hematocrit 30, platelet count 53,000, which unfortunately is down from yesterday, and WBC count 12.6. ASSESSMENT AND PLAN: Mr. Finney is a 60-year-old man who has very complicated issues. He presented approximately two weeks ago with febrile illness associated with elevated white count and no obvious source. It was later complicated by myocardial necrosis as evidenced by very high troponin, but current angiogram failed to reveal any obstructive lesions. Consequently, I speculate that he most likely had some viral illness that was complicated by myocarditis. He has very low ejection fraction and suffers with congestive heart failure. It is acute on chronic systolic, diastolic. The situation is further complicated by concomitant restenosis of the aortic bioprosthesis, even though it was judged to be only moderate by cardiac catheterization. The gradient was over 30 in the setting of severe LV systolic dysfunction, so the estimation of severity can be compromised. On top of it, there is acute on chronic renal failure and he has a striking abnormality in cell counts. As far as the management of congestive heart failure is concerned, I will not make any additional changes. I changed his metoprolol for a very low dose Coreg because of acute heart failure. I do not think he is a candidate for MORENITA inhibitors or ARB because of concomitant renal failure. Will give him hydralazine in a very small dose with holding for blood pressure less than 100. I will continue giving him fairly high doses of diuretics because he is still clearly volume overloaded. I am trying to avoid administration with dobutamine because it has been associated with worse prognosis, but if worse comes and he develops severe hypotension, then we may be forced to start the medication. Even though his liver function tests are high, I will continue amiodarone at reduced dose, only 200 mg a day. I suspect that the liver function test abnormalities are related to liver congestion. Otherwise, the remaining issues remain with the primary team. His condition remains guarded, but I am seeing slight improvement since yesterday.
[2016-07-08] MEDS: HumaLOG INSULIN (NovoLOG) PER UNIT SC SCH ×4 (08:49→21:19)
[2016-07-08] MEDS: MULTIVITAMINS/MINERALS THERAP 1 TAB PO SCH (08:50)
[2016-07-08] MEDS: IRON POLYSAC (NIFEREX) 150 MG CAP PO SCH ×2 (08:50→21:20)
[2016-07-08] MEDS: MAGNESIUM OXIDE 400 MG TAB (MAG-OX) PO SCH ×2 (08:51→21:22)
[2016-07-08] MEDS: CARVedilol 3.125 MG TAB PO SCH ×2 (08:51→21:22)
[2016-07-08] MEDS: ASPIRIN 81 MG ENTERIC TAB PO SCH (08:51)
[2016-07-08] MEDS: OMEPRAZOLE 20 MG CAP PO SCH (08:51)
[2016-07-08] MEDS: AMIODARONE 200 MG TAB (PACERONE) PO SCH (08:51)
[2016-07-08] MEDS: rOPINIRole 0.25 MG TAB(REQUIP) PO SCH (08:51)
[2016-07-08] MEDS: OMEGA-3 1050MG CAPSULE PO SCH (08:51)
--- NOTE | 2016-07-08 09:32 | IPNPDOC ---
Subjective Date Seen The patient was seen on 07/08/16. Subjective Chief Complaint/HPI The patient is a 60-year-old male admitted with a reason for visit of CHF. Events since last encounter He feels better today. Less SOB. No CP. Reports some nausea. No vomiting or abd pain. No BM since admission. Reports some "black tarry stool in days leading up to admission? Constitutional: Denies: Chills, Fever Pulmonary: Reports: Dyspnea, Denies: Cough Cardiovascular: Denies: Chest Pain, Orthopnea, Palpitations Gastrointestinal: Reports: Melena, Nausea, Denies: Abdominal Pain, Constipation, Diarrhea, Vomiting Objective Physical Examination General Exam: Positive: Alert, No Acute Distress ENT Exam: Positive: Atraumatic Neck Exam: Positive: Other (tracheostomy), Supple Chest Exam: Positive: Clear to auscultation, Normal air movement Heart Exam: Positive: Rate Normal, Regular Rhythm Abdomen Exam: Positive: Normal bowel sounds, Soft, Negative: Tenderness Extremity Exam: Negative: Edema Skin Exam: Negative: Rash Assessment /Plan Problems (1) CHF (congestive heart failure) Status: Acute Problem Specific Plan: Consult Specialist, Monitor Clinically, Repeat Labs Problem Text: Consult Dr Peterson. Dr Peterson saw the pt. Dr Peterson advises stopping the IVF. He advises increasing the Lasix to 120 mg IV q 8h to hold for SBP<90. He advises stopping the Imdur and adding Hydralazine 10 mg PO q8 h to hold for SPB<100. He advises decreasing Amiodarone to 200 mg daily. BPs are soft. Dr Peterson wants to continue with diuresis. BP meds have hold parameters. ?May need Dobutamine if pressures continue to drop. 3/3 - Less dyspnea today with IV Lasix. Hydralazine held for BP parameters (2) Elevated troponin Status: Acute Problem Specific Plan: Consult Specialist, Monitor Clinically, Repeat Labs Problem Text: Dr Peterson consulted. Pt recently was hospitalized at [facility] with NSTEMI and left AMA. He later drove himself to [facility] and was admitted and underwent cardiac cath which was reported as unremarkable. Trops still elevated. He is not having any CP. 3/3 - No CP last 24 hours (3) CKD (chronic kidney disease) Status: Chronic Problem Specific Plan: Consult Specialist, Monitor Clinically, Repeat Labs Problem Text: Consult Dr Alvarado. 07/08 - Dr. Campuzano's consultation notes read and appreciated. (4) DM2 (diabetes mellitus, type 2) Status: Chronic Problem Specific Plan: Monitor Clinically, Repeat Labs Problem Text: On SSI BS running 300s - 400s Restart low dose 70/30 insulin (He was on 25 units BID prior to admission - recently started on this b/c unable to afford long acting insulin and oral meds including Metformin and Glipizide held due to acute on chronic kidney failure) (5) Anemia Status: Acute Problem Specific Plan: Monitor Clinically, Repeat Labs Problem Text: Iron deficient per recent iron studies. Xarelto held due to anemia and thrombocytopenia Check guiacs (reports ?black stool prior to admission - no BM since admission) Last colonoscopy 2014. Likely needs EGD if and when stable. (6) Thrombocytopenia Status: Acute Problem Specific Plan: Monitor Clinically, Repeat Labs Problem Text: HIT lab pending. Check ESR and CRP. On Aspirin and Brilinta - Will D/C the Brilinta. Discussed with Dr Peterson. (7) Hyperlipidemia Status: Chronic Problem Specific Plan: Monitor Clinically Problem Text: On Statin. (8) Hypothyroidism Status: Chronic Problem Specific Plan: Monitor Clinically Problem Text: On Synthroid. (9) CAD (coronary artery disease) Status: Chronic Problem Specific Plan: Monitor Clinically Problem Text: Cardiology following. See above. (10) Elevated LFTs Status: Acute Problem Specific Plan: Monitor Clinically, Repeat Labs Problem Text: Liver enzymes continue to rise despite diuresis. elevated T. Bili and D. Bili and rising alk phos suggest some obstructive process. Recent Liver US showed borderline CBD dilatation without stones - no RUQ tenderness, but does have some nausea. May need to repeat Liver US JFW: liver US ordered today (11) Leukocytosis Status: Acute Problem Specific Plan: Monitor Clinically, Repeat Labs Problem Text: On Zosyn. H&P states pt was being treated for pneumonia at [facility]. Will change abx to ceftaroline. Blood cx pending. WBC improved on Ceftaroline - B/C negative (12) Hypotension Status: Acute Problem Specific Plan: Consult Specialist, Monitor Clinically, Repeat Labs Problem Text: Cardiology consulted and following. Pt did receive IVF which have been stopped. Dr Peterson wants the pt to continue with diureses. ?May need dobutamine if pressures to continue to drop. Plan/VTE VTE Prophylaxis Ordered?: No VS, I&O, 24H, Fishbone Vital Signs/I&O Vital Signs Date Time Temp Pulse Resp B/P Pulse Ox O2 Delivery O2 Flow Rate FiO2 07/08/16 08:51 78 84/58 07/08/16 07:55 Trach Collar 5.0 28 07/08/16 07:30 96.0 24 95 I&O- Last 24 Hours up to 6 AM 07/08/16 05:59 Intake Total 2080 ml Output Total 600 ml Balance 1480 ml Laboratory Data 24H LABS Laboratory Tests 2 07/07/16 09:53: C-Reactive Protein, Quantitative 11.10H, Erythrocyte Sedimentation Rate 27H, Folate > 24.0, Iron Level 25L, Total Iron Binding Capacity 351, Transferrin % Saturation 7.1L, Vitamin B12 Level 1147H 07/07/16 12:03: Bedside Glucose (Misc Panel) 377H 07/07/16 16:06: Bedside Glucose (Misc Panel) 344H 07/07/16 18:37: Bedside Glucose (Misc Panel) 393H 07/07/16 20:36: Urine Amorphous Sediment SMALLH, Urine Appearance HAZY, Urine Color YELLOW, Urine pH 5.0, Urine Specific [place] 1.017, Urine Protein NEGATIVE, Urine Glucose (UA) 3+H, Urine Ketones NEGATIVE, Urine Urobilinogen 0.2, Urine Bilirubin NEGATIVE, Urine Leukocyte Esterase NEGATIVE, Urine Bacteria (Auto) NEGATIVE, Urine Blood NEGATIVE, Urine Calcium Carbonate Cryst(Auto) , Urine Calcium Oxalate Cryst (Auto) , Urine Calcium Phosphate [place] (Auto) , Urine Cellular Casts , Urine Cystine Crystals , Urine Granular Casts (Auto) , Urine Hyaline Casts (Auto) 4, Urine Leucine Crystals , Urine Mucus (Auto) , Urine Nitrite NEGATIVE, Urine Oval Fat Bodies (Auto) , Urine RBC (Auto) 0, Urine Renal Epithelial Cells , Urine Sperm (Auto) , Urine Squamous Epithelial Cells 0 , Urine Transitional Epithelial Cells , Urine Trichomonas (Auto) , Urine Triple Phosphate Cryst (Auto) , Urine Tyrosine Crystals , Urine Uric Acid Crystals ( Auto) , Urine WBC (Auto) 1, Urine Waxy Casts (Auto) , Urine Yeast-Like Cells ( Auto) 07/07/16 21:49: Bedside Glucose (Misc Panel) 423H 07/08/16 05:29: Blood Urea Nitrogen 71H, Creatinine 2.41H, Sodium Level 137, Potassium Level 3.2L, Chloride Level 94L, Carbon Dioxide Level 31, Calcium Level 8.6, Aspartate Amino Transf (AST/SGOT) 125H, Alanine Aminotransferase (ALT/SGPT) 154H, Alkaline Phosphatase 460H, Total Bilirubin 2.5H, Total Protein 7.2, Albumin 2.8L , Albumin/Globulin Ratio 0.64L, Anion Gap 12, Anisocytosis 2+, Eosinophils ( Manual) 4, Glomerular Filtration Rate 29.6L, Hypochromasia 3+, Lymphocytes ( Manual) 7L, Magnesium Level 2.4, Metamyelocytes 2H, Microcytosis 3+, Monocytes ( Manual) 4, Neutrophils 83H, Nucleated Red Blood Cells 3H, Platelet Estimate MARKED DECREASE CBC/BMP Laboratory Tests 07/08/16 05:29 Calcium Level 8.6, Aspartate Amino Transf (AST/SGOT) 125 H, Alanine Aminotransferase (ALT/SGPT) 154 H, Alkaline Phosphatase 460 H, Total Bilirubin 2.5 H, Total Protein 7.2, Albumin 2.8 L, Red Blood Count 4.93, Mean Corpuscular Volume 62.6 L, Mean Corpuscular Hemoglobin 16.9 L, Mean Corpuscular Hemoglobin Concent 27.0 L, Red Cell Distribution Width 21.4 H Microbiology Microbiology 07/06/16 Blood Culture - Preliminary, Resulted No growth after 24 hours . All specim... 07/06/16 Blood Culture - Preliminary, Resulted No growth after 24 hours . All specim... SUZETTE MARTINEZ PA-C Jul 08, 2016 09:32 Emanuel Martinez MD Jul 08, 2016 11:51
[2016-07-08] MEDS: POTASSIUM CHLORIDE 10 MEQ SR TABLET PO SCH ×3 (11:22→21:21)
[2016-07-08] MEDS: ONDANSETRON 4MG/2ML VIAL (J2405) IV PRN (16:32)
--- NOTE | 2016-07-08 17:23 | REP ---
RIGHT UPPER QUADRANT ULTRASOUND: Real-time sonographic evaluation of the right upper quadrant performed. The gallbladder demonstrates no evidence of intraluminal sludge or calculi, wall thickening or pericholecystic fluid. There is no intrahepatic or extrahepatic biliary dilatation, the common bile duct measuring 3 mm in diameter. The liver and pancreas demonstrate homogeneous echotexture with no gross mass, although the liver is increased in echotexture suggesting fatty infiltration. The pancreas is not optimally seen due to overlying bowel gas. The right kidney demonstrates no hydronephrosis or nephrolithiasis with normal size at 11.6 cm in length. There is no ascites. IMPRESSION: There appears to be fatty infiltration of the liver. Otherwise, unremarkable right upper quadrant ultrasound. Signed by Charlie Ayala MD 07/08/2016 08:37 P
[2016-07-08] MEDS: HumuLIN (NovoLIN)70/30 INSULIN INJ PER UNIT SC SCH (18:02)
--- NOTE | 2016-07-08 21:16 | IPN ---
DATE: 07/08/2016 Mr. Finney is seen this morning on his bedside. He reports feeling slightly better. He denies any nausea or vomiting. He has no fever or chills. His dyspnea is improving. PHYSICAL EXAMINATION: Temperature 96 degrees Fahrenheit, heart rate 88 per minute and respiratory rate 24 per minute. Blood pressure is 84/54 mmHg and oxygen saturation 95% on 5 liters oxygen via trach collar. Head is atraumatic. The patient is using oxygen via trach collar. Neck veins are about 8-9 cm above sternal angle. No oral thrush or ulcers noted. Pupils equal and reactive to light and sclerae is anicteric. Heart sounds are regular and lungs sound clear to auscultation. Abdomen soft and nontender and bowel sounds are normal. There is no palpable organomegaly. Extremities have no cyanosis or clubbing. Skin has no rash or ulcers. Intake and output records from yesterday showed total intake 1980 and output 600 mL. His weight is recorded at 89.2 kg today. Today's labs show WBC count 12.6, hemoglobin 8.3 and hematocrit 30.9. Sodium 137 and potassium 3.2. BUN 71 and creatinine 2.41. Glucose 248 and calcium 8.6. AST is up to 125, ALT 154 and alkaline phosphatase 460. PROBLEMS: 1. Acute kidney injury superimposed on chronic kidney disease. Slight improvement in kidney function is noted though he has been in positive fluid balance. Possibly his acute renal failure is related to infective causes. The patient is currently being treated for pneumonia. I am concerned about the gallbladder issue as his liver function tests (LFTs) have also worsened. 2. Congestive heart failure. He remains decompensated and is being diuresed with Lasix 120 mg every 8 hours. He has been in positive fluid balance and not responding to diuretics very well, most likely this is related to low blood pressure. 3. Hypokalemia. I suggest to replace his potassium with oral supplement and recheck his electrolytes. 4. Anemia. His anemia is slightly worse. At this point there is no indication for transfusion.
[2016-07-08] MEDS: LEVOTHYROXINE 0.075 MG TAB (75 MCG) PO SCH (21:20)
[2016-07-08] MEDS: LEVOTHYROXINE 0.1 MG TAB (100 MCG) PO SCH (21:21)
[2016-07-08] MEDS: TAMSULOSIN 0.4 MG CAP PO SCH (21:21)
[2016-07-08] MEDS: ATORVASTATIN 10 MG TAB PO SCH (21:22)
[2016-07-08] MEDS: AMITRIPTYLINE 50 MG TAB PO SCH (21:22)
[2016-07-08] MEDS: rOPINIRole 1MG TAB PO SCH (21:35)
[2016-07-09] VITALS (9 sets, daily range): BP systolic 84–116; BP diastolic 53–76
[2016-07-09] MEDS ORDERED: SLF 3 ML SYR IV PRN (00:15)
[2016-07-09] MEDS: **hydrALAZINE** 10 MG TAB PO SCH ×3 (05:35→21:06)
[2016-07-09 05:56] LABS: DIFF SLIDE NUMBER 32; MEAN CORPUSCULAR HGB CONC 26.8 g/dl (32.0-36.5); MEAN CORPUSCULAR VOLUME 63.5 fl (80.0-96.0); RED CELL DISTRIBUTION WIDTH 21.5 % (11.5-14.5); WHITE BLOOD COUNT 13.3 K/mm3 (4.0-10.0)
[2016-07-09] MEDS: SLF 3 ML SYR IV SCH ×3 (05:56→21:24)
[2016-07-09] MEDS: FUROSEMIDE 40 MG/4 ML VIAL (J1940) IV SCH ×3 (05:56→21:20)
[2016-07-09 06:14] LABS: PLATELET COUNT, AUTOMATED 64 k/mm3 (150-450)
[2016-07-09 06:25] LABS: ALBUMIN/GLOBULIN RATIO 0.71 (1.00-1.93); BILIRUBIN,TOTAL 2.8 MG/DL (0.2-1.0); CALCIUM LEVEL 8.6 MG/DL (8.5-10.1); CREATININE FOR GFR 2.12 MG/DL (0.70-1.30); GLOMERULAR FILTRATION RATE 34.3 (>56); POTASSIUM SERUM 3.1 MEQ/L (3.5-5.1); TOTAL PROTEIN 7.2 GM/DL (6.4-8.2)
[2016-07-09 07:47] LABS: EOSINOPHILS 3 % (0-5); NUCLEATED RED BLOOD CELL 2 % (0-0)
[2016-07-09 07:48] LABS: ANISOCYTOSIS 2+; GIANT PLATELETS 1+; HYPOCHROMASIA 3+
[2016-07-09 07:49] LABS: MICROCYTOSIS 3+; OVALOCYTES 2+
[2016-07-09] MEDS ORDERED: POTASSIUM CHLORIDE 10 MEQ SR TABLET PO ONE ×3 (08:00→14:00)
[2016-07-09] MEDS: IRON POLYSAC (NIFEREX) 150 MG CAP PO SCH ×2 (08:07→21:22)
[2016-07-09] MEDS: POTASSIUM CHLORIDE 10 MEQ SR TABLET PO SCH ×3 (08:07→21:21)
[2016-07-09] MEDS: rOPINIRole 0.25 MG TAB(REQUIP) PO SCH (08:07)
[2016-07-09] MEDS: OMEPRAZOLE 20 MG CAP PO SCH (08:07)
[2016-07-09] MEDS: ASPIRIN 81 MG ENTERIC TAB PO SCH (08:08)
[2016-07-09] MEDS: CARVedilol 3.125 MG TAB PO SCH ×2 (08:08→21:21)
[2016-07-09] MEDS: OMEGA-3 1050MG CAPSULE PO SCH (08:08)
[2016-07-09] MEDS: MULTIVITAMINS/MINERALS THERAP 1 TAB PO SCH (08:08)
[2016-07-09] MEDS: AMIODARONE 200 MG TAB (PACERONE) PO SCH (08:08)
[2016-07-09] MEDS: HumuLIN (NovoLIN)70/30 INSULIN INJ PER UNIT SC SCH ×2 (08:08→17:41)
[2016-07-09] MEDS: MAGNESIUM OXIDE 400 MG TAB (MAG-OX) PO SCH ×2 (08:08→21:22)
[2016-07-09] MEDS: HumaLOG INSULIN (NovoLOG) PER UNIT SC SCH ×4 (08:09→21:24)
--- NOTE | 2016-07-09 08:15 | IPNPDOC ---
Subjective Date Seen The patient was seen on 07/09/16. Subjective Chief Complaint/HPI The patient is a 60-year-old male admitted with a reason for visit of CHF. Events since last encounter Pt states he is feeling a little better. Still with SOB. Denies CP. Denies Abd pain. Constitutional: Denies: Chills, Fever Pulmonary: Reports: Dyspnea Cardiovascular: Denies: Chest Pain Gastrointestinal: Denies: Abdominal Pain, Nausea, Vomiting Objective Physical Examination General Exam: Positive: Alert, No Acute Distress ENT Exam: Positive: Atraumatic Neck Exam: Positive: Other (tracheostomy), Supple Chest Exam: Positive: Clear to auscultation, Diminished Heart Exam: Positive: Rate Normal, Regular Rhythm Abdomen Exam: Positive: Normal bowel sounds, Soft, Negative: Tenderness Extremity Exam: Negative: Edema Skin Exam: Negative: Rash Assessment /Plan Problems (1) Leukocytosis Status: Acute Problem Specific Plan: Monitor Clinically, Repeat Labs Problem Text: ceftaroline D3-emperic treatment for pneumonia-afebrile since admission 07/09 WBC 13.3 today (12.6 yesterday) 07/06 CT chest CHF s infiltrate 07/06 BCX x 2 NG (2) CHF (congestive heart failure) Status: Acute Problem Specific Plan: Consult Specialist, Monitor Clinically, Repeat Labs Problem Text: Dr Peterson states he would like to avoid using dobutamine if possible but may need to use it if BPs worsen. 07/09 - Cardiology following. IV Lasix 120 mg q8 hrs with hold parameters. Carvedilol, hydralazine with hold parameters, d/c TCA 3/ - Less dyspnea today with IV Lasix. Hydralazine held for BP parameters (3) Elevated troponin Status: Acute Problem Specific Plan: Consult Specialist, Monitor Clinically, Repeat Labs Problem Text: ? 2 viral myocarditis given -catherization at [facility] (4) CKD (chronic kidney disease) Status: Chronic Problem Specific Plan: Consult Specialist, Monitor Clinically, Repeat Labs Problem Text: DEMIAN 2 3/ down to 2.1 c diuresis, K 3.1-110 po total given, Mg 2.0 3 renal US s hydro 3/2 - UA baseline cr mid 1s (5) DM2 (diabetes mellitus, type 2) Status: Chronic Problem Specific Plan: Monitor Clinically, Repeat Labs Problem Text: On SSI BS running 300s - 400s Restart low dose 70/30 insulin (He was on 25 units BID prior to admission - recently started on this b/c unable to afford long acting insulin and oral meds including Metformin and Glipizide held due to acute on chronic kidney failure) (6) Anemia Status: Acute Problem Specific Plan: Monitor Clinically, Repeat Labs Problem Text: Iron deficient per recent iron studies. Xarelto held due to anemia and thrombocytopenia Check guiacs (reports ?black stool prior to admission - no BM since admission) Last colonoscopy 2014. Likely needs EGD if and when stable. (7) Thrombocytopenia Status: Acute Problem Specific Plan: Monitor Clinically, Repeat Labs Problem Text: HIT lab pending. Check ESR and CRP. On Aspirin and Brilinta - Will D/C the Brilinta. Discussed with Dr Peterson. (8) Hyperlipidemia Status: Chronic Problem Specific Plan: Monitor Clinically Problem Text: On Statin. (9) Hypothyroidism Status: Chronic Problem Specific Plan: Monitor Clinically Problem Text: On Synthroid. Plan/VTE VTE Prophylaxis Ordered?: No VS, I&O, 24H, Fishbone Vital Signs/I&O Vital Signs Date Time Temp Pulse Resp B/P Pulse Ox O2 Delivery O2 Flow Rate FiO2 07/09/16 05:35 100/68 07/09/16 05:30 98.2 75 18 94 Trach Collar 28 07/09/16 00:10 5.0 I&O- Last 24 Hours up to 6 AM 07/09/16 06:00 Intake Total 740 ml Output Total 1350 ml Balance -610 ml Laboratory Data 24H LABS Laboratory Tests 2 07/08/16 11:50: Bedside Glucose (Misc Panel) 386H 07/08/16 17:53: Bedside Glucose (Misc Panel) 218H 07/08/16 20:56: Bedside Glucose (Misc Panel) 277H 07/09/16 05:08: Blood Urea Nitrogen 63H, Creatinine 2.12H, Sodium Level 138, Potassium Level 3.1L, Chloride Level 94L, Carbon Dioxide Level 33H, Calcium Level 8.6, Aspartate Amino Transf (AST/SGOT) 54H, Alanine Aminotransferase (ALT/SGPT) 113H , Alkaline Phosphatase 350H, Total Bilirubin 2.8H, Total Protein 7.2, Albumin 3.0L, Albumin/Globulin Ratio 0.71L, Anion Gap 11, Anisocytosis 2+, Eosinophils ( Manual) 3, Giant Platelets 1+, Glomerular Filtration Rate 34.3L, Hypochromasia 3 +, Lymphocytes (Manual) 7L, Magnesium Level 2.0, Microcytosis 3+, Monocytes ( Manual) 2, Neutrophils 88H, Nucleated Red Blood Cells 2H, Ovalocytes 2+, Platelet Estimate MARKED DECREASE CBC/BMP Laboratory Tests 07/09/16 05:08 Calcium Level 8.6, Aspartate Amino Transf (AST/SGOT) 54 H, Alanine Aminotransferase (ALT/SGPT) 113 H, Alkaline Phosphatase 350 H, Total Bilirubin 2.8 H, Total Protein 7.2, Albumin 3.0 L, Red Blood Count 4.94, Mean Corpuscular Volume 63.5 L, Mean Corpuscular Hemoglobin 17.0 L, Mean Corpuscular Hemoglobin Concent 26.8 L, Red Cell Distribution Width 21.5 H Microbiology Microbiology 07/06/16 Blood Culture - Preliminary, Resulted No Growth after 48 hours. All Specime... 07/06/16 Blood Culture - Preliminary, Resulted No Growth after 48 hours. All Specime... Juan Pablo Caballero Jul 09, 2016 08:14 Pastor Brown M.D. Jul 09, 2016 15:12 07/09/16 05:08: Blood Urea Nitrogen 63H, Creatinine 2.12H, Sodium Level 138, Potassium Level 3.1L, Chloride Level 94L, Carbon Dioxide Level 33H, Calcium Level 8.6, Aspartate Amino Transf (AST/SGOT) 54H, Alanine Aminotransferase (ALT/SGPT) 113H , Alkaline Phosphatase 350H, Total Bilirubin 2.8H, Total Protein 7.2, Albumin 3.0L, Albumin/Globulin Ratio 0.71L, Anion Gap 11, Anisocytosis 2+, Eosinophils ( Manual) 3, Giant Platelets 1+, Glomerular Filtration Rate 34.3L, Hypochromasia 3 +, Lymphocytes (Manual) 7L, Magnesium Level 2.0, Microcytosis 3+, Monocytes ( Manual) 2, Neutrophils 88H, Nucleated Red Blood Cells 2H, Ovalocytes 2+, Platelet Estimate MARKED DECREASE CBC/BMP Laboratory Tests 07/09/16 05:08 Calcium Level 8.6, Aspartate Amino Transf (AST/SGOT) 54 H, Alanine Aminotransferase (ALT/SGPT) 113 H, Alkaline Phosphatase 350 H, Total Bilirubin 2.8 H, Total Protein 7.2, Albumin 3.0 L, Red Blood Count 4.94, Mean Corpuscular Volume 63.5 L, Mean Corpuscular Hemoglobin 17.0 L, Mean Corpuscular Hemoglobin Concent 26.8 L, Red Cell Distribution Width 21.5 H Microbiology Microbiology 07/06/16 Blood Culture - Preliminary, Resulted No Growth after 48 hours. All Specime... 07/06/16 Blood Culture - Preliminary, Resulted No Growth after 48 hours. All Specime... Juan Pablo Caballero Jul 09, 2016 08:14
--- NOTE | 2016-07-09 10:26 | IPN ---
DATE OF SERVICE: 07/09/2016 Mr. Finney tells me that he feels slightly better, a little less short of breath, even though still has New Heart Association class III to IV dyspnea. Was able to sleep. Denies any chest discomfort. Vital signs: Blood pressure runs low typically in high 80s/low 90s, occasionally 100s. Heart rate is from 70s to 80s. He is afebrile. Saturations 96% on trach collar with 28% FiO2. His fluid balance yesterday was documented about 600 negative. Weight was not documented this morning. He is alert and oriented and appropriate. His jugular venous pressure (JVP) is still high. Lungs, though, sound clear. Heart examination is unchanged. Very muffled heart sound. There is a faint systolic murmur at the base, and there is also a murmur at the apex but not more than 1 or 2 out of 6. Abdomen is still obese but soft, nontender. No shifting dullness. No peripheral edema. Neurologically, he is intact. Laboratory-castelan: Potassium this morning was only 3.1, BUN 63, creatinine 2.1, for calculated GFR 34, glucose was 238, magnesium was 2.0, bilirubin 2.8, AST 54, ALT 113, alkaline phosphatase 350. This is all slowly improving. Albumin is 3.0. CBC reveals hemoglobin 8.4, hematocrit 31, and platelet count 64,000, which is slightly up from yesterday. WBC count is 13.3. ASSESSMENT AND PLAN: Mr. Finney is a 60-year-old man who has multiple medical problems. He principally has currently congestive heart failure due to severe cardiomyopathy and low left ventricular systolic function. There is a concomitant approximately moderate aortic stenosis and acute on chronic renal insufficiency. I would suspect that he probably had some form of viral myocarditis about 2 weeks ago that led to fairly significant troponin elevation without evidence for new obstructive disease and coronary angiogram. His condition remains guarded, but he seems to be slowly improving. I am not going to change any of his medications today again. Unfortunately, blood pressure remains too low to be able to up-titrate his medications. His low doses of Coreg and hydralazine are being held at times because of blood pressure. I am still worried about his prognosis, but it looks a little bit better than few days ago. I do foresee that he will remain in hospital for at least another 3-4 days if not longer. MTDD
[2016-07-09] MEDS: CEFTAROLINE FOSAMIL 400 MG in D5W MINI-BAG PLUS 50 ML IV SCH (12:02)
[2016-07-09 16:06] LABS: REASON FOR REVIEW COMPREHENSIVE REVIEW
[2016-07-09] MEDS ORDERED: IRON SUCROSE 100 MG/5 ML INJ (J1756) IV ONE (18:30)
[2016-07-09] MEDS ORDERED: IRON SUCROSE 25 MG in NS 50 ML IV ONE (19:00)
[2016-07-09] MEDS ORDERED: IRON SUCROSE 475 MG in NS 250 ML IV ONE (20:00)
[2016-07-09] MEDS: TAMSULOSIN 0.4 MG CAP PO SCH (21:05)
[2016-07-09] MEDS: ATORVASTATIN 10 MG TAB PO SCH (21:21)
[2016-07-09] MEDS: LEVOTHYROXINE 0.075 MG TAB (75 MCG) PO SCH (21:21)
[2016-07-09] MEDS: rOPINIRole 1MG TAB PO SCH (21:22)
[2016-07-09] MEDS: LEVOTHYROXINE 0.1 MG TAB (100 MCG) PO SCH (21:23)
[2016-07-09] MEDS: IPRATROPIUM 0.5MG/ALBUTEROL 2.5MG INH SOL UD 3ML (DUONEB)(J7620) NEB PRN (22:03)
[2016-07-10] VITALS (8 sets, daily range): BP systolic 88–120; BP diastolic 52–75
[2016-07-10] MEDS: CEFTAROLINE FOSAMIL 400 MG in D5W MINI-BAG PLUS 50 ML IV SCH (00:07)
[2016-07-10] MEDS: IPRATROPIUM 0.5MG/ALBUTEROL 2.5MG INH SOL UD 3ML (DUONEB)(J7620) NEB PRN ×4 (02:12→22:12)
[2016-07-10] MEDS: SLF 3 ML SYR IV SCH ×3 (05:07→21:28)
[2016-07-10] MEDS: FUROSEMIDE 40 MG/4 ML VIAL (J1940) IV SCH ×3 (05:07→21:27)
[2016-07-10 05:26] LABS: BASO % 0.2 % (0.0-1.0); EOS # 0.4 K/mm3 (0.0-0.50); EOS % 2.2 % (0.0-3.0); LARGE UNSTAINED CELL # 0.2 K/mm3 (0.0-0.4); LARGE UNSTAINED CELL % 1.3 % (0.0-4.0); LYMPH # 1.2 K/mm3 (1.5-4.5); LYMPH % 6.7 % (24.0-44.0); MEAN CORPUSCULAR HEMOGLOBIN 17.3 pg (27.0-33.0); MEAN CORPUSCULAR HGB CONC 27.1 g/dl (32.0-36.5); MEAN CORPUSCULAR VOLUME 63.7 fl (80.0-96.0); MONO # 0.4 K/mm3 (0.0-0.8); MONO % 2.3 % (0.0-5.0); NEUTROPHILS # 15.8 K/mm3 (1.8-7.7); NEUTROPHILS % 87.2 % (36.0-66.0); RED CELL DISTRIBUTION WIDTH 22.4 % (11.5-14.5); WHITE BLOOD COUNT 18.2 K/mm3 (4.0-10.0)
[2016-07-10 05:30] LABS: PLATELET COUNT, AUTOMATED 77 k/mm3 (150-450)
[2016-07-10 05:39] LABS: ALBUMIN 2.9 GM/DL (3.2-5.2); ALBUMIN/GLOBULIN RATIO 0.66 (1.00-1.93); CALCIUM LEVEL 8.8 MG/DL (8.5-10.1); CREATININE FOR GFR 1.82 MG/DL (0.70-1.30); GLOMERULAR FILTRATION RATE 40.9 (>56); MAGNESIUM LEVEL 2.5 MG/DL (1.8-2.4); POTASSIUM SERUM 3.9 MEQ/L (3.5-5.1); TOTAL PROTEIN 7.3 GM/DL (6.4-8.2)
[2016-07-10] MEDS: **hydrALAZINE** 10 MG TAB PO SCH ×3 (05:46→21:25)
--- NOTE | 2016-07-10 07:48 | IPNPDOC ---
Subjective Date Seen The patient was seen on 07/10/16. Subjective Chief Complaint/HPI The patient is a 60-year-old male admitted with a reason for visit of CHF. Events since last encounter Pt states he still has some SOB but feels it is improving. Denies CP, Abd pain , fevers. Constitutional: Denies: Chills, Fever Pulmonary: Reports: Dyspnea Cardiovascular: Denies: Chest Pain Gastrointestinal: Denies: Abdominal Pain, Nausea, Vomiting Objective Physical Examination General Exam: Positive: Alert, No Acute Distress ENT Exam: Positive: Atraumatic Neck Exam: Positive: Other (tracheostomy), Supple Chest Exam: Positive: Clear to auscultation, Diminished Heart Exam: Positive: Rate Normal, Regular Rhythm Abdomen Exam: Positive: Normal bowel sounds, Soft, Negative: Tenderness Extremity Exam: Negative: Edema Skin Exam: Negative: Rash Assessment /Plan Problems (1) Leukocytosis Status: Acute Problem Specific Plan: Monitor Clinically, Repeat Labs Problem Text: 07/10 - ceftaroline D4-emperic treatment for pneumonia. Afebrile since admission. Unknown what is being treated. WBC up. Will D/c Ceftaroline. Repeat blood cx ordered. Urine cx ordered. Suctioned sputum cx ordered. 07/09 - ceftaroline D3-emperic treatment for pneumonia-afebrile since admission 07/09 WBC 13.3 today (12.6 yesterday) 07/09 - PCR resp panel 07/06 CT chest CHF s infiltrate 07/06 BCX x 2 NG (2) CHF (congestive heart failure) Status: Acute Problem Specific Plan: Consult Specialist, Monitor Clinically, Repeat Labs Problem Text: 07/10 - Cardiology following. IV Lasix 120 mg q8 hrs with hold parameters. Carvedilol, hydralazine with hold parameters. Dr Peterson states he would like to avoid using dobutamine if possible but may need to use it if BPs worsen. 07/09 - Cardiology following. IV Lasix 120 mg q8 hrs with hold parameters. Carvedilol, hydralazine with hold parameters, d/c TCA 3/ - Less dyspnea today with IV Lasix. Hydralazine held for BP parameters (3) Elevated troponin Status: Acute Problem Specific Plan: Consult Specialist, Monitor Clinically, Repeat Labs Problem Text: ? 2 viral myocarditis given -catherization at [facility] (4) CKD (chronic kidney disease) Status: Chronic Problem Specific Plan: Consult Specialist, Monitor Clinically, Repeat Labs Problem Text: 07/10 - Nephrology following. Creat trending down to 1.82. K improved to 3.9 with replacement. Mg 2.5. DEMIAN 2 07/09 down to 2.1 c diuresis, K 3.1-110 po total given, Mg 2.0 07/07 renal US s hydro 07/07 - UA baseline cr mid 1s (5) DM2 (diabetes mellitus, type 2) Status: Chronic Problem Specific Plan: Monitor Clinically, Repeat Labs Problem Text: On SSI BS running 300s - 400s Restart low dose 70/30 insulin (He was on 25 units BID prior to admission - recently started on this b/c unable to afford long acting insulin and oral meds including Metformin and Glipizide held due to acute on chronic kidney failure) (6) Anemia Status: Acute Problem Specific Plan: Monitor Clinically, Repeat Labs Problem Text: Iron deficient per recent iron studies. Xarelto held due to anemia and thrombocytopenia Check guiacs (reports ?black stool prior to admission - no BM since admission) Last colonoscopy 2014. Likely needs EGD if and when stable. (7) Thrombocytopenia Status: Acute Problem Specific Plan: Monitor Clinically, Repeat Labs Problem Text: favor -drug-induced immune-? 2 Zosyn (last dose 07/07)/heparin vs infection induced baseline 06/22 210K 07/10 up to 77K 07/10 minimally elevated HIT Ab 0.442 (0-0.40) On Aspirin and Brilinta - Will D/C the Brilinta. Discussed with Dr Peterson. (8) Hyperlipidemia Status: Chronic Problem Specific Plan: Monitor Clinically Problem Text: On Statin. (9) Hypothyroidism Status: Chronic Problem Specific Plan: Monitor Clinically Problem Text: On Synthroid. Plan/VTE VTE Prophylaxis Ordered?: No VS, I&O, 24H, Fishbone Vital Signs/I&O Vital Signs Date Time Temp Pulse Resp B/P Pulse Ox O2 Delivery O2 Flow Rate FiO2 07/10/16 05:46 110/64 07/10/16 05:41 95 07/10/16 04:00 Trach Collar 28 07/10/16 04:00 97.9 20 95 07/10/16 02:09 5.0 I&O- Last 24 Hours up to 6 AM 07/10/16 06:00 Intake Total 1874.25 ml Output Total 1275 ml Balance 599.25 ml Laboratory Data 24H LABS Laboratory Tests 2 07/09/16 11:47: Bedside Glucose (Misc Panel) 424H 07/09/16 15:57: Differential Pathologist's Review COMPREHENSIVE REVIEW, Differential Slide Review Report, Peripheral Blood Smear Path Consult PERIPHERAL SMEAR 07/09/16 16:55: Bedside Glucose (Misc Panel) 337H 07/09/16 20:56: Bedside Glucose (Misc Panel) 322H 07/10/16 04:32: Blood Urea Nitrogen 52H, Creatinine 1.82H, Sodium Level 137, Potassium Level 3.9 #, Chloride Level 95L, Carbon Dioxide Level 33H, Calcium Level 8.8, Aspartate Amino Transf (AST/SGOT) 36, Alanine Aminotransferase (ALT/SGPT) 80H, Alkaline Phosphatase 275H, Total Bilirubin 3.0H, Total Protein 7.3, Albumin 2.9L, Albumin /Globulin Ratio 0.66L, Anion Gap 9, White Blood Count 18.2H, Red Blood Count 5.16, Hemoglobin 8.9L, Hematocrit 32.8L, Mean Corpuscular Volume 63.7L, Mean Corpuscular Hemoglobin 17.3L, Mean Corpuscular Hemoglobin Concent 27.1L, Red Cell Distribution Width 22.4H, Platelet Count 77L, Neutrophils (%) (Auto) 87.2H , Lymphocytes (%) (Auto) 6.7L, Monocytes (%) (Auto) 2.3, Eosinophils (%) (Auto) 2.2, Basophils (%) (Auto) 0.2, Neutrophils # (Auto) 15.8H, Lymphocytes # (Auto) 1.2L, Monocytes # (Auto) 0.4, Eosinophils # (Auto) 0.4, Basophils # (Auto) 0.0, Glomerular Filtration Rate 40.9L, Large Unclassified Cells # 0.2, Large Unclassified Cells % 1.3, Magnesium Level 2.5H CBC/BMP Laboratory Tests 07/10/16 04:32 Calcium Level 8.8, Aspartate Amino Transf (AST/SGOT) 36, Alanine Aminotransferase (ALT/SGPT) 80 H, Alkaline Phosphatase 275 H, Total Bilirubin 3.0 H, Total Protein 7.3, Albumin 2.9 L, Red Blood Count 5.16, Mean Corpuscular Volume 63.7 L, Mean Corpuscular Hemoglobin 17.3 L, Mean Corpuscular Hemoglobin Concent 27.1 L, Red Cell Distribution Width 22.4 H, Neutrophils (%) (Auto) 87.2 H, Lymphocytes (%) (Auto) 6.7 L, Monocytes (%) (Auto) 2.3, Eosinophils (%) (Auto ) 2.2, Basophils (%) (Auto) 0.2, Neutrophils # (Auto) 15.8 H, Lymphocytes # ( Auto) 1.2 L, Monocytes # (Auto) 0.4, Eosinophils # (Auto) 0.4, Basophils # (Auto ) 0.0 Microbiology Microbiology 07/06/16 Blood Culture - Preliminary, Resulted No Growth after 72 hours. All specime... 07/06/16 Blood Culture - Preliminary, Resulted No Growth after 72 hours. All specime... 07/09/16 Respiratory Virus Panel (PCR) ([facility]UEL) - Final, Complete Juan Pablo Caballero Jul 10, 2016 07:48 Pastor Brown M.D. Jul 10, 2016 15:05
--- NOTE | 2016-07-10 07:49 | IPN ---
DATE OF SERVICE: 07/09/2016 SUBJECTIVE: Patient was seen and examined at the bedside today in the morning. He continues to have a good diuretic response. His CHF is improving and his creatinine continues to improve with diuresis. REVIEW OF SYSTEMS: The patient denies any fevers, chills, rigors, headache, nausea, vomiting, or chest pain. He reports shortness of breath is improving. The patient denies any pain in the abdomen, constipation or diarrhea; however, he does report bilateral lower extremity pain and cramps. OBJECTIVE: VITAL SIGNS: Temperature is 96.6 degrees Fahrenheit. Blood pressure is 89/56, pulse is 84, respiratory rate is 18, saturating 96% on trach collar. INTAKE AND OUTPUT: Urine output recorded was 1375 mL yesterday. 1 liter so far today since overnight. Weight on the bed scale was 89.2 kg yesterday. PHYSICAL EXAMINATION: GENERAL: Patient is awake, alert, oriented times three sitting on the bed in no apparent distress. Currently on trach collar. HEAD/NECK EXAM: Extraocular muscles intact. Pupils equally round and reactive to light. Mucous membranes are moist. Neck is supple. Patient has a trach collar and tracheostomy. CARDIOVASCULAR: S1 and S2, regular rate. No murmur, rub or gallop. RESPIRATORY: Chest is clear to auscultation bilaterally. Bilateral equal air entry. No rales or rhonchi. ABDOMEN: Soft, positive bowel sounds, nontender. No ascites. No organomegaly. EXTREMITIES: No clubbing or cyanosis. No edema of the bilateral lower extremities. Positive mild tenderness to palpation on the lower extremities. OPTOMETRIC ASSISTANT: No focal neurological deficit. Power is 5/5 in all extremities. SKIN: No rashes or ulcers. PSYCH: Normal mood and affect. CBC showed a WBC of 13.3, hemoglobin is 8.4, platelets are 64. BMP showed sodium 138, potassium 3.1, chloride 194, bicarb 33, BUN 63, creatinine is 2.1, it was 2.4 yesterday. Albumin is 3. Microbiology: Respiratory viral panel is pending. IMAGING: Ultrasound of the liver done yesterday showed fatty infiltration of the liver. CURRENT MEDICATIONS: The patient's medications were all reviewed by me. The patient got an additional dose of potassium 40 mEq by mouth and 30 mEq by mouth times one dose today morning. There is no other change in the medications today as compared with yesterday. ASSESSMENT: 60-year-old male with congestive heart failure (CHF) and acute kidney injury superimposed on chronic kidney disease. PLAN: 1. Acute kidney injury superimposed on chronic kidney disease. It is most likely secondary to decompensated congestive heart failure (CHF). Patient continues to diurese well with current dose of diuretics. His kidney function continues to improve. Continue to monitor for now. 2. Congestive heart failure, which is decompensated at this time. He is being diuresed with Lasix 120 mg IV every 8 hours. Patient is hypotensive as well. Management of diuretics is as per cardiology at this time. 3. Hypokalemia. The patient's potassium is 3.1 today. Patient got additional dose of 70 mEq of potassium today morning. Continue current dose of potassium. 10 mEq by mouth three times a day as well. 4. Anemia of chronic kidney disease. The patient's hemoglobin is 8.4 at this time. No urgent need of blood transfusion at this time. The patient's iron levels are already low at this time and I am going to give the patient a dose of Venofer as well.
[2016-07-10] MEDS: rOPINIRole 0.25 MG TAB(REQUIP) PO SCH (08:41)
[2016-07-10] MEDS: AMIODARONE 200 MG TAB (PACERONE) PO SCH (08:41)
[2016-07-10] MEDS: ASPIRIN 81 MG ENTERIC TAB PO SCH (08:41)
[2016-07-10] MEDS: HumuLIN (NovoLIN)70/30 INSULIN INJ PER UNIT SC SCH ×2 (08:42→18:27)
[2016-07-10] MEDS: POTASSIUM CHLORIDE 10 MEQ SR TABLET PO SCH ×3 (08:43→21:25)
[2016-07-10] MEDS: MULTIVITAMINS/MINERALS THERAP 1 TAB PO SCH (08:43)
[2016-07-10] MEDS: OMEGA-3 1050MG CAPSULE PO SCH (08:43)
[2016-07-10] MEDS: OMEPRAZOLE 20 MG CAP PO SCH (08:43)
[2016-07-10] MEDS: IRON POLYSAC (NIFEREX) 150 MG CAP PO SCH ×2 (08:43→21:26)
[2016-07-10] MEDS: HumaLOG INSULIN (NovoLOG) PER UNIT SC SCH ×4 (08:44→21:28)
[2016-07-10] MEDS: CARVedilol 3.125 MG TAB PO SCH ×2 (08:45→21:26)
[2016-07-10] MEDS: MAGNESIUM OXIDE 400 MG TAB (MAG-OX) PO SCH ×2 (08:46→16:33)
--- NOTE | 2016-07-10 11:34 | IPN ---
DATE OF PROCEDURE: 07/10/2016 Mr. Finney tells me that he feels a little bit better than yesterday. Still has dyspnea with mild exertion but no dyspnea at rest and overall has been feeling more energetic. The day yesterday was relatively uneventful. He did receive IV iron infusion. Vital signs: Blood pressure 88/55, heart rate is in mostly 90s sinus rhythm, he is afebrile. Saturation is 94% on 5 liters of trache collar. Fluid balance yesterday was documented as slightly positive yet weight is 88.6 kg which is slightly down from 2 days ago. He is alert and oriented and appropriate. His JVP is still high. Lungs though are clear. Heart exam reveals very muffled heart sound. There is a murmur at the aortic valve area about 1-2/6 intensity. It is difficult to appreciate a closing sound. There is also murmur at the apex. There is about 1-2/6 intensity consistent with MR. Abdomen is protuberant but soft and nontender. No hepatosplenomegaly. There is no peripheral edema to speak of. Neurologically appears intact other than generalized weakness. LABORATORY: Basic metabolic panel: Potassium 3.9, BUN 52, creatinine 1.8, GFR is 41, glucose 223, magnesium 2.5, bilirubin 3.0, AST 36, ALT 80, alkaline phosphatase 275 days. There are all improving. Albumin is 2.9. CBC reveals WBC count 18.2, hemoglobin 8.9, hematocrit 32, platelet count 77,000. With the exception of white cell count, they are all moving in the right direction. Yesterday the blood smear was reviewed by pathologist. They are questioning whether the patient may have babesiosis. Clinically it seems less likely. Otherwise his heparin-induced antibodies are borderline positive, which would indicate that we will have to stay away from any heparinoids for near future. Because he has no bleeding or thrombotic signs and improving platelet count, I think that we do not need to give him additional anticoagulation. ASSESSMENT/PLAN: Mr. Finney is a 60-year-old man who presented approximately 2-3 weeks ago with febrile illness associated with besides other myocarditis, coronary angiogram did not reveal any obstructive disease. It looks like he is clinically slowly improving even though he has ongoing congestive heart failure. The situation was further complicated by development of acute on chronic renal failure. Fortunately is improving in this regard as well. His additional problem is aortic stenosis. He is status post aortic valve replacement with bioprosthesis and even in setting of severe depressed LV systolic function, his mean gradient is over 30. At this point, I would continue current management. I would love to increase the dose of hydralazine or beta-mark, but his blood pressure remains low and the drugs have been held on many occasions and consequently I am going to leave the doses unchanged. I am slightly encouraged by improving renal function and also improving platelet count. I still do not know what is the underlying illness. The respiratory panel viruses was negative by PCR and the blood cultures have been all negative for over 72 hours. MTDD
[2016-07-10] MEDS: traMADol 50 MG TAB PO PRN (15:39)
[2016-07-10] MEDS: rOPINIRole 1MG TAB PO SCH (21:24)
[2016-07-10] MEDS: TAMSULOSIN 0.4 MG CAP PO SCH (21:25)
[2016-07-10] MEDS: LEVOTHYROXINE 0.1 MG TAB (100 MCG) PO SCH (21:25)
[2016-07-10] MEDS: ATORVASTATIN 10 MG TAB PO SCH (21:25)
[2016-07-10] MEDS: LEVOTHYROXINE 0.075 MG TAB (75 MCG) PO SCH (21:26)
[2016-07-11] VITALS (7 sets, daily range): BP systolic 86–123; BP diastolic 54–72
[2016-07-11] MEDS: IPRATROPIUM 0.5MG/ALBUTEROL 2.5MG INH SOL UD 3ML (DUONEB)(J7620) NEB PRN ×3 (03:22→21:10)
[2016-07-11] MEDS: FUROSEMIDE 40 MG/4 ML VIAL (J1940) IV SCH (05:38)
[2016-07-11] MEDS: **hydrALAZINE** 10 MG TAB PO SCH (05:38)
[2016-07-11] MEDS: SLF 3 ML SYR IV SCH ×3 (05:39→21:03)
[2016-07-11 05:41] LABS: ADD MORPHOLOGY? YES; BASO # 0.1 K/mm3 (0.0-0.2); BASO % 0.3 % (0.0-1.0); EOS # 0.4 K/mm3 (0.0-0.50); EOS % 2.2 % (0.0-3.0); LARGE UNSTAINED CELL # 0.3 K/mm3 (0.0-0.4); LARGE UNSTAINED CELL % 1.4 % (0.0-4.0); LYMPH # 1.4 K/mm3 (1.5-4.5); LYMPH % 7.4 % (24.0-44.0); MEAN CORPUSCULAR HEMOGLOBIN 17.3 pg (27.0-33.0); MEAN CORPUSCULAR HGB CONC 26.9 g/dl (32.0-36.5); MEAN CORPUSCULAR VOLUME 64.4 fl (80.0-96.0); MONO # 0.4 K/mm3 (0.0-0.8); MONO % 2.2 % (0.0-5.0); NEUTROPHILS # 16.2 K/mm3 (1.8-7.7); NEUTROPHILS % 86.4 % (36.0-66.0); PLATELET COUNT, AUTOMATED 103 k/mm3 (150-450); RED CELL DISTRIBUTION WIDTH 23.3 % (11.5-14.5); WHITE BLOOD COUNT 18.8 K/mm3 (4.0-10.0)
[2016-07-11 05:56] LABS: ALBUMIN 3.1 GM/DL (3.2-5.2); ALBUMIN/GLOBULIN RATIO 0.74 (1.00-1.93); BILIRUBIN,TOTAL 2.8 MG/DL (0.2-1.0); CALCIUM LEVEL 8.4 MG/DL (8.5-10.1); CREATININE FOR GFR 1.85 MG/DL (0.70-1.30); GLOMERULAR FILTRATION RATE 40.2 (>56); MAGNESIUM LEVEL 2.5 MG/DL (1.8-2.4); POTASSIUM SERUM 4.1 MEQ/L (3.5-5.1); TOTAL PROTEIN 7.3 GM/DL (6.4-8.2)
[2016-07-11 06:27] LABS: ERYTHROCYTE SEDIMENTATION RATE 18 mm/hr (0-20)
[2016-07-11 06:42] LABS: ANISOCYTOSIS 3+; HYPOCHROMASIA 3+; OVALOCYTES 3+
--- NOTE | 2016-07-11 09:14 | IPN ---
DATE: 07/11/2016 Mr. Finney tells me that he feels much better. He has more energy, a little less short of breath and overall feels that there has been considerable improvement. On the other hand, he is still requires quite a bit of supplemental oxygen, and he still complains about cramps in his legs. PHYSICAL EXAMINATION: VITAL SIGNS: Blood pressure 90/59, heart rate is in 80s. Saturation is in high 90s on trach collar with FiO2 28%. Fluid balance yesterday was documented at 600 positive, even though his weight is unchanged. He sits in a chair by his bed. He is looking comfortable, alert and oriented and appropriate. His jugular venous pressure is difficult to assess due to his extensive neck surgeries and radiation, but it still looks elevated. Lungs are relatively clear to auscultation. Heart exam regular rhythm. There is murmur of the as previously and there is also murmur consistent with mitral insufficiency. Abdomen is soft, nontender. There is no peripheral edema. Neurologically, he looks intact. LABORATORY [place]: His WBC count is 18.8, hemoglobin 9, hematocrit 33 and platelet count 103,000. Basic metabolic panel: potassium 4.1, BUN 46, creatinine 1.85 for GFR 40 and glucose 201. Liver function tests are all improving. AST and ALT are normal. Alkaline phosphatase 244 and bilirubin is 2.8. C-reactive protein is 5.8, albumin is 3.1 ASSESSMENT AND PLAN: Mr. Finney is a 60-year-old man who has acute on chronic systolic/diastolic congestive heart failure complicated with acute on chronic renal failure and concomitant restenosis of aortic bioprosthesis with approximately moderate aortic stenosis. It seems to me that he must have had some form of myocarditis, most likely viral, even though the suspicion was raised, it might have been babesiosis and the PCR test is pending. At this point, the focus is on CHF therapy. He has been on extremely high doses of Lasix but he desperately wants to go home and consequently I will switch the medication to oral torsemide 100 mg daily. Provided he does not gain weight and his condition remains essentially unchanged, I would plan on tentatively agreeing with discharge tomorrow. In preparation, I also discontinued the hydralazine, which is regardless relatively frequently held because of low blood pressure, and I am going to increase the dose of Coreg slightly and reduce the blood pressure limit for it to be held. We will tentatively arrange for a LifeVest from discharge.
[2016-07-11] MEDS: HumuLIN (NovoLIN)70/30 INSULIN INJ PER UNIT SC SCH ×2 (09:30→17:30)
[2016-07-11] MEDS: HumaLOG INSULIN (NovoLOG) PER UNIT SC SCH ×4 (09:30→21:01)
[2016-07-11] MEDS: OMEPRAZOLE 20 MG CAP PO SCH (09:32)
[2016-07-11] MEDS: ASPIRIN 81 MG ENTERIC TAB PO SCH (09:32)
[2016-07-11] MEDS: MAGNESIUM OXIDE 400 MG TAB (MAG-OX) PO SCH (09:32)
[2016-07-11] MEDS: MULTIVITAMINS/MINERALS THERAP 1 TAB PO SCH (09:32)
[2016-07-11] MEDS: OMEGA-3 1050MG CAPSULE PO SCH (09:32)
[2016-07-11] MEDS: IRON POLYSAC (NIFEREX) 150 MG CAP PO SCH ×2 (09:33→21:02)
[2016-07-11] MEDS: rOPINIRole 1MG TAB PO SCH ×2 (09:33→21:03)
[2016-07-11] MEDS: AMIODARONE 200 MG TAB (PACERONE) PO SCH (09:33)
[2016-07-11] MEDS: POTASSIUM CHLORIDE 10 MEQ SR TABLET PO SCH (09:33)
[2016-07-11] MEDS: CARVedilol 6.25 MG TAB PO SCH ×2 (09:36→21:02)
--- NOTE | 2016-07-11 09:38 | IPNPDOC ---
Subjective Date Seen The patient was seen on 07/11/16. Subjective Chief Complaint/HPI Pt eager to go home. He is feeling better. Dr Peterson made med adjustments this morning, he is hoping for d/c in the morning. General: Denies: Fatigue Constitutional: Denies: Chills, Fever Pulmonary: Reports: Cough, Denies: Dyspnea Cardiovascular: Denies: Chest Pain, Palpitations Gastrointestinal: Denies: Diarrhea, Nausea, Vomiting Neurological: Denies: Weakness Psych: Reports: Mood Normal Objective Physical Examination General Exam: Positive: Alert, No Acute Distress ENT Exam: Positive: Atraumatic Neck Exam: Positive: Other (tracheostomy), Supple Chest Exam: Positive: Diminished (bibasilary rales, few wheezes) Heart Exam: Positive: Rate Normal, Regular Rhythm Abdomen Exam: Positive: Normal bowel sounds, Soft, Negative: Tenderness Extremity Exam: Negative: Edema Skin Exam: Negative: Rash Assessment /Plan Problems (1) Leukocytosis Status: Acute Problem Specific Plan: Monitor Clinically, Repeat Labs Problem Text: 07/11 - Ceftaroline d/c'd yesterday after 4 days, remains Afebrile , has 18.8 WBC up from 18.2; repeat BCx ordered yesterday show NGTD, and urine CX ordered yesterday was negative. (KES) 07/10 - ceftaroline D4-emperic treatment for pneumonia. Afebrile since admission. Unknown what is being treated. WBC up. Will D/c Ceftaroline. Repeat blood cx ordered. Urine cx ordered. Suctioned sputum cx ordered. 07/09 - ceftaroline D3-emperic treatment for pneumonia-afebrile since admission 07/09 WBC 13.3 today (12.6 yesterday) 07/09 - PCR resp panel 07/06 CT chest CHF s infiltrate 07/06 BCX x 2 NG (2) CHF (congestive heart failure) Status: Acute Problem Specific Plan: Consult Specialist, Monitor Clinically, Repeat Labs Problem Text: 07/11 - Cardio following - med changes today, possibly home tomorrow with LifeVest 07/10 - Cardiology following. IV Lasix 120 mg q8 hrs with hold parameters. Carvedilol, hydralazine with hold parameters. Dr Peterson states he would like to avoid using dobutamine if possible but may need to use it if BPs worsen. 3/4 - Cardiology following. IV Lasix 120 mg q8 hrs with hold parameters. Carvedilol, hydralazine with hold parameters, d/c TCA / - Less dyspnea today with IV Lasix. Hydralazine held for BP parameters (3) Elevated troponin Status: Acute Problem Specific Plan: Consult Specialist, Monitor Clinically, Repeat Labs Problem Text: ? 2 viral myocarditis given -catherization at [facility] (4) CKD (chronic kidney disease) Status: Chronic Problem Specific Plan: Consult Specialist, Monitor Clinically, Repeat Labs Problem Text: 07/11 - Appreciate Nephro input. Cr is essentially stable at 1.85 today. (KES) 07/10 - Nephrology following. Creat trending down to 1.82. K improved to 3.9 with replacement. Mg 2.5. 07/09 down to 2.1 c diuresis, K 3.1-110 po total given, Mg 2.0 07/07 renal US s hydro 07/07 - UA baseline cr mid 1s (5) DM2 (diabetes mellitus, type 2) Status: Chronic Problem Specific Plan: Monitor Clinically, Repeat Labs Problem Text: 07/11 - BS very poorly controlled over the last 3 days with fasting BS in 200-220 range and elevated 300s-400s AC. He had previously been started on 70/30 25U BID prior to hospitalization, but he states he only took 3 doses of this prior to this admission. Will increase to 20U BID starting with tonight's dose and continue SSI. He will likely need close outpatient f/u for adjustment of insulin dosing. 07/08 - On SSI BS running 300s - 400s Restart low dose 70/30 insulin (He was on 25 units BID prior to admission - recently started on this b/c unable to afford long acting insulin and oral meds including Metformin and Glipizide held due to acute on chronic kidney failure) (6) Anemia Status: Acute Problem Specific Plan: Monitor Clinically, Repeat Labs Problem Text: 07/11 - Peripheral smear is consistent with iron-deficiency anemia ; PO iron supplementation started today; he may need repeat EGD as an outpatient. (KES) Iron deficient per recent iron studies. Xarelto held due to anemia and thrombocytopenia Check guiacs (reports ?black stool prior to admission - no BM since admission) Last colonoscopy 2014. Likely needs EGD if and when stable. (7) Thrombocytopenia Status: Acute Problem Specific Plan: Monitor Clinically, Repeat Labs Problem Text: 07/11 - Likely drug-induced, possibly due to Zosyn (last dose 07/07) vs. HIT. Plt improved today to 103K. (KES) Baseline 06/22 210K 07/10 up to 77K 07/10 minimally elevated HIT Ab 0.442 (0-0.40) On Aspirin and Brilinta - Will D/C the Brilinta. Discussed with Dr Peterson. (8) Hyperlipidemia Status: Chronic Problem Specific Plan: Monitor Clinically Problem Text: On Statin. (9) Hypothyroidism Status: Chronic Problem Specific Plan: Monitor Clinically Problem Text: On Synthroid. Plan/VTE VTE Prophylaxis Ordered?: No Plan Family Medicine Attending Note: Patient seen and examined this afternoon; I d/w ABRAM Ross and I agree with her note with additions as noted. Possible d/c home tomorrow if VS and labs remain stable, and Life Vest can be arranged per Dr. Peterson. The major change I made today was increasing his insulin for elevated blood glucose - see note above. (KES) VS, I&O, 24H, Fishbone Vital Signs/I&O Vital Signs Date Time Temp Pulse Resp B/P Pulse Ox O2 Delivery O2 Flow Rate FiO2 07/11/16 08:00 96.6 85 20 86/58 96 Trach Collar 28 07/10/16 20:00 5.0 I&O- Last 24 Hours up to 6 AM 07/11/16 05:59 Intake Total 1960 ml Output Total 1150 ml Balance 810 ml Laboratory Data 24H LABS Laboratory Tests 2 07/10/16 12:15: Bedside Glucose (Misc Panel) 437H 07/10/16 18:15: Bedside Glucose (Misc Panel) 390H 07/10/16 21:09: Bedside Glucose (Misc Panel) 466H 07/11/16 04:45: Blood Urea Nitrogen 46H, Creatinine 1.85H, Sodium Level 139, Potassium Level 4.1 , Chloride Level 94L, Carbon Dioxide Level 36H, Calcium Level 8.4L, Aspartate Amino Transf (AST/SGOT) 32, Alanine Aminotransferase (ALT/SGPT) 63, Alkaline Phosphatase 244H, Total Bilirubin 2.8H, Total Protein 7.3, Albumin 3.1L, Albumin /Globulin Ratio 0.74L, Anion Gap 9, Anisocytosis 3+, White Blood Count 18.8H, Red Blood Count 5.20, Hemoglobin 9.0L, Hematocrit 33.5L, Mean Corpuscular Volume 64.4L, Mean Corpuscular Hemoglobin 17.3L, Mean Corpuscular Hemoglobin Concent 26.9L, Red Cell Distribution Width 23.3H, Platelet Count 103L, Neutrophils (%) (Auto) 86.4H, Lymphocytes (%) (Auto) 7.4L, Monocytes (%) (Auto) 2.2, Eosinophils (%) (Auto) 2.2, Basophils (%) (Auto) 0.3, Neutrophils # (Auto) 16.2H, Lymphocytes # (Auto) 1.4L, Monocytes # (Auto) 0.4, Eosinophils # (Auto) 0.4, Basophils # (Auto) 0.1, C-Reactive Protein, Quantitative 5.86H, Erythrocyte Sedimentation Rate 18, Glomerular Filtration Rate 40.2L, Hypochromasia 3+, Large Unclassified Cells # 0.3, Large Unclassified Cells % 1.4 , Magnesium Level 2.5H, Ovalocytes 3+, Platelet Estimate NORMAL, Red Blood Cell Morphology NORMAL CBC/BMP Laboratory Tests 07/11/16 04:45 Calcium Level 8.4 L, Aspartate Amino Transf (AST/SGOT) 32, Alanine Aminotransferase (ALT/SGPT) 63, Alkaline Phosphatase 244 H, Total Bilirubin 2.8 H, Total Protein 7.3, Albumin 3.1 L, Red Blood Count 5.20, Mean Corpuscular Volume 64.4 L, Mean Corpuscular Hemoglobin 17.3 L, Mean Corpuscular Hemoglobin Concent 26.9 L, Red Cell Distribution Width 23.3 H, Neutrophils (%) (Auto) 86.4 H, Lymphocytes (%) (Auto) 7.4 L, Monocytes (%) (Auto) 2.2, Eosinophils (%) (Auto ) 2.2, Basophils (%) (Auto) 0.3, Neutrophils # (Auto) 16.2 H, Lymphocytes # ( Auto) 1.4 L, Monocytes # (Auto) 0.4, Eosinophils # (Auto) 0.4, Basophils # (Auto ) 0.1 Microbiology Microbiology 07/10/16 Blood Culture, Received Pending 07/10/16 Blood Culture, Received Pending 07/06/16 Blood Culture - Preliminary, Resulted No Growth after 72 hours. All specime... 07/06/16 Blood Culture - Preliminary, Resulted No Growth after 72 hours. All specime... 07/09/16 Respiratory Virus Panel (PCR) ([facility]UEL) - Final, Complete 07/10/16 Urine Culture, Received Pending CARLITOS BOONE PA-C Jul 11, 2016 09:37 MALLORIE ZAMORA MD Jul 11, 2016 14:22
[2016-07-11] MEDS: LEVOTHYROXINE 0.075 MG TAB (75 MCG) PO SCH (21:02)
[2016-07-11] MEDS: TAMSULOSIN 0.4 MG CAP PO SCH (21:02)
[2016-07-11] MEDS: ATORVASTATIN 10 MG TAB PO SCH (21:02)
[2016-07-11] MEDS: LEVOTHYROXINE 0.1 MG TAB (100 MCG) PO SCH (21:03)
[2016-07-12] VITALS (8 sets, daily range): BP systolic 84–104; BP diastolic 50–71; O2SAT 84–90
[2016-07-12] MEDS: traMADol 50 MG TAB PO PRN (00:04)
[2016-07-12] MEDS: IPRATROPIUM 0.5MG/ALBUTEROL 2.5MG INH SOL UD 3ML (DUONEB)(J7620) NEB PRN ×4 (02:20→23:25)
[2016-07-12 05:58] LABS: BASO % 0.2 % (0.0-1.0); EOS # 0.4 K/mm3 (0.0-0.50); EOS % 2.5 % (0.0-3.0); LARGE UNSTAINED CELL # 0.1 K/mm3 (0.0-0.4); LARGE UNSTAINED CELL % 0.9 % (0.0-4.0); LYMPH # 1.2 K/mm3 (1.5-4.5); LYMPH % 7.1 % (24.0-44.0); MEAN CORPUSCULAR HEMOGLOBIN 17.7 pg (27.0-33.0); MEAN CORPUSCULAR HGB CONC 26.7 g/dl (32.0-36.5); MEAN CORPUSCULAR VOLUME 66.3 fl (80.0-96.0); MONO # 0.4 K/mm3 (0.0-0.8); MONO % 2.6 % (0.0-5.0); NEUTROPHILS # 14.4 K/mm3 (1.8-7.7); NEUTROPHILS % 86.8 % (36.0-66.0); PLATELET COUNT, AUTOMATED 111 k/mm3 (150-450); RED CELL DISTRIBUTION WIDTH 24.5 % (11.5-14.5); WHITE BLOOD COUNT 16.6 K/mm3 (4.0-10.0)
[2016-07-12] MEDS: SLF 3 ML SYR IV SCH ×3 (06:00→21:52)
[2016-07-12 06:13] LABS: ALBUMIN 2.9 GM/DL (3.2-5.2); ALBUMIN/GLOBULIN RATIO 0.66 (1.00-1.93); CALCIUM LEVEL 8.8 MG/DL (8.5-10.1); CREATININE FOR GFR 2.06 MG/DL (0.70-1.30); GLOMERULAR FILTRATION RATE 35.5 (>56); MAGNESIUM LEVEL 2.6 MG/DL (1.8-2.4); POTASSIUM SERUM 4.4 MEQ/L (3.5-5.1); TOTAL PROTEIN 7.3 GM/DL (6.4-8.2)
--- NOTE | 2016-07-12 06:32 | IPN ---
DATE: 07/10/2016 SUBJECTIVE: The patient was seen and examined at the bedside. He denies any active complaints. He reports that leg cramps are better than yesterday. His kidney function continues to improve. REVIEW OF SYSTEMS: The patient denies any fever, chills, rigors, headache, nausea, vomiting, chest pain, shortness of breath, pain in abdomen, constipation, or diarrhea. He reports leg cramps that are improving as compared with yesterday. The rest of the review of systems is negative. OBJECTIVE: VITAL SIGNS: Temperature 97.5 degrees Fahrenheit. Blood pressure 112/69. Pulse 98. Respiratory rate 18. Saturating 97% on trach collar. INTAKE AND OUTPUT: Urine output recorded as 1.3 liters yesterday, 800 mL so far today since overnight. Weight on the bed scale is 88.6 kg. PHYSICAL EXAM: GENERAL: Patient is awake, alert and oriented times three laying in the bed in no apparent distress. HEAD AND NECK EXAM: Extraocular muscles intact. Pupils equally round and reactive to light. Mucous membranes are moist. Neck is supple. The patient has a trach collar and tracheostomy. CARDIOVASCULAR: S1, S2. Regular rate. No murmur, rub or gallop. RESPIRATORY: Chest is clear to auscultation bilaterally. Bilateral equal air entry. No rales or rhonchi. ABDOMEN: Soft. Positive bowel sounds. Nontender. No ascites. No organomegaly. EXTREMITIES: No clubbing or cyanosis. Mild tenderness of the bilateral lower extremities. CENTRAL NERVOUS SYSTEM ([employer]): No focal neurological deficit. Power is 5/5 in all extremities. SKIN: No rashes or ulcers. PSYCHIATRIC: Normal mood and affect. LAB REVIEW: CBC showed a WBC of 18.2, hemoglobin 8.9, and platelets are 77. BMP showed sodium 137, potassium 3.9, chloride 95, bicarbonate 33, BUN 52, creatinine 1.82. Magnesium is 2.5. Albumin is 2.9. MICROBIOLOGY: Blood cultures and urine cultures are pending. IMAGING: No new imaging today as compared with yesterday. MEDICATIONS: Patient's medications are all reviewed by me. The patient got a dose of Venofer 500 mg IV yesterday. His ceftaroline has been stopped today. He continues to be on Lasix 120 mg IV every 8 hours. ASSESSMENT: 60-year-old male with congestive heart failure and acute kidney injury superimposed on chronic kidney disease. PLAN: 1. Acute kidney injury superimposed on chronic kidney disease. It is most likely secondary to decompensated congestive heart failure. Creatinine continues to improve. Continue to diurese the patient at this time. 2. Congestive heart failure. His congestive heart failure is decompensated at this time; however, he is responding slowly to the IV diuretics. He is currently on Lasix 120 mg IV every 8 hours. Continue current dose for now. Diuretic management is as per cardiology team. 3. Hypokalemia. The patient's potassium improved to 3.9 today. Continue current dose of potassium chloride 10 mEq by mouth three times a day. 4. Iron deficiency anemia. Patient's iron levels were low. He was given a dose of Venofer 500 mg IV yesterday. No need of Aranesp at this time. Continue to monitor for improvement in the hemoglobin.
--- NOTE | 2016-07-12 08:38 | IPN ---
DATE: 07/12/2016 Mr. Finney tells me that he is feeling much better, he would really like to go home. Denies any chest pain and he says that he is able to ambulate to the bathroom without difficulty. Blood pressure remains soft in 80s and 90s. He is afebrile. Saturation is in low 90s on five liters of oxygen by trach collar and the nurse tried to take him off oxygen, unfortunately he fairly promptly desaturated. His fluid balance yesterday was documented as about 700+, but the urine output was only 200 mL which is certainly not believable. He is alert and oriented and appropriate. His jugular venous pressure (JVP) unfortunately is still elevated. Lungs are relatively clear. Heart exam unchanged with fairly muffled heart sounds and systolic murmur over the aortic valve and also blowing holosystolic murmur at the apex. No peripheral edema. Abdomen is benign. LABORATORY DATA: Hemoglobin 8.7, hematocrit 32, platelet count 111,000, WBC count is 16.6. Basic metabolic panel: Potassium 4.4, BUN 48, creatinine 2.1, and glucose 243. His BNP is 1600, which is still very high, but yet is half what it was during admission. ASSESSMENT: Mr. Finney is a 60-year-old man with severe, probably nonischemic cardiomyopathy even though he does have concomitant coronary artery disease, associated moderate aortic stenosis, and acute on chronic renal failure. He is pushing for discharge even though I do not think he is quite ready. I changed his intravenous (IV) diuretics to torsemide yesterday. I think it is too early to make a judgment how effective this is going to be. He is on a relatively small dose of Coreg and titration is not possible due to low blood pressure. At this point I would be inclined to let him go home provided he passes a home safety evaluation and he can be on a lower dose of oxygen and I asked respiratory therapy to work on this issue. I would leave his cardiac medicines unchanged. I am going to ask [facility] to fit him for a LifeVest as he has a very low ejection fraction. I plan to see him in followup in the near future, provided he stays in the hospital for yet another day, I will continue following him with you. One remaining factor that is totally mysterious to me is the etiology of his illness. He clearly had febrile illness but yet all the cultures have been negative. He still has elevated white blood cell (WBC) count but I do not have obvious explanation where this is coming from.
[2016-07-12] MEDS: HumaLOG INSULIN (NovoLOG) PER UNIT SC SCH ×4 (08:58→21:42)
[2016-07-12] MEDS: HumuLIN (NovoLIN)70/30 INSULIN INJ PER UNIT SC SCH ×2 (08:58→17:26)
[2016-07-12] MEDS: AMIODARONE 200 MG TAB (PACERONE) PO SCH (09:00)
[2016-07-12] MEDS: IRON POLYSAC (NIFEREX) 150 MG CAP PO SCH ×2 (09:00→21:50)
[2016-07-12] MEDS: metOLazone 2.5 MG TAB PO ONE ×2 (09:00→12:41)
[2016-07-12] MEDS: ASPIRIN 81 MG ENTERIC TAB PO SCH (09:00)
[2016-07-12] MEDS: OMEGA-3 1050MG CAPSULE PO SCH (09:00)
[2016-07-12] MEDS: TORSEMIDE 20 MG TAB PO SCH ×2 (09:00→12:40)
[2016-07-12] MEDS: CARVedilol 6.25 MG TAB PO SCH ×2 (09:00→21:52)
[2016-07-12] MEDS: OMEPRAZOLE 20 MG CAP PO SCH (09:00)
[2016-07-12] MEDS: rOPINIRole 1MG TAB PO SCH ×2 (09:00→21:54)
[2016-07-12] MEDS: MULTIVITAMINS/MINERALS THERAP 1 TAB PO SCH (09:01)
--- NOTE | 2016-07-12 09:05 | IPN ---
DATE OF VISIT: 07/11/2016 SUBJECTIVE: This is a 60-year-old male who was seen and examined at bedside. This morning Lasix and hydralazine were discontinued. Coreg dose was increased from 3.125 to 6.25 twice a day. This morning, aside from feeling tired, thinks his breathing is improved. He reports some cramping in his legs but less so now that Lasix was discontinued. No chest pain, palpitations, or vomiting. He still reports a poor appetite. REVIEW OF SYSTEMS: Denies dizziness, lightheadedness, fevers, chills, rigors, headaches, vomiting, chest pain, worsening of shortness of breath, abdominal pain, constipation, diarrhea. Reports nausea. The rest of the review of system is otherwise negative. OBJECTIVE: VITAL SIGNS: Blood pressure 86/58, heart rate 85, temperature 96.6, respiratory rate 20, pulse oximetry 96%, on FiO2 28. Intake and output for the last 24 hours 2410 and 1400. He has net positive of 610 in the last 24 hours. Since admission he is net positive of 2.084 liters. Weight 86.6 kg. No significant change compared to yesterday. GENERAL: The patient is sitting in bed comfortable, no acute distress. He is awake, alert and oriented times three, hoarse voice due to his tracheostomy, chronically ill-appearing, pleasant and cooperative. HEENT: Normocephalic atraumatic. Moist mucous membranes. Edentulous both upper and lower. NECK: He is status post tracheostomy. Area looks clean and dry. Jugular venous distention (JVD) is somewhat difficult to assess. CHEST: Breath sounds diminished but clear sounding. HEART: Regular rate and rhythm, S1, S2 present. 2/6 systolic murmur in the right second intercostal border. No radiation to carotids. ABDOMEN: Soft, nontender, nondistended. Bowel sounds present. EXTREMITIES: No pedal edema. Pedal pulses present bilaterally. He does have some dry skin. LABORATORY DATA: WBC 18.8, no significant change compared to yesterday. Hemoglobin 9, no significant change from yesterday at 8.9. Hematocrit 33.5, platelets 107 improved from yesterday at 77. Neutrophils 86.4. Sodium 139, potassium 4.1, chloride 94, carbon dioxide 36, BUN 46, creatinine 1.85. Glucose 201, calcium 8.4, magnesium 2.5, total bilirubin 2.8, AST 32, ALT 63, alkaline phosphatase 244, CRP 5.86 improved from 11.1 a few days ago. Urine culture from the showed no growth. Blood culture is negative after 24 hours. Respiratory syncytial virus (RSV) negative by PCR. Blood smear shows hypochromic macrocytic anemia, low iron and saturation suggestive of iron deficiency anemia, no immature abnormal myeloid cells. Ultrasound of the kidneys showed no hydronephrosis on July 07, 2016. A liver ultrasound showed fatty liver but otherwise unremarkable. Chest CT on July 06 showed congestive heart failure (CHF) exacerbation, left pleural effusion, enlarged compared to a prior study. Multiple scattered mediastinal lymph nodes noted, nonspecific, could be possibly reactive. CURRENT MEDICATIONS: - Coreg 6.25 mg by mouth twice a day - Requip 1 mg by mouth daily - Duo neb as needed - potassium chloride 10 mEq three times a day - iron 150 mg by mouth twice a day - insulin 10 units twice a day - amiodarone 200 mg by mouth daily - insulin sliding scale - Synthroid 0.175 mg nightly - tramadol 50 mg every 6 hours as needed - Flomax 0.4 nightly - Requip 2 mg nightly - omeprazole 20 mg daily - multivitamin - fish oil - Lipitor 10 mg nightly - aspirin - Tylenol IMPRESSION AND PLAN: Mr. Finney is a 60-year-old male with history of congestive heart failure presenting with acute on chronic kidney disease. 1. Acute kidney injury imposed on chronic kidney disease (CKD). Review of his prior labs shows creatinine baseline appears to be about 1.2. Previously was receiving diuresis and was tolerating it well. The dose was discontinued this morning. His renal function continues to be improving. Will monitor for now. 2. Congestive heart failure, decompensated. Ejection fraction (EF) from June 2016 showed 30%. Currently being followed by Dr. Peterson. Will defer to Dr. Peterson for further need for any diuresis. 3. Hypokalemia. Potassium is 4.1. He is now off diuretic, therefore, will hold off on further supplementation to prevent hyperkalemia. 4. Anemia of chronic disease and iron deficiency anemia. He is on iron supplementation. Hemoglobin is stable. No significant change compared to yesterday. No evidence of bleeding at this time. No urgent need for transfusion at this time. My preceptor for this patient encounter was Dr. Barrera. The preceptor was physically present in the building during the encounter and was fully available as needed. All aspects of the patient interview, examination, medical decision making process, and medical care plan development were reviewed and approved by the preceptor. The preceptor is aware and concurs with the plan as stated in the body of this note and will attest to such by his co-signature. KELSY
--- NOTE | 2016-07-12 09:20 | IPNPDOC ---
Subjective Date Seen The patient was seen on 07/12/16. Subjective Chief Complaint/HPI Pt is anxious to go home. Dr Peterson has been in this morning and told him he is concerned about his O2 levels and BP. Constitutional: Denies: Chills, Fever Pulmonary: Reports: Dyspnea, Denies: Cough Cardiovascular: Denies: Chest Pain, Palpitations Gastrointestinal: Denies: Diarrhea, Nausea, Vomiting Neurological: Reports: Weakness Psych: Reports: Mood Normal Objective Physical Examination General Exam: Positive: Alert, No Acute Distress ENT Exam: Positive: Atraumatic Neck Exam: Positive: Other (tracheostomy), Supple Chest Exam: Positive: Diminished (few exp wheezes) Heart Exam: Positive: Rate Normal, Regular Rhythm Abdomen Exam: Positive: Normal bowel sounds, Soft, Negative: Tenderness Extremity Exam: Negative: Edema Skin Exam: Negative: Rash Assessment /Plan Problems (1) Leukocytosis Status: Acute Problem Specific Plan: Monitor Clinically, Repeat Labs Problem Text: 07/12 - WBC down slightly today. 07/11 - Ceftaroline d/c'd yesterday after 4 days, remains Afebrile, has 18.8 WBC up from 18.2; repeat BCx ordered yesterday show NGTD, and urine CX ordered yesterday was negative. (KES) 07/10 - ceftaroline D4-emperic treatment for pneumonia. Afebrile since admission. Unknown what is being treated. WBC up. Will D/c Ceftaroline. Repeat blood cx ordered. Urine cx ordered. Suctioned sputum cx ordered. 07/09 - ceftaroline D3-emperic treatment for pneumonia-afebrile since admission 07/09 WBC 13.3 today (12.6 yesterday) 07/09 - PCR resp panel 07/06 CT chest CHF s infiltrate 07/06 BCX x 2 NG (2) CHF (congestive heart failure) Status: Acute Problem Specific Plan: Consult Specialist, Monitor Clinically, Repeat Labs Problem Text: 07/12 07/11 output ?200, stable weight, BNP 1660 (07/06 3230) 07/11 - Cardio following-Lasix 40v to tors 40 QD possibly home tomorrow with LifeVest 3 - Cardiology following. IV Lasix 120 mg q8 hrs with hold parameters. Carvedilol, hydralazine with hold parameters. 3/4 - Cardiology following. IV Lasix 120 mg q8 hrs with hold parameters. Carvedilol, hydralazine with hold parameters, d/c TCA 3/ - Less dyspnea today with IV Lasix. Hydralazine held for BP parameters (3) Elevated troponin Status: Acute Problem Specific Plan: Consult Specialist, Monitor Clinically, Repeat Labs Problem Text: ? 2 viral myocarditis given -catherization at [facility] (4) CKD (chronic kidney disease) Status: Chronic Problem Specific Plan: Consult Specialist, Monitor Clinically, Repeat Labs Problem Text: 07/11 - Appreciate Nephro input. Cr is essentially stable at 1.85 today. (KES) 07/10 - Nephrology following. Creat trending down to 1.82. K improved to 3.9 with replacement. Mg 2.5. 07/09 down to 2.1 c diuresis, K 3.1-110 po total given, Mg 2.0 07/07 renal US s hydro 07/07 - UA baseline cr mid 1s (5) DM2 (diabetes mellitus, type 2) Status: Chronic Problem Specific Plan: Monitor Clinically, Repeat Labs Problem Text: 07/11 - BS very poorly controlled over the last 3 days with fasting BS in 200-220 range and elevated 300s-400s AC. He had previously been started on 70/30 25U BID prior to hospitalization, but he states he only took 3 doses of this prior to this admission. Will increase to 20U BID starting with tonight's dose and continue SSI. He will likely need close outpatient f/u for adjustment of insulin dosing. 07/08 - On SSI BS running 300s - 400s Restart low dose 70/30 insulin (He was on 25 units BID prior to admission - recently started on this b/c unable to afford long acting insulin and oral meds including Metformin and Glipizide held due to acute on chronic kidney failure) (6) Anemia Status: Acute Problem Specific Plan: Monitor Clinically, Repeat Labs Problem Text: 07/11 - Peripheral smear is consistent with iron-deficiency anemia ; PO iron supplementation started today; he may need repeat EGD as an outpatient. (KES) Iron deficient per recent iron studies. Xarelto held due to anemia and thrombocytopenia Check guiacs (reports ?black stool prior to admission - no BM since admission) Last colonoscopy 2014. Likely needs EGD if and when stable. (7) Thrombocytopenia Status: Acute Problem Specific Plan: Monitor Clinically, Repeat Labs Problem Text: 07/11 - Likely drug-induced, possibly due to Zosyn (last dose 07/07) vs. HIT. Plt improved today to 103K. (KES) Baseline 06/22 210K 07/10 up to 77K 07/10 minimally elevated HIT Ab 0.442 (0-0.40) On Aspirin and Brilinta - Will D/C the Brilinta. Discussed with Dr Peterson. (8) Hyperlipidemia Status: Chronic Problem Specific Plan: Monitor Clinically Problem Text: On Statin. (9) Hypothyroidism Status: Chronic Problem Specific Plan: Monitor Clinically Problem Text: On Synthroid. Plan/VTE VTE Prophylaxis Ordered?: No Plan 07/12 PT safe for home c services VS, I&O, 24H, Fishbone Vital Signs/I&O Vital Signs Date Time Temp Pulse Resp B/P Pulse Ox O2 Delivery O2 Flow Rate FiO2 07/12/16 08:35 90 Trach Collar 5.0 28 07/12/16 08:00 97.3 100 19 104/71 I&O- Last 24 Hours up to 6 AM 07/12/16 06:00 Intake Total 1380 ml Output Total 200 ml Balance 1180 ml Laboratory Data 24H LABS Laboratory Tests 2 07/11/16 12:10: Bedside Glucose (Misc Panel) 344H 07/11/16 16:39: Bedside Glucose (Misc Panel) 301H 07/11/16 20:10: Bedside Glucose (Misc Panel) 343H 07/12/16 05:35: Blood Urea Nitrogen 48H, Creatinine 2.06H, Sodium Level 136, Potassium Level 4.4 , Chloride Level 93L, Carbon Dioxide Level 37H, Calcium Level 8.8, Aspartate Amino Transf (AST/SGOT) 24, Alanine Aminotransferase (ALT/SGPT) 46, Alkaline Phosphatase 199H, Total Bilirubin 3.0H, Total Protein 7.3, Albumin 2.9L, Albumin /Globulin Ratio 0.66L, Anion Gap 6L, B-Type Natriuretic Peptide 1660H, White Blood Count 16.6H, Red Blood Count 4.91, Hemoglobin 8.7L, Hematocrit 32.6L, Mean Corpuscular Volume 66.3L, Mean Corpuscular Hemoglobin 17.7L, Mean Corpuscular Hemoglobin Concent 26.7L, Red Cell Distribution Width 24.5H, Platelet Count 111L, Neutrophils (%) (Auto) 86.8H, Lymphocytes (%) (Auto) 7.1L, Monocytes (%) (Auto) 2.6, Eosinophils (%) (Auto) 2.5, Basophils (%) (Auto) 0.2, Neutrophils # (Auto) 14.4H, Lymphocytes # (Auto) 1.2L, Monocytes # (Auto) 0.4, Eosinophils # (Auto) 0.4, Basophils # (Auto) 0.0, Glomerular Filtration Rate 35.5L, Large Unclassified Cells # 0.1, Large Unclassified Cells % 0.9, Magnesium Level 2.6H CBC/BMP Laboratory Tests 07/12/16 05:35 Calcium Level 8.8, Aspartate Amino Transf (AST/SGOT) 24, Alanine Aminotransferase (ALT/SGPT) 46, Alkaline Phosphatase 199 H, Total Bilirubin 3.0 H, Total Protein 7.3, Albumin 2.9 L, Red Blood Count 4.91, Mean Corpuscular Volume 66.3 L, Mean Corpuscular Hemoglobin 17.7 L, Mean Corpuscular Hemoglobin Concent 26.7 L, Red Cell Distribution Width 24.5 H, Neutrophils (%) (Auto) 86.8 H, Lymphocytes (%) (Auto) 7.1 L, Monocytes (%) (Auto) 2.6, Eosinophils (%) (Auto ) 2.5, Basophils (%) (Auto) 0.2, Neutrophils # (Auto) 14.4 H, Lymphocytes # ( Auto) 1.2 L, Monocytes # (Auto) 0.4, Eosinophils # (Auto) 0.4, Basophils # (Auto ) 0.0 Microbiology Microbiology 07/10/16 Blood Culture - Preliminary, Resulted No growth after 24 hours . All specim... 07/10/16 Blood Culture - Preliminary, Resulted No growth after 24 hours . All specim... 07/06/16 Blood Culture - Final, Complete NO GROWTH AFTER 5 DAYS 07/06/16 Blood Culture - Final, Complete NO GROWTH AFTER 5 DAYS 07/09/16 Respiratory Virus Panel (PCR) (SAMUEL) - Final, Complete 07/10/16 Urine Culture - Final, Complete CARLITOS BOONE PA-C Jul 12, 2016 09:20 Pastor Brown M.D. Jul 12, 2016 16:46
[2016-07-12] MEDS: POTASSIUM CHLORIDE 10 MEQ SR TABLET PO SCH (12:40)
[2016-07-12] MEDS ORDERED: metOLazone 2.5 MG TAB PO ONE (17:00)
[2016-07-12] MEDS ORDERED: TORSEMIDE 20 MG TAB PO ONE (17:00)
--- NOTE | 2016-07-12 21:47 | IPN ---
DATE: 07/12/2016 SUBJECTIVE: This is a 60-year-old male who was seen and examined at bedside in progressive care unit (PCU) room. Overnight, there were no reported acute events. Reports leg cramps being better now that he is off high dose diuretics. Per staff, he becomes hypoxic with ambulation REVIEW OF SYSTEMS: Denies fever, chills, rigors, headache, nausea, chest pain, constipation, diarrhea. Reports shortness of breath worse with ambulation . Other review of systems is otherwise negative. OBJECTIVE: VITAL SIGNS: Blood pressure 104/71, heart rate 100, temperature 97.3, respiratory rate 19, pulse oximetry 94% on 28 of trach collar. INTAKE/OUTPUT: Last 24 hours: 960 and only 200, documented one bowel movement, documented weight is 88.6. Since admission, he is positive 3.1 liters. PHYSICAL EXAMINATION: GENERAL: The patient is sitting in bed, comfortable, in no acute distress. Alert , awake, oriented times three, pleasant, chronically ill-appearing, cooperative. HEENT: Normocephalic, atraumatic. Very moist oral mucosa. He is edentulous, upper and lower. NECK: Supple. Trachea midline. He is status post tracheostomy. Neck vein is elevated approximately 7 cm above the sternal angle. LUNGS: Breath sounds diminished bilateral lung bases but no rales or rhonchi. HEART: Regular rate and rhythm. Normal S1 and S2, 2/6 systolic murmur without radiation to the carotids, unchanged. ABDOMEN: Soft, nontender, nondistended. Bowel sounds present. No guarding, no rebound. EXTREMITIES: There is trace pedal edema. Pedal pulses present bilaterally. LABORATORY DATA: WBC 16.6, hemoglobin 8.7, hematocrit 32.6, platelet 111. Sodium 136, potassium 4.4, chloride 193, carbon dioxide 37, BUN 48, creatinine 2.06, glucose 243, calcium 8.8, magnesium 2.6, BNP 1660, alkaline phosphatase 199. Babesia microti PCR is pending. Urine culture is negative. MEDICATION LIST: Includes: - Tylenol - Zofran - aspirin - Lipitor - fish oil - multivitamin - Prilosec 20 mg daily - Requip 2 mg nightly - Flomax 0.4 mg - Ultram 50 mg every 6 hours - Synthroid 0.175 - insulin sliding scale - amiodarone 200 mg - iron 150 mg twice a day - DuoNeb - Requip - Coreg 6.25 mg twice a day No new imaging today. IMPRESSION AND PLAN: Mr. Finney is a pleasant 60-year-old male with a history of congestive heart failure, admitted for acute on chronic kidney disease. PLAN: 1. Acute kidney injury superimposed on chronic kidney disease. His creatinine is worse today compared to yesterday. Because of his worsening renal function, the patient is currently now on torsemide 40 mg. At home, was taking 40 mg of Lasix twice a day but only as needed for leg swelling. We have also added metolazone to help the effectiveness of diuretic, and potassium 20 mEq daily now that he is back on diuretics. 2. Congestive heart failure, decompensated. Ejection fraction (EF) June 2016 was 30%. He is now on torsemide as mentioned above. Also on metolazone and potassium supplementation. 3. Hypokalemia. Potassium is within reasonable range. However, he is now back on torsemide. Potassium has been also continued daily. 4. Anemia of chronic disease and iron deficiency anemia. He is on iron supplementation. Hemoglobin, hematocrit show no significant change. No evidence of bleeding. No urgent need for transfusion at this time. My preceptor for this patient encounter was Dr. Barrera. The preceptor was physically present in the building during the encounter and was fully available. As needed, all aspects of the patient interview, examination, medical decision making process, and medical care plan development were reviewed and approved by the preceptor. The preceptor is aware and concurs with the plan as stated in the body of this note and will attest to such by his/her cosignature. KELSY
[2016-07-12] MEDS: TAMSULOSIN 0.4 MG CAP PO SCH (21:50)
[2016-07-12] MEDS: LEVOTHYROXINE 0.075 MG TAB (75 MCG) PO SCH (21:50)
[2016-07-12] MEDS: LEVOTHYROXINE 0.1 MG TAB (100 MCG) PO SCH (21:50)
[2016-07-12] MEDS: ATORVASTATIN 10 MG TAB PO SCH (21:50)
[2016-07-13 04:00] VITALS: BP 102/55
[2016-07-13] MEDS: SLF 3 ML SYR IV SCH ×3 (05:45→21:17)
[2016-07-13 06:09] LABS: BASO % 0.3 % (0.0-1.0); EOS # 0.3 K/mm3 (0.0-0.50); EOS % 1.7 % (0.0-3.0); LARGE UNSTAINED CELL # 0.2 K/mm3 (0.0-0.4); LARGE UNSTAINED CELL % 0.9 % (0.0-4.0); LYMPH # 1.3 K/mm3 (1.5-4.5); LYMPH % 6.8 % (24.0-44.0); MEAN CORPUSCULAR HEMOGLOBIN 18.8 pg (27.0-33.0); MEAN CORPUSCULAR HGB CONC 27.8 g/dl (32.0-36.5); MEAN CORPUSCULAR VOLUME 67.8 fl (80.0-96.0); MONO # 0.6 K/mm3 (0.0-0.8); MONO % 3.3 % (0.0-5.0); NEUTROPHILS # 15.1 K/mm3 (1.8-7.7); PLATELET COUNT, AUTOMATED 131 k/mm3 (150-450); RED CELL DISTRIBUTION WIDTH 27.9 % (11.5-14.5); WHITE BLOOD COUNT 17.3 K/mm3 (4.0-10.0)
[2016-07-13 06:20] LABS: ALBUMIN 3.1 GM/DL (3.2-5.2); ALBUMIN/GLOBULIN RATIO 0.7 (1.00-1.93); BILIRUBIN,TOTAL 3.6 MG/DL (0.2-1.0); CALCIUM LEVEL 9.3 MG/DL (8.5-10.1); CREATININE FOR GFR 2.29 MG/DL (0.70-1.30); GLOMERULAR FILTRATION RATE 31.4 (>56); MAGNESIUM LEVEL 2.7 MG/DL (1.8-2.4); POTASSIUM SERUM 4.3 MEQ/L (3.5-5.1); TOTAL PROTEIN 7.5 GM/DL (6.4-8.2)
[2016-07-13 08:00] VITALS: BP 92/50
[2016-07-13] MEDS: IPRATROPIUM 0.5MG/ALBUTEROL 2.5MG INH SOL UD 3ML (DUONEB)(J7620) NEB PRN ×3 (09:03→19:20)
[2016-07-13] MEDS: HumaLOG INSULIN (NovoLOG) PER UNIT SC SCH ×4 (09:42→20:08)
[2016-07-13] MEDS: HumuLIN (NovoLIN)70/30 INSULIN INJ PER UNIT SC SCH ×2 (09:43→17:24)
[2016-07-13] MEDS: CARVedilol 6.25 MG TAB PO SCH ×2 (09:44→20:48)
[2016-07-13] MEDS: TORSEMIDE 20 MG TAB PO SCH (09:44)
[2016-07-13] MEDS: ASPIRIN 81 MG ENTERIC TAB PO SCH (09:44)
[2016-07-13] MEDS: IRON POLYSAC (NIFEREX) 150 MG CAP PO SCH ×2 (09:45→20:49)
[2016-07-13] MEDS: OMEGA-3 1050MG CAPSULE PO SCH (09:45)
[2016-07-13] MEDS: MULTIVITAMINS/MINERALS THERAP 1 TAB PO SCH (09:45)
[2016-07-13] MEDS: rOPINIRole 1MG TAB PO SCH ×2 (09:45→20:48)
[2016-07-13] MEDS: OMEPRAZOLE 20 MG CAP PO SCH (09:45)
[2016-07-13] MEDS: POTASSIUM CHLORIDE 10 MEQ SR TABLET PO SCH (09:45)
[2016-07-13] MEDS: AMIODARONE 200 MG TAB (PACERONE) PO SCH (09:45)
[2016-07-13] MEDS: metOLazone 2.5 MG TAB PO SCH (09:46)
--- NOTE | 2016-07-13 09:50 | IPN ---
DATE OF SERVICE: 07/13/2016 Mr. Finney tells me he is feeling well, and he really would like to go home. Unfortunately, he still requires a lot of oxygen. He was not tested without oxygen today as yet, but I will ask respiratory to do that. His dosing of diuretics was taken over by Dr. Barrera. It looks like that frequently the dose is being held because of low blood pressure. This morning, blood pressure was 92/50, heart rate is in 80s. He is afebrile. Saturation 97% on trach collar. His fluid balance yesterday, though, was documented as positive, even though the weight is about the same as 88.7 kg. He is alert and oriented and appropriate. His jugular venous pressure (JVP), unfortunately, is still high. Lungs are clear with only fair air movement. I do not appreciate any wheezing or crackles. Heart examination: Unchanged. Very muffled heart sound. There is a murmur at the aortic valve area that is faint. I do not appreciate any gallop or rub. Abdomen is obese and soft. There is no peripheral edema. Laboratory-castelan, his basic metabolic panel reveals potassium 4.3, BUN 59, creatinine 2.3, which is deteriorated for several days in a row now, glucose 206, magnesium 2.7, bilirubin 3.6 which is up also, alkaline phosphatase 165, and albumin 3.1. His BNP was 1600 yesterday. Hemoglobin 9.0, hematocrit 32, and platelet count 131,000, WBC count 17.3. ASSESSMENT AND PLAN: Mr. Finney is an 60-year-old man who has a remote history of coronary intervention, but his last cardiac catheterization just a few weeks ago revealed patent coronary arteries, but he does have severe left ventricular systolic dysfunction and approximately moderate aortic stenosis. This is a stenosis of bioprosthetic aortic valve. He also has peripheral vascular disease and acute on chronic renal failure. At this point, he feels much better and would love to go home, but, unfortunately, his oxygen requirements are still significant. At this point, I would continue diuresis. I spoke with set Dr. Barrera's resident, Dr. Robbins, and I would encourage them to administer diuretics, even if blood pressure is relatively low. I think for people with severe congestive heart failure, it is common and somewhat interestingly since we cut down the diuretic dosing, the creatinine is actually deteriorated. I think we need to get down the central venous pressure (CVP) in order to improve renal function, as well. Otherwise, I do not think I can introduce more vasodilatory agents. He is on relatively low-dose Coreg. I am hoping that he will be discharged home soon.
[2016-07-13 12:00] VITALS: BP 93/54
--- NOTE | 2016-07-13 14:17 | IPNPDOC ---
Subjective Date Seen The patient was seen on 07/13/16. Subjective Chief Complaint/HPI The patient is a 60-year-old male admitted with a reason for visit of CHF. Events since last encounter Patient denies SOB to me and states he is ready to go home; however, his nurse states that he has been c/o SOB and asking for his O2 to be increased. He is not on O2 at home. Constitutional: Denies: Chills, Fever Skin: Denies: Rash Pulmonary: Denies: Cough, Dyspnea Cardiovascular: Denies: Chest Pain, Palpitations Gastrointestinal: Denies: Abdominal Pain, Nausea, Vomiting Genitourinary: Denies: Dysuria Neurological: Denies: Weakness Objective Physical Examination General Exam: Positive: Alert, No Acute Distress ENT Exam: Positive: Atraumatic Neck Exam: Positive: Other (tracheostomy), Supple Chest Exam: Positive: Diminished (rhonchi bilateral bases; no wheezes or crackles) Heart Exam: Positive: Rate Normal, Regular Rhythm Abdomen Exam: Positive: Normal bowel sounds, Soft, Negative: Tenderness Extremity Exam: Negative: Edema Skin Exam: Negative: Rash Assessment /Plan Problems (1) Leukocytosis Status: Acute Problem Specific Plan: Monitor Clinically, Repeat Labs Problem Text: 07/13 - Afebrile; WBC slightly up today; repeat blood cultures negative x72H. Continue to monitor. 07/12 - WBC down slightly today. 07/11 - Ceftaroline d/c'd yesterday after 4 days, remains Afebrile, has 18.8 WBC up from 18.2; repeat BCx ordered yesterday show NGTD, and urine CX ordered yesterday was negative. (KES) 07/10 - ceftaroline D4-emperic treatment for pneumonia. Afebrile since admission. Unknown what is being treated. WBC up. Will D/c Ceftaroline. Repeat blood cx ordered. Urine cx ordered. Suctioned sputum cx ordered. 07/09 - ceftaroline D3-emperic treatment for pneumonia-afebrile since admission 07/09 WBC 13.3 today (12.6 yesterday) 07/09 - PCR resp panel 07/06 CT chest CHF s infiltrate 07/06 BCX x 2 NG (2) CHF (congestive heart failure) Status: Acute Problem Specific Plan: Consult Specialist, Monitor Clinically, Repeat Labs Problem Text: 07/13 - Net+ 960 ml yesterday; he continues to require O2 (he requires none at baseline); Dr. Barrera is managing his fluid balance - his input is appreciated. Dr. Peterson has arranged a Life Vest for him. Anticipate d/c once fluid status improves; he may need to be discharged with supplemental oxygen. 07/12 07/11 output ?200, stable weight, BNP 1660 (07/06 3230) 07/11 - Cardio following-Lasix 40v to tors 40 QD possibly home tomorrow with LifeVest 07/10 - Cardiology following. IV Lasix 120 mg q8 hrs with hold parameters. Carvedilol, hydralazine with hold parameters. 07/09 - Cardiology following. IV Lasix 120 mg q8 hrs with hold parameters. Carvedilol, hydralazine with hold parameters, d/c TCA 07/08 - Less dyspnea today with IV Lasix. Hydralazine held for BP parameters (3) Elevated troponin Status: Acute Problem Specific Plan: Consult Specialist, Monitor Clinically, Repeat Labs Problem Text: ? 2 viral myocarditis given -catherization at [facility] (4) CKD (chronic kidney disease) Status: Chronic Problem Specific Plan: Consult Specialist, Monitor Clinically, Repeat Labs Problem Text: 07/11 - Appreciate Nephro input. Cr is essentially stable at 1.85 today. (KES) 07/10 - Nephrology following. Creat trending down to 1.82. K improved to 3.9 with replacement. Mg 2.5. 07/09 down to 2.1 c diuresis, K 3.1-110 po total given, Mg 2.0 3/ renal US s hydro / - UA baseline cr mid 1s (5) DM2 (diabetes mellitus, type 2) Status: Chronic Problem Specific Plan: Monitor Clinically, Repeat Labs Problem Text: 07/13 - BS improved since increasing dose of 70/30 insulin. 07/11 - BS very poorly controlled over the last 3 days with fasting BS in 200-220 range and elevated 300s-400s AC. He had previously been started on 70/30 25U BID prior to hospitalization, but he states he only took 3 doses of this prior to this admission. Will increase to 20U BID starting with tonight's dose and continue SSI. He will likely need close outpatient f/u for adjustment of insulin dosing. 07/08 - On SSI BS running 300s - 400s Restart low dose 70/30 insulin (He was on 25 units BID prior to admission - recently started on this b/c unable to afford long acting insulin and oral meds including Metformin and Glipizide held due to acute on chronic kidney failure) (6) Anemia Status: Acute Problem Specific Plan: Monitor Clinically, Repeat Labs Problem Text: 07/11 - Peripheral smear is consistent with iron-deficiency anemia ; PO iron supplementation started today; he may need repeat EGD as an outpatient. (KES) Iron deficient per recent iron studies. Xarelto held due to anemia and thrombocytopenia Check guiacs (reports ?black stool prior to admission - no BM since admission) Last colonoscopy 2014. Likely needs EGD if and when stable. (7) Thrombocytopenia Status: Acute Problem Specific Plan: Monitor Clinically, Repeat Labs Problem Text: 07/13 - Plt steadily improving. 07/11 - Likely drug-induced, possibly due to Zosyn (last dose 07/07) vs. HIT. Plt improved today to 103K. (KES) Baseline 06/22 210K 07/10 up to 77K 07/10 minimally elevated HIT Ab 0.442 (0-0.40) On Aspirin and Brilinta - Will D/C the Brilinta. Discussed with Dr Peterson. (8) Hyperlipidemia Status: Chronic Problem Specific Plan: Monitor Clinically Problem Text: On Statin. (9) Hypothyroidism Status: Chronic Problem Specific Plan: Monitor Clinically Problem Text: On Synthroid. Plan/VTE VTE Prophylaxis Ordered?: No VS, I&O, 24H, Fishbone Vital Signs/I&O Vital Signs Date Time Temp Pulse Resp B/P Pulse Ox O2 Delivery O2 Flow Rate FiO2 07/13/16 09:44 84 92/50 07/13/16 08:00 96.7 19 97 Trach Collar 07/13/16 07:25 28 07/12/16 20:00 5.0 I&O- Last 24 Hours up to 6 AM 07/13/16 06:00 Intake Total 1020 ml Output Total 600 ml Balance 420 ml Laboratory Data 24H LABS Laboratory Tests 2 07/12/16 16:19: Bedside Glucose (Misc Panel) 243H 07/12/16 20:36: Bedside Glucose (Misc Panel) 163H 07/13/16 05:35: Blood Urea Nitrogen 59H, Creatinine 2.29H, Sodium Level 134L, Potassium Level 4.3, Chloride Level 92L, Carbon Dioxide Level 33H, Calcium Level 9.3, Aspartate Amino Transf (AST/SGOT) 25, Alanine Aminotransferase (ALT/SGPT) 34, Alkaline Phosphatase 165H, Total Bilirubin 3.6H, Total Protein 7.5, Albumin 3.1L, Albumin /Globulin Ratio 0.70L, Anion Gap 9, White Blood Count 17.3H, Red Blood Count 4.77, Hemoglobin 9.0L, Hematocrit 32.4L, Mean Corpuscular Volume 67.8L, Mean Corpuscular Hemoglobin 18.8L, Mean Corpuscular Hemoglobin Concent 27.8L, Red Cell Distribution Width 27.9H, Platelet Count 131L, Neutrophils (%) (Auto) 87.0H , Lymphocytes (%) (Auto) 6.8L, Monocytes (%) (Auto) 3.3, Eosinophils (%) (Auto) 1.7, Basophils (%) (Auto) 0.3, Neutrophils # (Auto) 15.1H, Lymphocytes # (Auto) 1.3L, Monocytes # (Auto) 0.6, Eosinophils # (Auto) 0.3, Basophils # (Auto) 0.0, Glomerular Filtration Rate 31.4L, Large Unclassified Cells # 0.2, Large Unclassified Cells % 0.9, Magnesium Level 2.7H 07/13/16 12:09: Bedside Glucose (Misc Panel) 252H CBC/BMP Laboratory Tests 07/13/16 05:35 Calcium Level 9.3, Aspartate Amino Transf (AST/SGOT) 25, Alanine Aminotransferase (ALT/SGPT) 34, Alkaline Phosphatase 165 H, Total Bilirubin 3.6 H, Total Protein 7.5, Albumin 3.1 L, Red Blood Count 4.77, Mean Corpuscular Volume 67.8 L, Mean Corpuscular Hemoglobin 18.8 L, Mean Corpuscular Hemoglobin Concent 27.8 L, Red Cell Distribution Width 27.9 H, Neutrophils (%) (Auto) 87.0 H, Lymphocytes (%) (Auto) 6.8 L, Monocytes (%) (Auto) 3.3, Eosinophils (%) (Auto ) 1.7, Basophils (%) (Auto) 0.3, Neutrophils # (Auto) 15.1 H, Lymphocytes # ( Auto) 1.3 L, Monocytes # (Auto) 0.6, Eosinophils # (Auto) 0.3, Basophils # (Auto ) 0.0 Microbiology Microbiology 07/10/16 Blood Culture - Preliminary, Resulted No Growth after 72 hours. All specime... 07/10/16 Blood Culture - Preliminary, Resulted No Growth after 72 hours. All specime... 07/06/16 Blood Culture - Final, Complete NO GROWTH AFTER 5 DAYS 07/06/16 Blood Culture - Final, Complete NO GROWTH AFTER 5 DAYS 07/09/16 Respiratory Virus Panel (PCR) (SAMUEL) - Final, Complete 07/10/16 Urine Culture - Final, Complete MALLORIE ZAMORA MD Jul 13, 2016 14:17
[2016-07-13] MEDS: FERROUS SULFATE 325MG TAB PO SCH ×2 (14:44→20:48)
[2016-07-13 16:00] VITALS: BP 95/44
[2016-07-13 19:57] VITALS: BP 95/57
[2016-07-13] MEDS: ATORVASTATIN 10 MG TAB PO SCH (20:48)
[2016-07-13] MEDS: LEVOTHYROXINE 0.1 MG TAB (100 MCG) PO SCH (20:48)
[2016-07-13] MEDS: TAMSULOSIN 0.4 MG CAP PO SCH (20:48)
[2016-07-13] MEDS: LEVOTHYROXINE 0.075 MG TAB (75 MCG) PO SCH (20:51)
--- NOTE | 2016-07-13 20:52 | IPN ---
DATE: 07/13/2016 SUBJECTIVE: Mr. Finney is a 60-year-old male who is seen and examined in progressive care unit (PCU) room. Yesterday we started him on torsemide, unfortunately because of soft pressures, torsemide and metolazone were not given. He continues to report shortness of breath that is unchanged compared to yesterday. REVIEW OF SYSTEMS: Denies any chest pain, palpitations, fevers, chills, diarhea , constipation. Still reports decreased appetite and occasional episodes of nausea, though no emesis. The rest of review of systems is otherwise negative. OBJECTIVE: VITAL SIGNS: Blood pressure 92/50, heart rate 84, temperature 96.7, respiratory rate 19, pulse oximetry 97% on trach collar. INTAKE AND OUTPUT IN THE LAST 24 HOURS: 1560 and 600. Since admission he is net positive of 3.8 liters. Weight is 88.7 kg. Yesterday was documented at 89 kg. PHYSICAL EXAMINATION: GENERAL: The patient was lying in bed comfortable, flat, angled, comfortable in no acute distress. He is lying on his right side, alert, awake and oriented times three. Pleasant, cooperative though appears very tired. HEENT: Normocephalic, atraumatic. Moist oral mucosa. Edentulous. NECK: He is status post trachesotomy. Jugular venous distention (JVD) is approximately 7 cm above the sternal angle. CARDIOVASCULAR: Heart sounds distant. Normal S1, S2. There is systolic murmur in the second intercostal border, 2/6, unchanged. LUNGS: Breath sounds diminished but clear sounding bilaterally. No appreciable rales, rhonchi or wheezing. ABDOMEN: Obese but soft, mildly tender to palpation left lower quadrant. No guarding. No rebound. No peritoneal signs. EXTREMITIES: No pedal edema. Pedal pulse is present bilaterally. LABORATORY DATA: WBC 17.3, increased from yesterday 16.6, hemoglobin 9, yesterday was 8.7. Hematocrit 32.4, platelets 131. Sodium 134; decreased from yesterday 136. Potassium 4.3, chloride 92, carbon dioxide 33, BUN 59, creatinine 2.29. Fasting glucose 206, calcium 9.3, magnesium 2.7. Total bilirubin 3.6, AST 25, ALT 34, alkaline phosphatase 165. Urine culture is negative. MEDICATION LIST: Include torsemide 40 mg daily, potassium chloride 20 mEq, daily, metoprolol 7.25 mg by mouth daily, Coreg 6.25 twice a day, Requip, DuoNeb, amiodarone 200 mg daily, insulin sliding scale, levothyroxine 0.175 mg daily, Ultram 50 mg by mouth, Flomax, Prilosec, aspirin, Lipitor. IMPRESSION: Mr. Finney is a 60-year-old male with history of congestive heart failure with history of systolic heart failure presented with acute on chronic kidney disease secondary to decompensation of his congestive heart failure. PLAN: 1. Acute kidney injury superimposed on chronic kidney disease. Unfortunately his creatinine is worse today compared to yesterday. This is likely secondary to hypoperfusion due to his fluid overload. We started him on torsemide yesterday, unfortunately was not able to be given due to his systolic in the 80's. We have adjusted his parameters on torsemide and metolazone so he will be able to receive it for effective diuresis. Continue potassium supplementation daily. 2. Congestive heart failure. EF of 30%. He is on torsemide as mentioned above. Continue metolazone and potassium supplementation. Previously, he was taking Lasix 40 twice a day as needed on an outpatient basis. 3. Hyponatremia. Likely secondary to fluid overload. Repeat labs in the morning. 4. Hypokalemia. Resolved. He is on supplementation now that he is back on diuretic. 5. Anemia of chronic disease and iron deficiency anemia. Continue iron supplementation. Hemoglobin and hematocrit did not show significant change compared to yesterday. No need for transfusion at this time. Case discussed with Dr. Peterson. My preceptor for this patient encounter was Dr. Winston Barrera. The preceptor was physically present in the building during the encounter and was fully available as needed. All aspects of the patient interview, examination, medical decision making process, and medical care plan development were reviewed and approved by the preceptor. The preceptor is aware and concurs with the plan as stated in the body of this note and will attest to such by his/her co-signature. KELSY
[2016-07-13 23:59] VITALS: BP 91/55
[2016-07-14] MEDS: SLF 3 ML SYR IV SCH (03:52)
[2016-07-14 04:55] VITALS: BP 92/56
[2016-07-14 06:19] LABS: MEAN CORPUSCULAR HEMOGLOBIN 18.7 pg (27.0-33.0); MEAN CORPUSCULAR HGB CONC 27.6 g/dl (32.0-36.5); MEAN CORPUSCULAR VOLUME 67.9 fl (80.0-96.0); PLATELET COUNT, AUTOMATED 125 k/mm3 (150-450); RED CELL DISTRIBUTION WIDTH 28.8 % (11.5-14.5); WHITE BLOOD COUNT 13.3 K/mm3 (4.0-10.0)
[2016-07-14 06:34] LABS: CALCIUM LEVEL 8.8 MG/DL (8.5-10.1); CREATININE FOR GFR 2.38 MG/DL (0.70-1.30); MAGNESIUM LEVEL 2.5 MG/DL (1.8-2.4); PHOSPHORUS LEVEL 4.6 MG/DL (2.5-4.9)
[2016-07-14 06:39] LABS: POTASSIUM SERUM 3.1 MEQ/L (3.5-5.1)
[2016-07-14] MEDS: HumuLIN (NovoLIN)70/30 INSULIN INJ PER UNIT SC SCH (07:30)
[2016-07-14 07:40] LABS: EOSINOPHILS 3 % (0-5)
[2016-07-14 07:41] LABS: ANISOCYTOSIS 3+; MICROCYTOSIS 2+
[2016-07-14 07:42] LABS: STOMATOCYTES 1+
[2016-07-14 07:50] VITALS: BP 118/70
--- NOTE | 2016-07-14 08:22 | IPN ---
DATE: 07/14/2016 Mr. Finney is desperately demanding to go home or he says that he otherwise will leave against medical advice. He says that he is frustrated because he does not think that there is much happening for him to need to be in the hospital. He has tells me that he is not short of breath or at least much better, but he still continues to feel tired. Denies any chest pain. Blood pressure 92/56, heart rate is in 80s. He is afebrile. Saturation even without oxygen for few minutes was still in mid to high 90s. His fluid balance yesterday was documented as 800 positive, which is likely inaccurate. Weight documented 87.9, which is about kilogram down from yesterday. His jugular venous pulse (JVP) does not look severely elevated but is still above clavicle at least 2 or 3 cm. Lungs though are clear and air movement sounds. Heart exam is unchanged with regular rhythm. There is murmur at the base and murmur at the apex. Both are quite faint. Abdomen is soft and nontender. There is no edema. Laboratory castelan, his potassium 3.1, BUN 57, creatinine 2.4, GFR 30 and glucose 171. Magnesium is 2.5. Albumin is 3.0. CBC: Hemoglobin 9.1, hematocrit 32, platelet count 125,000, WBC count 13.3. ASSESSMENT AND PLAN: Mr. Finney is a 60-year-old man who has nonischemic cardiomyopathy with concomitant coronary artery disease (remote history of PCI). He has also approximately moderate aortic stenosis and renal insufficiency stage III to IV. I do believe that we can let him go home. From volume perspective, he actually appears to be doing relatively well. I would discharge him only on torsemide without Zaroxolyn. I will continue also Coreg, amiodarone and aspirin. As far as the oxygen is concerned, I do believe that some of the measurements are probably inaccurate because I witnessed measuring oxygen within 2 minutes, there were vastly different readings. He certainly does not act or appear to have severe hypoxemia. Finally, he was set up with a LifeVest yesterday and he will wear it, and I hope that his left ventricular (LV) function will recover and he will not need long-term defibrillator. KELSY
[2016-07-14] MEDS: HumaLOG INSULIN (NovoLOG) PER UNIT SC SCH (08:29)
[2016-07-14 08:30] VITALS: BP 118/70
[2016-07-14] MEDS: OMEPRAZOLE 20 MG CAP PO SCH (08:30)
[2016-07-14] MEDS: CARVedilol 6.25 MG TAB PO SCH (08:30)
[2016-07-14] MEDS: metOLazone 2.5 MG TAB PO SCH (08:30)
[2016-07-14] MEDS: IRON POLYSAC (NIFEREX) 150 MG CAP PO SCH (08:30)
[2016-07-14] MEDS: POTASSIUM CHLORIDE 10 MEQ SR TABLET PO SCH (08:30)
[2016-07-14] MEDS: AMIODARONE 200 MG TAB (PACERONE) PO SCH (08:31)
[2016-07-14] MEDS: ASPIRIN 81 MG ENTERIC TAB PO SCH (08:31)
[2016-07-14] MEDS: rOPINIRole 1MG TAB PO SCH (08:31)
[2016-07-14] MEDS: MULTIVITAMINS/MINERALS THERAP 1 TAB PO SCH (08:31)
[2016-07-14] MEDS: TORSEMIDE 20 MG TAB PO SCH (08:31)
[2016-07-14] MEDS: OMEGA-3 1050MG CAPSULE PO SCH (08:32)
[2016-07-14] MEDS ORDERED: POTASSIUM CHLORIDE 10 MEQ SR TABLET PO ONE (09:00)
[2016-07-14] MEDS ORDERED: POTA10CA PO (09:03)
[2016-07-14] MEDS ORDERED: NIFE1TAB62 PO (09:03)
[2016-07-14] MEDS ORDERED: METO25TA PO (09:03)
[2016-07-14] MEDS ORDERED: AMIO20TA PO (09:03)
[2016-07-14] MEDS ORDERED: CARV6.25 PO (09:03)
[2016-07-14] MEDS ORDERED: HUMU70IN SC (09:12)
[2016-07-14] MEDS ORDERED: TORSEMIDE 20 MG TAB PO SCH (21:00)
--- NOTE | 2016-07-15 04:22 | DSES ---
DATE OF ADMISSION: 07/06/2016 DATE OF DISCHARGE: 07/14/2016 PRIMARY CARE PROVIDER: Emanuel Ruiz MD. ATTENDING TODAY: Jennifer Hernandez MD. CONSULTANTS: Include Dr Peterson. HISTORY: This is a 60-year-old male patient who follows with Dr. Ruiz, [facility] [place] in the outpatient setting, who complains of increased shortness of breath. He had a recent admission to the hospital from the to the where he signed out against medical advice with a non-ST elevation myocardial infarction and pneumonia. He followed up with [facility] on his own accord after that where he was admitted from the to the , underwent cardiac catheterization, which was unremarkable. He was discharged home on medical management recommendation with continuation of antibiotics to treat the pneumonia. At home, he was feeling well for a day and a half. He went to bed the night before his presentation feeling okay. He was restless throughout the night, and noted some associated shortness of breath. Denied any weight gain, although he had not been taking his weight on a daily basis. He was also not put on a fluid restriction. He developed a cough with some red sputum. Breathing did improve with a breathing treatment in the emergency room and the initiation of oxygen therapy. He did complain of chills and decreased appetite. He was admitted to the progressive care unit with decompensated systolic congestive heart failure with known dilated cardiomyopathy. Dr. Peterson was consulted, who managed his diuresis. During his hospitalization, he has remained medically stable. He did have a bump in his serum creatinine and Dr. Barrera was also consulted and felt as though this was most likely secondary to the decompensated congestive heart failure. He was diuresed with intravenous (IV) Lasix. He was also started on IV antibiotics, although it was not exactly clear what we were treating with the IV antibiotics and therefore, these were discontinued. His blood culture was without growth. His urine culture was also without growth. His white blood cell count did continue to trend downward after discontinuation of his antibiotics. Dr. Peterson transitioned him from IV Lasix to torsemide and Zaroxolyn. Seems to be doing well respiratory castelan. He has been ambulating this morning with nursing with an oxygen initially between 95% dropping to 88%, although immediately improving with rest. He was noted to be anemic during his hospitalization, iron deficient per recent iron studies and therefore, he was placed on Niferex. Thrombocytopenia felt to be drug induced secondary to Zosyn. DISCHARGE DIAGNOSES: Include: 1. Acute on chronic systolic congestive heart failure with dilated cardiomyopathy. 2. Leukocytosis. 3. Elevated troponin. 4. Acute renal failure on chronic kidney disease stage IV. 5. Diabetes mellitus type 2. 6. Anemia of chronic disease and iron deficiency. 7. Thrombocytopenia. 8. Hyperlipidemia. 9. Hypothyroidism. DISCHARGE MEDICATIONS: Include: - amiodarone 200 mg daily - carvedilol 6.25 mg by mouth twice a day - metolazone 2.5 mg Monday, Monday and Monday - Niferex one tablet by mouth twice a day - potassium chloride 20 mEq by mouth daily - aspirin 81 mg daily - atorvastatin 10 mg daily - fish oil 1200 mg by mouth daily - Humulin 70/30 subcutaneously twice a day, this should be 20 units - levothyroxine 175 mcg by mouth daily - multivitamin one tablet by mouth daily - omeprazole 20 mg daily - Requip 2 mg before bed, 0.5 mg daily - Flomax 0.4 mg before bed - Brilinta inhaled twice daily - tramadol 50 mg every 6 hours as needed for pain Followup with Dr. Peterson in [address] Ruiz in 1 week. Activity should be as tolerated. Diet should be no added salt, low cholesterol, consistent carbohydrate. 1500 mL fluid restriction.
[2016-07-15] MEDS ORDERED: POTASSIUM CHLORIDE 10 MEQ SR TABLET PO SCH (09:00)
[2016-07-16 00:06] LABS: COXSACKIE TYPE B2 1:32 (Neg:<1:8); COXSACKIE TYPE B5 1:16 (Neg:<1:8)
== END 2016-07-14 10:05 | disposition home health service (06) | DRG 291 ==
LOC: M ED 13:36 → M ED INP 17:27 → M PCU 20:50
PROVIDERS: ADMIT Internal Medicine; ATTEND Family Medicine
DX: I13.0 Hypertensive heart and chronic kidney disease with heart failure and stage 1 through stage 4 chronic kidney disease, or unspecified chronic kidney disease (principal); I50.23 Acute on chronic systolic (congestive) heart failure; N17.9 Acute kidney failure, unspecified; N18.4 Chronic kidney disease, stage 4 (severe); E87.1 Hypo-osmolality and hyponatremia; I42.0 Dilated cardiomyopathy; K21.9 Gastro-esophageal reflux disease without esophagitis; E87.6 Hypokalemia; E78.5 Hyperlipidemia, unspecified; I95.9 Hypotension, unspecified; E66.9 Obesity, unspecified; I48.0 Paroxysmal atrial fibrillation; D50.9 Iron deficiency anemia, unspecified; E11.9 Type 2 diabetes mellitus without complications; D63.8 Anemia in other chronic diseases classified elsewhere; N40.0 Benign prostatic hyperplasia without lower urinary tract symptoms; D69.6 Thrombocytopenia, unspecified; Z95.2 Presence of prosthetic heart valve; Z93.0 Tracheostomy status; Z85.118 Personal history of other malignant neoplasm of bronchus and lung; Z85.819 Personal history of malignant neoplasm of unspecified site of lip, oral cavity, and pharynx; Z91.013 Allergy to seafood; Z79.4 Long term (current) use of insulin; Z79.82 Long term (current) use of aspirin; Z79.891 Long term (current) use of opiate analgesic; Z79.899 Other long term (current) drug therapy; Z92.21 Personal history of antineoplastic chemotherapy; Z92.3 Personal history of irradiation; Z68.28 Body mass index [BMI] 28.0-28.9, adult

== ENCOUNTER → 2016-07-20 | Outpatient (REF) | payer MEDICARE ==
[~2016-07-20] MED LIST changes: +AMIO400T PO; +CARV6.25 PO; +CEFT500T3 PO; +HUMU70IN SC; +METO25TA PO; +NIFE1TAB62 PO; +POTA10CA PO
[2016-07-20 14:32] LABS: MEAN CORPUSCULAR HEMOGLOBIN 20.1 pg (27.0-33.0); MEAN CORPUSCULAR HGB CONC 26.6 g/dl (32.0-36.5); MEAN CORPUSCULAR VOLUME 75.4 fl (80.0-96.0); RED CELL DISTRIBUTION WIDTH 29.6 % (11.5-14.5); WHITE BLOOD COUNT 14.1 K/mm3 (4.0-10.0)
[2016-07-20 14:37] LABS: CALCIUM LEVEL 8.9 MG/DL (8.5-10.1); GLOMERULAR FILTRATION RATE 36.7 (>56); POTASSIUM SERUM 4.2 MEQ/L (3.5-5.1)
== END ==
LOC: M LABDRAWP 14:05
PROVIDERS: ATTEND Internal Medicine Cardiovascular Disease
DX: I50.9 Heart failure, unspecified (principal); N18.9 Chronic kidney disease, unspecified

== ENCOUNTER 2016-07-25 10:02 | Outpatient (RCR) | payer MEDICARE ==
[2016-08-09] MEDS ORDERED: AMIO10TA PO (11:53)
[2016-08-09] MEDS ORDERED: VITA200015 PO (11:56)
[2016-08-09] MEDS ORDERED: K-TA10TA2 PO (12:00)
[2016-08-09] MEDS ORDERED: NOVO70IN SC (12:04)
[2016-08-09] MEDS ORDERED: TORS100T PO (12:10)
[2016-08-09] MEDS ORDERED: SPIR25TA2 PO (12:10)
[2016-08-09] MEDS ORDERED: FERR325T16 PO (12:10)
[2016-08-09] MEDS ORDERED: GABA300C3 PO ×2 (12:10)
== END 2016-08-05 ==
LOC: M ST 10:02
PROVIDERS: ATTEND Otolaryngology
DX: Z51.89 Encounter for other specified aftercare (principal); Z43.0 Encounter for attention to tracheostomy
CPT/HCPCS: 92597; G9174; G9175; G9176

== ENCOUNTER 2016-09-21 13:00 | Outpatient (RCR) | payer MEDICARE, SELFPAY ==
[~2016-09-21 13:00] MED LIST changes: +AMIO10TA PO; +ATRO1OPD PO; +FERR325T16 PO; +GABA-282 PO; +K-TA10TA2 PO; +LORA-376 PO; +MORP1SOL PO; +NOVO70IN SC; +TORS100T PO; +VITA200015 PO
== END 2016-10-05 ==
LOC: M ST 13:00
PROVIDERS: ATTEND Otolaryngology
DX: Z51.89 Encounter for other specified aftercare (principal)